=== PATIENT | male | born 1960 | race Caucasian/White ===

== ENCOUNTER 2022-10-06 11:46 | Outpatient (RCR) | payer MEDICAID, SELFPAY ==
[2022-09-15 11:34] LABS: Absolute Lymphocyte Count 2.93 X10^3/uL (0.83-4.51); Absolute Neutrophil Count 4.7 X10^3/uL (2.0-7.7); Basophil# 0.13 X10^3/uL; Basophil% 1.4 % (0-1); Eosinophil# 0.69 X10^3/uL; Eosinophils% 7.5 % (0-5); Hematocrit 42.4 % (40-54); Hemoglobin 14.2 g/dL (13.0-16.5); Lymphocyte # 2.93 X10^3/ul (0.83-4.51); Lymphocyte % 31.9 % (19-41); Mean Corp Hgb Conc 33.5 g/dL (32-36); Mean Corpuscular Hgb 30.1 pg (27.0-32.0); Mean Platelet Vol. 10.3 fl (6.2-12.0); Monocyte# 0.72 X10^3/uL; Monocyte% 7.8 % (0-10); NRBC Flagged by Analyzer 0 % (0-5); Neutrophil # 4.65 X10^3/uL (2.7-7.7); Neutrophil % 50.6 % (47-70); Platelet Count 279 K/mm3 (150-450); RBC Distribution Width CV 12.5 % (11.6-14.6); RBC Distribution Width SD 41.1 fl (35.1-43.9); Red Blood Count 4.71 M/mm3 (4.6-6.2); White Blood Count 9.2 K/mm3 (4.4-11.0)
[2022-09-15 11:45] LABS: International Normalized Ratio 2.9
[2022-09-15 12:07] LABS: ALB/GLOB Ratio 0.9 RATIO (0.9-2.4); AST(SGOT) 19 U/L (15-37); Alanine Aminotransfer ALT/SGPT 30 U/L (16-61); Albumin, Serum 3.7 g/dL (3.2-5.0); Alkaline Phosphatase 56 U/L (45-117); Anion Gap 7 (5-15); BUN 8 mg/dL (7-18); Chloride 108 mmol/L (98-107); Creatinine, Serum 1.15 mg/dL (0.70-1.30); EST Glomerular Filtration Rate 69 mL/min (>60); Est Glom Filt Rate - Afr Amer 83 mL/min (>60); Glucose 152 mg/dL (74-106); Potassium 4.2 mmol/L (3.5-5.1); Protein, Total 7.7 g/dL (6.4-8.2); Sodium Level 143 mmol/L (136-145)
[2022-09-15 12:09] LABS: Hemoglobin A1c 6.7 % (3.8-5.6)
[2022-10-06 13:02] LABS: International Normalized Ratio 2.7; Prothrombin Time (Protime)PT. 28.5 SECONDS (11.7-14.9)
== END 2022-10-06 18:00 | disposition home or self-care (01) ==
LOC: LAB 11:46
PROVIDERS: PCP Family Medicine; Visit Provider Family Medicine
DX: Z79.01 Long term (current) use of anticoagulants (principal); Z86.718 Personal history of other venous thrombosis and embolism; E11.9 Type 2 diabetes mellitus without complications
CPT/HCPCS: 36415; 80053; 83036; 85025; 85610

== ENCOUNTER 2022-11-24 09:47 | Outpatient (RCR) | payer MEDICAID, SELFPAY ==
[2022-11-17 10:36] LABS: International Normalized Ratio 1.9; Prothrombin Time (Protime)PT. 21.3 SECONDS (11.7-14.9)
[2022-11-24 10:46] LABS: Absolute Lymphocyte Count 2.57 X10^3/uL (0.83-4.51); Basophil# 0.09 X10^3/uL; Basophil% 1.1 % (0-1); Eosinophil# 0.76 X10^3/uL; Eosinophils% 9.2 % (0-5); Hemoglobin 13.1 g/dL (13.0-16.5); Lymphocyte # 2.57 X10^3/ul (0.83-4.51); Lymphocyte % 31.1 % (19-41); Mean Corpuscular Hgb 29.6 pg (27.0-32.0); Mean Corpuscular Volume 92.6 fL (80-94); Mean Platelet Vol. 11.2 fl (6.2-12.0); Monocyte# 0.74 X10^3/uL; NRBC Flagged by Analyzer 0 % (0-5); Neutrophil # 4.04 X10^3/uL (2.7-7.7); Neutrophil % 48.9 % (47-70); Platelet Count 275 K/mm3 (150-450); RBC Distribution Width CV 13.4 % (11.6-14.6); RBC Distribution Width SD 45.5 fl (35.1-43.9); Red Blood Count 4.43 M/mm3 (4.6-6.2); White Blood Count 8.3 K/mm3 (4.4-11.0)
[2022-11-24 11:09] LABS: Hemoglobin A1c 7.9 % (3.8-5.6)
[2022-11-24 11:16] LABS: AST(SGOT) 23 U/L (15-37); Alanine Aminotransfer ALT/SGPT 36 U/L (16-61); Albumin, Serum 3.5 g/dL (3.2-5.0); Alkaline Phosphatase 52 U/L (45-117); Anion Gap 2 (5-15); BUN 19 mg/dL (7-18); Calcium,Total 8.9 mg/dL (8.5-10.1); Chloride 110 mmol/L (98-107); Cholesterol 135 mg/dL (200); Creatinine, Serum 1.19 mg/dL (0.70-1.30); EST Glomerular Filtration Rate 66 mL/min (>60); Est Glom Filt Rate - Afr Amer 80 mL/min (>60); Globulin 3.6 g/dL (2.2-4.2); Glucose 170 mg/dL (74-106); High Density Lipoprotein 50 mg/dL; Potassium 4.2 mmol/L (3.5-5.1); Protein, Total 7.1 g/dL (6.4-8.2); Sodium Level 139 mmol/L (136-145); Triglycerides 89 mg/dL; Very Low Density Lipoprotein 18 mg/dL (5-40)
== END 2022-12-12 01:18 | disposition home or self-care (01) ==
LOC: LAB 09:47
PROVIDERS: PCP Family Medicine; Referring Provider Family Medicine; Visit Provider Family Medicine
DX: Z79.01 Long term (current) use of anticoagulants; Z86.718 Personal history of other venous thrombosis and embolism
CPT/HCPCS: 36415; 80053; 80061; 83036; 85025; 85610

== ENCOUNTER 2023-01-14 09:24 | Outpatient (RCR) | payer MEDICAID, SELFPAY ==
[2023-01-14 10:26] LABS: International Normalized Ratio 2.4; Prothrombin Time (Protime)PT. 26.6 SECONDS (11.7-14.9)
== END 2023-01-14 18:00 | disposition home or self-care (01) ==
LOC: LAB 09:24
PROVIDERS: PCP Family Medicine; Referring Provider Family Medicine; Visit Provider Family Medicine
DX: Z79.01 Long term (current) use of anticoagulants (principal); Z86.718 Personal history of other venous thrombosis and embolism
CPT/HCPCS: 36415; 85610

== ENCOUNTER 2023-02-24 14:46 | Outpatient (RCR) | payer MEDICAID, SELFPAY ==
[2023-02-24 14:57] LABS: INR Fingerstick 1.8; Prothrombin Time Fingerstick 19.9 SEC (11.7-14.9)
== END 2023-03-14 18:00 | disposition home or self-care (01) ==
LOC: LAB 14:46
PROVIDERS: PCP Family Medicine; Referring Provider Family Medicine; Visit Provider Family Medicine
DX: Z79.01 Long term (current) use of anticoagulants (principal); Z86.718 Personal history of other venous thrombosis and embolism
CPT/HCPCS: 36416; 85610

== ENCOUNTER → 2023-03-31 | Outpatient (CLI) | payer MEDICAID, SELFPAY ==
[2023-03-31 11:17] LABS: Absolute Lymphocyte Count 2.66 X10^3/uL (0.83-4.51); Absolute Neutrophil Count 4.6 X10^3/uL (2.0-7.7); Basophil% 1.1 % (0-1); Eosinophils% 7.8 % (0-5); Hematocrit 46.1 % (40-54); Hemoglobin 14.7 g/dL (13.0-16.5); Lymphocyte # 2.66 X10^3/ul (0.83-4.51); Lymphocyte % 29.8 % (19-41); Mean Corp Hgb Conc 31.9 g/dL (32-36); Mean Corpuscular Hgb 29.6 pg (27.0-32.0); Mean Corpuscular Volume 92.9 fL (80-94); Mean Platelet Vol. 10.9 fl (6.2-12.0); Monocyte# 0.81 X10^3/uL; Monocyte% 9.1 % (0-10); NRBC Flagged by Analyzer 0 % (0-5); Neutrophil # 4.61 X10^3/uL (2.7-7.7); Neutrophil % 51.5 % (47-70); Platelet Count 287 K/mm3 (150-450); RBC Distribution Width CV 13.4 % (11.6-14.6); RBC Distribution Width SD 45.5 fl (35.1-43.9); Red Blood Count 4.96 M/mm3 (4.6-6.2); White Blood Count 8.9 K/mm3 (4.4-11.0)
[2023-03-31 11:42] LABS: Hemoglobin A1c 6.4 % (3.8-5.6)
[2023-03-31 12:06] LABS: ALB/GLOB Ratio 0.9 RATIO (0.9-2.4); AST(SGOT) 22 U/L (15-37); Alanine Aminotransfer ALT/SGPT 33 U/L (16-61); Albumin, Serum 3.7 g/dL (3.2-5.0); Alkaline Phosphatase 63 U/L (45-117); Anion Gap 5 (5-15); BUN 15 mg/dL (7-18); BUN/Creat Ratio 11.3 RATIO (10-20); Calcium,Total 9.3 mg/dL (8.5-10.1); Chloride 109 mmol/L (98-107); Cholesterol 125 mg/dL (200); Creatinine, Serum 1.33 mg/dL (0.70-1.30); EST Glomerular Filtration Rate 58 mL/min (>60); Est Glom Filt Rate - Afr Amer 70 mL/min (>60); Globulin 4.1 g/dL (2.2-4.2); Glucose 95 mg/dL (74-106); High Density Lipoprotein 42 mg/dL; Potassium 4.2 mmol/L (3.5-5.1); Protein, Total 7.8 g/dL (6.4-8.2); Sodium Level 141 mmol/L (136-145); Thyroid Stim Hormone (TSH) 1.86 uIU/mL (0.358-3.74); Triglycerides 102 mg/dL; Very Low Density Lipoprotein 20 mg/dL (5-40)
== END | disposition home or self-care (01) ==
LOC: LAB 10:53
PROVIDERS: PCP Family Medicine; Referring Provider Family Medicine; Visit Provider Family Medicine
DX: E11.9 Type 2 diabetes mellitus without complications (principal); I10 Essential (primary) hypertension; E78.2 Mixed hyperlipidemia
CPT/HCPCS: 36415; 80053; 80061; 83036; 84443; 85025

== ENCOUNTER 2023-05-25 12:56 | Outpatient (RCR) | payer MEDICAID, SELFPAY ==
[2023-05-25 13:39] LABS: Prothrombin Time (Protime)PT. 31.5 SECONDS (11.7-14.9)
== END 2023-05-25 18:00 | disposition home or self-care (01) ==
LOC: LAB 12:56
PROVIDERS: PCP Family Medicine; Referring Provider Family Medicine; Visit Provider Family Medicine
DX: Z79.01 Long term (current) use of anticoagulants (principal); Z86.718 Personal history of other venous thrombosis and embolism
CPT/HCPCS: 36415; 85610

== ENCOUNTER → 2023-08-04 | Outpatient (CLI) | payer MEDICAID, SELFPAY ==
[2023-08-04 11:28] LABS: Absolute Neutrophil Count 5.3 X10^3/uL (2.0-7.7); Basophil# 0.11 X10^3/uL; Basophil% 1.2 % (0-1); Eosinophil# 0.57 X10^3/uL; Eosinophils% 6.3 % (0-5); Hematocrit 43.9 % (40-54); Hemoglobin 14.2 g/dL (13.0-16.5); Lymphocyte % 25.4 % (19-41); Mean Corp Hgb Conc 32.3 g/dL (32-36); Mean Corpuscular Hgb 29.4 pg (27.0-32.0); Mean Corpuscular Volume 90.9 fL (80-94); Mean Platelet Vol. 11.1 fl (6.2-12.0); Monocyte# 0.77 X10^3/uL; Monocyte% 8.5 % (0-10); NRBC Flagged by Analyzer 0 % (0-5); Neutrophil # 5.25 X10^3/uL (2.7-7.7); Neutrophil % 57.8 % (47-70); Platelet Count 286 K/mm3 (150-450); RBC Distribution Width CV 13.1 % (11.6-14.6); RBC Distribution Width SD 43.4 fl (35.1-43.9); Red Blood Count 4.83 M/mm3 (4.6-6.2); White Blood Count 9.1 K/mm3 (4.4-11.0)
[2023-08-04 11:52] LABS: Hemoglobin A1c 9.2 % (3.8-5.6)
[2023-08-04 11:55] LABS: International Normalized Ratio 1.7; Prothrombin Time (Protime)PT. 20.4 SECONDS (11.7-14.9)
[2023-08-04 12:10] LABS: ALB/GLOB Ratio 0.9 RATIO (0.9-2.4); AST(SGOT) 32 U/L (15-37); Alanine Aminotransfer ALT/SGPT 50 U/L (16-61); Albumin, Serum 3.7 g/dL (3.2-5.0); Alkaline Phosphatase 63 U/L (45-117); Anion Gap 6 (5-15); BUN 11 mg/dL (7-18); BUN/Creat Ratio 8.5 RATIO (10-20); Calcium,Total 9.6 mg/dL (8.5-10.1); Chloride 106 mmol/L (98-107); Cholesterol 138 mg/dL (200); Creatinine, Serum 1.29 mg/dL (0.70-1.30); EST Glomerular Filtration Rate 60 mL/min (>60); Est Glom Filt Rate - Afr Amer 72 mL/min (>60); Glucose 252 mg/dL (74-106); High Density Lipoprotein 46 mg/dL; PSA,Total - Annual Screen 0.88 ng/mL (0.00-4.00); Potassium 4.7 mmol/L (3.5-5.1); Protein, Total 7.7 g/dL (6.4-8.2); Sodium Level 139 mmol/L (136-145); Triglycerides 98 mg/dL; Very Low Density Lipoprotein 20 mg/dL (5-40)
== END | disposition home or self-care (01) ==
LOC: LAB 10:21
PROVIDERS: PCP Family Medicine; Referring Provider Family Medicine; Visit Provider Family Medicine
DX: E11.42 Type 2 diabetes mellitus with diabetic polyneuropathy (principal); I10 Essential (primary) hypertension; Z12.5 Encounter for screening for malignant neoplasm of prostate; Z79.01 Long term (current) use of anticoagulants
CPT/HCPCS: 84153; 36415; 80053; 80061; 83036; 85025; 85610; G0103

== ENCOUNTER 2023-10-12 11:02 | Outpatient (RCR) | payer MEDICAID, SELFPAY ==
[2023-09-20 07:31] LABS: INR Fingerstick 3.2; Prothrombin Time Fingerstick 31.7 SEC (11.7-14.9)
[2023-10-12 11:40] LABS: International Normalized Ratio 2.7; Prothrombin Time (Protime)PT. 28.6 SECONDS (11.7-14.9)
== END 2023-10-13 18:00 | disposition home or self-care (01) ==
LOC: LAB 11:02
PROVIDERS: PCP Family Medicine; Referring Provider Family Medicine; Visit Provider Family Medicine
DX: Z86.718 Personal history of other venous thrombosis and embolism
CPT/HCPCS: 36415; 36416; 85610

== ENCOUNTER → 2023-11-25 | Outpatient (CLI) | payer MEDICAID, SELFPAY ==
[2023-11-25 11:55] LABS: Absolute Lymphocyte Count 2.74 X10^3/uL (0.83-4.51); Absolute Neutrophil Count 4.2 X10^3/uL (2.0-7.7); Basophil# 0.11 X10^3/uL; Basophil% 1.3 % (0-1); Eosinophils% 4.8 % (0-5); Hematocrit 44.5 % (40-54); Hemoglobin 14.3 g/dL (13.0-16.5); Lymphocyte # 2.74 X10^3/ul (0.83-4.51); Lymphocyte % 32.7 % (19-41); Mean Corp Hgb Conc 32.1 g/dL (32-36); Mean Corpuscular Hgb 29.1 pg (27.0-32.0); Mean Corpuscular Volume 90.6 fL (80-94); Mean Platelet Vol. 11.3 fl (6.2-12.0); Monocyte# 0.87 X10^3/uL; Monocyte% 10.4 % (0-10); NRBC Flagged by Analyzer 0 % (0-5); Neutrophil # 4.19 X10^3/uL (2.7-7.7); Neutrophil % 50.1 % (47-70); Platelet Count 269 K/mm3 (150-450); RBC Distribution Width CV 13.7 % (11.6-14.6); RBC Distribution Width SD 45.3 fl (35.1-43.9); Red Blood Count 4.91 M/mm3 (4.6-6.2); White Blood Count 8.4 K/mm3 (4.4-11.0)
[2023-11-25 12:13] LABS: International Normalized Ratio 2.4; Prothrombin Time (Protime)PT. 25.7 SECONDS (11.7-14.9)
[2023-11-25 12:15] LABS: Hemoglobin A1c 9.4 % (3.8-5.6)
[2023-11-25 12:25] LABS: ALB/GLOB Ratio 0.9 RATIO (0.9-2.4); AST(SGOT) 15 U/L (15-37); Alanine Aminotransfer ALT/SGPT 26 U/L (16-61); Albumin, Serum 3.6 g/dL (3.2-5.0); Alkaline Phosphatase 52 U/L (45-117); Anion Gap 4 (5-15); BUN 18 mg/dL (7-18); BUN/Creat Ratio 14.8 RATIO (10-20); Calcium,Total 9.3 mg/dL (8.5-10.1); Chloride 109 mmol/L (98-107); Cholesterol 111 mg/dL (200); Creatinine, Serum 1.22 mg/dL (0.70-1.30); EST Glomerular Filtration Rate 64 mL/min (>60); Est Glom Filt Rate - Afr Amer 77 mL/min (>60); Globulin 3.8 g/dL (2.2-4.2); Glucose 183 mg/dL (74-106); High Density Lipoprotein 51 mg/dL; Potassium 4.3 mmol/L (3.5-5.1); Protein, Total 7.4 g/dL (6.4-8.2); Sodium Level 139 mmol/L (136-145); Triglycerides 106 mg/dL; Very Low Density Lipoprotein 21 mg/dL (5-40)
== END | disposition home or self-care (01) ==
LOC: LAB 11:11
PROVIDERS: PCP Family Medicine; Referring Provider Family Medicine; Visit Provider Family Medicine
DX: E11.9 Type 2 diabetes mellitus without complications (principal); E78.2 Mixed hyperlipidemia; Z79.01 Long term (current) use of anticoagulants
CPT/HCPCS: 36415; 80053; 80061; 83036; 85025; 85610

== ENCOUNTER 2024-02-14 16:10 | Outpatient (RCR) | payer MEDICAID, SELFPAY ==
[2024-02-14 16:42] LABS: International Normalized Ratio 1.9; Prothrombin Time (Protime)PT. 21.5 SECONDS (11.7-14.9)
== END 2024-03-14 18:00 | disposition home or self-care (01) ==
LOC: LAB 16:10
PROVIDERS: PCP Family Medicine; Referring Provider Family Medicine; Visit Provider Family Medicine
DX: Z86.718 Personal history of other venous thrombosis and embolism (principal)
CPT/HCPCS: 36415; 85610

== ENCOUNTER → 2024-03-02 | Outpatient (CLI) | payer MEDICAID, SELFPAY ==
[2024-03-02 15:07] LABS: International Normalized Ratio 1.6; Prothrombin Time (Protime)PT. 18.6 SECONDS (11.7-14.9)
[2024-03-02 15:50] LABS: ALB/GLOB Ratio 0.9 RATIO (0.9-2.4); AST(SGOT) 22 U/L (15-37); Alanine Aminotransfer ALT/SGPT 28 U/L (16-61); Albumin, Serum 3.6 g/dL (3.2-5.0); Alkaline Phosphatase 56 U/L (45-117); Anion Gap 7 (5-15); BUN 13 mg/dL (7-18); BUN/Creat Ratio 10.4 RATIO (10-20); Calcium,Total 9.1 mg/dL (8.5-10.1); Chloride 107 mmol/L (98-107); Creatinine, Serum 1.25 mg/dL (0.70-1.30); EST Glomerular Filtration Rate 62 mL/min (>60); Est Glom Filt Rate - Afr Amer 75 mL/min (>60); Glucose 196 mg/dL (74-106); Potassium 4.4 mmol/L (3.5-5.1); Protein, Total 7.6 g/dL (6.4-8.2); Sodium Level 141 mmol/L (136-145)
[2024-03-02 15:51] LABS: Hemoglobin A1c 7.6 % (3.8-5.6)
== END | disposition home or self-care (01) ==
LOC: LAB 13:54
PROVIDERS: PCP Family Medicine; Referring Provider Family Medicine; Visit Provider Family Medicine
DX: E11.42 Type 2 diabetes mellitus with diabetic polyneuropathy (principal); D68.51 Activated protein C resistance
CPT/HCPCS: 36415; 80053; 83036; 85610

== ENCOUNTER 2024-05-14 12:33 | Outpatient (RCR) | payer MEDICAID, SELFPAY ==
[2024-05-14 13:34] LABS: International Normalized Ratio 1.7; Prothrombin Time (Protime)PT. 20.1 SECONDS (11.7-14.9)
== END 2024-05-14 18:00 | disposition home or self-care (01) ==
LOC: LAB 12:33
PROVIDERS: PCP Family Medicine; Referring Provider Family Medicine; Visit Provider Family Medicine
DX: Z86.718 Personal history of other venous thrombosis and embolism (principal)
CPT/HCPCS: 36415; 85610

== ENCOUNTER → 2024-07-05 | Outpatient (CLI) | payer MEDICAID, SELFPAY ==
[2024-07-05 12:49] LABS: Absolute Neutrophil Count 4.7 X10^3/uL (2.0-7.7); Basophil# 0.09 X10^3/uL; Basophil% 1.1 % (0-1); Eosinophil# 0.26 X10^3/uL; Eosinophils% 3.1 % (0-5); Hematocrit 43.5 % (40-54); Hemoglobin 14.2 g/dL (13.0-16.5); Lymphocyte % 29.6 % (19-41); Mean Corp Hgb Conc 32.6 g/dL (32-36); Mean Platelet Vol. 11.2 fl (6.2-12.0); Monocyte# 0.79 X10^3/uL; Monocyte% 9.3 % (0-10); NRBC Flagged by Analyzer 0 % (0-5); Neutrophil # 4.72 X10^3/uL (2.7-7.7); Neutrophil % 55.8 % (47-70); Platelet Count 278 K/mm3 (150-450); RBC Distribution Width CV 13.8 % (11.6-14.6); RBC Distribution Width SD 46.9 fl (35.1-43.9); Red Blood Count 4.73 M/mm3 (4.6-6.2); White Blood Count 8.5 K/mm3 (4.4-11.0)
[2024-07-05 13:00] LABS: International Normalized Ratio 2.3; Prothrombin Time (Protime)PT. 25.2 SECONDS (11.7-14.9)
[2024-07-05 13:21] LABS: ALB/GLOB Ratio 0.9 RATIO (0.9-2.4); AST(SGOT) 16 U/L (15-37); Alanine Aminotransfer ALT/SGPT 29 U/L (16-61); Albumin, Serum 3.5 g/dL (3.2-5.0); Alkaline Phosphatase 61 U/L (45-117); Anion Gap 5 (5-15); BUN 11 mg/dL (7-18); BUN/Creat Ratio 10.5 RATIO (10-20); Chloride 108 mmol/L (98-107); Cholesterol 220 mg/dL (200); Creatinine, Serum 1.05 mg/dL (0.70-1.30); EST Glomerular Filtration Rate 76 mL/min (>60); Est Glom Filt Rate - Afr Amer 92 mL/min (>60); Globulin 3.9 g/dL (2.2-4.2); Glucose 119 mg/dL (74-106); High Density Lipoprotein 54 mg/dL; Potassium 4.1 mmol/L (3.5-5.1); Protein, Total 7.4 g/dL (6.4-8.2); Sodium Level 140 mmol/L (136-145); Triglycerides 112 mg/dL; Very Low Density Lipoprotein 22 mg/dL (5-40)
[2024-07-05 14:53] LABS: Hemoglobin A1c 8.2 % (3.8-5.6)
== END | disposition home or self-care (01) ==
LOC: LAB 11:25
PROVIDERS: PCP Family Medicine; Referring Provider Family Medicine; Visit Provider Family Medicine
DX: E11.42 Type 2 diabetes mellitus with diabetic polyneuropathy (principal); I10 Essential (primary) hypertension; E78.2 Mixed hyperlipidemia; Z79.01 Long term (current) use of anticoagulants; Z12.5 Encounter for screening for malignant neoplasm of prostate
CPT/HCPCS: 36415; 80053; 80061; 83036; 85025; 85610

== ENCOUNTER 2024-08-16 11:36 | Outpatient (RCR) | payer MEDICAID, SELFPAY ==
[2024-08-16 12:23] LABS: International Normalized Ratio 1.5
== END 2024-08-16 18:00 | disposition home or self-care (01) ==
LOC: LAB 11:36
PROVIDERS: PCP Family Medicine; Referring Provider Family Medicine; Visit Provider Family Medicine
DX: Z86.718 Personal history of other venous thrombosis and embolism (principal)

== ENCOUNTER 2024-10-01 13:37 | Outpatient (RCR) | payer MEDICAID, SELFPAY ==
[2024-09-24 12:31] LABS: International Normalized Ratio 1.9; Prothrombin Time (Protime)PT. 21.8 SECONDS (11.7-14.9)
[2024-09-24 12:52] LABS: Cholesterol 113 mg/dL (200); High Density Lipoprotein 54 mg/dL; T4 Free Direct 0.93 ng/dL (0.76-1.46); Triglycerides 66 mg/dL; Very Low Density Lipoprotein 13 mg/dL (5-40)
[2024-09-24 13:17] LABS: Microalbumin,Random Urine 10.3 mg/L (NO RANGE EST.); Microalbumin:Creatinine Ratio 8.8 mg/g CRE (<30 mg/g CRE)
[2024-10-01 14:32] LABS: International Normalized Ratio 1.5
== END 2024-10-12 18:00 | disposition home or self-care (01) ==
LOC: LAB 13:37
PROVIDERS: PCP Family Medicine; Referring Provider Family Medicine; Visit Provider Family Medicine
DX: Z86.718 Personal history of other venous thrombosis and embolism (principal)
CPT/HCPCS: 36415; 80061; 82043; 82570; 84439; 84443; 85610

== ENCOUNTER 2024-11-05 11:37 | Outpatient (RCR) | payer MEDICAID, SELFPAY ==
[2024-11-05 12:45] LABS: International Normalized Ratio 1.9; Prothrombin Time (Protime)PT. 22.3 SECONDS (11.7-14.9)
== END 2024-11-05 18:00 | disposition home or self-care (01) ==
LOC: LAB 11:37
PROVIDERS: PCP Family Medicine; Referring Provider Family Medicine; Visit Provider Family Medicine
DX: Z86.718 Personal history of other venous thrombosis and embolism (principal); Z79.01 Long term (current) use of anticoagulants
CPT/HCPCS: 36415; 85610

== ENCOUNTER 2024-12-06 10:49 | Outpatient (RCR) | payer MEDICAID, SELFPAY ==
[2024-11-27 14:12] LABS: International Normalized Ratio 2.7; Prothrombin Time (Protime)PT. 29.3 SECONDS (11.7-14.9)
[2024-12-06 12:23] LABS: International Normalized Ratio 2.2; Prothrombin Time (Protime)PT. 24.6 SECONDS (11.7-14.9)
== END 2024-12-12 18:00 | disposition home or self-care (01) ==
LOC: LAB 10:49
PROVIDERS: PCP Family Medicine; Referring Provider Family Medicine; Visit Provider Family Medicine
DX: Z86.718 Personal history of other venous thrombosis and embolism (principal); Z79.01 Long term (current) use of anticoagulants
CPT/HCPCS: 36415; 85610

== ENCOUNTER 2025-01-10 12:09 | Outpatient (RCR) | payer MEDICAID, SELFPAY ==
[2025-01-03 11:07] LABS: Microalbumin,Random Urine < 12.0 mg/L (NO RANGE EST.); Microalbumin:Creatinine Ratio UNABLE TO CALCULATE mg/g CRE
[2025-01-03 12:42] LABS: Cholesterol 141 mg/dL (<=200); High Density Lipoprotein 58 mg/dL; Low Density Lipoprotein Calc. 69 mg/dL; Triglycerides 68 mg/dL; Very Low Density Lipoprotein 14 mg/dL (5-40); cholesterol:hdl ratio screen 2.42
[2025-01-10 13:53] LABS: International Normalized Ratio 2.3; Prothrombin Time (Protime)PT. 26.1 SECONDS (11.7-14.9)
== END 2025-01-10 18:00 | disposition home or self-care (01) ==
LOC: LAB 12:09
PROVIDERS: PCP Family Medicine; Referring Provider Family Medicine; Visit Provider Family Medicine
DX: Z86.718 Personal history of other venous thrombosis and embolism (principal); Z79.01 Long term (current) use of anticoagulants; E11.65 Type 2 diabetes mellitus with hyperglycemia
CPT/HCPCS: 36415; 80061; 82043; 82570; 84439; 84443; 85610

== ENCOUNTER 2025-01-29 15:30 | Outpatient (RCR) | payer MEDICAID, SELFPAY ==
[2025-01-29 16:35] LABS: International Normalized Ratio 1.4; Prothrombin Time (Protime)PT. 17.8 SECONDS (11.7-14.9)
== END 2025-01-29 18:00 | disposition home or self-care (01) ==
LOC: LAB 15:30
PROVIDERS: PCP Family Medicine; Referring Provider Family Medicine; Visit Provider Family Medicine
DX: Z86.718 Personal history of other venous thrombosis and embolism (principal); Z79.01 Long term (current) use of anticoagulants
CPT/HCPCS: 36415; 85610

== ENCOUNTER 2025-03-02 15:02 | Emergency (ER) | payer MEDICAID, SELFPAY ==
[2025-03-02 15:03] VITALS: BP 143/70; PULSE 64; RESP 18; TEMP 37; O2SAT 97; BMI 33.9
--- NOTE | 2025-03-02 15:20 | CT_ITS ---
PROCEDURE: CT CHEST, ABD, PEL W/CONTRAST 03/02/2025 REASON FOR EXAM: FELL DOWN STAIRS BACK PAIN TECHNIQUE: CT CHEST, ABD, PEL W/CONTRAST coronal and Sagittal reconstruction series were provided. One or more dose reduction techniques were used (e.g., Automated exposure control, adjustment of the mA and/or kV according to patient size, use of iterative reconstruction technique. CONTRAST: Isovue 370 VOLUME: 97 mL RADIATION DOSE SUMMARY: CTDlvol: 27.1 mGy DLP: 2360 mGycm COMPARISON: None FINDINGS: CHEST: Lines and tubes: None Mediastinum: No significant thoracic lymphadenopathy. There are few calcified right hilar nodes suggestive of prior granulomatous disease. Heart: Borderline cardiomegaly with mild coronary calcifications. Thoracic Aorta: Evaluation of the ascending thoracic aorta and aortic root is limited due to motion. Otherwise no evidence of thoracic aortic aneurysm or dissection. Mild calcified atherosclerosis. Lungs and Airways: Nodular opacity in the right aspect of the trachea measuring 9 mm (series 12 image 30). No focal consolidation. Pleura: No effusion or pneumothorax. Bones: Minimally displaced fracture of the left posterior 11th rib near the costovertebral joint ABDOMEN AND PELVIS: Liver: Unremarkable Gallbladder: Calcified stones without wall thickening or pericholecystic fluid. Spleen: Scattered calcifications suggestive of prior granulomatous disease. Pancreas: Normal size without evidence of mass surrounding inflammation or ductal dilation. Adrenals: Unremarkable Kidneys: Nonobstructing stone in the interpolar region of the left kidney measuring 1.0 cm. No hydronephrosis. There are subcentimeter lesions in the right kidney, some of which appear to contain fat density, which are too small to definitely characterize. Bladder: Unremarkable Reproductive Organs: Coarse prostatic calcifications Bowel: No obstruction or inflammation. Normal appendix. Vasculature: Possible splenic artery aneurysm measuring 1.4 cm (series 604, image 85). Mild aortic atherosclerosis. Bones: Minimally displaced fracture of the eft left L1 transverse process. Transitional lumbosacral anatomy. Degenerative changes of the spine. Soft tissues: Fat containing left inguinal hernia. CT/CT Chest, Abd, Pel w/Contrast IMPRESSION: 1. Minimally displaced fractures of the left posterior 11th rib and left L1 tr ansverse process. 2. No evidence of an acute traumatic abnormality within the chest, abdomen, or pelvis. 3. Nodular opacity in the trachea measuring 9 mm, possibly nonobstructing debr is, though neoplasm could appear similar. Consider Pulmonology consultation/referral. 4. Additional findings to include possible splenic artery aneurysm measuring 1 .4 cm, nonobstructing stone in the left kidney measuring 1.0 cm, and cholelithiasis. Reading Location: [id number]
--- NOTE | 2025-03-02 15:21 | CT_ITS ---
PROCEDURE: SPINE CERVICAL WITHOUT CONTRAS 03/02/2025 REASON FOR EXAM: TRAUMA TECHNIQUE: SPINE CERVICAL WITHOUT CONTRAS Coronal and Sagittal reconstruction series were provided. One or more dose reduction techniques were used (e.g., Automated exposure control, adjustment of the mA and/or kV according to patient size, use of iterative reconstruction technique. RADIATION DOSE SUMMARY: CTDlvol: 26 mGy DLP: 546 mGycm COMPARISON: None FINDINGS: Cervical vertebral body heights and alignment are maintained. There is straightening of the normal cervical lordosis which may be related to pain, positioning, or spasm. No displaced fracture. Mild multilevel disc height loss and endplate osteophyte formation which is worst at C6-7. No severe osseous neural foraminal or spinal canal narrowing at any level. Carotid atherosclerosis. Soft tissues of the neck are otherwise unremarkable. Lung apices better evaluated on same-day CT chest. CT/Spine Cervical without Contras IMPRESSION: No displaced cervical spine fracture. Mild degenerative changes. Reading Location: [facility]
--- NOTE | 2025-03-02 15:21 | CT_ITS ---
PROCEDURE: BRAIN/HEAD WITHOUT CONTRAST 03/02/2025 REASON FOR EXAM: TRAUMA TECHNIQUE: BRAIN/HEAD WITHOUT CONTRAST Coronal and Sagittal reconstruction series were provided. One or more dose reduction techniques were used (e.g., Automated exposure control, adjustment of the mA and/or kV according to patient size, use of iterative reconstruction technique. RADIATION DOSE SUMMARY: CTDlvol: 45 mGy DLP: 830 mGycm COMPARISON: None FINDINGS: Brain: No acute intracranial hemorrhage, mass effect, or midline shift. Low density in the periventricular white matter suggests mild chronic small vessel ischemic changes. CSF Spaces: Moderate generalized cerebral atrophy Sinuses/Mastoids: Predominantly clear Bones: No displaced fracture. No significant scalp hematoma. Status post bilateral cataract extraction. Atherosclerotic calcification of the intracranial arteries. CT/Brain/Head without Contrast IMPRESSION: No acute intracranial abnormality. Reading Location: [id number]
--- NOTE | 2025-03-02 15:21 | EX.ED.GENINJ ---
HPI History of Present Illness Chief Complaint: Fall Narrative Narrative: Patient is a 64-year-old male with past medical history of factor V Leiden on warfarin, hypercholesteremia, hypertension, diabetes who presents to the emergency department with a chief complaint of fall downstairs. He states that he was helping his son and the air conditioning upstairs leaking his feet were wet their wood steps he states that he hit the first step and fell down. He states that he not hit his head to his knowledge he states that he is having mid back pain mainly. He states that he does have some left leg pain where he hit his leg on the stair as well. Patient states did not pass out did not lose consciousness remembers entire event. [facility] Medical History (Updated 03/02/25 @ 19:[address] Nacho Mayberry, ) High cholesterol Hypertension Diabetes Factor 5 Leiden mutation, heterozygous Home Medications ?Medication ?Instructions ?Recorded ?Last Taken ?Type Lisinopril 40 mg PO DAILY 11/11/16 Unknown History amlodipine 10 mg tablet (Norvasc) 10 mg PO DAILY 11/11/16 Unknown History aspirin 81 mg chewable tablet 81 mg PO DAILY@0800 11/11/16 Unknown History metoprolol tartrate 25 mg tablet 12.5 mg PO BID 11/11/16 Unknown History simvastatin 20 mg tablet 20 mg PO QHS 11/11/16 Unknown History spironolactone 50 mg tablet 50 mg PO DAILY 11/11/16 Unknown History Allergy/AdvReac Type Severity Reaction Status Date / Time amoxicillin Allergy Unknown Verified 03/02/25 15:04 ezetimibe (From Zetia) Allergy Unknown Verified 03/02/25 15:04 prednisone Allergy Unknown Verified 03/02/25 15:04 Sulfa (Sulfonamide Allergy Unknown Verified 03/02/25 15:04 Antibiotics) Social History Smoking Status: Never smoker ROS ROS ED ROS Narrative Constitutional: Denies any fevers, chills, headaches Eyes: Denies change in vision double vision blurry vision Cardiovascular: Denies chest pain Respiratory: Denies coughing wheezing shortness of breath Abdomen: Denies abdominal pain nausea vomit diarrhea : Denies any urinary symptoms Neurological: Denies numbness, wheeze, tingling Musculoskeletal: Complains of back pain as noted above Skin: Denies any rashes or lesions EXAM Physical Exam Narrative Exam Narrative: General: Patient is lying in bed rest comfortably did not appear to be in acute distress Head: Atraumatic, normocephalic Eyes: PERRL bilaterally, EOMI bilateral, no conjunctival injection noted Neck: Soft, supple, trachea midline Cardiovascular: Regular rate and rhythm no murmurs gallops rubs noted Respiratory: Clear to auscultation bilaterally Abdomen: Soft, nondistended, nontender to palpation Musculoskeletal: Patient does have some tenderness palpation midline of the thoracic low upper lumbar spine no step-offs or deformities noted. Patient has mild tenderness to palpation of the left tib/fib region. All other bony prominences palpated joints taken through full range of motion no pain elicited Extremities: +5/5 strength noted in the bilateral upper and lower extremities, radial pulses +2/4 in the bladder extremities Neurological: Patient following commands knew that he was at [facility] year is 2024 Skin: Warm, dry, intact patient does have ecchymosis developing on the left posterior calf region Const Vital Signs: 03/02/25 15:03 03/02/25 16:20 03/02/25 17:02 Temperature 98.6 F Temperature Source Oral Pulse Rate 64 81 Respiratory Rate 18 21 H Respiratory Effort Normal Non-Labored Respiratory Depth Normal Respiratory Pattern Normal Blood Pressure 143/70 H 143/83 H Blood Pressure Mean 94 103 Pulse Ox 97 97 Oxygen Delivery Method Room Air Room Air Room Air 03/02/25 18:46 Temperature Temperature Source Pulse Rate 93 Respiratory Rate 23 H Respiratory Effort Respiratory Depth Respiratory Pattern Blood Pressure 133/85 H Blood Pressure Mean 101 Pulse Ox 96 Oxygen Delivery Method Room Air MDM MDM MDM Narrative Medical decision making narrative: Patient is a 64-year-old male who presents to the emergency department after falling down a few stairs after slipping on the top step with his feet being wet once again the stairs were wood causing him to slip. On the differential diagnose includes but not limited to intracranial hemorrhage, cervical spine fracture, thoracic spine fracture, lumbar spine fracture, rib fractures, pneumothorax. Once workup is obtained and reviewed he will be reevaluated. Patient be given IV fluids and Norflex. Patient's INR was 1.9, PT of 22.5. Patient sodium normal 130, potassium was 4.7, creatinine was normal at 1.16. Patient's AST and ALT are 20 and 16 respectively with a normal total bilirubin 0.24. Patient's tibia/fibula x-ray reviewed by myself by radiology showed no acute fracture or dislocation. Radiology states that if the patient is having knee pain that the knee was suboptimally evaluated she does not have any pain with attempted range of motion as noted above. Patient CT head and brain without contrast showed no acute intracranial normality. Patient CT cervical spine reviewed showed no displaced cervical spine fracture. Patient's CT chest abdomen pelvis with IV contrast reviewed showed minimally displaced fracture of the left posterior 11th rib in the left L1 transverse process. No evidence of acute traumatic abnormality within the chest abdomen or pelvis. Nodular opacity in the trachea measuring 9 mm possibly nonobstructing debris, though neoplasm could appear similar consider pulmonary consultation/referral. Additional findings to include possible splenic artery aneurysm measuring 1.4 cm nonobstructing stone in the left kidney measuring 1 cm and cholelithiasis. Patient's EKG reviewed showed sinus rhythm with a rate of 67 bpm PA interval 156 QTc of 416. I discussed the incidental findings of the CT with the patient gave him a hard copy of these results and advised him to follow-up with his doctor on these results. I did offer him transfer for observation for pain control of his 11th rib fracture and L1 transverse process fracture he states that he would like to go home at this point in time. Patient was advised to use Tylenol for mild to moderate pain he is advised to use Lidoderm patch and muscle relaxers as prescribed. He is encouraged to use the Percocet and Zofran for severe pain. He was advised to use incentive spirometry to likely hopefully prevent him from developing pneumonia from his rib fracture. He will be given referral to Dr. Willis spine surgery. He is encouraged return with worsening symptoms or concerns. He is agreeable this plan all question concerns answered he is discharged home in stable condition. Lab Data Labs: Laboratory Results - last 24 hr 03/02/25 03/02/25 16:11 17:19 PT 22.5 H INR 1.9 APTT 24.4 Sodium Cancelled 138 Potassium Cancelled 4.7 Chloride Cancelled 108 Carbon Dioxide Cancelled 22.3 Anion Gap Cancelled 8 BUN Cancelled 20 H Creatinine Cancelled 1.16 Estim Creat Clear Calc Cancelled 69.50 Est GFR (MDRD) Non-Af Cancelled 70 BUN/Creatinine Ratio Cancelled 17.1 Glucose Cancelled 149 H Calcium Cancelled 9.1 Total Bilirubin Cancelled 0.24 Direct Bilirubin Cancelled 0.10 AST Cancelled 20 ALT Cancelled 16 Alkaline Phosphatase Cancelled 58 Total Protein Cancelled 6.6 Albumin Cancelled 3.9 Globulin Cancelled 2.7 Radiography Diagnostic Testing: Clinical Impression(s) from Imaging Studies Chest/Abdomen/Pelvis CT 03/02/25 15:20 IMPRESSION: 1. Minimally displaced fractures of the left posterior 11th rib and left L1 transverse process. 2. No evidence of an acute traumatic abnormality within the chest, abdomen, or pelvis. 3. Nodular opacity in the trachea measuring 9 mm, possibly nonobstructing debris, though neoplasm could appear similar. Consider Pulmonology consultation/referral. 4. Additional findings to include possible splenic artery aneurysm measuring 1.4 cm, nonobstructing stone in the left kidney measuring 1.0 cm, and cholelithiasis. Reading Location: [id number] Brain CT 03/02/25 15:21 IMPRESSION: No acute intracranial abnormality. Reading Location: [id number] Cervical Spine CT 03/02/25 15:21 IMPRESSION: No displaced cervical spine fracture. Mild degenerative changes. Reading Location: [id number] Tibia/Fibula X-Ray 03/02/25 15:22 IMPRESSION: No displaced fracture of the left tibia or fibula. Of note, the knee is suboptimally evaluated on this exam, consider dedicated knee radiographs if clinically appropriate. Reading Location: [id number] Discharge Plan Triage Chief Complaint: Fall ED Provider: Nacho Mayberry Dx/Rx/DC Orders Clinical Impression: Closed rib fracture, Fracture of transverse process of lumbar vertebra, Fall, Hx of factor V Leiden mutation Prescriptions: No Action amlodipine [Norvasc] 10 MG tablet 10 mg PO DAILY simvastatin 20 MG tablet 20 mg PO QHS aspirin 81 MG tablet,chewable 81 mg PO DAILY@0800 spironolactone 50 MG tablet 50 mg PO DAILY metoprolol tartrate 25 MG tablet 12.5 mg PO BID Lisinopril 40 mg PO DAILY Primary Care Provider: Sunny Zavala Referrals: Sunny Zavala DO [Primary Care Provider] - James Domingo MD [Med Staff - Active Staff] - Activity Restrictions/Additional Instructions: Your INR was noted be 1.9. Use Tylenol for mild to moderate pain and use the Lidoderm patch and the muscle relaxer as prescribed do not operate anything under the influence of the muscle relaxer or the narcotic that will be sent to the pharmacy. Use the narcotic as prescribed for severe pain. Use incentive spirometry as we discussed as well. Return with worsening symptoms or concerns otherwise follow-up with your primary care physician on the incidental findings that were noted on the CT scan that we discussed here in the emergency department. Print Language: Welsh Disposition Disposition: Home, Self Care
--- NOTE | 2025-03-02 15:22 | RAD_ITS ---
EXAM: TIBIA FIBULA 2 VIEWS CLINICAL HISTORY: FALL PAIN COMPARISON: None. TECHNIQUE: 4 views of the left tibia and fibula FINDINGS: No displaced fracture or traumatic malalignment. Bone mineral density is subjectively normal. The soft tissues are unremarkable. RAD/Tibia & Fibula 2 Views IMPRESSION: No displaced fracture of the left tibia or fibula. Of note, the knee is suboptimally evaluated on this exam, consider dedicated kn ee radiographs if clinically appropriate. Reading Location: [facility]
--- OUTSIDE RECORDS SUMMARY | 2025-03-02 15:47 | XMS RPT_ITS | CCD ---
Author Organization [facility] Providers Care Psychological Assistant Name Role Phone BOLIVAR SOMMER Unavailable Unavailable Bolivar Sommer Unavailable Unavailable Mohit, Lluvia Unavailable Unavailable Mohit, Brianna N Unavailable Unavailable Rickie, Og Bin Unavailable Unavailable Rickie, Og Bin Unavailable Unavailable Rickie, Og Bin Unavailable Unavailable Rickie, Og Bin Unavailable Unavailable Rickie, Og Bin Unavailable Unavailable Mohit, Brianna N Unavailable Unavailable Mohit, Brianna N Unavailable Unavailable Mohit, Brianna N Unavailable Unavailable Mohit, Brianna N Unavailable Unavailable Helen, Juan K Unavailable Unavailable Helen, Juan K Unavailable Unavailable Mohit, Brianna N Unavailable Unavailable Mohit, Brianna N Unavailable Unavailable Rings, Donovan Unavailable Unavailable Rings, Donovan Unavailable Unavailable Mohit, Lluvia N Primary Care Provider Damien Miller Primary Care Provider Damien Miller MD Primary Care Provider Sunny Zavala DO Primary Care Provider Sunny Zavala DO Primary Care Provider Sunny Zavala DO Primary Care Provider Damien Miller MD Primary Care Provider Dr. Sunny Zavala DO Primary Care Provider Dr. Sunny Zavala DO Attending Provider Dr. Sunny Zavala DO Referring Provider ANNE HAINES Other Provider Dr. Sunny Zavala DO Primary Care Provider [phone] Linda ALLEN, Dr. Correa Attending Provider [phone] Linda ALLEN, Dr. Correa Referring Provider Linda ALLEN, Dr. Correa Primary Care Provider Linda ALLEN, Dr. Correa Attending Provider Linda ALLEN, Dr. Correa Referring [facility] Other Provider Rafaa, Sunny Primary Care Unavailable Petrilla, Sunny Referring Unavailable Petrilla, Sunny Attending Unavailable Petrilla, Sunny Attending Unavailable Petrilla, Sunny Primary Care Unavailable Petrilla, Sunny Referring Unavailable GATHERWRIGHT, LINNETTE Consulting Unavailable Petrilla, Sunny Attending Unavailable Petrilla, Sunny Primary Care Unavailable Petrilla, Sunny Referring Unavailable GATHERWRIGHT, LINNETTE Consulting Unavailable Petrilla, Sunny Attending Unavailable Petrilla, Sunny Primary Care Unavailable Petrilla, Sunny Referring Unavailable GATHERWRIGHT, LINNETTE Consulting Unavailable Petrilla, Sunny Attending Unavailable GATHERWRIGHT, LINNETTE Consulting Unavailable Petrilla, Sunny Primary Care Unavailable Petrilla, Sunny Referring Unavailable Petrilla, Sunny Attending Unavailable Petrilla, Sunny Primary Care Unavailable Petrilla, Sunny Primary Care Unavailable Petrilla, Sunny Referring Unavailable Petrilla, Sunny Attending Unavailable Petrilla, Sunny Primary Care Unavailable Petrilla, Sunny Referring Unavailable Petrilla, Sunny Attending Unavailable Petrilla, Sunny Referring Unavailable Petrilla, Sunny Primary Care Unavailable Petrilla, Sunny Attending Unavailable Petrilla, Sunny Attending Unavailable Petrilla, Sunny Referring Unavailable Petrilla, Sunny Primary Care Unavailable Petrilla, Sunny Attending Unavailable Petrilla, Sunny Referring Unavailable Petrilla, Sunny Primary Care Unavailable GATHERWRIGHT, LINNETTE Consulting Unavailable Petrilla, Sunny Attending Unavailable Petrilla, Sunny Referring Unavailable Petrilla, Sunny Primary Care Unavailable GATHERWRIGHT, LINNETTE Consulting Unavailable PETRILLA, SUNNY Attending Unavailable PETRILLA, SUNNY Primary Care Unavailable PETRILLA, SUNNY Attending Unavailable PETRILLA, SUNNY Primary Care Unavailable PETRILLA, SUNNY Attending Unavailable PETRILLA, SUNNY Primary Care Unavailable [facility] Attending Unavailable PETRILLA, SUNNY Referring Unavailable PETRILLA, SUNNY Primary Care Unavailable ZEINAB VENTURA Attending Unavailable PETRILLA, SUNNY Primary Care Unavailable ZEINAB VENTURA Attending Unavailable SUNNY ZAVALA Primary Care Unavailable YANCY ANNE Attending Unavailable SUNNY ZAVALA Primary Care Unavailable SUNNY ZAVALA Attending Unavailable SUNNY ZAVALA Primary Care Unavailable Allergies Allergy Classification Reported Allergen(s) Allergy Type Date of Onset Reaction(s) Facility (2 sources) exenatide Drug Allergy 7 Other (See Comments) [facility] Work Phone: (20 sources) Amoxicillin Drug Allergy 7 Unknown [facility] (12 sources) ezetimibe Drug Allergy 7 Unknown [facility] (12 sources) predniSONE Drug Allergy 7 Unknown [facility] (12 sources) Sulfonamides (Antibiotic) Allergy to substance 7 Unknown [facility] (20 sources) atorvastatin Drug Allergy 3 Other [facility] Work Phone: (20 sources) exenatide Drug Allergy 7 Other [facility] (20 sources) ezetimibe Drug Allergy 7 Unknown [facility] (20 sources) Prednisone Allergy to substance 7 Unknown [facility] (20 sources) Sulfonamides (Antibiotic) Drug Allergy 7 [facility] (19 sources) POISON DEVI EXTRACT Drug Allergy 5 Itching [facility] (1 source) Amoxicillin Drug Allergy 7 [facility] (1 source) ezetimibe Drug Allergy 7 [facility] (1 source) predniSONE Drug Allergy 7 [facility] (1 source) Sulfonamides (Antibiotic) Drug allergy (disorder) 7 [facility] Medications Current Medications Medication Drug Class(es) Dates Sig (Normalized) Sig (Original) amLODIPine 10 mg oral tablet (20 sources) Dihydropyridine Calcium Channel Chau Start: 11-11-2016 End: 06-21-2024 take 1 tablet by mouth once daily Amlodipine (Norvasc) 10 MG tablet Active 10 mg PO DAILY November 11, 2016 12:00am apixaban 2.5 mg oral tablet (1 source) Factor Xa Inhibitor Start: 02-20-2025 apixaban (Eliquis) 2.5 MG tablet Begin 1 tablet twice daily after stopping Coumadin for 1 week. 60 tablet 11 02/20/2025 Active aspirin 81 mg chewable tablet (12 sources) Platelet Aggregation Inhibitor, Nonsteroidal Anti-inflammatory Drug Start: 11-11-2016 take 1 tablet by mouth once daily Aspirin 81 MG tablet,chewable Active 81 mg PO DAILY@0800 November 11, 2016 12:00am cyclobenzaprine hydrochloride 5 mg oral tablet (1 source) Muscle Relaxant Start: 06-09-2020 End: 06-19-2020 take 1 tablet by mouth twice daily as needed for muscle spasms cyclobenzaprine (FLEXERIL) 5 MG tablet Indications: Acute low back pain with bilateral sciatica, unspecified back pain laterality Take 1 tablet by mouth 2 times daily as needed for Muscle spasms 10 tablet 0 06/09/2020 06/19/2020 Active dapagliflozin 10 mg oral tablet (20 sources) Sodium-Glucose Cotransporter 2 Inhibitor Start: 11-29-2023 End: 12-31-2025 take 1 tablet by mouth once daily in the evening dapagliflozin (Farxiga) 10 MG tablet Indications: Type 2 diabetes mellitus with hyperglycemia, without long-term current use of insulin ([facility]) Take 1 tablet (10 mg) by mouth daily. 90 tablet 3 01/04/2025 3:54 PM EDT 12/31/2024 12/31/2025 Active Start: 08-25-2023 End: 11-03-2024 take 1 tablet by mouth once daily dapagliflozin (Farxiga) 5 MG tablet Take 1 tablet (5 mg) by mouth daily. 90 tablet 1 11/04/2023 11/29/2023 Discontinued 0.5 ml dulaglutide 3 mg/ml auto-injector (20 sources) GLP-1 Receptor Agonist Start: 12-31-2024 End: 12-31-2025 inject 1.5 mg by subcutaneous injection every week in the evening dulaglutide (Trulicity) 1.5 MG/0.5ML Indications: Type 2 diabetes mellitus with hyperglycemia, without long-term current use of insulin ([facility]) Inject 1.5 mg under the skin 1 (one) time per week. 12 Pen 3 01/28/2025 3:44 PM EDT 12/31/2024 12/31/2025 Active Start: 03-18-2024 End: 09-04-2025 inject 0.75 mg by subcutaneous injection every week in the morning dulaglutide (Trulicity) 0.75 MG/0.5ML Indications: Type 2 diabetes mellitus with hyperglycemia, without long-term current use of insulin (HCC) Inject 0.75 mg under the skin 1 (one) time per week. 12 each 3 12/04/2024 8:21 AM EDT 09/04/2024 12/31/2024 Discontinued Start: 01-17-2023 End: 08-25-2023 inject 1.5 mg by subcutaneous injection every week dulaglutide (Trulicity) 1.5 MG/0.5ML solution pen-injector Inject 1.5 mg under the skin 1 (one) time per week. 4 Pen 1 07/12/2023 08/25/2023 Discontinued (Availability) Start: 01-17-2023 End: 04-11-2023 inject 0.75 mg by subcutaneous injection every week dulaglutide (Trulicity) 0.75 MG/0.5ML solution pen-injector Inject 0.75 mg under the skin 1 (one) time per week. 4 each 11 01/17/2023 04/11/2023 Discontinued (Dose adjustment) Start: 05-22-2020 Dulaglutide (T RULICITY) 1.5 MG/0.5ML SOPN Indications: Type 2 diabetes mellitus with diabetic polyneuropathy, without long-term current use of insulin (HCC) Inject 1.5 mg into the skin once a week 13 pen 4 05/22/2020 Active isopropyl alcohol 0.7 ml/ml medicated pad (19 sources) Start: 09-04-2024 End: 09-04-2025 Alcohol Swabs 70 % pads Indications: Type 2 diabetes mellitus with hyperglycemia, without long-term current use of insulin (HCC) 1 each 2 times daily. 200 each 3 09/04/2024 09/04/2025 Active lisinopril 40 mg oral tablet (12 sources) Angiotensin Converting Enzyme Inhibitor Start: 11-11-2016 take 40 mg by mouth once daily Lisinopril Active 40 mg PO DAILY November 11, 2016 12:00am metFORMIN hydrochloride 1000 mg oral tablet (20 sources) Biguanide Start: 08-23-2012 End: 06-09-2029 take 1 tablet by mouth twice daily at mealtime metFORMIN (Glucophage) 1000 MG tablet Indications: Type 2 diabetes mellitus with hyperglycemia, without long-term current use of insulin (HCC) Take 1 tablet (1,000 mg) by mouth 2 times daily (with meals) for 360 doses. 180 tablet 1 12/31/2024 06/29/2025 Active metoprolol tartrate 37.5 mg oral tablet (20 sources) beta-Adrenergic Chau Start: 10-23-2024 End: 04-21-2025 take 1 tablet by mouth twice daily metoprolol tartrate (Lopressor) 37.5 MG tablet Take 1 tablet (37.5 mg) by mouth 2 times daily for 360 doses. 180 tablet 1 10/23/2024 04/21/2025 Active Start: 03-02-2024 End: 03-17-2025 take 1 tablet by mouth twice daily metoprolol tartrate (Lopressor) 25 MG tablet Take 1 tablet (25 mg) by mouth 2 times daily for 360 doses. 180 tablet 1 09/18/2024 10/23/2024 Discontinued Start: 05-26-2022 End: 03-02-2024 take 2 tablets by mouth in the morning metoprolol tartrate (Lopressor) 25 MG tablet Take 2 tablets (50 mg) by mouth in the morning and 2 tablets (50 mg) in the evening. Take with meals. 120 tablet 5 08/24/2023 03/02/2024 Discontinued Start: 02-21-2020 metoprolol tar trate (LOPRESSOR) 25 MG tablet 50 mg in am and 25 mg in evening 270 tablet 4 02/21/2020 Active Start: 05-25-2019 take 1 tablet by arabella th twice daily metoprolol tartrate (LOPRESSOR) 25 MG tablet Take 1 tablet by mouth 2 times daily 180 tablet 4 05/25/2019 Active Start: 11-11-2016 Metoprolol Tar trate 25 MG tablet Active 12.5 mg PO TWICE A DAY November 11, 2016 12:00am Start: 11-11-2016 take 12.5 mg by mout h twice daily Metoprolol Tartrate Active 12.5 MG PO TWICE A DAY November 11, 2016 12:00am Multiple Vitamins-Minerals (MULTIVITAMIN PO) (2 sources) Multiple Vitamins-Minerals (MULTIVITAMIN PO) Take 1 tablet by mouth 0 Active NONFORMULARY (1 source) NONFORMULARY Jui ce plus capsule/bid 0 Active pantoprazole 40 mg delayed release oral tablet (2 sources) Proton Pump Inhibitor Start: 2018 take 1 tablet by mouth once daily before breakfast pantoprazole (PROTONIX) 40 MG tablet Indications: Epigastric pain Take 1 tablet by mouth every morning (before breakfast) 90 tablet 4 05/25/2019 Active ramipril 10 mg oral capsule (20 sources) Angiotensin Converting Enzyme Inhibitor Start: 2023 End: 2024 take 1 capsule by mouth in the morning ramipril (Altace) 10 MG capsule TAKE ONE CAPSULE BY MOUTH IN THE MORNING AND ONE CAPSULE IN THE EVENING 180 capsule 1 09/21/2024 Active Start: 05-26-2022 End: 11-04-2023 take 2 capsules by mouth in the morning, then take 2 capsules by mouth in the evening, then take 1 capsule by mouth in the morning, then take 1 capsule by mouth in the evening ramipril (Altace) 10 MG capsule Take 2 capsules by mouth in the morning and 2 capsules in the evening. One capsule in the am and one capsule in the pm. 0 05/26/2022 11/04/2023 Discontinued (Reorder) Start: 10-25-2019 End: 07-17-2020 take 1 capsule by mouth once daily ramipril (ALTACE) 10 MG capsule Take 1 capsule by mouth daily 30 capsule 5 10/25/2019 07/17/2020 Active Start: 05-25-2019 End: 02-15-2020 take 1 capsule by mouth twice daily ramipril (ALTACE) 10 MG capsule Take 1 capsule by mouth 2 times daily 180 capsule 4 05/25/2019 02/15/2020 Active rosuvastatin calcium 10 mg oral tablet (20 sources) HMG-CoA Reductase Inhibitor Start: 07-17-2024 End: 03-18-2025 take 1 tablet by mouth once daily rosuvastatin (Crestor) 10 MG tablet TAKE 1 TABLET (10 MG) BY MOUTH DAILY. 90 tablet 1 09/19/2024 03/18/2025 Active Start: 09-08-2022 End: 06-21-2024 take 1 tablet by mouth once daily rosuvastatin (Crestor) 10 MG tablet Take 1 tablet (10 mg) by mouth daily. 30 tablet 5 01/17/2023 06/21/2024 Discontinued (Side effects) simvastatin 20 mg oral tablet (12 sources) HMG-CoA Reductase Inhibitor Start: 11-11-2016 take 1 tablet by mouth at bedtime Simvastatin 20 MG tablet Active 20 mg PO AT BEDTIME November 11, 2016 12:00am spironolactone 50 mg oral tablet (12 sources) Aldosterone Antagonist Start: 11-11-2016 take 1 tablet by mouth once daily Spironolactone 50 MG tablet Active 50 mg PO DAILY November 11, 2016 12:00am tamsulosin hydrochloride 0.4 mg oral capsule (1 source) alpha-Adrenergic Chau Start: 06-09-2020 End: 06-23-2020 take 1 capsule by mouth once daily tamsulosin (FLOMAX) 0.4 MG capsule Indications: Flank pain Take 1 capsule by mouth daily for 14 days 14 capsule 0 06/09/2020 06/23/2020 Active Completed/Discontinued Medications Medication Drug Class(es) Dates Sig (Normalized) Sig (Original) atorvastatin 40 mg oral tablet (2 sources) HMG-CoA Reductase Inhibitor Start: 05-26-2022 End: 09-08-2022 atorvastatin (Lipitor) 40 MG tablet Start: 05-22-2020 take 1 tablet by arabella once daily atorvastatin (LIPITOR) 40 MG tablet Indications: Type 2 diabetes mellitus with diabetic polyneuropathy, without long-term current use of insulin (HCC) , Mixed hyperlipidemia Take 1 tablet by mouth daily 90 tablet 1 05/22/2020 Active bisacodyl 5 mg delayed release oral tablet (20 sources) Stimulant Laxative Start: 07-26-2022 End: 11-04-2023 bisacodyl (Dulcolax) 5 MG EC tablet Take 3 tablets at 8:00pm two days before your colonoscopy. Take 3 tablets at 4:00pm the day before your procedure. 6 tablet 0 07/26/2022 11/04/2023 Discontinued (Therapy completed) calcium chloride 0.0014 meq/ml / potassium chloride 0.004 meq/ml / sodium chloride 0.103 meq/ml / sodium lactate 0.028 meq/ml injectable solution (2 sources) Start: 09-23-2022 End: 09-24-2022 lactated Ringer's (LR) infusion cholecalciferol 0.125 mg oral capsule (20 sources) Vitamin D End: 09-04-2024 take 1 capsule by mouth once daily cholecalciferol (Vitamin D-3) 125 MCG (5000 UT) capsule Take 5,000 Units by mouth daily. 09/04/2024 Discontinued (Med list cleanup) dulaglutide (Trulicity) 3 MG/0.5ML solution pen-injector (20 sources) Start: 01-17-2023 End: 08-25-2023 inject 3 mg by subcutaneous injection every week dulaglutide (Trulicity) 3 MG/0.5ML solution pen-injector Inject 3 mg under the skin 1 (one) time per week. 4 each 01/17/2023 08/25/2023 Discontinued (Availability) Start: 01-17-2023 inject 3 mg by subcu taneous injection every week dulaglutide (Trulicity) 3 MG/0.5ML solution pen-injector Inject 3 mg under the skin 1 (one) time per week. 4 each 01/17/2023 Active dulaglutide (Trulicity) 4.5 MG/0.5ML solution pen-injector (20 sources) Start: 01-17-2023 End: 08-25-2023 inject 4.5 mg by subcutaneous injection every week dulaglutide (Trulicity) 4.5 MG/0.5ML solution pen-injector Inject 4.5 mg under the skin 1 (one) time per week. 4 each 01/17/2023 08/25/2023 Discontinued (Availability) Start: 01-17-2023 inject 4.5 mg by sub cutaneous injection every week dulaglutide (Trulicity) 4.5 MG/0.5ML solution pen-injector Inject 4.5 mg under the skin 1 (one) time per week. 4 each 01/17/2023 Active 0.85 ml exenatide 2.35 mg/ml auto-injector (2 sources) GLP-1 Receptor Agonist Start: 10-07-2022 End: 10-08-2022 exenatide ER (Bydureon BCise) 2 MG/0.85ML pen Inject 1 pen (2 mg) under the skin Once for 1 dose. 4 pen 5 10/07/2022 10/08/2022 Discontinued (Availability) glipiZIDE 5 mg oral tablet (20 sources) Sulfonylurea Start: 12-20-2016 End: 06-09-2029 take 2 tablets by mouth twice daily glipiZIDE (Glucotrol) 5 MG tablet Take 2 tablets by mouth 2 times daily. 0 12/20/2016 04/11/2023 Discontinued (Alternate therapy) hydroCHLOROthiazide 12.5 mg oral tablet (20 sources) Thiazide Diuretic Start: 06-21-2024 End: 12-18-2024 take 1 tablet by mouth once daily hydroCHLOROthiazide 12.5 MG tablet Take 1 tablet (12.5 mg) by mouth daily. 30 tablet 5 06/21/2024 09/04/2024 Discontinued (Med list cleanup) Start: 02-06-2023 End: 11-04-2023 take 1 tablet by mouth once daily in the morning hydroCHLOROthiazide (HYDRODiuril) 25 MG tablet Take 25 mg by mouth every morning. 0 02/06/2023 11/04/2023 Discontinued (Patient refused) pioglitazone 30 mg oral tablet (20 sources) Peroxisome Proliferator Receptor alpha Agonist, Peroxisome Proliferator Receptor gamma Agonist, Thiazolidinedione Start: 07-15-2024 End: 03-03-2025 take 1 tablet by mouth once daily pioglitazone (Actos) 30 MG tablet Indications: Type 2 diabetes mellitus with hyperglycemia, without long-term current use of insulin (HCC) Take 1 tablet (30 mg) by mouth daily. 90 tablet 1 09/04/2024 12/31/2024 Discontinued (Med list cleanup) Start: 10-08-2022 End: 08-29-2024 take 1 tablet by mouth once daily pioglitazone (Actos) 15 MG tablet Take 1 tablet (15 mg) by mouth daily. 90 tablet 1 03/02/2024 07/15/2024 Discontinued Polyethylene Glycols (20 sources) Start: 07-26-2022 End: 01-17-2023 polyethylene glycol, PEG, 33 50 (Glycolax, Miralax) powder Mix 1/2 of bottle with 32 oz of clear liquid. Drink between 9am & 1pm the day before your colonoscopy. Repeat with the remaining 1/2 of bottle and drink between 6pm & 10pm the night before your colonoscopy. 238 g 0 07/26/2022 01/17/2023 Discontinued (Therapy completed) Start: 07-26-2022 polyethylene g lycol, PEG, 3350 (Glycolax, Miralax) powder Mix 1/2 of bottle with 32 oz of clear liquid. Drink between 9am & 1pm the day before your colonoscopy. Repeat with the remaining 1/2 of bottle and drink between 6pm & 10pm the night before your colonoscopy. 238 g 0 07/26/2022 Active 0.25 mg, 0.5 mg dose 1.5 ml semaglutide 1.34 mg/ml pen injector (8 sources) Start: 06-23-2022 End: 09-08-2022 inject 0.5 mg by subcutaneous injection every week semaglutide (Ozempic, 0.25 or 0.5 MG/DOSE,) 2 MG/1.5ML solution pen-injector Indications: Type 2 diabetes mellitus without complication, without long-term current use of insulin (CMS/HCC) ([facility]) Inject 0.5 mg under the skin 1 (one) time per week. 1.5 mL 0 06/23/2022 09/08/2022 Discontinued (Therapy completed) Start: 05-25-2019 Semaglutide, 1 MG/DOSE, (OZEMPIC, 1 MG/DOSE,) 2 MG/1.5ML SOPN 1 mg sc qwk 3 pen 4 05/25/2019 Active semaglutide (Ozempic, 1 MG/DOSE,) 4 MG/3ML solution pen-injector (7 sources) Start: 07-21-2022 End: 09-08-2022 semaglutide (Ozempic, 1 MG/DOSE,) 4 MG/3ML solution pen-injector Indications: Type 2 diabetes mellitus without complication, without long-term current use of insulin (CMS/HCC) ([facility]) Inject 1 mg under the skin 1 (one) time per week. Do not start before July 21, 2022. 1 each 07/21/2022 09/08/2022 Discontinued (Therapy completed) Start: 07-21-2022 End: 07-21-2023 semaglutide (Ozempic, 1 MG/D OSE,) 4 MG/3ML solution pen- injector Indications: Type 2 diabetes mellitus without complication, without long-term current use of insulin (CMS/HCC) (HCC) Inject 1 mg under the skin 1 (one) time per week. Do not start before July 21, 2022. 1 each 07/21/2022 07/21/2023 Active Trulicity 4.5 MG/0.5ML solut ion pen-injector (13 sources) Start: 06-23-2022 End: 10-07-2022 Trulicity 4.5 MG/0.5ML solut ion pen-injector INJECT 4.5 mg's SUBCUTANEOUSLY EVERY WEEK 0 06/23/2022 10/07/2022 Discontinued (Availability) Start: 06-23-2022 Trulicity 4.5 MG/0.5ML solution pen-injector INJECT 4.5 mg's SUBCUTANEOUSLY EVERY WEEK 0 06/23/2022 Active warfarin sodium 5 mg oral tablet (20 sources) Vitamin K Antagonist Start: 02-07-2025 End: 02-07-2026 warfarin (Coumadin) 1 MG tablet Take 2 one mg tablets with 5 mg tablet to equal 7 mg/day 60 tablet 11 02/07/2025 02/20/2025 Discontinued (Alternate therapy) Start: 02-07-2025 End: 02-20-2025 warfarin (Coumadin) 5 MG tab let Take with 2 one mg coumadin tabs to equal 7 mg each day 90 tablet 3 02/07/2025 02/20/2025 Discontinued (Alternate therapy) Start: 10-07-2024 End: 11-07-2025 warfarin (Coumadin) 1 MG tab let Take 1 mg tablet with 5 mg tablet to equal 6 mg/day 30 tablet 1 11/07/2024 02/07/2025 Discontinued (Dose adjustment) Start: 10-14-2023 End: 02-07-2025 warfarin (Coumadin) 5 MG tab let Increase to 5 mg daily 90 tablet 3 05/31/2024 02/07/2025 Discontinued (Dose adjustment) Start: 08-24-2023 End: 10-14-2023 warfarin (Coumadin) 6 MG tab let Increase to 6 mg daily 30 tablet 5 08/24/2023 10/14/2023 Discontinued (Dose adjustment) Start: 06-07-2022 End: 08-24-2023 warfarin (Coumadin) 5 MG tab let Increase to 5 mg daily 90 tablet 1 08/02/2023 08/24/2023 Discontinued Start: 05-25-2019 warfarin (COUM YANETH) 5 MG tablet Indications: Personal history of DVT (deep vein thrombosis) , Anticoagulant long-term use 1 1/2 tabs mon and fri and 1 tab the rest of the days 120 tablet 4 05/25/2019 Active Problems Active Problems Problem Classification Problem Date Documented Date Episodic/Chronic Coagulation and hemorrhagic disorders (20 sources) Hypercoagulability state; Translations: [Factor V Leiden mutation] Onset: 6 Resolved: 3 07-22-2016 Chronic Diabetes mellitus with complications (20 sources) Polyneuropathy due to type 2 diabetes mellitus; Translations: [Type 2 diabetes mellitus with diabetic polyneuropathy] Onset: 6 11-04-2023 Chronic Diabetes mellitus without complication (20 sources) Type 2 diabetes mellitus; Translations: [Type 2 diabetes mellitus without complications] Onset: 6 05-27-2016 Chronic Disorders of lipid metabolism (20 sources) Mixed hyperlipidemia; Translations: [Mixed hyperlipidemia] Onset: 5 08-11-2015 Chronic Essential hypertension (20 sources) Hypertensive disorder; Translations: [Essential hypertension] Onset: 0 05-27-2015 Chronic Hypertension with complications and secondary hypertension (2 sources) Hypertension secondary to endocrine disorders; Translations: [Hypertension secondary to endocrine disorders] Onset: 5 Chronic Other aftercare (5 sources) Long-term current use of anticoagulant; 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] Episodic Other aftercare (20 sources) Drug therapy finding; Translations: [assisted (current) use of anticoagulants] Onset: 0 04-01-2023 Episodic Other and unspecified benign neoplasm (3 sources) Lipoma of shoulder; Translations: [Benign lipomatous neoplasm of skin and subcutaneous tissue of left arm] Episodic Other liver diseases (1 source) Elevated liver enzymes level Episodic Other nutritional; endocrine; and metabolic disorders (20 sources) Obesity; Translations: [Obesity, unspecified] Onset: 3 05-27-2016 Chronic Other nutritional; endocrine; and metabolic disorders (3 sources) Severe obesity; Translations: [Class 2 severe obesity with serious comorbidity and body mass index (BMI) of 36.0 to 36.9 in adult, unspecified obesity type (HCC)] 09-04-2024 Chronic Other nutritional; endocrine; and metabolic disorders (2 sources) Body mass index (BMI) 35.0-35.9, adult; Translations: [Body mass index (BMI) 35.0-35.9, adult] Onset: 2 Chronic Other nutritional; endocrine; and metabolic disorders (2 sources) Body mass index (BMI) 36.0-36.9, adult; Translations: [Body mass index (BMI) 36.0-36.9, adult] Onset: 2 Chronic Other nutritional; endocrine; and metabolic disorders (2 sources) Morbid (severe) obesity due to excess calories; Translations: [Morbid (severe) obesity due to excess calories (HCC)] Onset: 2 Chronic Pulmonary heart disease (20 sources) H/O: pulmonary embolus; Translations: [Personal history of pulmonary embolism] Onset: 0 05-27-2015 Episodic Residual codes; unclassified (7 sources) Sleep apnea; Translations: [Sleep apnea, unspecified] Onset: 3 05-27-2016 Chronic Residual codes; unclassified (20 sources) Obstructive sleep apnea syndrome; Translations: [Obstructive sleep apnea (adult) (pediatric)] Onset: 6 09-08-2022 Chronic Residual codes; unclassified (2 sources) Obstructive sleep apnea (adult) (pediatric); Translations: [Obstructive sleep apnea (adult) (pediatric)] Onset: 3 Chronic Residual codes; unclassified (20 sources) Other specified health status; Translations: [Other drug allergy] 07-15-2024 Episodic Spondylosis; intervertebral disc disorders; other back problems (1 source) Acute back pain with sciatica; Translations: [Acute low back pain with bilateral sciatica, unspecified back pain laterality] Episodic Unclassified (1 source) Obesity, class 2; Translations: [Obesity, class 2] Onset: 2 Past or Other Problems Problem Classification Problem Date Documented Da te Episodic/Chronic Biliary tract disease (20 sources) Biliary calculus; Translations: [Calculus of gallbladder without cholecystitis without obstruction] Onset: 0 01-17-2023 Episodic Calculus of urinary tract (20 sources) Kidney stone; Translations: [History of calculus of kidney] Onset: 3 05-27-2016 Episodic Nonspecific chest pain (20 sources) Precordial pain; Translations: [Precordial pain] Onset: 8 Resolved: 3 09-16-2017 Episodic Other aftercare (2 sources) assisted (current) use of anticoagulants; 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] Onset: 3 Episodic Other and unspecified benign neoplasm (2 sources) Benign lipomatous neoplasm of skin and subcutaneous tissue of left arm; Translations: [Benign lipomatous neoplasm of skin and subcutaneous tissue of left arm] Onset: 4 Episodic Other gastrointestinal disorders (20 sources) Upper gastrointestinal bleeding; Translations: [Gastrointestinal hemorrhage, unspecified] Onset: 6 Resolved: 3 05-27-2016 Episodic Other screening for suspected conditions (not mental disorders or infectious disease) (20 sources) Patient encounter status; Translations: [Encounter for screening for malignant neoplasm of colon] Onset: 3 09-23-2022 Episodic Other skin disorders (1 source) Skin lesion; Translations: [Disorder of the skin and subcutaneous tissue, unspecified] Episodic Phlebitis; thrombophlebitis and thromboembolism (20 sources) H/O: Deep vein thrombosis; Translations: [Personal history of other venous thrombosis and embolism] Onset: 5 05-27-2015 Episodic Residual codes; unclassified (20 sources) Family history of prostate cancer; Translations: [Family history of malignant neoplasm of prostate] Onset: 3 09-08-2022 Episodic Unclassified (1 source) Obesity, class 2; Translations: [Obesity, class 2] Onset: 5 Results Test Name Value Interpretation Reference Range Facility 02-22-2025 36 Placed call to patient. Two patient identifers confirmed. Was able to speak to patient. All concerns in message have been addressed. No questions at this time. Call ended [facility] 3602-21-2025 36 Name of caller: Han Contact phone number: [phone] Relationship to Patient: patient Provider: Linda Practice: [facility] Chief Complaint/Reason for Call: Patient called and requested his INR from yesterday. I read it to him from his labs - 2.6. Please advise Best time of day caller can be reached: any Patient advised that office/PCP has 24-48 business hours to return their call: No Normal [facility] 36 Discontinued Normal [facility] 37on 02-20-2025 37 If you go on Eliquis you may stop monthly protimes Normal [facility] Office Visiton 02-20-2025 Follow-up visit [id number] Han Corbin 1960 M Date Provider Department Center 02/20/2025 [id number] ZAVALA [facility] Family History Problem Relation Age of Onset Dementia Mother Comments: age 87 Breast cancer Mother 82 High Blood Pressure Mother Heart disease Father 70 Comments: stents Diabetes Father Comments: insulin High Blood Pressure Father Cirrhosis Father Comments: PHAN, age 78 Clotting disorder Father Prostate cancer Father 65 Uterine cancer Sister Diabetes Sister Comments: diet cont Cancer Son 3 Comments: leukemia No Known Problems Maternal Grandmother Comments: late in life Diabetes Maternal Grandfather No Known Problems Paternal Grandmother Comments: late in life Coronary artery disease Paternal Grandfather Comments: early 80s Prostate cancer Paternal Cousin Substance Abuse Neg Hx Stroke Neg Hx Heart attack Neg Hx Depression Neg Hx Learning disabilities Neg Hx Family Status - Relation Status Age at Mother Father 78 Sister Alive Sister Alive Sister Alive Daughter Alive Son Alive Son Alive Maternal Grandmother Maternal Grandfather Paternal Grandmother Paternal Grandfather Paternal Cousin Alive Notes: father's brother's son Neg Hx Level of Service:80382 AR OFFICE/OUTPATIENT ESTABLISHED MOD MDM 30 MIN Reason for Visit and Comments: Follow-up [533681] - Med check Immunizations [58] - Pt declined Pneumococcal Vaccine: Normal [facility] Progress Noteon 02-20-2025 Progress Note [facility] - [address] [facility] [address] Visit type: Established Patient Reason for Visit: Follow-up (Med check) and Immunizations (Pt declined Pneumococcal Vaccine: //) Assessment / Plan: Han was seen today for follow-up and immunizations. Diagnoses and all orders for this visit: Essential hypertension (Primary) Comments: Stable, continue metoprolol and Altace Type 2 diabetes mellitus with diabetic polyneuropathy, without long-term current use of insulin (HCC) Comments: Improved, follow-up with endocrine for metformin, Trulicity and Farxiga Mixed hyperlipidemia Comments: Stable, continue Crestor On continuous oral anticoagulation Comments: Stable, but at patient's request Coumadin was stopped and OAC changed to Eliquis. Orders: - Protime-INR; Future - Protime-INR History of pulmonary embolism Other orders - apixaban (Eliquis) 2.5 MG tablet; Begin 1 tablet twice daily after stopping Coumadin for 1 week. Subjective: Patient ID: Han Corbin is a 64 y.o. male. HPI better controlled type II diabetic on Trulicity with history of hypertension hyperlipidemia presents for checkup. A1c and a weight have been responded well to his meds. No hypoglycemic episodes. Blood pressure well-controlled at home. Has been on Coumadin for a while and would like to know options for oral anticoagulation therapy. Trulicity has been covered by his insurance and he is hoping Eliquis would also be Review of Systems no recent earache sore throat or cough. No chest pain palpitations or purulent phlegm. No heartburn or abdominal pain. Bowels are regular. No melena or blood colonoscopy up-to-date. Prostate exam done and PSA is pending from previous lab encounter. INR slightly low. He admits to missing some Coumadin. Denies unhealing skin lesions or claudication. No change in arthralgias. Compliant with CPAP. Allergies[1] Current Medications[2] Problem List[3] Social History Tobacco Use Smoking status: Never Smokeless tobacco: Never Substance Use Topics Alcohol use: No Alcohol/week: 0.0 standard drinks of alcohol Surgical History[4] Family History[5] Objective: BP 135/83 Pulse 68 Temp 36.6 ?C (97.9 ?F) (Temporal) Ht 5' 6 (1.676 m) Wt 212 lb (96.2 kg) SpO2 98% BMI 34.22 kg/m? Physical Exam pleasant alert cooperative. Blood pressure recheck stable. Normal oropharynx and eardrums. No neck masses JVD adenopathy or thyroid lesions. No carotid bruits. Heart rate is regular without ectopy. Lungs are diminished but clear of rales wheezes or egophony. Abdomen obese nontender without pain hepatosplenomegaly or masses. No bruits. No ascites and femoral pulses are fair. Feet are slightly colder but there is no motor or sensory loss of the feet or toes. Some relatively poor hygiene but no skin breakdowns of the soles of his feet. [1] Allergies Allergen Reactions Lipitor [Atorvastatin] Other Body aches Amoxicillin Unknown Ezetimibe Unknown Poison Deiv Extract Itching Prednisone Unknown Sulfa Antibiotics Other reaction(s): Unknown Exenatide Other Lumps under skin [2] Current Outpatient Medications: dapagliflozin (Farxiga) 10 MG tablet, Take 1 tablet (10 mg) by mouth daily., Disp: 90 tablet, Rfl: 3 dulaglutide (Trulicity) 1.5 MG/0.5ML, Inject 1.5 mg under the skin 1 (one) time per week., Disp: 12 Pen, Rfl: 3 metFORMIN (Glucophage) 1000 MG tablet, Take 1 tablet (1,000 mg) by mouth 2 times daily (with meals) for 360 doses., Disp: 180 tablet, Rfl: 1 metoprolol tartrate (Lopressor) 37.5 MG tablet, Take 1 tablet (37.5 mg) by mouth 2 times daily for 360 doses., Disp: 180 tablet, Rfl: 1 ramipril (Altace) 10 MG capsule, TAKE ONE CAPSULE BY MOUTH IN THE MORNING AND ONE CAPSULE IN THE EVENING, Disp: 180 capsule, Rfl: 1 rosuvastatin (Crestor) 10 MG tablet, TAKE 1 TABLET (10 MG) BY MOUTH DAILY., Disp: 90 tablet, Rfl: 1 Alcohol Swabs 70 % pads, 1 each 2 times daily., Disp: 200 each, Rfl: 3 apixaban (Eliquis) 2.5 MG tablet, Begin 1 tablet twice daily after stopping Coumadin for 1 week., Disp: 60 tablet, Rfl: 11 glucose blood (OneTouch Verio) test strip, Use as instructed. 2 times per day, Disp: 200 each, Rfl: 11 Lancets, 1 each by Other route 2 times daily., Disp: 200 each, Rfl: 3 [3] Patient Active Problem List Diagnosis History of pulmonary embolism Type 2 diabetes mellitus with diabetic polyneuropathy, without long-term current use of insulin (HCC) Personal history of DVT (deep vein thrombosis) Essential hypertension Mixed hyperlipidemia Obesity BECK on CPAP History of renal stone Factor V Leiden (HCC) Family history of prostate cancer in father Encounter for colorectal cancer screening Cholelithiases On continuous oral anticoagulation Statin intolerance [4] Past Surgical History: Procedure Laterality Date CATARACT EXTRACTION Bilateral 11/2024 COLONOSC (more content not included)... [facility] 02-11-2025 36 Placed call to patient. Two patient identifers confirmed. Was able to speak to patient. All concerns in message have been addressed. No questions at this time. Call ended [facility] 02-08-2025 36 S: Patient spoke mar MARIEE nurse regarding INR B: recently had INR done A: Patient states he was taking 5mg daily but missed 1 or 2 every week since his last check. He believes this is why it is going down. R: He is concerned about going up to 7mg and is wanting to stick with 6mg. Asking if he can just go up to 6mg daily. He is also asking if he can come into the office to have his INR done so it is not done at [facility]. Please advise thanks. [facility] 36 Duplicate Reason for Disposition ? Caller has already spoken with another triager or PCP (or office), and has further questions and triager able to answer questions. Protocols used: No Contact or Duplicate Contact [id number] [facility] 36 Spoke with patients sister Nohemy and advised her or provider message, voiced understanding. [facility] 02-07-2025 36 Tried to call pt and no v/m set up [place] [address] Voicemail full Sunny Zavala, DO 02/07/25 11:38 AM INR is too low, I recommend increasing to 7 mg total a day. Extra 1 mg tablets were prescribed today. Recheck INR in [address] [facility] 02-06-2025 36 Name of caller: Han Contact phone number: [phone] Relationship to Patient: patient Provider: Dr. Zavala Practice: [facility] Chief Complaint/Reason for Call: Pt stated [facility] sent over his INR results, wanted to know if Dr. Zavala wants him to have it rechecked? Please advise. Best time of day caller can be reached: Any Patient advised that office/PCP has 24-48 business hours to return their call: [address] 01-29-[address] [facility] International normalized rat io (INR) calculationOrdered By: Sunny Zavala on 01-29-2025 INR Coag (Bld) [Relative time] 1.4 {INR} [facility] Prothrombin Time w/INRon INR Coag (PPP) [Relative time] 1.4 {INR} Normal [facility] Comment on above: Performed By: #### L 506.0400, L500.4100, L501.9520, L300.3900, L502.0250 #### [facility] [address] [place], [address] PT Coag (PPP) [Time] 17.8 s High 11.7-14.9 [facility] Comment on above: Performed By: #### L 506.0400, L500.4100, L501.9520, L300.3900, L502.0250 #### [facility] [address] [place], [place], [id number] [phone] Prothrombin timeOrdered By: Sunny Zavala on 01-29-2025 PT Coag (PPP) [Time] 17.8 s High 11.7-14.9 [facility] International normalized rat io (INR) calculationOrdered By: Sunny Zavala on 01-10-2025 INR Coag (Bld) [Relative time] 2.3 {INR} [facility] Prothrombin Time w/INRon INR Coag (PPP) [Relative time] 2.3 {INR} Normal [facility] Comment on above: Performed By: #### L 506.0400, L500.4100, L501.9520, L300.3900, L502.0250 #### [facility] [address] [place], [address] PT Coag (PPP) [Time] 26.1 s High 11.7-14.9 [facility] Comment on above: Performed By: #### L 506.0400, L500.4100, L501.9520, L300.3900, L502.0250 #### [facility] [address] [place], [place], [id number] Prothrombin timeOrdered By: Sunny Zavala on 01-10-2025 PT Coag (PPP) [Time] 26.1 s High 11.7-14.9 [facility] Calculated very low density lipoprotein (VLDL) cholesterol measurementOrdered By: Sunny Zavala on 01-03-2025 Calculated very low density lipoprotein (VLDL) cholesterol measurement 14 mg/dL 5-40 [facility] LDL calc ser/plasOrdered By: Sunny Zavala on 01-03-2025 Cholesterol in LDL [Mass/Vol] 69 mg/dL [facility] Comment on above: Ryyixvbkpc=989-596 m g/dL & Higher Oyny=702 mg/dL or greater Lipid Profileon 01-03-2025 CHOL:HDL 2.42 Normal [facility] Comment on above: Performed By: #### L 506.0400, L500.4100, L501.9520, L300.3900, L502.0250 #### [facility] [address] [place], [place], [id number] Cholesterol [Mass/Vol] 141 mg/dL Normal <=200 [facility] Comment on above: Result Comment: Chol esterol level, Desirable <200 mg/dL Borderline high cholesterol 200-239 mg/dL High cholesterol >=240 mg/dL Recommendations of the NCEP Adult Treatment Panel for the following risk-cutoff thresholds for the [place] population. Performed By: #### L 506.0400, L500.4100, L501.9520, L300.3900, L502.0250 #### [facility] [address] [place], [place], [id number] Cholesterol in HDL [Mass/Vol] 58 mg/dL Normal [facility] Comment on above: Result Comment: Mckayla onal Cholesterol Education Program (NCEP) guidelines: <40 mg/dL: Low HDL-cholesterol (major risk factor for CHD) >= 60 mg/dL: High HDL-cholesterol (negative risk factor for CHD) HDL-cholesterol is affected by a number of factors, e.g. smoking, exercise, hormones, sex and age. Performed By: #### L 506.0400, L500.4100, L501.9520, L300.3900, L502.0250 #### [facility] [address] [place], [address] Cholesterol in LDL [Mass/Vol] 69 mg/dL Normal [facility] Comment on above: Result Comment: Bord idvctw=132-336 mg/dL Higher Hzie=631 mg/dL or greater Performed By: #### L 506.0400, L500.4100, L501.9520, L300.3900, L502.0250 #### [facility] [address] [place], [address] Cholesterol in VLDL [Mass/Vol] 14 mg/dL Normal 5-40 [facility] Comment on above: Performed By: #### L 506.0400, L500.4100, L501.9520, L300.3900, L502.0250 #### [facility] [address] [place], [address] Triglyceride [Mass/Vol] 68 mg/dL Normal [facility] Comment on above: Result Comment: The drugs N-Acetylcysteine and Metamizole may falsely depress this assay. Normal range: <150 mg/dL Borderline High: 150-199 mg/dL High: 200-499 mg/dL Very High: >500 mg/dL Performed By: #### L 506.0400, L500.4100, L501.9520, L300.3900, L502.0250 #### [facility] [address] [place], [address] Microalb:Creat Ratio,Random URon 01-03-2025 Creatinine [Mass/Vol] 114.00 mg/dL Normal 39.00- 259.0 0 [facility] Comment on above: Performed By: #### L 502.0250, L501.9520, L506.0400, L500.4100 #### [facility] [address] [place], [address] MALB:CREAT UNABLE TO CALCULATE Normal [facility] Comment on above: Performed By: #### L 502.0250, L501.9520, L506.0400, L500.4100 #### [facility] [address] [place], [address] MICROALBUMIN,UR < 12.0 Normal NO RANGE EST. [facility] Comment on above: Performed By: #### L 502.0250, L501.9520, L506.0400, L500.4100 #### [facility] [address] [place], [address] Microalbumin/creat ratio urO rdered By: Sunny Zavala on 01-03-2025 Urine microalbumin/creatinine ratio measurement UNABLE TO CALCULATE mg/g CRE [facility] Random urine creatinine annette urement (mass/volume)Ordered By: Sunny Zavala on 01-03-2025 Creatinine Unsp time (U) [Mass/Vol] 114.00 mg/dL 39.00-259.0 0 [facility] Screening total cholesterol/ high density lipoprotein (HDL) cholesterol ratioOrdered By: Sunny Zavala on 01-03-2025 Cholesterol.total/Choleste rol in HDL [Mass ratio] 2.42 {ratio} [facility] Serum or plasma cholesterol in HDL measurement (mass/volume)Ordered By: Sunny Zavala on 01-03-2025 Cholesterol in HDL [Mass/Vol] 58 mg/dL >40 [facility] Comment on above: National Cholesterol Education Program (NCEP) guidelines:<40 mg/dL: Low HDL-cholesterol (major risk factor for CHD)>= 60 mg/dL: High HDL-cholesterol (negative risk factor for CHD)HDL-cholesterol is affected by a number of factors, e.g. smoking, exercise, hormones, sex and age. Serum or plasma cholesterol measurement (mass/volume)Ordered By: Sunny Zavala on 01-03-2025 Cholesterol [Mass/Vol] 141 mg/dL <201 [facility] Comment on above: Cholesterol level, D esirable <200 mg/dLBorderline high cholesterol 200-239 mg/dLHigh cholesterol >=240 mg/dLRecommendations of the NCEP Adult Treatment Panel for the following risk-cutoff thresholds for the [place] population. T4 Free Directon 01-03-2025 T4 FREE DIRECT 1.00 ng/dL Normal 0.76-1.46 [facility] Comment on above: Performed By: #### L 506.0400, L500.4100, L501.9520, L300.3900, L502.0250 #### [facility] [address] [place], [place], [id number] T4 freeOrdered By: Sunny sharma on 01-03-2025 Free T4 [Mass/Vol] 1.00 ng/dL 0.76-1.46 [facility] TSH DL <= 0.005 mIU/L QnOrde red By: Sunny Zavala on 01-03-2025 TSH Qn 1.680 uIU/mL 0.300-4.200 [facility] Thyroid Stim Hormone (TSH)on 01-03-2025 TSH 1.680 uIU/mL Normal 0.300-4.200 [facility] Comment on above: Performed By: #### L 506.0400, L500.4100, L501.9520, L300.3900, L502.0250 #### [facility] [address] [place], [place], [id number] Triglycerides measurementOrd ered By: Sunny Zavala on 01-03-2025 Triglyceride [Mass/Vol] 68 mg/dL <199 [facility] Comment on above: The drugs N-Acetylcy steine and Metamizole may falsely depress this assay. Normal range: <150 mg/dLBorderline High: 150-199 mg/dLHigh: 200-499 mg/dLVery High: >500 mg/dL Urine albumin measurement wi th detection limit of 20 mg/L or less (mass/volume)Ordered By: Sunny Zavala on 01-03-2025 Albumin DL <= 20 mg/L (U) [Mass/Vol] < 12.0 mg/L NO RANGE EST. [facility] AMB POC HEMOGLOBIN [id number] d By: Jacques Perea on 12-31-2024 HbA1c (Bld) [Mass fraction] 6 % Abnormal - 5.7 % [facility] HbA1c (Bld) [Mass fraction]O rdered By: Jacquesfide Perea on 12-31-2024 Interpretation and review of laboratory results Abnormal [facility] Office Visiton 12-31-2024 Follow-up visit [id number] NavarroHan Kemp 1960 M Date Provider Department Center 12/31/2024 [id number] None Family History Problem Relation Age of Onset Dementia Mother Comments: age 87 Breast cancer Mother 82 High Blood Pressure Mother Heart disease Father 70 Comments: stents Diabetes Father Comments: insulin High Blood Pressure Father Cirrhosis Father Comments: PHAN, age 78 Clotting disorder Father Prostate cancer Father 65 Uterine cancer Sister Diabetes Sister Comments: diet cont Cancer Son 3 Comments: leukemia No Known Problems Maternal Grandmother Comments: late in life Diabetes Maternal Grandfather No Known Problems Paternal Grandmother Comments: late in life Coronary artery disease Paternal Grandfather Comments: early 80s Prostate cancer Paternal Cousin Substance Abuse Neg Hx Stroke Neg Hx Heart attack Neg Hx Depression Neg Hx Learning disabilities Neg Hx Family Status - Relation Status Age at Mother Father 78 Sister Alive Sister Alive Sister Alive Daughter Alive Son Alive Son Alive Maternal Grandmother Maternal Grandfather Paternal Grandmother Paternal Grandfather Paternal Cousin Alive Notes: father's brother's son Neg Hx Level of Service:78283 AR OFFICE/OUTPATIENT ESTABLISHED MOD MDM 30 MIN Reason for Visit and Comments: Follow-up [446490] Diabetes Mellitus [183] Normal [facility] Progress Noteon 12-31-2024 Progress Note [facility] [address] [place] [address] Dept: [phone] Dept Loc: [phone] Visit type: established Reason for Visit: Follow-up and Diabetes Mellitus Assessment and Plan 1. Type 2 diabetes mellitus with hyperglycemia, without long-term current use of insulin (HCC) - AMB POC HEMOGLOBIN A1C - dapagliflozin (Farxiga) 10 MG tablet; Take 1 tablet (10 mg) by mouth daily., Starting 12/31/2024, Until Tue12/31/2025, Normal - metFORMIN (Glucophage) 1000 MG tablet; Take 1 tablet (1,000 mg) by mouth 2 times daily (with meals) for 360 doses., Starting Tue12/31/2024, Until Tue06/29/2025, Normal - dulaglutide (Trulicity) 1.5 MG/0.5ML; Inject 1.5 mg under the skin 1 (one) time per week., Starting Tue12/31/2024, Until Tue12/31/2025, Normal - Hm Diabetes Foot Exam 2. Type 2 diabetes mellitus with diabetic polyneuropathy, without long-term current use of insulin ([facility]) 3. 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 Class 2 severe obesity with serious comorbidity and body mass index (BMI) of 35.0 to 35.9 in adult, unspecified obesity type ([facility]) 5. Hypertension associated with type 2 diabetes mellitus ([facility]) 6. Type 2 diabetes mellitus with hyperlipidemia ([facility]) ([facility]) Lab Results Component Value Date EGFR 64.0 11/25/2023 CHOL 111 11/25/2023 HDL 51 11/25/2023 LDLCALC 39 11/25/2023 MICROALBCREA < 30 mg 05/26/2022 Lab Results Component Value Date HGBA1C 6.0 (A) 12/31/2024 HGBA1C 6.4 (A) 09/04/2024 Diabetes is at goal: yes Goal A1C is under 7.0 Logs show: Time In Range 87% no lows Patient is counseled about importance of DM control. Patient is counseled about risk of complications associated with uncontrolled diabetes. Patient is counseled about BG targets and A1C target. Counseled patient on lifestyle modification through dietary changes and increased physical activity as tolerated. Medication Changes: - STOP Actos 30 mg every day - Continue Metformin (ACH) 1000 mg twice daily with food - INCREASE Trulicity (ACH) to 1.5 mg Weekly - Continue Farxiga (ACH) 10 mg every day Counseled pt on possible a/e of medications. Reviewed appropriate timing and dosing of medications. Advised rotation of sites for injectable meds. --> Labs to be done fasting prior to next visit; discussed holding supplements 5 days prior. ORDERED ELY and not completed. He will get done soon over at [facility] per patient. --> Continue BG monitoring: via FSBS 1-2 times per day and send in BGL in PRN for review. Counseled patient regarding management of hypoglycemia. Advised to call if blood sugars < 70 or > 250 three consistently. Send/download glucose data as recommended. Advised FU with Ophthalmology. Patient has retinopathy. Advised regular foot care and FU with Podiatry as recommended. Patient has neuropathy. Obesity BMI Readings from Last 1 Encounters: 12/31/24 35.35 kg/m? - Continue to work on lifestyle changes: dietary habits; increasing activity as able, weight reduction - Optimize DM agents to aid w/ the same. Hypertension - Patient is taking DAMI. Continue as prescribed - Primary Care Provider manages - BP today: BP Readings from Last 1 Encounters: 12/31/24 138/81 Hyperlipidemia - Patient is taking Statin, continue as prescribed - Primary Care Provider manages - Patient counseled about these recommendations. Patient voiced understanding. Follow up in 18 weeks (on 05/06/2025) for Next scheduled follow-up. Subjective HPI PCP: Sunny Zavala DO Referring Provider: Primary Care Provider [facility]: 08/2024 History of Type 2 Diabetes Time of Onset: around late 40s per patient Circumstances surrounding dx: Screening. Pre-Diabetes became Diabetes and had fatigue, polyuria, and polydipsia Previous hospitalizations for DM: Denies Family hx DM: Endorses- Father, Aunts/Uncles Current Medication Regimen: - Actos 30 mg every day - Metformin 1000 mg twice daily with food - Trulicity (ACH) 0.75 mg Weekly on Fridays - Farxiga (ACH) 10 mg every day Previously Used DM Agents: - Ozempic (insurance) Injection Sites/Rotation: Yes Missed Medication Doses: Denies Glucose Monitoring CGM use: No - OT Verio - 1 times per day BGL present: Yes Recent Hyperglycemia - Endorses Recent Hypoglycemia: Denies BG Trends: Dietary Patterns: - 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 Normal [facility] 12-17-[address] [facility] 12-16-2024 36 INR from 12/06/2024 w as 2.2 and acceptable. No Coumadin dose change [facility] 12-12-2024 36 We do have a protime result dated 11/27/24 and Linda has reviewed it. Normal [facility] 12-10-2024 36 Name of caller: Han Contact phone number: [phone] Relationship to Patient: patient Provider: Dr Zavala Practice: [facility] Chief Complaint/Reason for Call: Patient stated he received his INR results and sates he is good to have his eye surgery tomorrow. Patient also wanted to make sure that Dr Zavala received those results from [facility]. Best time of day caller can be reached: any Patient advised that office/PCP has 24-48 business hours to return their call: No [facility] 12-06-2024 36 Name of caller: han Contact phone number: [phone] Relationship to Patient: patient Provider: linda Practice: [facility] Chief Complaint/Reason for Call: Pt states is having an INR done at [facility] and will have the results sent to pcp's office. Pt is requesting office send the results to [facility] in [place] who has a phone number of [phone]. Please advise. Best time of day caller can be reached: AM Patient advised that office/PCP has 24-48 business hours to return their call: N/A Normal [facility] normalized rat io (INR) calculationOrdered By: Sunny Zavala on 12-06-2024 INR Coag (Bld) [Relative time] 2.2 {INR} [facility] Prothrombin Time w/INRon INR Coag (PPP) [Relative time] 2.2 {INR} [facility] Comment on above: Performed By: #### L 506.0400, L500.4100, L501.9520, L300.3900, L502.0250 #### [facility] [address] [place], [address] PT Coag (PPP) [Time] 24.6 s High 11.7-14.9 [facility] Comment on above: Performed By: #### L 506.0400, L500.4100, L501.9520, L300.3900, L502.0250 #### [facility] [address] [place], [address] Prothrombin timeOrdered By: Sunny Zavala on 12-06-2024 PT Coag (PPP) [Time] 24.6 s High 11.7-14.9 [facility] Prothrombin Time w/INRon INR Coag (PPP) [Relative time] 2.7 {INR} Normal [facility] Comment on above: Performed By: #### L 506.0400, L500.4100, L501.9520, L300.3900, L502.0250 #### [facility] [address] [place], [address] PT Coag (PPP) [Time] 29.3 s High 11.7-14.9 [facility] Comment on above: Performed By: #### L 506.0400, L500.4100, L501.9520, L300.3900, L502.0250 #### [facility] [address] [place], [address] 36on 11-07-2024 36 Talked to patient an d relayed message and he verbalized understanding. Normal [facility] 36 Recent INR too low s o I recommend adding a 1 mg tablet to the 5 mg tablet to equal 6 mg/day. The 1 mg tablet prescription was completed. Recheck INR in 3 weeks. If things are stable I anticipate calling in the 6 mg tablets at that time. Normal [facility] normalized rat io (INR) calculationOrdered By: Sunny Zavala on 11-05-2024 INR Coag (Bld) [Relative time] 1.9 {INR} [facility] Prothrombin Time w/INRon INR Coag (PPP) [Relative time] 1.9 {INR} Normal [facility] Comment on above: Performed By: #### L 506.0400, L500.4100, L501.9520, L300.3900, L502.0250 #### [facility] [address] [place], [address] PT Coag (PPP) [Time] 22.3 s High 11.7-14.9 [facility] Comment on above: Performed By: #### L 506.0400, L500.4100, L501.9520, L300.3900, L502.0250 #### [facility] [address] [place], [address] Prothrombin timeOrdered By: Sunny Zavala on 11-05-2024 PT Coag (PPP) [Time] 22.3 s High 11.7-14.9 [facility] 37on 10-23-2024 37 BP ch in 4-[address] [facility] Office Visiton 10-23-2024 Follow-up visit [id number] Han Corbin 1960 M [facility] Provider Department Center 10/23/2024 SUNNY FULTON [facility] Family History Problem Relation Age of Onset Dementia Mother Comments: age 87 Breast cancer Mother 82 High Blood Pressure Mother Heart disease Father 70 Comments: stents Diabetes Father Comments: insulin High Blood Pressure Father Cirrhosis Father Comments: PHAN, age 78 Clotting disorder Father Prostate cancer Father 65 Uterine cancer Sister Diabetes Sister Comments: diet cont Cancer Son 3 Comments: leukemia No Known Problems Maternal Grandmother Comments: late in life Diabetes Maternal Grandfather No Known Problems Paternal Grandmother Comments: late in life Coronary artery disease Paternal Grandfather Comments: early 80s Prostate cancer Paternal Cousin Substance Abuse Neg Hx Stroke Neg Hx Heart attack Neg Hx Depression Neg Hx Learning disabilities Neg Hx Family Status - Relation Status Age at Mother Father 78 Sister Alive Sister Alive Sister Alive Daughter Alive Son Alive Son Alive Maternal Grandmother Maternal Grandfather Paternal Grandmother Paternal Grandfather Paternal Cousin Alive Notes: father's brother's son Neg Hx Level of Service:15670 [place] PERIODIC PREVENTIVE MED EST PATIENT 40-64YRS Reason for Visit and Comments: Follow-up [828695] - Med check Immunizations [58] - Pt declined Pneumococcal Vaccine: Normal [facility] Progress Noteon 10-23-2024 Progress Note [facility] [address] [facility] [address] [facility] [address] Visit type: Established Patient Reason for Visit: Follow-up (Med check ) and Immunizations (Pt declined Pneumococcal Vaccine:) Assessment / Plan: Han was seen today for follow-up and immunizations. Diagnoses and all orders for this visit: Annual physical exam (Primary) Comments: Continue better diet and exercise and weight loss. Type 2 diabetes mellitus with diabetic polyneuropathy, without long-term current use of insulin (HCC) Comments: Improving, continue Actos, Farxiga, metformin and Trulicity Essential hypertension Comments: Uncontrolled, increase metoprolol 37.5 mg twice daily and continue Altace twice daily. BP check 4 weeks Mixed hyperlipidemia Comments: Stable on Crestor Factor V Leiden (HCC) Comments: Uncontrolled, increase Coumadin 5 mg daily. Lab 1 month BECK on CPAP Prostate cancer screening - PSA Total (Screening); Future - PSA Total (Screening) On continuous oral anticoagulation Comments: Stable on Coumadin Other orders - metoprolol tartrate (Lopressor) 37.5 MG tablet; Take 1 tablet (37.5 mg) by mouth 2 times daily for 360 doses. Subjective: Patient ID: Han Corbin is a 64 y.o. male. HPI better controlled type II diabetic male presents for overall physical. 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 He does states he has had better concerted effort with eating proper meals and trying to exercise more. Overall feeling well. Recent INR is only 1.8 but not on current Coumadin dosage. No change in family history. Continues not to smoke or drink alcohol. Trying to stay active but having some stress being of the former. Less diaphoresis dry mouth and polyuria. No change in vision or skin. 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 Review of Systems denies recent earache sore throat or cough. No chest pain or palpitations. Denies PND orthopnea claudication or edema. No unhealing skin lesions. No bowel changes. No melena or blood. No constipation diarrhea. Needs prostate exam and ИВАН. No change in urine flow. Rare nocturia and postvoid dribbling. No dysuria or hematuria. Colonoscopy up-to-date. Allergies Allergen Reactions Lipitor [Atorvastatin] Other Body aches Amoxicillin Unknown Ezetimibe Unknown Poison Devi Extract Itching Prednisone Unknown Sulfa Antibiotics Other reaction(s): Unknown Exenatide Other Lumps under skin Current Outpatient Medications on File Prior to Visit Medication Sig Dispense Refill dapagliflozin (Farxiga) 10 MG tablet Take 1 tablet (10 mg) by mouth daily. 90 tablet 3 dulaglutide (Trulicity) 0.75 MG/0.5ML Inject 0.75 mg under the skin 1 (one) time per week. 12 each 3 metFORMIN (Glucophage) 1000 MG tablet Take 1 tablet (1,000 mg) by mouth 2 times daily (with meals) for 360 doses. 180 tablet 1 pioglitazone (Actos) 30 MG tablet Take 1 tablet (30 mg) by mouth daily. 90 tablet 1 ramipril (Altace) 10 MG capsule TAKE ONE CAPSULE BY MOUTH IN THE MORNING AND ONE CAPSULE IN THE EVENING 180 capsule 1 rosuvastatin (Crestor) 10 MG tablet TAKE 1 TABLET (10 MG) BY MOUTH DAILY. 90 tablet 1 warfarin (Coumadin) 5 MG tablet Increase to 5 mg daily 90 tablet 3 [DISCONTINUED] metoprolol tartrate (Lopressor) 25 MG tablet Take 1 tablet (25 mg) by mouth 2 times daily for 360 doses. 180 tablet 1 Alcohol Swabs 70 % pads 1 each 2 times daily. 200 each 3 glucose blood (OneTouch Verio) test strip Use as instructed. 2 times per day 200 each 11 Lancets 1 each by Other route 2 times daily. 200 each 3 [DISCONTINUED] warfarin (Coumadin) 1 MG tablet Take one mg qday with 5 mg tab to equal 6 mg q day (Patient not taking: Reported on 10/23/2024) 30 tablet 11 No current facility-administered medications on file prior to visit. Patient Active Problem List Diagnosis History of pulmonary embolism Type 2 diabetes mellitus with diabetic polyneuropathy, without long-term current use of insulin (HCC) Personal history of DVT (deep vein thrombosis) Essential hypertension Mixed hyperlipidemia Obesity BECK on CPAP History of renal stone Factor V Leiden (HCC) Family history of prostate cancer in father Encounter for colorectal cancer screening Cholelithiases On continuous oral anticoagulation Statin intolerance Social History Tobacco Use Smoking status: Never Smokeless tobacco: Never Substance Use Topics Alcohol use: No Alcohol/week: 0.0 standard drinks of alcohol Past Surgical History: Procedure Laterality Date COLONOSCOPY 2016 COLONOSCOPY W/ BIOPSIES N/A 09/23/2022 Dr. Turner; repeat in 7-10 yrs HAND SURGERY Left 1989 due to fracture IVC FILTER RETRIEVAL 2017 Removed October 2016; s/p PE resolution UMBILICAL HERNIA REPAIR 2004 UPP (more content not included)... [facility] 36on 10-08-2024 36 Message released to patient as written. Patient labs including lipids, thyroid, and chemistries are satisfactory. His INR is slightly below goal of 2 at 1.9. However I would continue all meds as is and recheck an INR in 1 month. No med changes for now. Received more recent INR dated October 01 from [facility]. His INR is too low at 1.5 and I recommend increasing Coumadin to 6 mg/day. 1 mg tablets were prescribed today and he should take with the 5 mg daily to equal 6 mg/day. INR recheck in 3 weeks Patient's further questions if applicable: n/a Were all questions from office addressed or relayed to the patient from encounter: Yes [place] [id number] See other encounters [place] [id number] Left message to retu rn call. Please release both messages from Dr. Linda Zavala, 15 hours ago (6:00 PM) Received more recent INR dated October 01 from [facility]. His INR is too low at 1.5 and I recommend increasing Coumadin to 6 mg/day. 1 mg tablets were prescribed today and he should take with the 5 mg daily to equal 6 mg/day. INR recheck in 3 weeks Sunny Zavala DO15 hours ago (5:51 PM) Patient labs including lipids, thyroid, and chemistries are satisfactory. His INR is slightly below goal of 2 at 1.9. However I would continue all meds as is and recheck an INR in 1 month. No med changes for now. [facility] 36 Tried to call patien t for two message from doctor and no answer and voicemail is full. [facility] 36 Tried to call patien t for two message from doctor and no answer and voicemail is full. [facility] 36on 10-07-2024 36 Received more recent INR dated October 01 from [facility]. His INR is too low at 1.5 and I recommend increasing Coumadin to 6 mg/day. 1 mg tablets were prescribed today and he should take with the 5 mg daily to equal 6 mg/day. INR recheck in [address] [facility] 36 Patient labs includi ng lipids, thyroid, and chemistries are satisfactory. His INR is slightly below goal of 2 at 1.9. However I would continue all meds as is and recheck an INR in 1 month. No med changes for now. [facility] normalized rat io (INR) calculationOrdered By: Sunny Zavala on 10-01-2024 INR Coag (Bld) [Relative time] 1.5 {INR} [facility] Prothrombin Time w/INRon INR Coag (PPP) [Relative time] 1.5 {INR} [facility] Comment on above: Performed By: #### L [id number] #### [facility] [address] [place], [place], [id number] PT Coag (PPP) [Time] 18.0 s High 11.7-14.9 [facility] Comment on above: Performed By: #### L [id number] #### [facility] [address] [facility] [place], [place], [id number] Prothrombin timeOrdered By: Sunny Zavala on 10-01-2024 PT Coag (PPP) [Time] 18.0 s High 11.7-14.9 [facility] 36on 09-25-2024 36 Faxed lab order to requested number. [facility] 36 Name of caller: Kyle lopes Contact phone number: [phone] Relationship to Patient: [facility] Provider: Dr. Zavala Practice: [facility] Chief Complaint/Reason for Call: Caller stated that she needs a New INR standing order as the other one 09/19. Please fax to [phone] Best time of day caller can be reached: Any Patient advised that office/PCP has 24-48 business hours to return their call: Yes Normal [facility] Direct serum free thyroxine (FT4) measurementOrdered By: Sunny Zavala on 09-24-2024 Free T4 [Mass/Vol] 0.93 ng/dL 0.76-1.46 [facility] High density lipoprotein (HD L) measurementOrdered By: Sunny Zavala on 09-24-2024 Cholesterol in HDL [Mass/Vol] 54 mg/dL >40 [facility] Comment on above: The drugs N-Acetylcy steine and Metamizole may falsely depress this assay. Reference Range HDL <40 mg/dL Low HDL Cholesterol HDL >or= 60 mg/dL High HDL Cholesterol Lipid Profileon 09-24-2024 Cholesterol [Mass/Vol] 113 mg/dL Normal 200 [facility] Comment on above: Result Comment: <200 mg/dL Desirable 200-240 mg/dL Borderline >240 mg/dL High Risk Performed By: #### L 506.0400, L500.4100, L501.9520, L300.3900, L502.0250 #### [facility] [address] [place], [address] Cholesterol in HDL [Mass/Vol] 54 mg/dL Normal [facility] Comment on above: Result Comment: The drugs N-Acetylcysteine and Metamizole may falsely depress this assay. Reference Range HDL <40 mg/dL Low HDL Cholesterol HDL >or= 60 mg/dL High HDL Cholesterol Performed By: #### L 506.0400, L500.4100, L501.9520, L300.3900, L502.0250 #### [facility] [address] [place], [address] Cholesterol in LDL [Mass/Vol] 46 mg/dL Normal 0-130 [facility] Comment on above: Performed By: #### L 506.0400, L500.4100, L501.9520, L300.3900, L502.0250 #### [facility] [address] [place], [address] Cholesterol in VLDL [Mass/Vol] 13 mg/dL Normal 5-40 [facility] Comment on above: Performed By: #### L 506.0400, L500.4100, L501.9520, L300.3900, L502.0250 #### [facility] [address] [place], [address] Triglyceride [Mass/Vol] 66 mg/dL Normal [facility] Comment on above: Result Comment: The drugs N-Acetylcysteine and Metamizole may falsely depress this assay. Serum Triglycerides Reference Interval Normal <150 mg/dL Borderline high 150 - 199 mg/dL High 200 - 499 mg/dL Very High > or = 500 mg/dL Performed By: #### L 506.0400, L500.4100, L501.9520, L300.3900, L502.0250 #### [facility] [address] [place], [place], [id number] Low density lipoprotein (LDL ) cholesterol measurementOrdered By: Sunny Zavala on 09-24-2024 Cholesterol in LDL [Mass/Vol] 46 mg/dL 0-130 [facility] Microalb:Creat Ratio,Random URon 09-24-2024 Creatinine [Mass/Vol] 117.00 mg/dL Normal NO RAN GE EST. [facility] Comment on above: Performed By: #### L 506.0400, L500.4100, L501.9520, L300.3900, L502.0250 #### [facility] [address] [place], [address] MALB:CRE 8.8 mg/g CRE Normal <30 mg/g CRE [facility] Comment on above: Performed By: #### L 506.0400, L500.4100, L501.9520, L300.3900, L502.0250 #### [facility] [address] [place], [address] MICROALBUMIN,UR 10.3 mg/L Normal NO RANGE EST. [facility] Comment on above: Performed By: #### L 506.0400, L500.4100, L501.9520, L300.3900, L502.0250 #### [facility] [address] [place], [address] Prothrombin Time w/INRon INR Coag (PPP) [Relative time] 1.9 {INR} Normal [facility] Comment on above: Performed By: #### L 506.0400, L500.4100, L501.9520, L300.3900, L502.0250 #### [facility] [address] [place], [address] PT Coag (PPP) [Time] 21.8 s High 11.7-14.9 [facility] Comment on above: Performed By: #### L 506.0400, L500.4100, L501.9520, L300.3900, L502.0250 #### [facility] [address] [place], [address] Random urine microalbumin me asurementOrdered By: Sunny Zavala on 09-24-2024 Urine Random Microalbumin 10.3 mg/L NO RANGE EST. [facility] Serum or plasma cholesterol measurement (mass/volume)Ordered By: Sunny Zavala on 09-24-2024 Cholesterol [Mass/Vol] 113 mg/dL <200 [facility] Comment on above: <200 mg/dL Desirable 200-240 mg/dL Borderline >240 mg/dL High Risk Serum or plasma thyroid stim ulating hormone (TSH) measurement (units/volume)Ordered By: Sunny Zavala on 09-24-2024 TSH Qn 1.740 uIU/mL 0.358-3.740 [facility] T4 Free Directon 09-24-2024 T4 FREE DIRECT 0.93 ng/dL Normal 0.76-1.46 [facility] Comment on above: Performed By: #### L 506.0400, L500.4100, L501.9520, L300.3900, L502.0250 #### [facility] [address] [place], [address] TSH QnOrdered By: Sunny pantoja on 09-24-2024 Thyroid Stimulating Hormone (TSH) 1.740 uIU/mL 0.358-3.740 [facility] Thyroid Stim Hormone (TSH)on 09-24-2024 TSH 1.740 uIU/mL Normal 0.358-3.740 [facility] Comment on above: Performed By: #### L 506.0400, L500.4100, L501.9520, L300.3900, L502.0250 #### [facility] [address] [place], [place], [id number] Triglycerides measurementOrd ered By: Sunny Zavala on 09-24-2024 Triglyceride [Mass/Vol] 66 mg/dL <199 [facility] Comment on above: The drugs N-Acetylcy steine and Metamizole may falsely depress this assay.Serum Triglycerides Reference Interval Normal <150 mg/dL Borderline high 150 - 199 mg/dL High 200 - 499 mg/dL Very High > or = 500 mg/dL Urine albumin/creatinine rat io for detection of microalbuminuriaOrdered By: Sunny Zavala on 09-24-2024 Urine Microalbumin/Creatinine Ratio 8.8 mg/g CRE <30 [facility] Urine creatinine measurement (mass/volume)Ordered By: Sunny Zavala on 09-24-2024 Creatinine (U) [Mass/Vol] 117.00 mg/dL NO RANGE EST. [facility] Very low density lipoprotein (VLDL) cholesterol measurementOrdered By: Sunny Zavala on 09-24-2024 Very low density lipoprotein (VLDL) cholesterol measurement 13 mg/dL -40 [facility] VLDL Cholesterol 13 mg/dL 5-40 [facility] 09-21-2024 36 Rx loaded Normal [facility] 09-19-2024 36 Rx loaded Normal [facility] 09-18-[address] [facility] 36 Medication name: metoprolol tartrate (Lopressor) 25 MG tablet -- Take 1 tablet (25 mg) by mouth 2 times daily for 180 doses. -- 90 days Medication dosage: 25 mg (Miligrams Monthly quantity needed: 60 How many day supply requestin days Medication route: oral (PO) Medication administration time(s): 2 times a day (BID) If taking medication PRN, reason for taking medication: N/A If this is a controlled substance do you receive this or any other controlled medication from any other doctor or facility: N/A Ordering provider: Dr. Zavala Date of last office visit: 06-21-2024 Date of next office visit: 10-23-2024 Date of last refill: (see medication tab): 03-02-2024 Updated/Validated preferred pharmacy: Yes Patient instructed to contact the pharmacy prior to picking up the medication: Yes [facility] 36on 09-04-2024 36 Obdulia, I saw this patient today and wanted to let you know that I sent Zara and Carolyn through [facility] to help with cost/coverage. Please let me know if there is anything you can do to help or if there is anything else you need from me. Thank you so much and have a good day! Anne Haines PA-C [facility] AMB POC GLUCOSE TESTon 09-04 Glucose [Mass/Vol] 88 mg/dL 70 - 100 mg/dL [facility] AMB POC HEMOGLOBIN A1Con HbA1c (Bld) [Mass fraction] 6.4 % Abnormal - 5.7 % [facility] HbA1c (Bld) [Mass fraction]o n 09-04-2024 Interpretation and review of laboratory results Abnormal [facility] Office Visiton 09-04-2024 Follow-up visit [id number] Han Corbin 1960 M Date Provider Department Center 09/04/2024 [id number]-MOIGYPQLANNE HAINES [facility] None Family History Problem Relation Age of Onset Dementia Mother Comments: age 87 Breast cancer Mother 82 High Blood Pressure Mother Heart disease Father 70 Comments: stents Diabetes Father Comments: insulin High Blood Pressure Father Cirrhosis Father Comments: PHAN, age 78 Clotting disorder Father Prostate cancer Father 65 Uterine cancer Sister Diabetes Sister Comments: diet cont Cancer Son 3 Comments: leukemia No Known Problems Maternal Grandmother Comments: late in life Diabetes Maternal Grandfather No Known Problems Paternal Grandmother Comments: late in life Coronary artery disease Paternal Grandfather Comments: early 80s Prostate cancer Paternal Cousin Substance Abuse Neg Hx Stroke Neg Hx Heart attack Neg Hx Depression Neg Hx Learning disabilities Neg Hx Family Status - Relation Status Age at Mother Father 78 Sister Alive Sister Alive Sister Alive Daughter Alive Son Alive Son Alive Maternal Grandmother Maternal Grandfather Paternal Grandmother Paternal Grandfather Paternal Cousin Alive Notes: father's brother's son Neg Hx Level of Service:73258 AR OFFICE/OUTPATIENT NEW MODERATE MDM 45 MINUTES Reason for Visit and Comments: Diabetes [34] Follow-up [409019] [facility] Progress Noteon 09-04-2024 Progress Note [address] [facility] [place] [address] [facility] [address] Dept: [phone] Dept Visit type: New Patient Reason for Visit: Diabetes and Follow-up Assessment and Plan 1. Type 2 diabetes mellitus with hyperglycemia, without long-term current use of insulin (HCC) - AMB POC HEMOGLOBIN A1C - AMB POC GLUCOSE TEST - dulaglutide (Trulicity) 0.75 MG/0.5ML; Inject 0.75 mg under the skin 1 (one) time per week., Starting Tue09/04/2024, Until Tue09/04/2025, Normal - pioglitazone (Actos) 30 MG tablet; Take 1 tablet (30 mg) by mouth daily., Starting Tue09/04/2024, Until Tue03/03/2025, Normal - metFORMIN (Glucophage) 1000 MG tablet; Take 1 tablet (1,000 mg) by mouth 2 times daily (with meals) for 360 doses., Starting Tue09/04/2024, Until Tue03/03/2025, Normal - dapagliflozin (Farxiga) 10 MG tablet; Take 1 tablet (10 mg) by mouth daily., Starting Tue09/04/2024, Until Tue09/04/2025, Normal - TSH - T4, free - Microalbumin / creatinine urine ratio - Lipid panel - Lancets; 1 each by Other route 2 times daily., Starting Tue09/04/2024, Until Tue09/04/2025, Normal - glucose blood (OneTouch Verio) test strip; Use as instructed. 2 times per day, Normal - Alcohol Swabs 70 % pads; 1 each 2 times daily., Starting Tue09/04/2024, Until Tue09/04/2025, Normal 2. Class 2 severe obesity with serious comorbidity and body mass index (BMI) of 36.0 to 36.9 in adult, unspecified obesity type ([facility]) 3. Type 2 diabetes mellitus with hyperlipidemia ([facility]) ([facility]) 4. Hypertension associated with type 2 diabetes mellitus ([facility]) ([facility]) 5. Type 2 diabetes mellitus with diabetic polyneuropathy, without long-term current use of insulin ([facility]) - [facility] 6. Both eyes affected by mild nonproliferative diabetic retinopathy with macular edema, associated with type 2 diabetes mellitus ([facility]) Lab Results Component Value Date EGFR 64.0 11/25/2023 CHOL 111 11/25/2023 HDL 51 11/25/2023 LDLCALC 39 11/25/2023 MICROALBCREA < 30 mg 05/26/2022 DM2 Diabetes is: poorly controlled/improving A1C Target: under 7% Insulin is not necessary for ongoing management Lab Results Component Value Date HGBA1C 6.4 (A) 09/04/2024 HGBA1C 9.4 (A) 11/25/2023 No Blood Glucose Logs to review today. Patient will send his Blood Glucose Logs in about 2 weeks. He stated his Blood Glucose ranges between 100-140 typically. No changes to regimen today. Will monitor Recommendations: Patient will make the following changes to regimen: - Continue Trulicity (ACH) 0.75 mg Weekly - Continue Actos 30 mg every day - Continue Metformin 1000 mg twice daily with food - Continue Farxiga (ACH) 10 mg every day --> Recommended getting labs fasting JULIANNE, while holding all B-vitamins and Biotin for 5-7 days prior - MicroAlb:Cr, TFTs, FLP, rest via media --> Continue BG monitoring: via FSBS 2-3 times per day and send in BGL in 2 weeks for review. --> DSME: for diabetes and nutrition and exercise --> DMFE: 3/24 Education: Discussed with Patient: - Notification Parameters - Discussed holding farxiga for about 2-3 days before surgery for cataracts and about 2-3 days following. - Discussed healthy balanced diet and exercise - Discussed potential medication side effects - Discussed blood glucose goals and A1C targets - Discussed uncontrolled diabetes potential effects on organ systems - Discussed importance of taking meds as prescribed - Discussed importance of Follow up for Diabetes - Patient instructed to call office if BG over 250 or under 70 consistently Obesity BMI Readings from Last 1 Encounters: 09/04/24 36.96 kg/m? - Continue to work on lifestyle changes: dietary habits; increasing activity as able, weight reduction - Optimize DM agents to aid w/ the same. Hypertension - Patient is taking DAMI. Continue as prescribed - Primary Care Provider manages - Recheck was 130/78 - BP today: BP Readings from Last 1 Encounters: 09/04/24 (!) 150/85 Hyperlipidemia - Patient is taking Statin, continue as prescribed - Discussed healthy diet, exercise, and A1C control - Primary Care Provider manages - Last Trig was 106 and last LDL was 39 12/06, will follow FLP Neuropathy - Discussed blood glucose control to prevent worsening of neuropathy - Discussed daily foot checks to watch for wounds/ulcers - Recommended following with Podiatry if needed - Diabetes Foot Exam 12/06 Retinopathy - Discussed importance of ROXANNA at least annually for people with Diabetes - Discussed BG control - Discussed elevated A1C effect on the micro and macrovascular systems over time - Dilated Diabetes Eye Exam 08/07 - Patient counseled about these recommendations. Patient voiced understanding. Follow up in about 4 months (around 01/02/2025) for Next scheduled follow-up. Subjective HPI PCP: Sunny Zavala DO Referring Provider: Primary Care Provider Init (more content not included)... [facility] 36on 08-20-2024 36 Noted [facility] 36 Message released to patient as written. INR from August 16 is too low at 1.5. Confirm for me he is on 5 mg a day prior to me recommending what dosage he should go up to. Patient's further questions if applicable: None. Pt stated Yes he is on the 5 MG, he has forgotten to take his medication a couple of times. Were all questions from office addressed or relayed to the patient from encounter: Yes [facility] 36 Tried to call gustavo t and no answer and voice mail is full. [facility] 36on 08-17-2024 36 Name of caller: Han Contact phone number: [phone] Relationship to Patient: patient Provider: Dr. Zavala Practice: [facility] Chief Complaint/Reason for Call: Patient asking if results for his INR from [facility] has come back yet. Please advise. Best time of day caller can be reached: any Patient advised that office/PCP has 24-48 business hours to return their call: Yes [facility] 36 Spoke with patient a nd advised, patient voiced understanding no further questions at this time. [facility] 36on 08-16-2024 36 Name of caller: Han Contact phone number: [phone] Relationship to Patient: patient Provider: Linda Practice: [facility] Chief Complaint/Reason for Call: Patient had INR test done today at [facility] patient lab. Patient is requesting orders for A1C. The [place] lab stated they can hold the sample for 7 days. Fax orders to [phone]. Please advise. Best time of day caller can be reached: any Patient advised that office/PCP has 24-48 business hours to return their call: Yes [facility] normalized rat io (INR) calculationOrdered By: Sunny Zavala on 08-16-2024 INR Coag (Bld) [Relative time] 1.5 {INR} [facility] Prothrombin Time w/INRon INR Coag (PPP) [Relative time] 1.5 {INR} [facility] Comment on above: Performed By: #### L 506.0400, L500.4100, L501.9520, L300.3900, L502.0250 #### [facility] [address] [place], [place], [id number] PT Coag (PPP) [Time] 18.0 s High 11.7-14.9 [facility] Comment on above: Performed By: #### L 506.0400, L500.4100, L501.9520, L300.3900, L502.0250 #### [facility] [address], [address] Prothrombin timeOrdered By: Sunny Zavala on 08-16-2024 PT Coag (PPP) [Time] 18.0 s High 11.7-14.9 [facility] 36on 07-26-2024 36 Placed call to patient. Two patient identifers confirmed. Was able to speak to patient. All concerns in message have been addressed. No questions at this time. Call ended [facility] 36 Name of caller: Han Contact phone number: [phone] Relationship to Patient: patient Provider: Linda Practice: [facility] Chief Complaint/Reason for Call: Patient went to the [facility] to discuss cataract treatment, & the clinic has him scheduled as follows: 08/03/24- eye injections 08/23/23- cataract surgery first eye 09/19/23- cataract surgery second eye However, the eye clinic is worried about patient's glucose levels and how this will affect healing. Patient states his levels currently are ranging from 110-150 on average. Eye clinic advised that patient contact PCP to see if he feels comfortable moving forward with the procedures, or if they should be pushed back until better glucose control is achieved. Please advise. Best time of day caller can be reached: any Patient advised that office/PCP has 24-48 business hours to return their call: Yes [facility] 36 FYI: Name of caller: Han Contact phone number: [phone] Relationship to Patient: patient Provider: OBEY Haines Practice: [facility] Chief Complaint/Reason for Call: Patient states that he would like to have a appointment reminder with d/t/l sent to the address on file. Please advise. [facility] 36on 07-24-2024 36 Name of caller: Han Contact phone number: [phone] Relationship to Patient: patient Provider: linda Practice: [facility] Chief Complaint/Reason for Call: Han called asking for the doctor to place a referral to endocrinology. He states his high sugar is affecting his eye sight. Please advise He is asking for the referral to [facility]. Best time of day caller can be reached: any Patient advised that office/PCP has 24-48 business hours to return their call: no [facility] 36on 07-19-2024 36 Recent Visits Date Type Provider Dept 06/21/24 Office Visit Sunny Zavala, DO [facility] 03/02/24 Office Visit Sunny Zavala DO [facility] 11/04/23 Office Visit Sunny ZavalaDO [facility] Showing recent visits within past 365 days and meeting all other requirements Future Appointments No visits were found meeting these conditions. Showing future appointments within next 90 days and meeting all other requirements Requested Prescriptions Pending Prescriptions Disp Refills Trulicity 0.75 MG/0.5ML [Pharmacy Med Name: TRULICITY 0.75 MG/0.5 ML PEN] Sig: INJECT 0.75 MG UNDER THE SKIN 1 (ONE) TIME PER WEEK FOR 28 DAYS. Provider: Sunny Zavala DO Verified pharmacy: yes Verified day(s) supplied: yes Verified refill(s) needed (previous prescription showing no refills in chart): Yes Have you received any controlled medications from any other provider? N/A Overdue for visit: No If yes - patient scheduled? Yes Most recent labs completed in chart? Yes Diabetes: Lab Results Component Value Date HGBA1C 9.4 (A) 11/25/2023 MICROALBCREA < 30 mg 05/26/2022 K 4.3 11/25/2023 NA 139 11/25/2023 LDL 151 (A) 05/26/2022 HDL 51 11/25/2023 TRIG 106 11/25/2023 [facility] 36on 07-16-2024 36 Recent Visits Date Type Provider Dept 06/21/24 Office Visit Sunny Zavala DO [facility] 03/02/24 Office Visit Sunny ZavalaDO [facility] 11/04/23 Office Visit Sunny Damian KodaysiDO [facility] Showing recent visits within past 365 days and meeting all other requirements Future Appointments No visits were found meeting these conditions. Showing future appointments within next 90 days and meeting all other requirements Requested Prescriptions Pending Prescriptions Disp Refills metFORMIN (Glucophage) 1000 MG tablet [Pharmacy Med Name: METFORMIN HCL 1,000 MG TABLET] 180 tablet 1 Sig: TAKE 1 TABLET (1,000 MG) BY MOUTH IN THE MORNING AND 1 TABLET (1,000 MG) IN THE EVENING. TAKE WITH MEALS. DO ALL THIS FOR 180 DOSES. Provider: Sunny Zavala DO Verified pharmacy: yes Verified day(s) supplied: yes Verified refill(s) needed (previous prescription showing no refills in chart): Yes Have you received any controlled medications from any other provider? N/A Overdue for visit: No If yes - patient scheduled? N/A Most recent labs completed in chart? No None [facility] 36on 07-06-2024 36 Patient had PSA done on 07/06/2024 [place] [address]on 07-05-2024 36 Placed call to patient. Two patient identifers confirmed. Was able to speak to patient. All concerns in message have been addressed. No questions at this time. Call ended [facility] 36 RX loaded Next ov 10/23/24 [place] [address] Medication name: dapagliflozin (Farxiga) 10 MG tablet Medication dosage: 10 mg (Miligrams Monthly quantity needed: 90 How many day supply requestin Medication route: oral (PO) Medication administration time(s): daily If taking medication PRN, reason for taking medication: N/A If this is a controlled substance do you receive this or any other controlled medication from any other doctor or facility: N/A Ordering provider: Sunny Zavala DO Date of last office visit: 06/21/24 Date of next office visit: 10/23/24 Date of last refill: (see medication tab): 11/29/23 Updated/Validated preferred pharmacy: Yes [id number] [place] [address] Patient instructed to contact the pharmacy prior to picking up the medication: Yes [place] [address] Message released to patient as written. Sunny Zavala DO 07/02/24 5:04 PM He does need to be on Farxiga at this time. Patient's further questions if applicable: Patient voiced understanding, and states that he has not taken medication in 1 week. Refill request will be sent to Dr Zavala for Farxiga. Were all questions from office addressed or relayed to the patient from encounter: Yes Normal [facility] 36 Tried to call patien t again and v/m is full. Pt also sent a letter to return call to the office. Normal [facility] CBC W/Diff, Automatedon 11-2 Absolute Lymph 2.50 X10 3/uL Normal 0.83-4.51 [facility] Comment on above: Order Comment: PT CO RAE BACK FOR PSA IT WAS FLAGGED TOO EARLY Performed By: #### L 506.0400, L500.4100, L501.9520, L300.3900, L502.0250 #### [facility] [address] [place], [address] Absolute Neut 4.7 X10 3/uL Normal 2.0-7.7 [facility] Comment on above: Order Comment: PT CO RAE BACK FOR PSA IT WAS FLAGGED TOO EARLY Performed By: #### L 506.0400, L500.4100, L501.9520, L300.3900, L502.0250 #### [facility] [address] [place], [address] Basophils/100 WBC (Bld) 1.1 % High 0-1 [facility] Comment on above: Order Comment: PT CO RAE BACK FOR PSA IT WAS FLAGGED TOO EARLY Performed By: #### L 506.0400, L500.4100, L501.9520, L300.3900, L502.0250 #### [facility] [address] [place], [address] Eosinophils/100 WBC (Bld) 3.1 % Normal 0-5 [facility] Comment on above: Order Comment: PT CO RAE BACK FOR PSA IT WAS FLAGGED TOO EARLY Performed By: #### L 506.0400, L500.4100, L501.9520, L300.3900, L502.0250 #### [facility] [address] [place], [address] Erythrocyte distribution width (RBC) [Ratio] 13.8 % Normal 11.6-14.6 [facility] Comment on above: Order Comment: PT CO RAE BACK FOR PSA IT WAS FLAGGED TOO EARLY Performed By: #### L 506.0400, L500.4100, L501.9520, L300.3900, L502.0250 #### [facility] [address] [place], [address] Hematocrit (Bld) [Volume fraction] 43.5 % Normal 40-54 [facility] Comment on above: Order Comment: PT CO RAE BACK FOR PSA IT WAS FLAGGED TOO EARLY Performed By: #### L 506.0400, L500.4100, L501.9520, L300.3900, L502.0250 #### [facility] [address] [place], [address] Hemoglobin (Bld) [Mass/Vol] 14.2 g/dL Normal 13.0-16.5 [facility] Comment on above: Order Comment: PT CO RAE BACK FOR PSA IT WAS FLAGGED TOO EARLY Performed By: #### L 506.0400, L500.4100, L501.9520, L300.3900, L502.0250 #### [facility] [address] [place], [address] IG% 1.100 High 0.0-0.9 [facility] Comment on above: Order Comment: PT CO RAE BACK FOR PSA IT WAS FLAGGED TOO EARLY Result Comment: IG% - Immature Granulocytes (promyelocytes, myelocytes and metamyelocytes) > 1% indicates that a LEFT SHIFT is Present. Performed By: #### L 506.0400, L500.4100, L501.9520, L300.3900, L502.0250 #### [facility] [address] [place], [address] Lymphocytes/100 WBC (Bld) 29.6 % Normal 19-41 [facility] Comment on above: Order Comment: PT CO RAE BACK FOR PSA IT WAS FLAGGED TOO EARLY Performed By: #### L 506.0400, L500.4100, L501.9520, L300.3900, L502.0250 #### [facility] [address] [place], [address] MCH (RBC) [Entitic mass] 30.0 pg Normal 27.0-32.0 [facility] Comment on above: Order Comment: PT CO RAE BACK FOR PSA IT WAS FLAGGED TOO EARLY Performed By: #### L 506.0400, L500.4100, L501.9520, L300.3900, L502.0250 #### [facility] [address] [place], [address] MCHC (RBC) [Mass/Vol] 32.6 g/dL Normal 32-36 [facility] Comment on above: Order Comment: PT CO RAE BACK FOR PSA IT WAS FLAGGED TOO EARLY Performed By: #### L 506.0400, L500.4100, L501.9520, L300.3900, L502.0250 #### [facility] [address] [place], [address] MCV (RBC) [Entitic vol] 92.0 fL Normal 80-94 [facility] Comment on above: Order Comment: PT CO RAE BACK FOR PSA IT WAS FLAGGED TOO EARLY Performed By: #### L 506.0400, L500.4100, L501.9520, L300.3900, L502.0250 #### [facility] [address] [place], [address] Monocytes/100 WBC (Bld) 9.3 % Normal 0-10 [facility] Comment on above: Order Comment: PT CO RAE BACK FOR PSA IT WAS FLAGGED TOO EARLY Performed By: #### L 506.0400, L500.4100, L501.9520, L300.3900, L502.0250 #### [facility] [address] [place], [address] Neutrophils/100 WBC (Bld) 55.8 % Normal 47-70 [facility] Comment on above: Order Comment: PT CO RAE BACK FOR PSA IT WAS FLAGGED TOO EARLY Performed By: #### L 506.0400, L500.4100, L501.9520, L300.3900, L502.0250 #### [facility] [address] [place], [address] Nucleated RBC (Bld) [#/Vol] 0 10*3/uL Normal 0-5 [facility] Comment on above: Order Comment: PT CO RAE BACK FOR PSA IT WAS FLAGGED TOO EARLY Performed By: #### L 506.0400, L500.4100, L501.9520, L300.3900, L502.0250 #### [facility] [address] [place], [address] Platelet mean volume (Bld) [Entitic vol] 11.2 fL Normal 6.2-12.0 [facility] Comment on above: Order Comment: PT CO RAE BACK FOR PSA IT WAS FLAGGED TOO EARLY Performed By: #### L 506.0400, L500.4100, L501.9520, L300.3900, L502.0250 #### [facility] [address] [place], [address] Platelets (Bld) [#/Vol] 278 10*3/uL Normal 150-450 [facility] Comment on above: Order Comment: PT CO RAE BACK FOR PSA IT WAS FLAGGED TOO EARLY Performed By: #### L 506.0400, L500.4100, L501.9520, L300.3900, L502.0250 #### [facility] [address] [place], [address] RBC (Bld) [#/Vol] 4.73 10*6/uL Normal 4.6-6.2 [facility] Comment on above: Order Comment: PT CO RAE BACK FOR PSA IT WAS FLAGGED TOO EARLY Performed By: #### L 506.0400, L500.4100, L501.9520, L300.3900, L502.0250 #### [facility] [address] [place], [address] RDW SD 46.9 fl High 35.1-43.9 [facility] Comment on above: Order Comment: PT CO RAE BACK FOR PSA IT WAS FLAGGED TOO EARLY Performed By: #### L 506.0400, L500.4100, L501.9520, L300.3900, L502.0250 #### [facility] [address] [place], [address] WBC (Bld) [#/Vol] 8.5 10*3/uL Normal 4.4-11.0 [facility] Comment on above: Order Comment: PT CO RAE BACK FOR PSA IT WAS FLAGGED TOO EARLY Performed By: #### L 506.0400, L500.4100, L501.9520, L300.3900, L502.0250 #### [facility] [address] [place], [address] Comprehensive Metabolic Prof [facility] 07-05-2024 Albumin [Mass/Vol] 3.5 g/dL Normal 3.2-5.0 [facility] Comment on above: Order Comment: PT CO RAE BACK FOR PSA IT WAS FLAGGED TOO EARLY Performed By: #### L 506.0400, L500.4100, L501.9520, L300.3900, L502.0250 #### [facility] [address] [place], [address] Albumin/Globulin [Mass ratio] 0.9 {ratio} Normal 0.9-2.4 [facility] Comment on above: Order Comment: PT CO RAE BACK FOR PSA IT WAS FLAGGED TOO EARLY Performed By: #### L 506.0400, L500.4100, L501.9520, L300.3900, L502.0250 #### [facility] [address] [place], [address] ALK P 61 U/L Normal 45-117 [facility] Comment on above: Order Comment: PT CO RAE BACK FOR PSA IT WAS FLAGGED TOO EARLY Performed By: #### L 506.0400, L500.4100, L501.9520, L300.3900, L502.0250 #### [facility] [address] [place], [address] ALT [Catalytic activity/Vol] 29 U/L Normal 16-61 [facility] Comment on above: Order Comment: PT CO RAE BACK FOR PSA IT WAS FLAGGED TOO EARLY Performed By: #### L 506.0400, L500.4100, L501.9520, L300.3900, L502.0250 #### [facility] [address] [place], [address] AST [Catalytic activity/Vol] 16 U/L Normal 15-37 [facility] Comment on above: Order Comment: PT CO RAE BACK FOR PSA IT WAS FLAGGED TOO EARLY Performed By: #### L 506.0400, L500.4100, L501.9520, L300.3900, L502.0250 #### [facility] [address] [place], [address] Bilirubin [Mass/Vol] 0.50 mg/dL Normal 0.20-1.00 [facility] Comment on above: Order Comment: PT CO RAE BACK FOR PSA IT WAS FLAGGED TOO EARLY Result Comment: For patients on eltrombopag therapy, use of Dimension [place] TBIL is not recommended. Performed By: #### L 506.0400, L500.4100, L501.9520, L300.3900, L502.0250 #### [facility] [address] [place], [address] BUN/CRE 10.5 RATIO Normal 10-20 [facility] Comment on above: Order Comment: PT CO RAE BACK FOR PSA IT WAS FLAGGED TOO EARLY Performed By: #### L 506.0400, L500.4100, L501.9520, L300.3900, L502.0250 #### [facility] [address] [place], [address] CA,Total 9.0 mg/dL Normal 8.5-10.1 [facility] Comment on above: Order Comment: PT CO RAE BACK FOR PSA IT WAS FLAGGED TOO EARLY Performed By: #### L 506.0400, L500.4100, L501.9520, L300.3900, L502.0250 #### [facility] [address] [place], [address] Chloride [Moles/Vol] 108 mmol/L High 98-107 [facility] Comment on above: Order Comment: PT CO RAE BACK FOR PSA IT WAS FLAGGED TOO EARLY Performed By: #### L 506.0400, L500.4100, L501.9520, L300.3900, L502.0250 #### [facility] [address] [place], [address] CO2 [Moles/Vol] 27.0 mmol/L Normal 21.0-32.0 [facility] Comment on above: Order Comment: PT CO RAE BACK FOR PSA IT WAS FLAGGED TOO EARLY Performed By: #### L 506.0400, L500.4100, L501.9520, L300.3900, L502.0250 #### [facility] [address] [place], [address] Creatinine [Mass/Vol] 1.05 mg/dL Normal 0.70-1.30 [facility] Comment on above: Order Comment: PT CO RAE BACK FOR PSA IT WAS FLAGGED TOO EARLY Result Comment: The validity of the calculated GFR GFRAA in patients over 70 years has not been determined. Clinical correlation is essential. Performed By: #### L 506.0400, L500.4100, L501.9520, L300.3900, L502.0250 #### [facility] [address] [place], [address] EST GFR - AA 92 mL/min Normal >60 [facility] Comment on above: Order Comment: PT CO RAE BACK FOR PSA IT WAS FLAGGED TOO EARLY Result Comment: Afri can Albanian GFR Calc Performed By: #### L 506.0400, L500.4100, L501.9520, L300.3900, L502.0250 #### [facility] [address] [place], [address] GAP 5 Normal 5-15 [facility] Comment on above: Order Comment: PT CO RAE BACK FOR PSA IT WAS FLAGGED TOO EARLY Performed By: #### L 506.0400, L500.4100, L501.9520, L300.3900, L502.0250 #### [facility] [address] [place], [address] GFR/1.73 sq M.predicted among non-blacks MDRD (S/P/Bld) [Vol rate/Area] 76 mL/min/{1.73_m2} Normal >60 [facility] Comment on above: Order Comment: PT CO RAE BACK FOR PSA IT WAS FLAGGED TOO EARLY Result Comment: Non- GFR Calc Performed By: #### L 506.0400, L500.4100, L501.9520, L300.3900, L502.0250 #### [facility] [address] [place], [address] Globulin (S) [Mass/Vol] 3.9 g/dL Normal 2.2-4.2 [facility] Comment on above: Order Comment: PT CO RAE BACK FOR PSA IT WAS FLAGGED TOO EARLY Performed By: #### L 506.0400, L500.4100, L501.9520, L300.3900, L502.0250 #### [facility] [address] [place], [address] Glucose [Mass/Vol] 119 mg/dL High 74-106 [facility] Comment on above: Order Comment: PT CO RAE BACK FOR PSA IT WAS FLAGGED TOO EARLY Result Comment: Fast ing Glucose result from 100 to 125 mg/dL suggests IMPAIRED HOMEOSTASIS per A.D.A. criteria. Performed By: #### L 506.0400, L500.4100, L501.9520, L300.3900, L502.0250 #### [facility] [address] [place], [address] Potassium [Moles/Vol] 4.1 mmol/L Normal 3.5-5.1 [facility] Comment on above: Order Comment: PT CO RAE BACK FOR PSA IT WAS FLAGGED TOO EARLY Performed By: #### L 506.0400, L500.4100, L501.9520, L300.3900, L502.0250 #### [facility] [address] [place], [address] Sodium [Moles/Vol] 140 mmol/L Normal 136-145 [facility] Comment on above: Order Comment: PT CO RAE BACK FOR PSA IT WAS FLAGGED TOO EARLY Performed By: #### L 506.0400, L500.4100, L501.9520, L300.3900, L502.0250 #### [facility] [address] [place], [address] T PROT 7.4 g/dL Normal 6.4-8.2 [facility] Comment on above: Order Comment: PT CO RAE BACK FOR PSA IT WAS FLAGGED TOO EARLY Performed By: #### L 506.0400, L500.4100, L501.9520, L300.3900, L502.0250 #### [facility] [address] [place], [address] Urea nitrogen [Mass/Vol] 11 mg/dL Normal 7-18 [facility] Comment on above: Order Comment: PT CO RAE BACK FOR PSA IT WAS FLAGGED TOO EARLY Performed By: #### L 506.0400, L500.4100, L501.9520, L300.3900, L502.0250 #### [facility] [address] [place], [address] Hemoglobin A1con 07-05-2024 HbA1c (Bld) [Mass fraction] 8.2 % High 3.8-5.6 [facility] Comment on above: Order Comment: PT CO RAE BACK FOR PSA IT WAS FLAGGED TOO EARLY Result Comment: Norm al < 5.7 % Prediabetic 5.7 - 6.4 % Diabetic >or= 6.5 % Please note range changes. Performed By: #### L 506.0400, L500.4100, L501.9520, L300.3900, L502.0250 #### [facility] [address] [place], [address] Lipid Profileon 07-05-2024 Cholesterol [Mass/Vol] 220 mg/dL High 200 [facility] Comment on above: Order Comment: PT CO RAE BACK FOR PSA IT WAS FLAGGED TOO EARLY Result Comment: <200 mg/dL Desirable 200-240 mg/dL Borderline >240 mg/dL High Risk Performed By: #### L 506.0400, L500.4100, L501.9520, L300.3900, L502.0250 #### [facility] [address] [place], [address] Cholesterol in HDL [Mass/Vol] 54 mg/dL Normal [facility] Comment on above: Order Comment: PT CO RAE BACK FOR PSA IT WAS FLAGGED TOO EARLY Result Comment: The drugs N-Acetylcysteine and Metamizole may falsely depress this assay. Reference Range HDL <40 mg/dL Low HDL Cholesterol HDL >or= 60 mg/dL High HDL Cholesterol Performed By: #### L 506.0400, L500.4100, L501.9520, L300.3900, L502.0250 #### [facility] [address] [place], [address] Cholesterol in LDL [Mass/Vol] 144 mg/dL High 0-130 [facility] Comment on above: Order Comment: PT CO RAE BACK FOR PSA IT WAS FLAGGED TOO EARLY Performed By: #### L 506.0400, L500.4100, L501.9520, L300.3900, L502.0250 #### [facility] [address] [place], [address] Cholesterol in VLDL [Mass/Vol] 22 mg/dL Normal 5-40 [facility] Comment on above: Order Comment: PT CO RAE BACK FOR PSA IT WAS FLAGGED TOO EARLY Performed By: #### L 506.0400, L500.4100, L501.9520, L300.3900, L502.0250 #### [facility] [address] [place], [address] Triglyceride [Mass/Vol] 112 mg/dL Normal [facility] Comment on above: Order Comment: PT CO RAE BACK FOR PSA IT WAS FLAGGED TOO EARLY Result Comment: The drugs N-Acetylcysteine and Metamizole may falsely depress this assay. Serum Triglycerides Reference Interval Normal <150 mg/dL Borderline high 150 - 199 mg/dL High 200 - 499 mg/dL Very High > or = 500 mg/dL Performed By: #### L 506.0400, L500.4100, L501.9520, L300.3900, L502.0250 #### [facility] [address] [place], [address] Prothrombin Time w/INRon INR Coag (PPP) [Relative time] 2.3 {INR} Normal [facility] Comment on above: Order Comment: PT CO RAE BACK FOR PSA IT WAS FLAGGED TOO EARLY Performed By: #### L 506.0400, L500.4100, L501.9520, L300.3900, L502.0250 #### [facility] [address] [place], [place], [id number] PT Coag (PPP) [Time] 25.2 s High 11.7-14.9 [facility] Comment on above: Order Comment: PT CO RAE BACK FOR PSA IT WAS FLAGGED TOO EARLY Performed By: #### L 506.0400, L500.4100, L501.9520, L300.3900, L502.0250 #### [facility] [address] [place], [place], [id number] 36on 07-02-2024 36 Tried to call gustavo sharif and mailbox was full [place] [address] Name of caller: han Contact phone number: [phone] Relationship to Patient: patient Provider: Dr. Zavala Practice: buddy[facility] Chief Complaint/Reason for Call: pt called in, unclear whether he suppose to be taking faxiga still, please call and advise Best time of day caller can be reached: AM Patient advised that office/PCP has 24-48 business hours to return their call: Yes [place] [address] Again unable to leav e a message because his voicemail is full [place] [address]on 06-26-2024 36 Was unable to leave a message as pt voicemail is full. I have faxed lab orders over to [facility]. [facility] 36 ----- Message from Sunny Zavala DO sent at 06/21/2024 6:24 PM EST ----- Call patient to tell him he is due for a PSA which is a prostate cancer screening lab work. Please send a copy of that order to [place] where he gets his lab work. [facility] 36on 06-25-2024 36 Tried to call gustavo sharif again and mail box was full. Pt also sent a letter to return call to the office. [facility] 36 ----- Message from Sunny Zavala DO sent at 06/21/2024 6:24 PM EST ----- Call patient to tell him he is due for a PSA which is a prostate cancer screening lab work. Please send a copy of that order to [place] where he gets his lab work. Normal [facility] 36on 06-22-2024 36 Tried to call gustavo sharif and mail box was full [facility] 36 ----- Message from Sunny Zavala DO sent at 06/21/2024 6:24 PM EST ----- Call patient to tell him he is due for a PSA which is a prostate cancer screening lab work. Please send a copy of that order to [place] where he gets his lab work. [facility] 37on 06-21-2024 37 Call with glucose lo g of FBS in one month. Goal BP , <130 and <80 Normal [facility] Office Visiton 06-21-2024 Follow-up visit [id number] Han Corbin 1960 M Date Provider Department Center 06/21/2024 [id number] CARR [facility] Family History Problem Relation Age of Onset Dementia Mother Comments: age 87 Breast cancer Mother 82 High Blood Pressure Mother Heart disease Father 70 Comments: stents Diabetes Father Comments: insulin High Blood Pressure Father Cirrhosis Father Comments: PHAN, age 78 Clotting disorder Father Prostate cancer Father 65 Uterine cancer Sister Diabetes Sister Comments: diet cont Cancer Son 3 Comments: leukemia No Known Problems Maternal Grandmother Comments: late in life Diabetes Maternal Grandfather No Known Problems Paternal Grandmother Comments: late in life Coronary artery disease Paternal Grandfather Comments: early 80s Prostate cancer Paternal Cousin Substance Abuse Neg Hx Stroke Neg Hx Heart attack Neg Hx Depression Neg Hx Learning disabilities Neg Hx Family Status - Relation Status Age at Mother Father 78 Sister Alive Sister Alive Sister Alive Daughter Alive Son Alive Son Alive Maternal Grandmother Maternal Grandfather Paternal Grandmother Paternal Grandfather Paternal Cousin Alive Notes: father's brother's son Neg Hx Level of Service:03263 [place] OFFICE/OUTPATIENT ESTABLISHED MOD MDM 30 MIN Reason for Visit and Comments: Follow-up [659659] - Med check Flu Vaccine [189] - Patient has declined the flu vaccine Immunizations [58] - Pt declined Pneumococcal Vaccine: Normal [facility] Progress Noteon 06-21-2024 Progress Note [facility] [address] [facility] [id number] Visit type: Established Patient Reason for Visit: Follow-up (Med check), Flu Vaccine (Patient has declined the flu vaccine ), and Immunizations (Pt declined Pneumococcal Vaccine:) Assessment / Plan: Han was seen today for follow-up, flu vaccine and immunizations. Diagnoses and all orders for this visit: Type 2 diabetes mellitus with diabetic polyneuropathy, without long-term current use of insulin (HCC) (Primary) Comments: Uncontrolled, restart Trulicity continue Farxiga and metformin and Actos Orders: - Hemoglobin A1c; Future - Hemoglobin A1c Essential hypertension Comments: Uncontrolled, add HCTZ to Altace and Lopressor. BP check 4 weeks Orders: - CBC auto differential; Future - Comprehensive metabolic panel; Future - CBC auto differential - Comprehensive metabolic panel Mixed hyperlipidemia Comments: Stable, continue low-fat meals Orders: - Lipid panel; Future - Lipid panel Anticoagulant long-term use - Protime-INR; Future - Protime-INR Personal history of DVT (deep vein thrombosis) Comments: Stable, continue Coumadin indefinitely Lipoma of left shoulder Prostate cancer screening - PSA Screening; Future - PSA Screening Other orders - hydroCHLOROthiazide 12.5 MG tablet; Take 1 tablet (12.5 mg) by mouth daily. - dulaglutide (Trulicity) 0.75 MG/0.5ML; Inject 0.75 mg under the skin 1 (one) time per week for 28 days. Subjective: Patient ID: Han Corbin is a 63 y.o. male. HPI obese non-smoker with history of diabetes, essential hypertension, hyperlipidemia and chronic anticoagulation for history of leg DVT presents for checkup. Apparently stopped the Trulicity due to inability to acquire that. His glucose levels are too high. His A1c is elevated. Weight is up also No change in vision or unhealing skin lesions. Overall he is felt pretty well. Review of Systems denies recent earache sore throat or cough. No chest pain or palpitations or dyspnea. No orthopnea or claudication or unhealing skin lesions. No change in chronic pedal edema. Denies heartburn or dysphagia. No melena or blood. No constipation or diarrhea. Colonoscopy up-to-date. No change in urine flow denies dysuria hematuria or excessive nocturia. Prostate cancer screening in a few weeks No change in arthralgias. 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 Overall had a good summer and fall Allergies Allergen Reactions Lipitor [Atorvastatin] Other Body aches Amoxicillin Unknown Ezetimibe Unknown Prednisone Unknown Sulfa Antibiotics Other reaction(s): Unknown Exenatide Other Lumps under skin Current Outpatient Medications on File Prior to Visit Medication Sig Dispense Refill dapagliflozin (Farxiga) 10 MG tablet Take 1 tablet (10 mg) by mouth daily. 90 tablet 1 metFORMIN (Glucophage) 1000 MG tablet Take 1 tablet (1,000 mg) by mouth in the morning and 1 tablet (1,000 mg) in the evening. Take with meals. Do all this for 180 doses. 180 tablet 1 metoprolol tartrate (Lopressor) 25 MG tablet Take 1 tablet (25 mg) by mouth 2 times daily for 180 doses. 180 tablet 1 pioglitazone (Actos) 15 MG tablet Take 1 tablet (15 mg) by mouth daily. 90 tablet 1 ramipril (Altace) 10 MG capsule One capsule in the am and one capsule in the pm 180 capsule 1 warfarin (Coumadin) 5 MG tablet Increase to 5 mg daily 90 tablet 3 cholecalciferol (Vitamin D-3) 125 MCG (5000 UT) capsule Take 5,000 Units by mouth daily. (Patient not taking: Reported on 06/21/2024) [DISCONTINUED] amLODIPine (Norvasc) 10 MG tablet Take 1 tablet (10 mg) by mouth daily. (Patient not taking: Reported on 06/21/2024) 30 tablet 5 [DISCONTINUED] dulaglutide (Trulicity) 0.75 MG/0.5ML solution pen-injector Inject 0.75 mg under the skin 1 (one) time per week. Call in 1 month on glucose log, your weight, and any side effects on this medicine, and to discuss increasing to next dosage of Trulicity (Patient not taking: Reported on 06/21/2024) 4 each 0 [DISCONTINUED] rosuvastatin (Crestor) 10 MG tablet Take 1 tablet (10 mg) by mouth daily. (Patient not taking: Reported on 06/21/2024) 30 tablet 5 No current facility-administered medications on file prior to visit. Patient Active Problem List Diagnosis History of pulmonary embolism Type 2 diabetes mellitus with diabetic polyneuropathy, without long-term current use of insulin (HCC) Personal history of DVT (deep vein thrombosis) Essential hypertension Mixed hyperlipidemia Obesity BECK on CPAP History of renal stone Factor V Leiden (HCC) Family history of prostate cancer in father Encounter for colorectal cancer screening Cholelithiases On continuous oral anticoagulation Social History Tobacco Use Smoking status: Never Smokeless tobacco: Never Substance Use Topics Alcohol use: No Alcohol/week: 0.0 standard drinks of alcohol Past Surgical Histor (more content not included)... [facility] 36on 05-31-2024 36 Placed call to patient. Two patient identifers confirmed. Was able to speak to patient. All concerns in message have been addressed. No questions at this time. Call ended [facility] 36 Spoke with patient looks like you didn't send the warfarin you sent it as sample, can you please resend the script to [facility] thanks. [facility] 36 ----- Message from Sunny Zavala DO sent at 05/30/2024 10:31 AM EDT ----- Patient's recent INR slightly low, increase Coumadin to 5 mg daily, recheck INR in [address] [facility] 36on 05-30-2024 36 Message released to patient as written. Patient's further questions if applicable: Pt understands message Were all questions from office addressed or relayed to the patient from encounter: Yes [facility] 36 Tried to call gustavo sharif and mail box is full. [facility] 36 ----- Message from Sunny Zavala DO sent at 05/30/2024 10:31 AM EDT ----- Patient's recent INR slightly low, increase Coumadin to 5 mg daily, recheck INR in [address] [facility] Prothrombin Time w/INRon INR Coag (PPP) [Relative time] 1.7 {INR} [facility] Comment on above: Performed By: #### L 506.0400, L500.4100, L501.9520, L300.3900, L502.0250 #### [facility] [address] [place], [address] PT Coag (PPP) [Time] 20.1 s High 11.7-14.9 [facility] Comment on above: Performed By: #### L 506.0400, L500.4100, L501.9520, L300.3900, L502.0250 #### [facility] [address] [place], [address] 36on 03-26-2024 36 This was a colonosco py prep. No need for refills. Normal [facility] 36on 03-19-2024 36 ----- Message from Sunny Zavala DO sent at 03/18/2024 10:29 PM EDT ----- Also notify the patient his INR is slightly low, and I have recommended increasing Coumadin to 5 mg daily except on Tuesday, take only 2.5 mg. Recheck INR in 3 to 4 weeks Normal [facility] 36 Tried to call gustavo sharif and mail box was full Normal [facility] 36 ----- Message from Sunny Zavala DO sent at 03/18/2024 10:26 PM EDT ----- Patient's recent lab is acceptable except for elevated A1c of 7.6. I have restarted Trulicity and hopefully it is available. He is to call with his glucose log, his weight and any side effects of that med in 1 month. If he is tolerating it well we will increase the dose monthly. Normal [facility] Comprehensive Metabolic Prof ilon 03-02-2024 Albumin [Mass/Vol] 3.6 g/dL Normal 3.2-5.0 [facility] Comment on above: Performed By: #### L 501.9985, L300.3900, L500.4050 #### [facility] [address] [place], [address] Albumin/Globulin [Mass ratio] 0.9 {ratio} Normal 0.9-2.4 [facility] Comment on above: Performed By: #### L 501.9985, L300.3900, L500.4050 #### [facility] [address] [place], [address] ALK P 56 U/L Normal 45-117 [facility] Comment on above: Performed By: #### L 501.9985, L300.3900, L500.4050 #### [facility] [address] [place], [address] ALT [Catalytic activity/Vol] 28 U/L Normal 16-61 [facility] Comment on above: Performed By: #### L 501.9985, L300.3900, L500.4050 #### [facility] [address] [place], [address] AST [Catalytic activity/Vol] 22 U/L Normal 15-37 [facility] Comment on above: Performed By: #### L 501.9985, L300.3900, L500.4050 #### [facility] [address] [place], [address] Bilirubin [Mass/Vol] 0.30 mg/dL Normal 0.20-1.00 [facility] Comment on above: Result Comment: For patients on eltrombopag therapy, use of Dimension [place] TBIL is not recommended. Performed By: #### L 501.9985, L300.3900, L500.4050 #### [facility] [address] [place], [address] BUN/CRE 10.4 RATIO Normal 10-20 [facility] Comment on above: Performed By: #### L 501.9985, L300.3900, L500.4050 #### [facility] [address] [place], [address] CA,Total 9.1 mg/dL Normal 8.5-10.1 [facility] Comment on above: Performed By: #### L 501.9985, L300.3900, L500.4050 #### [facility] [address] [place], [address] Chloride [Moles/Vol] 107 mmol/L Normal 98-107 [facility] Comment on above: Performed By: #### L 501.9985, L300.3900, L500.4050 #### [facility] [address] [place], [address] CO2 [Moles/Vol] 27.0 mmol/L Normal 21.0-32.0 [facility] Comment on above: Performed By: #### L 501.9985, L300.3900, L500.4050 #### [facility] [address] [place], [address] Creatinine [Mass/Vol] 1.25 mg/dL Normal 0.70-1.30 [facility] Comment on above: Result Comment: The validity of the calculated GFR GFRAA in patients over 70 years has not been determined. Clinical correlation is essential. Performed By: #### L 501.9985, L300.3900, L500.4050 #### [facility] [address] [place], [address] EST GFR - AA 75 mL/min Normal >60 [facility] Comment on above: Result Comment: Afri can Albanian GFR Calc Performed By: #### L 501.9985, L300.3900, L500.4050 #### [facility] [address] [place], [address] GAP 7 Normal 5-15 [facility] Comment on above: Performed By: #### L 501.9985, L300.3900, L500.4050 #### [facility] [address] [place], [address] GFR/1.73 sq M.predicted among non-blacks MDRD (S/P/Bld) [Vol rate/Area] 62 mL/min/{1.73_m2} Normal >60 [facility] Comment on above: Result Comment: Non- GFR Calc Performed By: #### L 501.9985, L300.3900, L500.4050 #### [facility] [address] [place], [address] Globulin (S) [Mass/Vol] 4.0 g/dL Normal 2.2-4.2 [facility] Comment on above: Performed By: #### L 501.9985, L300.3900, L500.4050 #### [facility] [address] [place], [address] Glucose [Mass/Vol] 196 mg/dL High 74-106 [facility] Comment on above: Result Comment: Fast ing Glucose result greater than or equal to 126 mg/dL suggests DIABETES MELLITUS per A.D.A. criteria. Performed By: #### L 501.9985, L300.3900, L500.4050 #### [facility] [address] [place], [address] Potassium [Moles/Vol] 4.4 mmol/L Normal 3.5-5.1 [facility] Comment on above: Performed By: #### L 501.9985, L300.3900, L500.4050 #### [facility] [address] [place], [address] Sodium [Moles/Vol] 141 mmol/L Normal 136-145 [facility] Comment on above: Performed By: #### L 501.9985, L300.3900, L500.4050 #### [facility] [address] [place], [address] T PROT 7.6 g/dL Normal 6.4-8.2 [facility] Comment on above: Performed By: #### L 501.9985, L300.3900, L500.4050 #### [facility] [address] [place], [address] Urea nitrogen [Mass/Vol] 13 mg/dL Normal -18 [facility] Comment on above: Performed By: #### L 501.9985, L300.3900, L500.4050 #### [facility] [address] [place], [address] Hemoglobin A1con 03-02-2024 HbA1c (Bld) [Mass fraction] 7.6 % High 3.8-5.6 [facility] Comment on above: Result Comment: Norm al < 5.7 % Prediabetic 5.7 - 6.4 % Diabetic >or= 6.5 % Please note range changes. Performed By: #### L 501.9985, L300.3900, L500.4050 #### [facility] [address] [place], [address] Office Visiton 03-02-2024 Follow-up visit [id number] Han Corbin 1960 M Date Provider Department Center 03/02/2024 SUNNY FULTON [facility] Family History Problem Relation Age of Onset Dementia Mother Comments: age 87 Breast cancer Mother 82 High Blood Pressure Mother Heart disease Father 70 Comments: stents Diabetes Father Comments: insulin High Blood Pressure Father Cirrhosis Father Comments: PHAN, age 78 Clotting disorder Father Prostate cancer Father 65 Uterine cancer Sister Diabetes Sister Comments: diet cont Cancer Son 3 Comments: leukemia No Known Problems Maternal Grandmother Comments: late in life Diabetes Maternal Grandfather No Known Problems Paternal Grandmother Comments: late in life Coronary artery disease Paternal Grandfather Comments: early 80s Prostate cancer Paternal Cousin Substance Abuse Neg Hx Stroke Neg Hx Heart attack Neg Hx Depression Neg Hx Learning disabilities Neg Hx Family Status - Relation Status Age at Mother Father 78 Sister Alive Sister Alive Sister Alive Daughter Alive Son Alive Son Alive Maternal Grandmother Maternal Grandfather Paternal Grandmother Paternal Grandfather Paternal Cousin Alive Notes: father's brother's son Neg Hx Level of Service:81643 [place] OFFICE/OUTPATIENT ESTABLISHED MOD MDM 30 MIN Reason for Visit and Comments: Follow-up [[id number]] - 4 month med check Normal [facility] Progress Noteon 03-02-2024 Progress Note [facility] [address] [facility] [id number] Visit type: Established Patient Reason for Visit: Follow-up (4 month med check) Assessment / Plan: Han was seen today for follow-up. Diagnoses and all orders for this visit: Type 2 diabetes mellitus with diabetic polyneuropathy, without long-term current use of insulin ([facility]) ([facility]) (Primary) Comments: uncont, ch lab, cont farxiga, actos and met, ? restart Trulicity Orders: - Comprehensive metabolic panel; Future - Hemoglobin A1c; Future - Comprehensive metabolic panel - Hemoglobin A1c Mixed hyperlipidemia Comments: stable, cont Crestor On continuous oral anticoagulation Comments: stable, cont Coumadin, ch lab Essential hypertension Comments: stable, cont altace, lopr and norvasc Factor V Leiden ([facility]) - Protime-INR; Future - Protime-INR Anticoagulant long-term use Other orders - metFORMIN (Glucophage) 1000 MG tablet; Take 1 tablet (1,000 mg) by mouth in the morning and 1 tablet (1,000 mg) in the evening. Take with meals. Do all this for 180 doses. - pioglitazone (Actos) 15 MG tablet; Take 1 tablet (15 mg) by mouth daily. - ramipril (Altace) 10 MG capsule; One capsule in the am and one capsule in the pm - Glucose Blood (Blood Glucose Test) strip; 1 strip by In Vitro route in the morning. - metoprolol tartrate (Lopressor) 25 MG tablet; Take 1 tablet (25 mg) by mouth 2 times daily for 180 doses. Subjective: Patient ID: Han Corbin is a 63 y.o. male. HPI obese NS w/ DM , HTN, HLD, ch warfarin rx due to PE and DVT. On actos now rather than Trulicity due to avail, not ch FBS , no strips. No change in wt, eyes or feet. He dec metoprol due to low BP readings. Review of Systems Constitutional: Negative for activity change, appetite change, diaphoresis, fatigue and unexpected weight change. HENT: Negative for congestion. Eyes: Negative for visual disturbance. Respiratory: Negative for cough, choking and shortness of breath. Cardiovascular: Negative for chest pain, palpitations and leg swelling. Gastrointestinal: Negative for abdominal pain, blood in stool, constipation, diarrhea and vomiting. Endocrine: Positive for polydipsia. Genitourinary: Negative for difficulty urinating, enuresis, frequency and hematuria. Musculoskeletal: Negative for arthralgias, back pain and gait problem. Skin: Negative for rash and wound. Neurological: Negative for weakness. Hematological: Negative for adenopathy. Does not bruise/bleed easily. Allergies Allergen Reactions Lipitor [Atorvastatin] Other Body aches Amoxicillin Unknown Ezetimibe Unknown Prednisone Unknown Sulfa Antibiotics Other reaction(s): Unknown Exenatide Other Lumps under skin Current Outpatient Medications on File Prior to Visit Medication Sig Dispense Refill amLODIPine (Norvasc) 10 MG tablet Take 1 tablet (10 mg) by mouth daily. 30 tablet 5 cholecalciferol (Vitamin D-3) 125 MCG (5000 UT) capsule Take 5,000 Units by mouth daily. dapagliflozin (Farxiga) 10 MG tablet Take 1 tablet (10 mg) by mouth daily. 90 tablet 1 rosuvastatin (Crestor) 10 MG tablet Take 1 tablet (10 mg) by mouth daily. 30 tablet 5 warfarin (Coumadin) 5 MG tablet Change to 5 mg daily except on and Tuesday take one half or 2.5 mg on those days 90 tablet 3 [DISCONTINUED] metFORMIN (Glucophage) 1000 MG tablet Take 1 tablet (1,000 mg) by mouth in the morning and 1 tablet (1,000 mg) in the evening. Take with meals. 60 tablet 3 [DISCONTINUED] metoprolol tartrate (Lopressor) 25 MG tablet Take 2 tablets (50 mg) by mouth in the morning and 2 tablets (50 mg) in the evening. Take with meals. (Patient taking differently: Take 50 mg by mouth in the morning and 50 mg in the evening. Take with meals. Takes one tablet twice a day.) 120 tablet 5 [DISCONTINUED] pioglitazone (Actos) 15 MG tablet Take 1 tablet (15 mg) by mouth daily. 30 tablet 1 [DISCONTINUED] ramipril (Altace) 10 MG capsule One capsule in the am and one capsule in the pm 180 capsule 1 No current facility-administered medications on file prior to visit. Patient Active Problem List Diagnosis History of pulmonary embolism Type 2 diabetes mellitus with diabetic polyneuropathy, without long-term current use of insulin (CMS/HCC) (HCC) Personal history of DVT (deep vein thrombosis) Essential hypertension Mixed hyperlipidemia Obesity BECK on CPAP History of renal stone Factor V Leiden (HCC) Family history of prostate cancer in father Encounter for colorectal cancer screening Cholelithiases On continuous oral anticoagulation Social History Tobacco Use Smoking status: Never Smokeless tobacco: Never Substance Use Topics Alcohol use: No Alcohol/week: 0.0 standard drinks of alcohol Past Surgical History: Procedure Laterality Date COLONOSCOPY 2016 COLONOSCOPY W/ BIOPSIES N/A 09/23/2022 Dr. Turner; repeat in 7 (more content not included)... Normal [facility] Prothrombin Time w/INRon INR Coag (PPP) [Relative time] 1.6 {INR} Normal [facility] Comment on above: Performed By: #### L [id number], L300.3900, L500.4050 #### [facility] [address] [place], [address] PT Coag (PPP) [Time] 18.6 s High 11.7-14.9 [facility] Comment on above: Performed By: #### L [id number], L300.3900, L500.4050 #### [facility] [address] [place], [address] Prothrombin Time w/INRon INR Coag (PPP) [Relative time] 1.9 {INR} Normal [facility] Comment on above: Performed By: #### L 506.0400, L500.4100, L501.9520, L300.3900, L502.0250 #### [facility] [address] [place], [address] PT Coag (PPP) [Time] 21.5 s High 11.7-14.9 [facility] Comment on above: Performed By: #### L 506.0400, L500.4100, L501.9520, L300.3900, L502.0250 #### [facility] [place] [address], [address] Absolute lymphocyte countOrd ered By: Sunny Zavala on 11-25-2023 Lymphocytes Auto (Unsp spec) [#/Vol] 2.74 10*3/uL 0.83-4.51 [facility] Automated lymphocyte count a s percentage of total leukocytesOrdered By: Sunny Jaureguidaysi on 11-25-2023 Lymphocytes/100 WBC Auto (Unsp spec) 32.7 % 19-41 [facility] Basophil percentageOrdered B y: Sunny Zavala on 11-25-2023 Basophils/100 WBC (Bld) 1.3 % 0-1 [facility] Bilirubin [Mass/Vol] 0.40 mg/dL 0.20-1.00 [facility] Comment on above: For patients on eltr ombopag therapy, use of Dimension [place] TBIL is not recommended. Chloride [Moles/Vol] 109 mmol/L 98-107 [facility] Cholesterol [Mass/Vol] 111 mg/dL <200 [facility] Comment on above: <200 mg/dL Desirable 200-240 mg/dL Borderline >240 mg/dL High Risk Eosinophils/100 WBC (Bld) 4.8 % 0-5 [facility] Glucose [Mass/Vol] 183 mg/dL 74-106 [facility] Comment on above: Fasting Glucose resu lt greater than or equal to 126 mg/dL suggests DIABETES MELLITUS per A.D.A. criteria. Hemoglobin (Bld) [Mass/Vol] 14.3 g/dL 13.0-16.5 [facility] Monocytes/100 WBC (Bld) 10.4 % 0-10 [facility] Neutrophils (Bld) [#/Vol] 4.2 10*3/uL 2.0-7.7 [facility] Neutrophils/100 WBC (Bld) 50.1 % 47-70 [facility] Potassium [Moles/Vol] 4.3 mmol/L 3.5-5.1 [facility] Protein [Mass/Vol] 7.4 g/dL 6.4-8.2 [facility] Sodium [Moles/Vol] 139 mmol/L 136-145 [facility] Triglyceride [Mass/Vol] 106 mg/dL <199 [facility] Comment on above: The drugs N-Acetylcy steine and Metamizole may falsely depress this assay.Serum Triglycerides Reference Interval Normal <150 mg/dL Borderline high 150 - 199 mg/dL High 200 - 499 mg/dL Very High > or = 500 mg/dL WBC (Bld) [#/Vol] 8.4 10*3/uL 4.4-11.0 [facility] Determination of erythrocyte mean corpuscular volume (MCV)Ordered By: Sunny Zavala on 11-25-2023 MCV (RBC) [Entitic vol] 90.6 fL 80-94 [facility] Erythrocyte distribution wid th ratioOrdered By: Sunny Zavala on 11-25-2023 Erythrocyte distribution width (RBC) [Ratio] 13.7 % 11.6-14.6 [facility] Erythrocyte distribution wid th standard deviationOrdered By: Sunny Zavala on 11-25-2023 Erythrocyte distribution width (RBC) [Entitic vol] 45.3 fL 35.1-43.9 [facility] Hematocrit Auto (Bld) [Volum e fraction]Ordered By: Sunny Zavala on 11-25-2023 Hematocrit (Bld) [Volume fraction] 44.5 % 40-54 [facility] Immature granulocytes/100 WB C Auto (Bld)Ordered By: Sunny Zavala on 11-25-2023 Immature granulocytes/100 WBC (Bld) 0.700 % 0.0-0.9 [facility] Comment on above: IG% - Immature Granu locytes (promyelocytes, myelocytes and metamyelocytes) > 1% indicates that a LEFT SHIFT is Present. Laboratory - Chemistry and C hemistry - challengeOrdered By: Sunny Zavala on 11-25-2023 Albumin/Globulin [Mass ratio] 0.9 {ratio} 0.9-2.4 [facility] ALP [Catalytic activity/Vol] 52 U/L 45-117 [facility] ALT [Catalytic activity/Vol] 26 U/L 16-61 [facility] Cholesterol in HDL [Mass/Vol] 51 mg/dL >40 [facility] Comment on above: The drugs N-Acetylcy steine and Metamizole may falsely depress this assay. Reference Range HDL <40 mg/dL Low HDL Cholesterol HDL >or= 60 mg/dL High HDL Cholesterol Cholesterol in LDL [Mass/Vol] 39 mg/dL 0-130 [facility] CO2 [Moles/Vol] 26.0 mmol/L 21.0-32.0 [facility] Globulin (S) [Mass/Vol] 3.8 g/dL 2.2-4.2 [facility] Urea nitrogen/Creatinine [Mass ratio] 14.8 mg/mg 10-20 [facility] - CoagulationOrde red By: Sunny Zavala on 11-25-2023 INR Coag (Bld) [Relative time] 2.4 {INR} [facility] PT Coag (PPP) [Time] 25.7 s 11.7-14.9 [facility] Laboratory - Hematology and Cell countsOrdered By: Sunny Zavala on 11-25-2023 MCH (RBC) [Entitic mass] 29.1 pg 27.0-32.0 [facility] MCHC (RBC) [Mass/Vol] 32.1 g/dL 32-36 [facility] Nucleated RBC/100 WBC (Bld) [Ratio] 0 % 0-5 [facility] Platelet mean volume (Bld) [Entitic vol] 11.3 fL 6.2-12.0 [facility] Platelets (Bld) [#/Vol] 269 10*3/uL 150-450 [facility] No Panel InformationOrdered By: Sunny Zavala on 11-25-2023 Estimated GFR (MDRD) Amer 77 mL/min >60 [facility] Comment on above: GFR Calc Estimated GFR (MDRD) Non-Af Amer 64 mL/min >60 [facility] Comment on above: Non- GFR Calc VLDL Cholesterol 21 mg/dL 5-40 [facility] RBC Auto (Bld) [#/Vol]Ordere d By: Sunny Zavala on 11-25-2023 RBC (Bld) [#/Vol] 4.91 10*6/uL 4.6-6.2 [facility] Serum or plasma calcium annette urement (mass/volume)Ordered By: Sunny Zavala on 11-25-2023 Calcium [Mass/Vol] 9.3 mg/dL 8.5-10.1 [facility] Serum or plasma creatinine m easurement (mass/volume)Ordered By: Sunny Zavala on 11-25-2023 Creatinine [Mass/Vol] 1.22 mg/dL 0.70-1.30 [facility] Comment on above: The validity of the calculated GFR & GFRAA in patients over 70 years has not been determined. Clinical correlation is essential. Serum or plasma urea nitroge n measurement (mass/volume)Ordered By: Sunny Zavala on 11-25-2023 Urea nitrogen [Mass/Vol] 18 mg/dL 7-18 [facility] Thin prep Papanicolaou smear with manual screeningOrdered By: Sunny Zavala on 11-25-2023 Thin prep Papanicolaou smear with manual screening 3.6 g/dL 3.2-5.0 [facility] Thin prep Papanicolaou smear with manual screening 15 U/L 15-37 [facility] Thin prep Papanicolaou smear with manual screening 4 5-15 [facility] Whole blood hemoglobin A1c/t otal hemoglobin ratio (mass fraction)Ordered By: Sunny Zavala on 11-25-2023 HbA1c (Bld) [Mass fraction] 9.4 % 3.8-5.6 [facility] Comment on above: Normal < 5.7 % Predi abetic 5.7 - 6.4 % Diabetic >or= 6.5 % Please note range changes. Laboratory - CoagulationOrde red By: Sunny Zavala on 10-12-2023 INR Coag (Bld) [Relative time] 2.7 {INR} [facility] PT Coag (PPP) [Time] 28.6 s 11.7-14.9 [facility] Whole blood prothrombin time Ordered By: Sunny Zavala on 09-19-2023 PT Coag (Bld) [Time] 31.7 s 11.7-14.9 [facility] Absolute lymphocyte countOrd ered By: Sunny Zavala on 08-04-2023 Lymphocytes Auto (Unsp spec) [#/Vol] 2.30 10*3/uL 0.83-4.51 [facility] Basophil percentageOrdered B y: Sunny Zavala on 08-04-2023 Basophils/100 WBC (Bld) 1.2 % 0-1 [facility] Bilirubin [Mass/Vol] 0.30 mg/dL 0.20-1.00 [facility] Comment on above: For patients on eltr ombopag therapy, use of Dimension [place] TBIL is not recommended. Chloride [Moles/Vol] 106 mmol/L 98-107 [facility] Cholesterol [Mass/Vol] 138 mg/dL <200 [facility] Comment on above: <200 mg/dL Desirable 200-240 mg/dL Borderline >240 mg/dL High Risk Eosinophils/100 WBC (Bld) 6.3 % 0-5 [facility] Glucose [Mass/Vol] 252 mg/dL 74-106 [facility] Comment on above: Glucose result great er than or equal to 200 mg/dLsuggests DIABETES MELLITUS per A.D.A. criteria. Neutrophils (Bld) [#/Vol] 5.3 10*3/uL 2.0-7.7 [facility] Neutrophils/100 WBC (Bld) 57.8 % 47-70 [facility] Potassium [Moles/Vol] 4.7 mmol/L 3.5-5.1 [facility] Protein [Mass/Vol] 7.7 g/dL 6.4-8.2 [facility] Sodium [Moles/Vol] 139 mmol/L 136-145 [facility] Triglyceride [Mass/Vol] 98 mg/dL <199 [facility] Comment on above: The drugs N-Acetylcy steine and Metamizole may falsely depress this assay.Serum Triglycerides Reference Interval Normal <150 mg/dL Borderline high 150 - 199 mg/dL High 200 - 499 mg/dL Very High > or = 500 mg/dL WBC (Bld) [#/Vol] 9.1 10*3/uL 4.4-11.0 [facility] Blood erythrocytes count (nu mber/volume)Ordered By: Sunny Zavala on 08-04-2023 RBC (Bld) [#/Vol] 4.83 10*6/uL 4.6-6.2 [facility] Blood hemoglobin measurement (mass/volume)Ordered By: Sunny Zavala on 08-04-2023 Hemoglobin (Bld) [Mass/Vol] 14.2 g/dL 13.0-16.5 [facility] Blood lymphocytes/100 leukoc ytesOrdered By: Sunny Zavala on 08-04-2023 Lymphocytes/100 WBC (Bld) 25.4 % 19-41 [facility] Blood monocytes/100 leukocyt esOrdered By: Sunny Zavala on 08-04-2023 Monocytes/100 WBC (Bld) 8.5 % 0-10 [facility] Blood platelet mean volumeOr dered By: Sunny Zavala on 08-04-2023 Platelet mean volume (Bld) [Entitic vol] 11.1 fL 6.2-12.0 [facility] Determination of erythrocyte mean corpuscular volume (MCV)Ordered By: Sunny Zavala on 08-04-2023 MCV (RBC) [Entitic vol] 90.9 fL 80-94 [facility] Hematocrit Auto (Bld) [Volum e fraction]Ordered By: Sunny Zavala on 08-04-2023 Hematocrit (Bld) [Volume fraction] 43.9 % 40-54 [facility] INR in Blood by Coagulation assayOrdered By: Sunny Zavala on 08-04-2023 INR Coag (Bld) [Relative time] 1.7 {INR} [facility] Laboratory - Chemistry and C hemistry - challengeOrdered By: Sunny Zavala on 08-04-2023 ALP [Catalytic activity/Vol] 63 U/L 45-117 [facility] ALT [Catalytic activity/Vol] 50 U/L 16-61 [facility] CO2 [Moles/Vol] 27.0 mmol/L 21.0-32.0 [facility] Globulin (S) [Mass/Vol] 4.0 g/dL 2.2-4.2 [facility] Urea nitrogen/Creatinine [Mass ratio] 8.5 mg/mg 10-20 [facility] Laboratory - CoagulationOrde red By: Sunny Zavala on 08-04-2023 PT Coag (PPP) [Time] 20.4 s 11.7-14.9 [facility] Laboratory - Hematology and Cell countsOrdered By: Sunny Zavala on 08-04-2023 Erythrocyte distribution width (RBC) [Entitic vol] 43.4 fL 35.1-43.9 [facility] Erythrocyte distribution width (RBC) [Ratio] 13.1 % 11.6-14.6 [facility] Immature granulocytes/100 WBC (Bld) 0.800 % 0.0-0.9 [facility] Comment on above: IG% - Immature Granu locytes (promyelocytes, myelocytes and metamyelocytes) > 1% indicates that a LEFT SHIFT is Present. MCH (RBC) [Entitic mass] 29.4 pg 27.0-32.0 [facility] Nucleated RBC/100 WBC (Bld) [Ratio] 0 % 0-5 [facility] MCHC Auto (RBC) [Mass/Vol]Or dered By: Sunny Zavala on 08-04-2023 MCHC (RBC) [Mass/Vol] 32.3 g/dL 32-36 [facility] No Panel InformationOrdered By: Sunny Zavala on 08-04-2023 Estimated GFR (MDRD) Amer 72 mL/min >60 [facility] Comment on above: GFR Calc Estimated GFR (MDRD) Non-Af Amer 60 mL/min >60 [facility] Comment on above: Non- GFR Calc Prostate Specific Antigen Screen 0.88 ng/mL 0.00-4.00 [facility] Comment on above: This test was perfor med using the TPSA assay method [facility] the[facility]. Values obtained with differentassay methods cannot be used interchangably.When changing PSA assays in the course of monitoring apatient, additional sequential testing should be carriedout to confirm baseline values. Platelets bldOrdered By: Thong Zavala on 08-04-2023 Platelets (Bld) [#/Vol] 286 10*3/uL 150-450 [facility] Serum or plasma albumin annette urement (mass/volume)Ordered By: Sunny Zavala on 08-04-2023 Albumin [Mass/Vol] 3.7 g/dL 3.2-5.0 [facility] Serum or plasma albumin/glob ulin mass ratioOrdered By: Sunny Zavala on 08-04-2023 Albumin/Globulin [Mass ratio] 0.9 {ratio} 0.9-2.4 [facility] Serum or plasma calcium annette urement (mass/volume)Ordered By: Sunny Zavala on 08-04-2023 Calcium [Mass/Vol] 9.6 mg/dL 8.5-10.1 [facility] Serum or plasma cholesterol in HDL measurement (mass/volume)Ordered By: Sunny Zavala on 08-04-2023 Cholesterol in HDL [Mass/Vol] 46 mg/dL >40 [facility] Comment on above: The drugs N-Acetylcy steine and Metamizole may falsely depress this assay. Reference Range HDL <40 mg/dL Low HDL Cholesterol HDL >or= 60 mg/dL High HDL Cholesterol Serum or plasma cholesterol in VLDL measurement (mass/volume)Ordered By: Sunny Zavala on 08-04-2023 Cholesterol in VLDL [Mass/Vol] 20 mg/dL 5-40 [facility] Serum or plasma creatinine m easurement (mass/volume)Ordered By: Sunny Zavala on 08-04-2023 Creatinine [Mass/Vol] 1.29 mg/dL 0.70-1.30 [facility] Comment on above: The validity of the calculated GFR & GFRAA in patients over 70 years has not been determined. Clinical correlation is essential. Serum or plasma low density lipoprotein (LDL) cholesterol measurement (mass/volume)Ordered By: Sunny Zavala on 08-04-2023 Cholesterol in LDL [Mass/Vol] 72 mg/dL 0-130 [facility] Serum or plasma urea nitroge n measurement (mass/volume)Ordered By: Sunny Zavala on 08-04-2023 Urea nitrogen [Mass/Vol] 11 mg/dL 7-18 [facility] Thin prep Papanicolaou smear with manual screeningOrdered By: Sunny Zavala on 08-04-2023 Thin prep Papanicolaou smear with manual screening 32 U/L 15-37 [facility] Thin prep Papanicolaou smear with manual screening 6 5-15 [facility] Whole blood hemoglobin A1c/t otal hemoglobin ratio (mass fraction)Ordered By: Sunny Zavala on 08-04-2023 HbA1c (Bld) [Mass fraction] 9.2 % 3.8-5.6 [facility] Comment on above: Normal < 5.7 % Predi abetic 5.7 - 6.4 % Diabetic >or= 6.5 % Please note range changes. INR in Blood by Coagulation assayOrdered By: Sunny Zavala on 05-25-2023 INR Coag (Bld) [Relative time] 3.0 {INR} [facility] - CoagulationOrde red By: Sunny Zavala on 05-25-2023 PT Coag (PPP) [Time] 31.5 s 11.7-14.9 [facility] ECG 12 leadon 04-11-2023 [facility] Mor.sl Absolute lymphocyte countOrd ered By: Sunny Zavala on 03-31-2023 Lymphocytes Auto (Unsp spec) [#/Vol] 2.66 10*3/uL 0.83-4.51 [facility] Basophil percentageOrdered B y: Sunny Zavala on 03-31-2023 Basophils/100 WBC (Bld) 1.1 % 0-1 [facility] Bilirubin [Mass/Vol] 0.40 mg/dL 0.20-1.00 [facility] Comment on above: For patients on eltr ombopag therapy, use of Dimension [place] TBIL is not recommended. Chloride [Moles/Vol] 109 mmol/L 98-107 [facility] Cholesterol [Mass/Vol] 125 mg/dL <200 [facility] Comment on above: <200 mg/dL Desirable 200-240 mg/dL Borderline >240 mg/dL High Risk Eosinophils/100 WBC (Bld) 7.8 % 0-5 [facility] Glucose [Mass/Vol] 95 mg/dL 74-106 [facility] Neutrophils (Bld) [#/Vol] 4.6 10*3/uL 2.0-7.7 [facility] Neutrophils/100 WBC (Bld) 51.5 % 47-70 [facility] Potassium [Moles/Vol] 4.2 mmol/L 3.5-5.1 [facility] Protein [Mass/Vol] 7.8 g/dL 6.4-8.2 [facility] Sodium [Moles/Vol] 141 mmol/L 136-145 [facility] Triglyceride [Mass/Vol] 102 mg/dL <199 [facility] Comment on above: The drugs N-Acetylcy steine and Metamizole may falsely depress this assay.Serum Triglycerides Reference Interval Normal <150 mg/dL Borderline high 150 - 199 mg/dL High 200 - 499 mg/dL Very High > or = 500 mg/dL WBC (Bld) [#/Vol] 8.9 10*3/uL 4.4-11.0 [facility] Blood erythrocytes count (nu mber/volume)Ordered By: Sunny Zavala on 03-31-2023 RBC (Bld) [#/Vol] 4.96 10*6/uL 4.6-6.2 [facility] Blood hemoglobin measurement (mass/volume)Ordered By: Sunny Zavala on 03-31-2023 Hemoglobin (Bld) [Mass/Vol] 14.7 g/dL 13.0-16.5 [facility] Blood lymphocytes/100 leukoc ytesOrdered By: Sunny Zavala on 03-31-2023 Lymphocytes/100 WBC (Bld) 29.8 % 19-41 [facility] Blood monocytes/100 leukocyt esOrdered By: Sunny Zavala on 03-31-2023 Monocytes/100 WBC (Bld) 9.1 % 0-10 [facility] Blood platelet mean volumeOr dered By: Sunny Zavala on 03-31-2023 Platelet mean volume (Bld) [Entitic vol] 10.9 fL 6.2-12.0 [facility] Determination of erythrocyte mean corpuscular volume (MCV)Ordered By: Sunny Zavala on 03-31-2023 MCV (RBC) [Entitic vol] 92.9 fL 80-94 [facility] Hematocrit Auto (Bld) [Volum e fraction]Ordered By: Sunny Zavala on 03-31-2023 Hematocrit (Bld) [Volume fraction] 46.1 % 40-54 [facility] Laboratory - Chemistry and C hemistry - challengeOrdered By: Sunny Zavala on 03-31-2023 ALP [Catalytic activity/Vol] 63 U/L 45-117 [facility] ALT [Catalytic activity/Vol] 33 U/L 16-61 [facility] CO2 [Moles/Vol] 27.0 mmol/L 21.0-32.0 [facility] Globulin (S) [Mass/Vol] 4.1 g/dL 2.2-4.2 [facility] Urea nitrogen/Creatinine [Mass ratio] 11.3 mg/mg 10-20 [facility] - Hematology and Cell countsOrdered By: Sunny Zavala on 03-31-2023 Erythrocyte distribution width (RBC) [Entitic vol] 45.5 fL 35.1-43.9 [facility] Erythrocyte distribution width (RBC) [Ratio] 13.4 % 11.6-14.6 [facility] Immature granulocytes/100 WBC (Bld) 0.700 % 0.0-0.9 [facility] Comment on above: IG% - Immature Granu locytes (promyelocytes, myelocytes and metamyelocytes) > 1% indicates that a LEFT SHIFT is Present. MCH (RBC) [Entitic mass] 29.6 pg 27.0-32.0 [facility] Nucleated RBC/100 WBC (Bld) [Ratio] 0 % 0-5 [facility] MCHC Auto (RBC) [Mass/Vol]Or dered By: Sunny Zavala on 03-31-2023 MCHC (RBC) [Mass/Vol] 31.9 g/dL 32-36 [facility] No Panel InformationOrdered By: Sunny Zavala on 03-31-2023 Estimated GFR (MDRD) Amer 70 mL/min >60 [facility] Comment on above: GFR Calc Estimated GFR (MDRD) Non-Af Amer 58 mL/min >60 [facility] Comment on above: Non- GFR Calc Thyroid Stimulating Hormone (TSH) 1.86 uIU/mL 0.358-3.74 [facility] Platelets bldOrdered By: Thong Zavala on 03-31-2023 Platelets (Bld) [#/Vol] 287 10*3/uL 150-450 [facility] [facility] Serum or plasma albumin annette urement (mass/volume)Ordered By: Sunny Zavala on 03-31-2023 Albumin [Mass/Vol] 3.7 g/dL 3.2-5.0 [facility] Serum or plasma albumin/glob ulin mass ratioOrdered By: Sunny Zavala on 03-31-2023 Albumin/Globulin [Mass ratio] 0.9 {ratio} 0.9-2.4 [facility] Serum or plasma calcium annette urement (mass/volume)Ordered By: Sunny Zavala on 03-31-2023 Calcium [Mass/Vol] 9.3 mg/dL 8.5-10.1 [facility] Serum or plasma cholesterol in HDL measurement (mass/volume)Ordered By: Sunny Zavala on 03-31-2023 Cholesterol in HDL [Mass/Vol] 42 mg/dL >40 [facility] Comment on above: The drugs N-Acetylcy steine and Metamizole may falsely depress this assay. Reference Range HDL <40 mg/dL Low HDL Cholesterol HDL >or= 60 mg/dL High HDL Cholesterol Serum or plasma cholesterol in VLDL measurement (mass/volume)Ordered By: Sunny Zavala on 03-31-2023 Cholesterol in VLDL [Mass/Vol] 20 mg/dL 5-40 [facility] Serum or plasma creatinine m easurement (mass/volume)Ordered By: Sunny Zavala on 03-31-2023 Creatinine [Mass/Vol] 1.33 mg/dL 0.70-1.30 [facility] Comment on above: The validity of the calculated GFR & GFRAA in patients over 70 years has not been determined. Clinical correlation is essential. Serum or plasma low density lipoprotein (LDL) cholesterol measurement (mass/volume)Ordered By: Sunny Zavala on 03-31-2023 Cholesterol in LDL [Mass/Vol] 63 mg/dL 0-130 [facility] Serum or plasma urea nitroge n measurement (mass/volume)Ordered By: Sunny Zavala on 03-31-2023 Urea nitrogen [Mass/Vol] 15 mg/dL 7-18 [facility] Thin prep Papanicolaou smear with manual screeningOrdered By: Sunny Zavala on 03-31-2023 Thin prep Papanicolaou smear with manual screening 22 U/L 15-37 [facility] Thin prep Papanicolaou smear with manual screening 5 5-15 [facility] Whole blood hemoglobin A1c/t otal hemoglobin ratio (mass fraction)Ordered By: Sunny Zavala on 03-31-2023 HbA1c (Bld) [Mass fraction] 6.4 % 3.8-5.6 [facility] Comment on above: Normal < 5.7 % Predi abetic 5.7 - 6.4 % Diabetic >or= 6.5 % Please note range changes. Laboratory - CoagulationOrde red By: Sunny Zavala on 02-24-2023 INR Coag (Bld) [Relative time] 1.8 {INR} [facility] Comment on above: Critical Value > 4.0 Whole blood prothrombin time Ordered By: Sunny Zavala on 02-24-2023 PT Coag (Bld) [Time] 19.9 s 11.7-14.9 [facility] INR in Blood by Coagulation assayOrdered By: Sunny Zavala on 01-14-2023 INR Coag (Bld) [Relative time] 2.4 {INR} [facility] Laboratory - CoagulationOrde red By: Sunny Zavala on 01-14-2023 PT Coag (PPP) [Time] 26.6 s 11.7-14.9 [facility] Absolute lymphocyte countOrd ered By: Dr. Zavala on 11-24-2022 Lymphocytes Auto (Unsp spec) [#/Vol] 2.57 10*3/uL 0.83-4.51 [facility] Basophil percentageOrdered B y: Dr. Zavala on 11-24-2022 Basophils/100 WBC (Bld) 1.1 % 0-1 [facility] Bilirubin [Mass/Vol] 0.40 mg/dL 0.20-1.00 [facility] Comment on above: For patients on eltr ombopag therapy, use of Dimension [place] TBIL is not recommended. Chloride [Moles/Vol] 110 mmol/L 98-107 [facility] Cholesterol [Mass/Vol] 135 mg/dL <200 [facility] Comment on above: <200 mg/dL Desirable 200-240 mg/dL Borderline >240 mg/dL High Risk Eosinophils/100 WBC (Bld) 9.2 % 0-5 [facility] Glucose [Mass/Vol] 170 mg/dL 74-106 [facility] Comment on above: Fasting Glucose resu lt greater than or equal to 126 mg/dL suggests DIABETES MELLITUS per A.D.A. criteria. Neutrophils (Bld) [#/Vol] 4.0 10*3/uL 2.0-7.7 [facility] Neutrophils/100 WBC (Bld) 48.9 % 47-70 [facility] Potassium [Moles/Vol] 4.2 mmol/L 3.5-5.1 [facility] Protein [Mass/Vol] 7.1 g/dL 6.4-8.2 [facility] Sodium [Moles/Vol] 139 mmol/L 136-145 [facility] Triglyceride [Mass/Vol] 89 mg/dL <199 [facility] Comment on above: The drugs N-Acetylcy steine and Metamizole may falsely depress this assay.Serum Triglycerides Reference Interval Normal <150 mg/dL Borderline high 150 - 199 mg/dL High 200 - 499 mg/dL Very High > or = 500 mg/dL WBC (Bld) [#/Vol] 8.3 10*3/uL 4.4-11.0 [facility] Blood erythrocytes count (nu mber/volume)Ordered By: Dr. Zavala on 11-24-2022 RBC (Bld) [#/Vol] 4.43 10*6/uL 4.6-6.2 [facility] Blood hemoglobin measurement (mass/volume)Ordered By: Dr. Zavala on 11-24-2022 Hemoglobin (Bld) [Mass/Vol] 13.1 g/dL 13.0-16.5 [facility] Blood lymphocytes/100 leukoc ytesOrdered By: Dr. Zavala on 11-24-2022 Lymphocytes/100 WBC (Bld) 31.1 % 19-41 [facility] Blood monocytes/100 leukocyt esOrdered By: Dr. Zavala on 11-24-2022 Monocytes/100 WBC (Bld) 9.0 % 0-10 [facility] Blood platelet mean volumeOr dered By: Dr. Zavala on 11-24-2022 Platelet mean volume (Bld) [Entitic vol] 11.2 fL 6.2-12.0 [facility] Determination of erythrocyte mean corpuscular volume (MCV)Ordered By: Dr. Zavala on 11-24-2022 MCV (RBC) [Entitic vol] 92.6 fL 80-94 [facility] Hematocrit Auto (Bld) [Volum e fraction]Ordered By: Dr. Zavala on 11-24-2022 Hematocrit (Bld) [Volume fraction] 41.0 % 40-54 [facility] Laboratory - Chemistry and C hemistry - challengeOrdered By: Dr. Zavala on 11-24-2022 ALP [Catalytic activity/Vol] 52 U/L 45-117 [facility] ALT [Catalytic activity/Vol] 36 U/L 16-61 [facility] CO2 [Moles/Vol] 27.0 mmol/L 21.0-32.0 [facility] Globulin (S) [Mass/Vol] 3.6 g/dL 2.2-4.2 [facility] Urea nitrogen/Creatinine [Mass ratio] 16.0 mg/mg 10-20 [facility] Laboratory - Hematology and Cell countsOrdered By: Dr. Zavala on 11-24-2022 Erythrocyte distribution width (RBC) [Entitic vol] 45.5 fL 35.1-43.9 [facility] Erythrocyte distribution width (RBC) [Ratio] 13.4 % 11.6-14.6 [facility] Immature granulocytes/100 WBC (Bld) 0.700 % 0.0-0.9 [facility] Comment on above: IG% - Immature Granu locytes (promyelocytes, myelocytes and metamyelocytes) > 1% indicates that a LEFT SHIFT is Present. MCH (RBC) [Entitic mass] 29.6 pg 27.0-32.0 [facility] Nucleated RBC/100 WBC (Bld) [Ratio] 0 % 0-5 [facility] MCHC Auto (RBC) [Mass/Vol]Or dered By: Dr. Zavala on 11-24-2022 MCHC (RBC) [Mass/Vol] 32.0 g/dL 32-36 [facility] No Panel InformationOrdered By: Dr. Zavala on 11-24-2022 Estimated GFR (MDRD) Amer 80 mL/min >60 [facility] Comment on above: GFR Calc Estimated GFR (MDRD) Non-Af Amer 66 mL/min >60 [facility] Comment on above: Non- GFR Calc Platelets bldOrdered By: Dr. Zavala on 11-24-2022 Platelets (Bld) [#/Vol] 275 10*3/uL 150-450 [facility] Serum or plasma albumin annette urement (mass/volume)Ordered By: Dr. Zavala on 11-24-2022 Albumin [Mass/Vol] 3.5 g/dL 3.2-5.0 [facility] Serum or plasma albumin/glob ulin mass ratioOrdered By: Dr. Zavala on 11-24-2022 Albumin/Globulin [Mass ratio] 1.0 {ratio} 0.9-2.4 [facility] Serum or plasma calcium annette urement (mass/volume)Ordered By: Dr. Zavala on 11-24-2022 Calcium [Mass/Vol] 8.9 mg/dL 8.5-10.1 [facility] Serum or plasma cholesterol in HDL measurement (mass/volume)Ordered By: Dr. Zavala on 11-24-2022 Cholesterol in HDL [Mass/Vol] 50 mg/dL >40 [facility] Comment on above: The drugs N-Acetylcy steine and Metamizole may falsely depress this assay. Reference Range HDL <40 mg/dL Low HDL Cholesterol HDL >or= 60 mg/dL High HDL Cholesterol Serum or plasma cholesterol in VLDL measurement (mass/volume)Ordered By: Dr. Zavala on 11-24-2022 Cholesterol in VLDL [Mass/Vol] 18 mg/dL 5-40 [facility] Serum or plasma creatinine m easurement (mass/volume)Ordered By: Dr. Zavala on 11-24-2022 Creatinine [Mass/Vol] 1.19 mg/dL 0.70-1.30 [facility] Comment on above: The validity of the calculated GFR & GFRAA in patients over 70 years has not been determined. Clinical correlation is essential. Serum or plasma low density lipoprotein (LDL) cholesterol measurement (mass/volume)Ordered By: Dr. Zavala on 11-24-2022 Cholesterol in LDL [Mass/Vol] 67 mg/dL 0-130 [facility] Serum or plasma urea nitroge n measurement (mass/volume)Ordered By: Dr. Zavala on 11-24-2022 Urea nitrogen [Mass/Vol] 19 mg/dL 7-18 [facility] Thin prep Papanicolaou smear with manual screeningOrdered By: Dr. Zavala on 11-24-2022 Thin prep Papanicolaou smear with manual screening 23 U/L 15-37 [facility] Thin prep Papanicolaou smear with manual screening 2 5-15 [facility] Whole blood hemoglobin A1c/t otal hemoglobin ratio (mass fraction)Ordered By: Dr. Zavala on 11-24-2022 HbA1c (Bld) [Mass fraction] 7.9 % 3.8-5.6 [facility] Comment on above: Normal < 5.7 % Predi abetic 5.7 - 6.4 % Diabetic >or= 6.5 % Please note range changes. INR in Blood by Coagulation assayOrdered By: Dr. Zavala on 11-17-2022 INR Coag (Bld) [Relative time] 1.9 {INR} [facility] Laboratory - CoagulationOrde red By: Dr. Zavala on 11-17-2022 PT Coag (PPP) [Time] 21.3 s 11.7-14.9 [facility] INR in Blood by Coagulation assayOrdered By: Dr. Zavala on 10-06-2022 INR Coag (Bld) [Relative time] 2.7 {INR} [facility] Laboratory - CoagulationOrde red By: Dr. Zavala on 10-06-2022 PT Coag (PPP) [Time] 28.5 s 11.7-14.9 [facility] Absolute lymphocyte countOrd ered By: Dr. Zavala on 09-15-2022 Lymphocytes Auto (Unsp spec) [#/Vol] 2.93 10*3/uL 0.83-4.51 [facility] Basophil percentageOrdered B y: Dr. Zavala on 09-15-2022 Basophils/100 WBC (Bld) 1.4 % 0-1 [facility] Bilirubin [Mass/Vol] 0.50 mg/dL 0.20-1.00 [facility] Comment on above: For patients on eltr ombopag therapy, use of Dimension [place] TBIL is not recommended. Chloride [Moles/Vol] 108 mmol/L 98-107 [facility] Eosinophils/100 WBC (Bld) 7.5 % 0-5 [facility] Glucose [Mass/Vol] 152 mg/dL 74-106 [facility] Comment on above: Fasting Glucose resu lt greater than or equal to 126 mg/dL suggests DIABETES MELLITUS per A.D.A. criteria. Neutrophils (Bld) [#/Vol] 4.7 10*3/uL 2.0-7.7 [facility] Neutrophils/100 WBC (Bld) 50.6 % 47-70 [facility] Potassium [Moles/Vol] 4.2 mmol/L 3.5-5.1 [facility] Protein [Mass/Vol] 7.7 g/dL 6.4-8.2 [facility] Sodium [Moles/Vol] 143 mmol/L 136-145 [facility] WBC (Bld) [#/Vol] 9.2 10*3/uL 4.4-11.0 [facility] Blood erythrocytes count (nu mber/volume)Ordered By: Dr. Zavala on 09-15-2022 RBC (Bld) [#/Vol] 4.71 10*6/uL 4.6-6.2 [facility] Blood hemoglobin measurement (mass/volume)Ordered By: Dr. Zavala on 09-15-2022 Hemoglobin (Bld) [Mass/Vol] 14.2 g/dL 13.0-16.5 [facility] Blood lymphocytes/100 leukoc ytesOrdered By: Dr. Zavala on 09-15-2022 Lymphocytes/100 WBC (Bld) 31.9 % 19-41 [facility] Blood monocytes/100 leukocyt esOrdered By: Dr. Zavala on 09-15-2022 Monocytes/100 WBC (Bld) 7.8 % 0-10 [facility] Blood platelet mean volumeOr dered By: Dr. Zavala on 09-15-2022 Platelet mean volume (Bld) [Entitic vol] 10.3 fL 6.2-12.0 [facility] Determination of erythrocyte mean corpuscular volume (MCV)Ordered By: Dr. Zavala on 09-15-2022 MCV (RBC) [Entitic vol] 90.0 fL 80-94 [facility] Hematocrit Auto (Bld) [Volum e fraction]Ordered By: Dr. Zavala on 09-15-2022 Hematocrit (Bld) [Volume fraction] 42.4 % 40-54 [facility] Laboratory - Chemistry and C hemistry - challengeOrdered By: Dr. Zavala on 09-15-2022 ALP [Catalytic activity/Vol] 56 U/L 45-117 [facility] ALT [Catalytic activity/Vol] 30 U/L 16-61 [facility] CO2 [Moles/Vol] 28.0 mmol/L 21.0-32.0 [facility] Globulin (S) [Mass/Vol] 4.0 g/dL 2.2-4.2 [facility] Urea nitrogen/Creatinine [Mass ratio] 7.0 mg/mg 10-20 [facility] Laboratory - Hematology and Cell countsOrdered By: Dr. Zavala on 09-15-2022 Erythrocyte distribution width (RBC) [Entitic vol] 41.1 fL 35.1-43.9 [facility] Erythrocyte distribution width (RBC) [Ratio] 12.5 % 11.6-14.6 [facility] Immature granulocytes/100 WBC (Bld) 0.800 % 0.0-0.9 [facility] Comment on above: IG% - Immature Granu locytes (promyelocytes, myelocytes and metamyelocytes) > 1% indicates that a LEFT SHIFT is Present. MCH (RBC) [Entitic mass] 30.1 pg 27.0-32.0 [facility] Nucleated RBC/100 WBC (Bld) [Ratio] 0 % 0-5 [facility] MCHC Auto (RBC) [Mass/Vol]Or dered By: Dr. Zavala on 09-15-2022 MCHC (RBC) [Mass/Vol] 33.5 g/dL 32-36 [facility] No Panel InformationOrdered By: Dr. Zavala on 09-15-2022 Estimated GFR (MDRD) Amer 83 mL/min >60 [facility] Comment on above: GFR Calc Estimated GFR (MDRD) Non-Af Amer 69 mL/min >60 [facility] Comment on above: Non- GFR Calc Platelets bldOrdered By: Dr. Zavala on 09-15-2022 Platelets (Bld) [#/Vol] 279 10*3/uL 150-450 [facility] Serum or plasma albumin annette urement (mass/volume)Ordered By: Dr. Zavala on 09-15-2022 Albumin [Mass/Vol] 3.7 g/dL 3.2-5.0 [facility] Serum or plasma albumin/glob ulin mass ratioOrdered By: Dr. Zavala on 09-15-2022 Albumin/Globulin [Mass ratio] 0.9 {ratio} 0.9-2.4 [facility] Serum or plasma calcium annette urement (mass/volume)Ordered By: Dr. Zavala on 09-15-2022 Calcium [Mass/Vol] 9.0 mg/dL 8.5-10.1 [facility] Serum or plasma creatinine m easurement (mass/volume)Ordered By: Dr. Zavala on 09-15-2022 Creatinine [Mass/Vol] 1.15 mg/dL 0.70-1.30 [facility] Comment on above: The validity of the calculated GFR & GFRAA in patients over 70 years has not been determined. Clinical correlation is essential. Serum or plasma urea nitroge n measurement (mass/volume)Ordered By: Dr. Zavala on 09-15-2022 Urea nitrogen [Mass/Vol] 8 mg/dL 7-18 [facility] Thin prep Papanicolaou smear with manual screeningOrdered By: Dr. Zavala on 09-15-2022 Thin prep Papanicolaou smear with manual screening 19 U/L 15-37 [facility] Thin prep Papanicolaou smear with manual screening 7 5-15 [facility] Whole blood hemoglobin A1c/t otal hemoglobin ratio (mass fraction)Ordered By: Dr. Zavala on 09-15-2022 HbA1c (Bld) [Mass fraction] 6.7 % 3.8-5.6 [facility] Comment on above: Normal < 5.7 % Predi abetic 5.7 - 6.4 % Diabetic >or= 6.5 % Please note range changes. PT Coag (Bld) [Time]on 09-09 INR Coag (PPP) [Relative time] 2.7 {INR} [facility] Comment on above: Reference Range 0.9- 1.1 Moderate-intensity Warfarin Therapy 2.0-3.0 Higher-intensity Warfarin Therapy 3.0-4.0 Interpretation and review of laboratory results Abnormal [facility] PT Coag (PPP) [Time] 26.2 s [facility] Comment on above: For additional infor percy, please refer to http://education.Memoir/faq/YZI919 (This link is being provided for informational/ educational purposes only.) [facility] INR Coag (Bld) [Relative roula driscoll]on 08-02-2022 INR 3.4 [facility] Protime [facility] CR Spine Lumbosacral 2 or 3 Viewson 06-09-2020 CR Spine Lumbosacral 2 or 3 Views Patient Name: HAN CORBIN Diagnostic Radiology Exam Date/Time 06/09/2020 14:40:27 EDT Exam CR Spine Lumbosacral 2 or 3 Views Ordering Physician KARI TORRES Accession Number [id number] CPT4 Codes 38925 () Reason For Exam complaints of low back pain that radiates down the back of both legs. Report Indication: Low back pain. AP, lateral and L5-S1 views of the lumbar spine. There are four lumbar type vertebral bodies. L5 is partially sacralized with large transverse processes. These transverse processes articulate with the sacrum. Mild disc space narrowing at the L4-L5 level. Small Rudimentary disc at L5-S1. Hypoplastic ribs at T12. Mild degenerative endplate changes throughout the lumbar spine. 1.3 cm left renal stone noted. IMPRESSION: Four lumbar type vertebral bodies. L5 is partially sacralized with large transverse processes. Mild disc space narrowing at L4-L5. Small rudimentary disc space at L5-S1. Mild degenerative endplate changes. Left renal stone. Report Dictated on Final Dictated: 06/09/2020 5:22 pm Dictating Physician: MD FITZPATRICK LAURA Signed Date and Time: 06/09/2020 5:24 pm Signed by: MD FITZPATRICK LAURA Transcribed Date and Time: 06/09/2020 5:22 Normal [facility] System XR LUMBAR SPINE (2-3 VIEWS)o n 06-09-2020 Patient Name: HAN CORBIN ---Diagnostic Radiology--- Exam Date/Time 06/09/2020 14:40:27 EDT Exam CR Spine Lumbosacral 2 or 3 Views Ordering Physician KARI TORRES Accession Number [id number] CPT4 Codes 52995 () Reason For Exam complaints of low back pain that radiates down the back of both legs. Report Indication: Low back pain. AP, lateral and L5-S1 views of the lumbar spine. There are four lumbar type vertebral bodies. L5 is partially sacralized with large transverse processes. These transverse processes articulate with the sacrum. Mild disc space narrowing at the L4-L5 level. Small Rudimentary disc at L5-S1. Hypoplastic ribs at T12. Mild degenerative endplate changes throughout the lumbar spine. 1.3 cm left renal stone noted. IMPRESSION: Four lumbar type vertebral bodies. L5 is partially sacralized with large transverse processes. Mild disc space narrowing at L4-L5. Small rudimentary disc space at L5-S1. Mild degenerative endplate changes. Left renal stone. Report Dictated on --- Final --- Dictated: 06/09/2020 5:22 pm Dictating Physician: MD FITZPATRICK LAURA Signed Date and Time: 06/09/2020 5:24 pm Signed by: MD FITZPATRICK LAURA Transcribed Date and Time: 06/09/2020 5:22 [place], [place], [facility] Incoming Radiology Results From [facility] - 06/09/2020 5:26 PM EDT Patient Name: HAN CORBIN ---Diagnostic Radiology--- Exam Date/Time 06/09/2020 14:40:27 EDT Exam CR Spine Lumbosacral 2 or 3 Views Ordering Physician KARI TORRES Accession Number [id number] CPT4 Codes 59511 () Reason For Exam complaints of low back pain that radiates down the back of both legs. Report Indication: Low back pain. AP, lateral and L5-S1 views of the lumbar spine. There are four lumbar type vertebral bodies. L5 is partially sacralized with large transverse processes. These transverse processes articulate with the sacrum. Mild disc space narrowing at the L4-L5 level. Small Rudimentary disc at L5-S1. Hypoplastic ribs at T12. Mild degenerative endplate changes throughout the lumbar spine. 1.3 cm left renal stone noted. IMPRESSION: Four lumbar type vertebral bodies. L5 is partially sacralized with large transverse processes. Mild disc space narrowing at L4-L5. Small rudimentary disc space at L5-S1. Mild degenerative endplate changes. Left renal stone. Report Dictated on --- Final --- Dictated: 06/09/2020 5:22 pm Dictating Physician: MD FITZPATRICK LAURA Signed Date and Time: 06/09/2020 5:24 pm Signed by: MD FITZPATRICK LAURA Transcribed Date and Time: 06/09/2020 5:22 [place] BETA-HYDROXYBUTYRATEon 04-08 BETA-HYDROXYBUTYRATE 1.20 mmol/L High 0.02 - 0.27 [facility] Comment on above: Result Comment: The beta-hydroxybutyrate test performance characteristics have been validated by [facility]. This test has not been approved by the FDA; however, such approval is not necessary. Performed By: #### B HB2 #### [address] [address] CBC AND DIFFERENTIALon 04-08 Basophils (Bld) [#/Vol] 0.10 10*3/uL Normal 0.00 - 0.1 0 [facility] Comment on above: Performed By: #### C BCDF #### [address] [address] Basophils/100 WBC (Bld) 1.1 % Normal 0.0 - 2.0 [facility] Comment on above: Performed By: #### C BCDF #### [address] [address] Eosinophils (Bld) [#/Vol] 0.30 10*3/uL Normal 0.00 - 0 .70 [facility] Comment on above: Performed By: #### C BCDF #### [address] [address] Eosinophils/100 WBC (Bld) 4.6 % Normal 0.0 - 6.0 [facility] Comment on above: Performed By: #### C BCDF #### [address] [address] Erythrocyte distribution width (RBC) [Ratio] 14.4 % Normal 11.5 - 14.5 [facility] Comment on above: Performed By: #### C BCDF #### [address] [address] Hematocrit (Bld) [Volume fraction] 44.0 % Normal 41.0 - 52.0 [facility] Comment on above: Performed By: #### C BCDF #### [address] [address] Hemoglobin (Bld) [Mass/Vol] 14.7 g/dL Normal 13.5 - 17.5 [facility] Comment on above: Performed By: #### C BCDF #### [address] [address] Lymphocytes (Bld) [#/Vol] 2.10 10*3/uL Normal 1.20 - 4 .80 [facility] Comment on above: Performed By: #### C BCDF #### [address] [address] Lymphocytes/100 WBC (Bld) 30.5 % Normal 13.0 - 44. 0 [facility] Comment on above: Performed By: #### C BCDF #### [address] [address] MCHC (RBC) [Mass/Vol] 33.3 g/dL Normal 32.0 - 36.0 [facility] Comment on above: Performed By: #### C BCDF #### [address] [address] MCV (RBC) [Entitic vol] 91 fL Normal 80 - 100 [facility] Comment on above: Performed By: #### C BCDF #### [address] [address] Monocytes (Bld) [#/Vol] 0.60 10*3/uL Normal 0.10 - 1.0 0 [facility] Comment on above: Performed By: #### C BCDF #### [address] [address] Monocytes/100 WBC (Bld) 9.2 % Normal 2.0 - 10.0 [facility] Comment on above: Performed By: #### C BCDF #### [address] [address] Neutrophils (Bld) [#/Vol] 3.80 10*3/uL Normal 1.20 - 7 .70 [facility] Comment on above: Result Comment: Perc ent differential counts (%) should be interpreted in the context of the absolute cell counts (cells/L). Performed By: #### C BCDF #### [address] [address] Neutrophils/100 WBC (Bld) 54.6 % Normal 40.0 - 80. 0 [facility] Comment on above: Performed By: #### C BCDF #### [address] [address] Platelets (Bld) [#/Vol] 258 10*3/uL Normal 150 - 450 [facility] Comment on above: Performed By: #### C BCDF #### [address] [address] RBC (Bld) [#/Vol] 4.84 x10E12/L Normal 4.50 - 5.90 [facility] Comment on above: Performed By: #### C BCDF #### [address] [address] WBC (Bld) [#/Vol] 6.9 10*3/uL Normal 4.4 - 11.[address] [facility] Comment on above: Performed By: #### C BCDF #### [address] [address] CHEST 1 VIEWon 04-08-2020 CHEST 1 VIEW Patient Name: HAN CORBIN STUDY: CHEST 1 VIEW; 04/08/2020 8:20 am INDICATION: dizzy. COMPARISON: 05/31/2017 ACCESSION NUMBER(S): [id number] ORDERING CLINICIAN: MAX TORRES FINDINGS: CARDIOMEDIASTINAL SILHOUETTE: Cardiomediastinal silhouette is normal in size and configuration. LUNGS: Lungs are clear. ABDOMEN: No remarkable upper abdominal findings. BONES: No acute osseous changes. IMPRESSION: No acute cardiopulmonary process. Electronically signed by: ADRIAN HERNANDEZ MD Normal [facility] COMPREHENSIVE PANELon 2019 Albumin [Mass/Vol] 4.1 g/dL Normal 3.4 - 5.[address] [facility] Comment on above: Performed By: #### C MP #### [address] [address] ALP [Catalytic activity/Vol] 47 U/L Normal 33 - 120 [facility] Comment on above: Performed By: #### C MP #### [address] [address] ALT [Catalytic activity/Vol] 32 U/L Normal 10 - 52 [facility] Comment on above: Result Comment: Lyudmila ents treated with Sulfasalazine may generate falsely decreased results for ALT. Performed By: #### C MP #### [address] [address] Anion gap [Moles/Vol] 12 mmol/L Normal 10 - 20 [facility] Comment on above: Performed By: #### C MP #### [address] [address] AST [Catalytic activity/Vol] 24 U/L Normal 9 - 39 [facility] Comment on above: Performed By: #### C MP #### [address] [address] Bilirubin [Mass/Vol] 0.7 mg/dL Normal 0.0 - 1.2 [facility] Comment on above: Performed By: #### C MP #### [address] [address] Calcium [Mass/Vol] 9.6 mg/dL Normal 8.6 - 10.[address] [facility] Comment on above: Performed By: #### C MP #### [address] [address] Chloride [Moles/Vol] 105 mmol/L Normal 98 - 107 [facility] Comment on above: Performed By: #### C MP #### [address] [address] Creatinine [Mass/Vol] 1.08 mg/dL Normal 0.50 - 1.30 [facility] Comment on above: Performed By: #### C MP #### [address] [address] GFR- AM. >60 Normal >60 [facility] Comment on above: Result Comment: CALC ULATIONS OF ESTIMATED GFR ARE PERFORMED USING THE MDRD STUDY EQUATION FOR THE IDMS-TRACEABLE CREATININE METHODS. CLIN CHEM 2007;53:766-72 Performed By: #### C MP #### [address] [address] GFR-NON AM. >60 Normal >60 [facility] Comment on above: Performed By: #### C MP #### [address] [address] Glucose [Mass/Vol] 81 mg/dL Normal 74 - [address] [facility] Comment on above: Performed By: #### C MP #### [address] [address] HCO3 (Bld) [Moles/Vol] 26 mmol/L Normal 21 - 32 [facility] Comment on above: Performed By: #### C MP #### [address] [address] Potassium [Moles/Vol] 4.3 mmol/L Normal 3.5 - 5.3 [facility] Comment on above: Performed By: #### C MP #### [address] [address] Protein [Mass/Vol] 7.5 g/dL Normal 6.4 - 8.[address] [facility] Comment on above: Performed By: #### C MP #### [address] [address] Sodium [Moles/Vol] 139 mmol/L Normal 136 - [address] [facility] Comment on above: Performed By: #### C MP #### [address] [address] Urea nitrogen [Mass/Vol] 12 mg/dL Normal 6 - 23 [facility] Comment on above: Performed By: #### C MP #### [address] [address] [address] HEAD WO CONTRASTon 2019 CT HEAD WO CONTRAST Patient Name: HAN CORBIN STUDY: CT HEAD WO CONTRAST; 04/08/2020 9:11 am INDICATION: dizy. COMPARISON: 09/17/2017 ACCESSION NUMBER(S): [id number] ORDERING CLINICIAN: MAX TORRES TECHNIQUE: Examination was performed in the axial plane with sagittal and coronal reconstructions. Bone and soft tissue algorithms were performed. FINDINGS: INTRACRANIAL: The ventricular system is symmetrical and nondilated. No mass or mass effect is identified. There is no hemorrhage or subdural fluid collection. There is no acute infarct. EXTRACRANIAL: Visualized paranasal sinuses and mastoids are clear. IMPRESSION: No acute intracranial pathology. Electronically signed by: ADRIAN HERNANDEZ MD [facility] GLUCOSE-POCTon 04-08-2020 Glucose [Mass/Vol] 80 mg/dL Normal 74 - [address] [facility] Comment on above: Performed By: #### G ZAKI #### [address] [address] HEMOGLOBIN A1Con 04-08-2020 HbA1c (Bld) [Mass fraction] 160 MG/DL Normal [facility] Comment on above: Performed By: #### H BA1E ####[address] [address] HbA1c (Bld) [Mass fraction] 7.2 % Normal [facility] Comment on above: Result Comment: Diag nosis of Diabetes-Adults Non-Diabetic: < or = 5.6% Increased risk for developing diabetes: 5.7-6.4% Diagnostic of diabetes: > or = 6.5% . Monitoring of Diabetes Age (y) Therapeutic Goal (%) Adults: >18 <7.0 Pediatrics: 13-18 <7.5 7-12 <8.0 0- 6 7.5-8.5 [employer]. Diabetes Care 33(S1), Aug 2009. Performed By: #### H BA1E ####[address] [address] LACTATEon 04-08-2020 Lactate [Moles/Vol] 0.7 mmol/L Normal 0.4 - 2.0 [facility] Comment on above: Result Comment: Maliha puncture immediately after or during the administration of Metamizole may lead to falsely low results. Testing should be performed immediately prior to Metamizole dosing. Performed By: #### L ACT #### [facility] [address] [place] [address] Provider Note - ED v2on 03-16 Provider Note - ED v2 This report has be en cancelled. Normal [facility] Provider Note - ED v2 Provider Note - ED v2: Chart Review: HISTORY OF PRESENTING ILLNESS HAN is a 59 year old Male and was seen by me at 08-Apr-2020 07:52 for a chief complaint of hyperglycemia (out of medication (Ozempic) for 2 wks and blood sugar has been elevated today. reports increased thirst, blurred vision, and feeling tired)(1). Other complaints include: Dizziness with blurry vision patient complains that he has high blood sugars greater than 360s at home I have been out of my Ozempic for 2 weeks I have not have an appointment with a primary care provider to restart my diabetic medications. The historian is the patientspouse. Triage Information: Most recent Vital Sign Value Date Temp (F): 98.6 04-08-2020 07:54 Temp (C): 37 04-08-2020 07:54 Heart Rate (beats/min): 61 04-08-2020 07:54 Respirations (breaths/min): 18 04-08-2020 07:54 SpO2 (%): 99 04-08-2020 07:54 BP Systolic (mm Hg): 178 04-08-2020 07:54 BP Diastolic (mm Hg): 113 04-08-2020 07:54 PAST MEDICAL HISTORY ATTESTATION: I have reviewed and confirmed nurse's/medic's notes for patient's medications, allergies, medical history, and surgical history PSYCHOSOCIAL SCREENING: NO: concerns for safety at home, feelings of depression, feels like hurting others and feels like hurting self CURRENT OR FORMER SUBSTANCE USE: NO: Cigarette/Tobacco, e-Cigarette/Vaping, Alcohol and Street Drugs ALLERGIES/INTOLERANCES : No Known Allergies HEALTH HISTORY: No documented data. OUTPATIENT MEDICATIONS: Home Medications Review Status for Reconciliation: N/A Med Status: N/A No documented data. SIGNIFICANT EVENTS: Past Medical History Description:HTN Description:Diabetes REVIEW OF SYSTEMS EYES: (Blurry vision) NEUROLOGICAL: POSITIVE for: dizziness; ENDOCRINE: (High blood sugars) All other systems reviewed and are negative RESULTS/VITAL SIGNS EKG INTERPRETATION: Impression: Normal sinus rhythm LVH criteria is met nonspecific ST segment changes no P wave or QRS axis abnormalities QT prolongation not present PHYSICAL EXAM CONSTITUTIONAL: Well appearing, well nourished, awake, alert, oriented to person, place, time/situation and in no apparent distress. HENMT: Airway patent, Face with no lymph node enlargement. EYES: Clear bilaterally, pupils equal, round and reactive to light. CARDIOVASCULAR: regular rate, regular rhythm. Heart sounds S1, S2. No clicks rubs or bruits RESPIRATORY: Breath sounds clear and equal bilaterally. GASTROINTESTINAL: Abdomen soft, non-distended, no rebound, no abdominal pain complaint GENITOURINARY: No cva tenderness complaint MUSCULOSKELETAL: Spine appears normal, range of motion is not limited, no muscle or joint tenderness. NEUROLOGICAL: NIHSS is 0 SKIN: Skin normal color for race, warm, dry and intact. No evidence of trauma. PSYCHIATRIC: Alert and oriented to person, place, time/situation. normal mood and affect. No apparent risk to self or others. HEME/LYMPH: No cervical adenopathy CLINICAL IMPRESSION Diagnosis/Annotation: ED Dx Name:Diabetes mellitus Code:E11.9 Name:Tiredness Code:R53.83 Name:Blurry vision Code:H53.8 Dispostion: discharged Type: home ATTESTATION CRITICAL CARE TIME Is this a critically ill patient: no Electronic Signatures: Max Torres) (Signed 07-May-2020 23:30) Authored: Provider Note - ED v2 Last Updated: 07-May-2020 23:30 by Max Torres () References: 1. Data Referenced From Triage - ED 08-Apr-2020 07:54 Normal [facility] Risk Screen - Adult Emergenc yon 04-08-2020 Risk Screen - Adult Emergency Preferred Language: Preferred Language: Preferred Language for Discussing Health Care (patient/designee)Engl dima Advanced Directives: Advance Directive/DNRno Family Violence Adult: Abuse Screen: Are you or have you been threatened or abused physically, emotionally, or sexually by anyoneno Learning Assessment (Patient): Learning Assessment (Patient): Patient is Able to be Assessed for Learningyes Factors Influencing Readiness to Learnacuteness of illness Factors that Impact Ability to Learnnone Devices/Methods Used to Communicatenone Learning Preferencesaudio Cultural Considerationsnone Developmental Considerationsnone Episcopal Considerationsnone Learning Assessment (Other Learner): Learning Assessment (Other Learner): Other learner availableno Pressure Injury/TB/Substance: Pressure Injury: Pressure Injury Present on Admissionno Do you have a coughno Admission Risk Screen: Significant IndicatorsComplete CAGE: CAGE: Is this an injured patient at a Trauma Center ([facility]/[place]): no Electronic Signatures: Sonia Cano (VERA) (Signed 08-Apr-2020 08:01) Authored: Preferred Language, Advanced Directives, Family Violence Adult, Learning Assessment (Patient), Learning Assessment (Other Learner), Pressure Injury/TB/Substance, CAGE Last Updated: 08-Apr-2020 08:01 by Sonia Cano (VERA) Normal [facility] TROPONIN Ion 04-08-2020 Troponin I.cardiac [Mass/Vol] ng/mL Normal 0.00 - 0.03 [facility] Comment on above: Result Comment: LESS THAN 0.04 NG/ML: NEGATIVE REPEAT TESTING IN THREE TO SIX HOURS IF CLINICALLY INDICATED. 0.04 - 0.5 NG/ML: CONSISTENT WITH POSSIBLE CARDIAC DAMAGE AND POSSIBLE INCREASED CLINICAL RISK. SERIAL MEASUREMENTS MAY HELP ASSESS EXTENT OF MYOCARDIAL DAMAGE. >0.5 NG/ML: CONSISTENT WITH CARDIAC DAMAGE, INCREASED CLINICAL RISK AND MYOCARDIAL INFARCTION. SERIAL MEASUREMENTS MAY HELP ASSESS EXTENT OF MYOCARDIAL DAMAGE. . Note: Troponin I testing is performed using different testing methodology at [facility] than at other [facility]. Direct result comparisons should only be made within the same method. Performed By: #### T ROP2 #### [place] [address] Triage - EDon 04-08-2020 Triage - ED Chart Review: CHIEF COMPLAINT HAN CORBIN is a Male patient with a chief complaint of hyperglycemia (out of medication (Ozempic) for 2 wks and blood sugar has been elevated today. reports increased thirst, blurred vision, and feeling tired). Triage Date/Time: 08-Apr-2020 07:54 Pain Rating (0-10): 0 = None Vital Signs: Temperature: 98.6F ( 37.0C) taken oral Blood Pressure: 178/113 Mean: Heart Rate: 61 Respiratory Rate: 18 Pulse Oximetry: 99% Height: 5 feet 8.00 inches. 172.7 CM Weight: 220.4 pounds. Calculated 100.0 kg. (stated) Calculated BMI (kg/m2): 33.528 Calculated BSA (m2) 2.19 [place] Coma Scale: Best Eye Response: (E4) spontaneous Best Motor Response: (M6) obeys commands Best Verbal Response: (V5) oriented Abdoul Score: 15 Patient has homicidal thoughts: no NAWAF: 3V Symptom Notes: . Symptoms Are POSITIVE For: blurred vision. Symptoms Are Negative For: chills, confusion, dehydration, diaphoresis, headache, loss of consciousness, nausea and weakness. Risk Screens Suicide Risk Screen In the Past Month: Have you wished you were or wished you could go to sleep and not wake up no In the Past Month: Have you had any actual thoughts of killing yourself no In Your Lifetime: Have you ever done anything, started to do anything, or prepared to do anything to end your life no Allen Fall Scale Screening Has the patient fallen before (or is the patient in the ED as a result of a fall) has not had a fall Does the patient have an impaired gait does not have impaired gait Is the patient cognitively impaired not cognitively impaired Interventions: Tiffany Fall Interventions: LOW INTERVENTIONS: *patient oriented to surroundings and call system, * patient/family falls education completed and documented, *patients fall status communicated during bedside handoff, *whiteboard updated, *mode of toileting discussed with patient, *bed in low position with brakes locked, *call light in reach, * non-skid footwear PAIN Pain Scale Used: SHAKILA Pain Rating (0-10): 0 = None ARRIVAL INFORMATION Mode of Arrival: private vehicle TRAVEL HISTORY Travel History Coronavirus Screening: no exposure or symptoms Past Medical History: Past Medical History Reviewedyes Diabetes: Past Medical History, Active HTN: Past Medical History, Active Electronic Signatures: Sonia Cano) (Signed 08-Apr-2020 08:00) Authored: Triage, Past Medical History Last Updated: 08-Apr-2020 08:00 by Sonia Cano) [facility] URINALYSISon 04-08-2020 Appearance (U) CLEAR Normal CLEAR [facility] Comment on above: Performed By: #### U A #### [address] [address] Bilirubin (U) [Mass/Vol] Negative Normal NEGATIVE [facility] Comment on above: Performed By: #### U A #### [address] [address] BLOOD Negative Normal NEGATIVE [facility] Comment on above: Performed By: #### U A #### [address] [address] Color (U) Straw Normal STRAW,YELLO W [facility] Comment on above: Performed By: #### U A #### [address] [address] Glucose [Mass/Vol] Negative Normal NEGATIVE [facility] Comment on above: Performed By: #### U A #### [place] [id number] Ketones Ql (U) 20(1+) Abnormal NEGATIVE [facility] Comment on above: Performed By: #### U A #### [address] [address] Leukocyte esterase Test strip Ql (U) Negative Normal NEGATIVE [facility] Comment on above: Performed By: #### U A #### [address] [address] Nitrite Ql (U) Negative Normal NEGATIVE [facility] Comment on above: Performed By: #### U A #### [address] [address] pH (Bld) 5.0 Normal 5.0 - 8.0 [facility] Comment on above: Performed By: #### U A #### [address] [address] Protein (U) [Mass/Vol] Negative Normal NEGATIVE [facility] Comment on above: Performed By: #### U A #### [place] [id number] Specific gravity (U) [Rel density] 1.009 Normal 1.005 - 1.035 [facility] Comment on above: Performed By: #### U A #### [address] [address] Urobilinogen Qn (U) <2.0 Normal 0.0 - 1.9 [facility] Comment on above: Performed By: #### U A #### [address] [address] US ABDOMEN COMPLETEon 2019 Patient Name: HAN CORBIN ---Ultrasound--- Exam Date/Time 10/02/2019 13:35:00 EST Exam US Abdomen Complete Ordering Physician MD MOHIT, LLUVIA Lin Accession Number [id number] CPT4 Codes 92990 () Reason For Exam Abnormal levels of other serum enzymes Report Clinical indications: Elevated LFTs. FINDINGS: There are no prior studies for comparison. The liver demonstrates coarsened and overall increased echogenicity, with poor penetration of the sound beam. There is obscuration of the portal triads. Taken together, these findings are highly suggestive of diffuse fatty infiltration. There is no evidence of focal parenchymal abnormality. There is no intrahepatic biliary duct dilation. There is no ascites. The gallbladder is remarkable for multiple intraluminal echogenic mobile foci consistent with stones. There is no associated wall thickening or pericholecystic fluid. The common bile duct is normal at 5 mm diameter. To the extent visualized, the pancreas is unremarkable. The tail was obscured by bowel gas. The spleen demonstrates normal size, contour and echotexture. The right kidney measures 12.7 x 5.4 x 5.8 cm, while the left measures 12.9 x 6.5 x 6.7 cm. No evidence of mass or hydronephrosis is observed. There is an echogenic shadowing focus in the left kidney measuring approximately 1 cm, consistent with nonobstructing calculus. To the limited extent seen, aorta and IVC are unremarkable. IMPRESSION: Probable fatty infiltration of the liver. Cholelithiasis. Nonobstructing left renal calculus. Report Dictated on Workstation: [id number] --- Final --- Dictated: 10/02/2019 5:16 pm Dictating Physician: MIKKIMD BRAUN RUSSELL Signed Date and Time: 10/02/2019 5:24 pm Signed by: MD KAYE RUSSELL Transcribed Date and Time: 10/02/2019 5:16 [facility] Work Phone: [facility], [facility] Incoming Radiology Results From [facility] - 10/02/2019 5:26 PM EST Patient Name: HAN CORBIN ---Ultrasound--- Exam Date/Time 10/02/2019 13:35:00 EST Exam US Abdomen Complete Ordering Physician MD RUEDA KRISTIN N. Accession Number [id number] CPT4 Codes 96247 () Reason For Exam Abnormal levels of other serum enzymes Report Clinical indications: Elevated LFTs. FINDINGS: There are no prior studies for comparison. The liver demonstrates coarsened and overall increased echogenicity, with poor penetration of the sound beam. There is obscuration of the portal triads. Taken together, these findings are highly suggestive of diffuse fatty infiltration. There is no evidence of focal parenchymal abnormality. There is no intrahepatic biliary duct dilation. There is no ascites. The gallbladder is remarkable for multiple intraluminal echogenic mobile foci consistent with stones. There is no associated wall thickening or pericholecystic fluid. The common bile duct is normal at 5 mm diameter. To the extent visualized, the pancreas is unremarkable. The tail was obscured by bowel gas. The spleen demonstrates normal size, contour and echotexture. The right kidney measures 12.7 x 5.4 x 5.8 cm, while the left measures 12.9 x 6.5 x 6.7 cm. No evidence of mass or hydronephrosis is observed. There is an echogenic shadowing focus in the left kidney measuring approximately 1 cm, consistent with nonobstructing calculus. To the limited extent seen, aorta and IVC are unremarkable. IMPRESSION: Probable fatty infiltration of the liver. Cholelithiasis. Nonobstructing left renal calculus. Report Dictated on Workstation: [employer] --- Final --- Dictated: 10/02/2019 5:16 pm Dictating Physician: MD KAYE RUSSELL Signed Date and Time: 10/02/2019 5:24 pm Signed by: MD KAYE RUSSELL Transcribed Date and Time: 10/02/2019 5:16 [facility] Work Phone: US Abdomen Completeon 2019 US Abdomen Complete Patient Name: HAN CORBIN Ultrasound Exam Date/Time 10/02/2019 13:35:00 EST Exam US Abdomen Complete Ordering Physician MD RUEDA KRISTIN N. Accession Number [id number] CPT4 Codes 87052 () Reason For Exam Abnormal levels of other serum enzymes Report Clinical indications: Elevated LFTs. FINDINGS: There are no prior studies for comparison. The liver demonstrates coarsened and overall increased echogenicity, with poor penetration of the sound beam. There is obscuration of the portal triads. Taken together, these findings are highly suggestive of diffuse fatty infiltration. There is no evidence of focal parenchymal abnormality. There is no intrahepatic biliary duct dilation. There is no ascites. The gallbladder is remarkable for multiple intraluminal echogenic mobile foci consistent with stones. There is no associated wall thickening or pericholecystic fluid. The common bile duct is normal at 5 mm diameter. To the extent visualized, the pancreas is unremarkable. The tail was obscured by bowel gas. The spleen demonstrates normal size, contour and echotexture. The right kidney measures 12.7 x 5.4 x 5.8 cm, while the left measures 12.9 x 6.5 x 6.7 cm. No evidence of mass or hydronephrosis is observed. There is an echogenic shadowing focus in the left kidney measuring approximately 1 cm, consistent with nonobstructing calculus. To the limited extent seen, aorta and IVC are unremarkable. IMPRESSION: Probable fatty infiltration of the liver. Cholelithiasis. Nonobstructing left renal calculus. Report Dictated on Workstation: [employer] Final Dictated: 10/02/2019 5:16 pm Dictating Physician: MD KAYE RUSSELL Signed Date and Time: 10/02/2019 5:24 pm Signed by: MD KAYE RUSSELL Transcribed Date and Time: 10/02/2019 5:16 Normal [facility] PT/INR Capillaryon 8 INR Coag RelTime (Bld) 2.0 {INR} High 1.0-1.2 [facility] Comment on above: Result Comment: Sour ce Capillary Performed By: #### 8 [id number] ####SUNNI POC [id number] [place] [address] PT POC 24.0 second(s) High 8.0-11.0 [facility] Comment on above: Performed By: #### 8 [id number] ####SUNNI POC [id number] [place] [address] PT/INR POC Orderon 8 INR Coag RelTime (Bld) Collected Normal [facility] Comment on above: Performed By: #### 8 [id number] ####SUNNI POC [id number] [place] [address] CT Head or Brain w/o Contras ton 09-17-2017 CT Head or Brain w/o Contrast Exam Date/Time:09/17/2017 13:00 ESTReason for Exam:InjuryReportEXAM: CT Head or Brain w/o ContrastCLINICAL STATEMENT: Head injury/patient fell off a tractor striking head. Onblood thinners.COMPARISON: None.TECHNIQUE: CT examination of the head without IV contrast.Dose reduction techniques were achieved by using automated exposure controland/or adjustment of mA and/or kV according to patient size and/or use ofiterative reconstruction technique.FINDINGS: The intracranial appearance is normal. There is no evidence of anyhemorrhage, mass, mass effect, or midline shift. There is no subdural blood orfluid. Small symmetric ventricles are seen. There is minor generalized atrophy.Bone windows are satisfactory.IMPRESSIO N:Normal unenhanced CT of the brain. There is a minor symmetrical atrophy butotherwise the intracranial appearance shows no acute or posttraumatic change. FINAL REPORT Dictated: 09/17/2017 1:12 pm Imani Guzman DO RSigned (Electronic Signature): 09/17/2017 1:12 pmSigned by: Imani Guzman DO Technologist: Francisco ANAYA [facility] CT Spine Cervical w/o Contra ston 09-17-2017 CT Spine Cervical w/o Contrast Exam Date/Time:09/17/2017 13:00 ESTReason for Exam:TraumaReportEXAM: CT Spine Cervical w/o ContrastCLINICAL STATEMENT: Patient fell off tractor and has head and neck trauma andpain.COMPARISON: None.TECHNIQUE: CT Cervical spine without IV contrast. Coronal and sagittalreformations were performed.Dose reduction techniques were achieved by using automated exposure controland/or adjustment of mA and/or kV according to patient size and/or use ofiterative reconstruction technique.FINDINGS: There is some minor artifact through the lower cervical levels fromthe patient's shoulders.Vertebral alignment is normal. I do not see in composite of the images adefinite fracture, subluxation, significant disc space narrowing, orsignificant degenerative change. No definite central canal stenosis or neuralforaminal encroachment is seen.IMPRESSION:Negati ve appearing CT of the cervical spine. No fracture or traumatic findingis identified. FINAL REPORT Dictated: 09/17/2017 1:14 pm Imani Guzman DO RSigned (Electronic Signature): 09/17/2017 1:14 pmSigned by: Imani Guzman DO Technologist: , Normal [facility] PT/INR POCon 09-06-2017 INR Coag RelTime (Bld) 2.1 {INR} High 1.0-1.2 [facility] Comment on above: Performed By: #### 8 [id number] ####SUNNI POC [id number] [place] [address] PT POC 24.0 second(s) High 8.0-11.0 [facility] Comment on above: Performed By: #### 8 [id number] ####SUNNI POC [id number] [place] [address] PT/INR POC Orderon 8 INR Coag RelTime (Bld) Collected Normal [facility] Comment on above: Performed By: #### 8 [id number] ####SUNNI POC [id number] [place] [address] PT/INR POCon 08-04-2017 INR Coag RelTime (Bld) 2.6 {INR} High 1.0-1.2 [facility] Comment on above: Performed By: #### 8 [id number] ####SUNNI POC [address]nyysnujhx6850 [place] [address] PT POC 30.0 second(s) High 8.0-11.0 [facility] Comment on above: Performed By: #### 8 [id number] ####SUNNI POC [address]ckzmichcu4706 [place] [address] PT/INR POC Orderon 7 INR Coag RelTime (Bld) Collected Normal [facility] Comment on above: Performed By: #### 8 [id number] ####SUNNI POC Mttlwwnkbm6070 [place] [address] PT/INR POCon 07-13-2017 INR Coag RelTime (Bld) 1.9 {INR} High 1.0-1.2 [facility] Comment on above: Performed By: #### 8 [id number] ####SUNNI POC [address] [place] [address] PT POC 22.0 second(s) High 8.0-11.0 [facility] Comment on above: Performed By: #### 8 [id number] ####SUNNI POC [address] [place] [address] PT/INR POC Orderon 7 INR Coag RelTime (Bld) Collected Normal [facility] Comment on above: Performed By: #### 8 [id number] ####SUNNI POC [address] [place] [address] PT/INR POCon 06-15-2017 INR Coag RelTime (Bld) 2.4 {INR} High 1.0-1.2 [facility] Comment on above: Performed By: #### 8 [id number] ####SUNNI POC [address] [place] [address] PT POC 28.0 second(s) High 8.0-11.0 [facility] Comment on above: Performed By: #### 8 [id number] ####SUNNI POC Cvtimniowj5540 [place] [address] PT/INR POC Orderon 7 INR Coag RelTime (Bld) Collected Normal [facility] Comment on above: Performed By: #### 8 [id number] ####SUNNI POC [address] [place] [address] Auto Diffon 05-31-2017 Basophils Auto #/vol (Bld) 0.1 E3/mcL Normal 0.0-0.2 [facility] Comment on above: Order Comment: Order Added by Discern Expert. Performed By: #### 2 [id number] ####SUNNI MaddoxKneOfeq7991 [place] [address] Basophils/100 WBC Auto (Bld) 1.0 % Normal 0.0-2.0 [facility] Comment on above: Order Comment: Order Added by Discern Expert. Performed By: #### 2 [id number] ####SUNNI MaddoxYzsFqgg0870 [place] [address] Eos Absolute 0.3 E3/mcL Normal 0.0-0.7 [facility] Comment on above: Order Comment: Order Added by Discern Expert. Performed By: #### 2 [id number] ####SUNNI WwbMief9834 [place] [address] Eosinophils/100 leukocytes 3.2 % Normal 0.0-11.0 [facility] Comment on above: Order Comment: Order Added by Discern Expert. Performed By: #### 2 [id number] ####SUNNI UllQzec0834 [place] [address] Lymphocytes 2.8 E3/mcL Normal 1.2-3.4 [facility] Comment on above: Order Comment: Order Added by Discern Expert. Performed By: #### 2 [id number] ####SUNNI QulKkes1707 [place] [address] Lymphocytes/100 leukocytes 26.7 % Normal 20.0-55.0 [facility] Comment on above: Order Comment: Order Added by Discern Expert. Performed By: #### 2 [id number] ####SUNNI HiiVisj8839 [place] [address] Spink Absolute 1.0 E3/mcL High 0.0-0.7 [facility] Comment on above: Order Comment: Order Added by Discern Expert. Performed By: #### 2 [id number] ####SUNNI IyeSrbd6229 [place] [address] Monocytes/100 leukocytes 9.9 % Normal 0.0-10.0 [facility] Comment on above: Order Comment: Order Added by Discern Expert. Performed By: #### 2 [id number] ####SUNNI TlhGnjh3952 [place] [address] Neutro Absolute 6.1 E3/mcL Normal 1.4-6.5 [facility] Comment on above: Order Comment: Order Added by Discern Expert. Performed By: #### 2 [id number] ####SUNNI XwnWcyx6738 [place] [address] Neutro Auto 59.2 % Normal 37.0-75.0 [facility] Comment on above: Order Comment: Order Added by Discern Expert. Performed By: #### 2 [id number] ####SUNNI MaddoxZpyYkae2262 [place] [address] BMPon 05-31-2017 BUN/Creatinine Ratio 10.0 ratio Normal 5.4-30.0 [facility] Comment on above: Performed By: #### 8 [id number] ####SUNNI POC [address] [place] [address] Calcium 9.3 mg/dL Normal 8.4-10.2 [facility] Comment on above: Performed By: #### 8 [id number] ####SUNNI POC [address] [place] [address] Chloride 102 mmol/L Normal 98-107 [facility] Comment on above: Performed By: #### 8 [id number] ####SUNNI POC [address] [place] [address] CO2 25.0 mmol/L Normal 24.0-30.0 [facility] Comment on above: Performed By: #### 8 [id number] ####SUNNI POC [address] [place] [address] Creatinine 1.1 mg/dL Normal 0.6-1.3 [facility] Comment on above: Performed By: #### 8 [id number] ####SUNNI POC [address] [place] [id number] Glucose mass conc 251 mg/dL High 70-99 [facility] Comment on above: Performed By: #### 8 [id number] ####SUNNI POC [address] [place] [address] Potassium molar conc 4.1 mmol/L Normal 3.5-5.1 [facility] Comment on above: Performed By: #### 8 [id number] ####SUNNI POC Ncwysndnjh7788 [place] [address] Sodium 138 mmol/L Normal 136-145 [facility] Comment on above: Performed By: #### 8 [id number] ####[place] [address] Urea nitrogen 11 mg/dL Normal 7-18 [facility] Comment on above: Performed By: #### 8 [id number] ####[place] [address] CBC w/ Auto Diffon 7 Erythrocyte distribution width Auto Ratio (RBC) 18.5 % High 11.5-14.5 [facility] Comment on above: Performed By: #### 2 [id number] ####SUNNI MaddoxBnxYhoo8965 [place] [address] Erythrocytes (RBC) 5.02 E6/mcL Normal 3.90-6.10 [facility] Comment on above: Performed By: #### 2 755054 ####SUNNI JssRsvt2758 [place] 1738305 Hematocrit (HCT) 38.6 % Low 42.0-52.0 [facility] Comment on above: Performed By: #### 2 [id number] ####SUNNI ZrmKbak4672 [place] 1738305 Hemoglobin mass conc (Bld) 12.5 g/dL Low 13.5-18.0 [facility] Comment on above: Performed By: #### 2 540323 ####SNUNI MrkHjkm5257 [place] [address] MCH 24.8 pg Low 27.0-31.0 [facility] Comment on above: Performed By: #### 2 507384 ####SUNNI PqvPhup7308 [place] [id number] MCHC mass conc (RBC) 32.2 g/dL Low 33.0-37.0 [facility] Comment on above: Performed By: #### 2 [id number] ####SUNNI BzgOojt6724 [place] [address] MCV 76.9 fL Low 78.0-100.0 [facility] Comment on above: Performed By: #### 2 060586 ####SUNNI MaddoxJtkWylt9492 [place] [id number] Platelet mean volume (PMV) 9.7 fL Normal 7.4-11.0 [facility] Comment on above: Performed By: #### 2 193656 ####SUNNI MaddoxCsrVban0481 [place] [address] Platelets 268 E3/mcL Normal 130-400 [facility] Comment on above: Performed By: #### 2 650776 ####SUNNI Bedoyao1025 [place] [address] WBC (Leukocytes) 10.3 E3/mcL Normal 3.6-11.0 [facility] Comment on above: Performed By: #### 2 [id number] ####SUNNI Bedoyao1025 [place] [address] CKon 05-31-2017 Total CK 135 Int._Unit/L Normal 26-140 [facility] Comment on above: Performed By: #### 8 [id number] ####SUNNI POC [address]ayja7150 [place] [address] CKMBon 05-31-2017 CKMB 2.1 ng/mL Normal 0.0-5.0 [facility] Comment on above: Performed By: #### 8 [id number] ####SUNNI POC Vxdlxmdbez0073 [place] [address] D-Dimeron 05-31-2017 D-Dimer <0.22 Normal <=0.50 [facility] Comment on above: Result Comment: Norm al D Dimer level indicates no Deep Vein Thrombosis (DVT) or Pulmonary Embolism (PE).Elevated D Dimer level indicates additional studies and clinical assessments are indicated to conclude diagnosis of Deep Vein Thromobsis (DVT) or Pulmonary Embolism (PE). Performed By: #### 8 [id number] ####SUNNI POC Hsnbjyjufp7408 [place] [address] Glucose POCon 05-31-2017 Glucose mass conc 167 mg/dL High 70-99 [facility] Comment on above: Performed By: #### 8 [id number] ####SUNNI POC [address] [place] [address] MacQ0nrs 05-31-2017 Hemoglobin A1c/Hemoglobin.total mass fraction (Bld) 9.1 % High 4.0-6.3 [facility] Comment on above: Performed By: #### 8 [id number] ####SUNNI POC Fnwlciorgi6569 [place] [address] Magnesiumon 05-31-2017 Magnesium 1.8 mg/dL Normal 1.7-2.8 [facility] Comment on above: Performed By: #### 8 [id number] ####SUNNI POC Opmzgyoglf3438 [place] [address] Morphon 05-31-2017 Anisocytosis presence 1+ Normal [facility] Comment on above: Order Comment: Order Added by Discern Expert. Performed By: #### 8 [id number] ####SUNNI POC [address] [place] [address] Erythrocyte morphology SEE MORPHOLOGY Normal [facility] Comment on above: Order Comment: Order Added by Discern Expert. Performed By: #### 8 [id number] ####SUNNI POC [address] [place] [address] PTon 05-31-2017 INR Coag RelTime (PPP) 3.0 {INR} High 1.0-1.2 [facility] Comment on above: Result Comment: INR Recommended Therapeuptic Ranges: Prophylaxis/treatment of DVT and PE?2.0-3.0 Prevention of systemic embolism?.2.0-3.0 Mechanical prosthetic values?2.5-3.5 CRITICAL VALUES?.>4.0 Performed By: #### 2 [id number] ####SUNNI Hematology Automated [address] [place] [address] Prothrombin time (PT) Coag time (PPP) 30.2 second(s) High 11.6-14.6 [facility] Comment on above: Performed By: #### 2 [id number] ####SUNNI Hematology Automated [address] [place] [address] PTTon 05-31-2017 aPTT 33.3 second(s) Normal 23.2-36.4 [facility] Comment on above: Performed By: #### 2 [id number] ####SUNNI Hematology Automated Jtdhtrdbsx8832 [place] [address] PTT Control Ratioon 05-31-20 PTT Ratio 1.1 ratio Normal 0.8-1.2 [facility] Comment on above: Order Comment: Order added by Discern Expert. Performed By: #### 8 [id number] ####SUNNI Hematology Automated Llpwigqytv5907 [place] [address] Troponin-Ion 05-31-2017 Troponin I.cardiac mass conc ng/mL Normal .00-.03 [facility] Comment on above: Performed By: #### 8 [id number] ####SUNNI POC Vkwxjoazqm0235 [place] [address] Troponin I.cardiac mass conc ng/mL Normal .00-.03 [facility] Comment on above: Performed By: #### 8 [id number] ####SUNNI POC Qpvsilzbnw0000 [place] [address] XR Chest 1 View Frontalon INR Coag RelTime (Bld) Exam Date/Time:05/31/2017 02:12 EDTReason for Exam:Chest painReportCHEST RADIOGRAPHCLINICAL HISTORY: Chest pain.COMPARISON: No relevant prior study available at time of interpretation.TECHNIQ UE: XR Chest 1 View FrontalFINDINGS: Lungs are hypoinflated. Right infrahilar vascular crowding noted. Nopneumothorax given lordotic view, large pleural effusion, or focalconsolidation is visualized. Prominent cardiac silhouette may be due tohypoinflated lungs. No acute osseous abnormality.IMPRESSION :Hypoventilatory changes without acute pulmonary abnormality. Consider lateralview for better evaluation of lung bases as clinically indicated. FINAL REPORT Dictated: 05/31/2017 2:30 am Chase Domínguez MD HSigned (Electronic Signature): 05/31/2017 2:30 amSigned by: Chase Domínguez MD Technologist: MEM Normal [facility] eGFRon 05-31-2017 eGFR (non-black) mL/min/{1.73_m2} Normal [facility] Comment on above: Order Comment: Order added by Discern Expert. Performed By: #### 8 [id number] ####SUNNI POC Djgsognwri6425 [place] [address] eGFR AA >60 Normal [facility] Comment on above: Order Comment: Order added by Discern Expert. Performed By: #### 8 [id number] ####SUNNI POC Ckqrshavto9323 [place] [address] zzplt morphon 05-31-2017 Platelet morphology ENLARGED Normal [facility] Comment on above: Performed By: #### 8 [id number] ####SUNNI POC [address] [place] [address] Platelets NORMAL [facility] Comment on above: Performed By: #### 8 [id number] ####SUNNI POC [address] [place] [address] PT/INR POCon 04-20-2017 INR Coag RelTime (Bld) 2.9 {INR} High 1.0-1.2 [facility] Comment on above: Performed By: #### 8 [id number] ####SUNNI POC Mjtgfwhubj1925 [place] [address] PT POC 33.0 second(s) High 8.0-11.0 [facility] Comment on above: Performed By: #### 8 [id number] ####SUNNI POC Hobhrkzhux8551 [place] [address] PT/INR POC Orderon 7 INR Coag RelTime (Bld) Collected Normal [facility] Comment on above: Performed By: #### 8 [id number] ####SUNNI POC [address]ptsyzpf2188 [place] [address] PT/INR POCon 03-31-2017 INR Coag RelTime (Bld) 1.8 {INR} High 1.0-1.2 [facility] Comment on above: Performed By: #### 8 [id number] ####SUNNI POC Szf[address]zfwy5054 [place] [address] PT POC 21.0 second(s) High 8.0-11.0 [facility] Comment on above: Performed By: #### 8 [id number] ####SUNNI POC Fbljsicniz2477 [place] [address] PT/INR POC Orderon 7 INR Coag RelTime (Bld) Collected Normal [facility] Comment on above: Performed By: #### 8 [id number] ####SUNNI POC [address]ow[address]wotef9682 [place] [address] Vital Signs Date Time Vital Sign Value Performing Clinician Marilou bruce 02-20-2025 13:05-0400 Body height 167.6 cm Sunny Zavala DO Work Phone: [employer] 02-20-2025 13:05-0400 Body mass index (BMI) [Ratio] 34.22 kg/m2 Sunny Zavala DO Work Phone: [facility] 02-20-2025 13:05-0400 Body temperature 97.9 [degF] Sunny Zavala DO Work Phone: [facility] 02-20-2025 13:05-0400 Body weight 96.16 kg Sunny Zavala DO Work Phone: [facility] 02-20-2025 13:05-0400 Diastolic blood pressure 83 mm[Hg] Sunny Zavala DO Work Phone: [facility] 02-20-2025 13:05-0400 Heart rate 68 /min Sunny Zavala DO Work Phone: [facility] 02-20-2025 13:05-0400 SaO2% (BldA) [Mass fraction] 98 % Sunny Zavala DO Work Phone: [facility] 02-20-2025 13:05-0400 Systolic blood pressure 135 mm[Hg] Sunny Craiga DO Work Phone: [facility] 12-31-2024 12:58-0400 Body height 167.6 cm [employer] PA-C Work Phone: [facility] 12-31-2024 12:58-0400 Body mass index (BMI) [Ratio] 35.35 kg/m2 [employer] PA-C Work Phone: [facility] 12-31-2024 12:58-0400 Body weight 99.34 kg Anne Coldsnow PA-C Work Phone: [facility] 12-31-2024 12:58-0400 Diastolic blood pressure 81 mm[Hg] Anne Coldsnow PA-C Work Phone: [facility] 12-31-2024 12:58-0400 Heart rate 67 /min Anne Coldsnow PA-C Work Phone: [facility] 12-31-2024 12:58-0400 Systolic blood pressure 138 mm[Hg] Anne Coldsnow PA-C Work Phone: [facility] 12-27-2024 14:07-0400 Body height 167.6 cm Zeinab Vilchistaina UGARTE Work Phone: [facility] 12-27-2024 14:07-0400 Body mass index (BMI) [Ratio] 35.28 kg/m2 Zeinabangie Ventura RD Work Phone: [facility] 12-27-2024 14:07-0400 Body weight 99.16 kg Zeinab Vilchistaina UGARTE Work Phone: [facility] 10-23-2024 12:06-0400 Diastolic blood pressure 78 mm[Hg] Sunny Jaureguilla DO Work Phone: [facility] 10-23-2024 12:06-0400 Heart rate 72 /min Sunny Jaureguilla DO Work Phone: [facility] 10-23-2024 12:06-0400 Systolic blood pressure 144 mm[Hg] Sunny Jaureguilla DO Work Phone: [facility] 10-23-2024 11:15-0400 Body height 167.6 cm Sunny Jaureguilla DO Work Phone: [facility] 10-23-2024 11:15-0400 Body mass index (BMI) [Ratio] 35.99 kg/m2 Sunny Jaureguilla DO Work Phone: [facility] 10-23-2024 11:15-0400 Body temperature 97.9 [degF] Sunny Zavala DO Work Phone: [facility] 10-23-2024 11:15-0400 Body weight 101.15 kg Sunny Zavala DO Work Phone: [facility] 10-23-2024 11:15-0400 SaO2% (BldA) [Mass fraction] 97 % Sunny Zavala DO Work Phone: [facility] 10-04-2024 14:07-0500 Body height 167.[address] Work Phone: [facility] 10-04-2024 14:07-0500 Body mass index (BMI) [Ratio] 36.67 kg/m2 Zeinab Ventura RD Work Phone: [facility] 10-04-2024 14:07-0500 Body weight 103.[address] Work Phone: [facility] 09-04-2024 14:00-0500 Diastolic blood pressure 78 mm[Hg] Anne Coldsnow PA-C Work Phone: [facility] 09-04-2024 14:00-0500 Systolic blood pressure 130 mm[Hg] Anne Coldsnow PA-C Work Phone: [facility] 09-04-2024 13:11-0500 Body height 167.6 cm Anne Coldsnow PA-C Work Phone: [facility] 09-04-2024 13:11-0500 Body mass index (BMI) [Ratio] 36.96 kg/m2 Anne Coldsnow PA-C Work Phone: [facility] 09-04-2024 13:11-0500 Body weight 103.87 kg Anne Coldsnow PA-C Work Phone: [facility] 09-04-2024 13:11-0500 Heart rate 77 /min Anne Coldsnow PA-C Work Phone: [facility] 06-21-2024 11:18-0500 Body height 167.6 cm Sunny Zavala DO Work Phone: [facility] 06-21-2024 11:18-0500 Body mass index (BMI) [Ratio] 37.28 kg/m2 Sunny Zavala DO Work Phone: [facility] 06-21-2024 11:18-0500 Body temperature 97.11 [degF] Sunny Zavala DO Work Phone: [facility] 06-21-2024 11:18-0500 Body weight 104.78 kg Sunny Zavala DO Work Phone: [facility] 06-21-2024 11:18-0500 Diastolic blood pressure 90 mm[Hg] Sunny Zavala DO Work Phone: [facility] 06-21-2024 11:18-0500 Heart rate 62 /min Sunny Zavala DO Work Phone: [facility] 06-21-2024 11:18-0500 SaO2% (BldA) [Mass fraction] 97 % Sunny Zavala DO Work Phone: [facility] 06-21-2024 11:18-0500 Systolic blood pressure 144 mm[Hg] Sunny Zavala DO Work Phone: [facility] 03-02-2024 11:10-0400 Body height 167.6 cm Sunny Zavala DO Work Phone: [facility] 03-02-2024 11:10-0400 Body mass index (BMI) [Ratio] 36.74 kg/m2 Sunny Zavala DO Work Phone: [facility] 03-02-2024 11:10-0400 Body temperature 97.9 [degF] Sunny Zavala DO Work Phone: [facility] 03-02-2024 11:10-0400 Body weight 103.24 kg Sunny Zavala DO Work Phone: [facility] 03-02-2024 11:10-0400 Diastolic blood pressure 68 mm[Hg] Sunny Zavala DO Work Phone: [facility] 03-02-2024 11:10-0400 Heart rate 62 /min Sunny Zavala DO Work Phone: [facility] 03-02-2024 11:10-0400 SaO2% (BldA) [Mass fraction] 97 % Sunny Zavala DO Work Phone: [facility] 03-02-2024 11:10-0400 Systolic blood pressure 118 mm[Hg] Sunny Zavala DO Work Phone: [facility] 11-04-2023 10:20-0400 Body height 167.6 cm Sunny Zavala DO Work Phone: [facility] 11-04-2023 10:20-0400 Body mass index (BMI) [Ratio] 37.61 kg/m2 Sunny Zavala DO Work Phone: [facility] 11-04-2023 10:20-0400 Body temperature 97.3 [degF] Sunny Zavala DO Work Phone: [facility] 11-04-2023 10:20-0400 Body weight 105.69 kg Sunny Zavala DO Work Phone: [facility] 11-04-2023 10:20-0400 Diastolic blood pressure 60 mm[Hg] Sunny Zavala DO Work Phone: [facility] 11-04-2023 10:20-0400 Heart rate 66 /min Sunny Zavala DO Work Phone: [facility] 11-04-2023 10:20-0400 SaO2% (BldA) [Mass fraction] 99 % Sunny Zavala DO Work Phone: [facility] 11-04-2023 10:20-0400 Systolic blood pressure 130 mm[Hg] Sunny Zavala DO Work Phone: [facility] 07-12-2023 10:06-0500 Body height 167.6 cm Sunny Zavala DO Work Phone: [facility] 07-12-2023 10:06-0500 Body mass index (BMI) [Ratio] 37.61 kg/m2 Sunny Zavala DO Work Phone: [facility] 07-12-2023 10:06-0500 Body temperature 97.5 [degF] Sunny Zavala DO Work Phone: [facility] 07-12-2023 10:06-0500 Body weight 105.69 kg Sunny Zavala DO Work Phone: [facility] 07-12-2023 10:06-0500 Diastolic blood pressure 82 mm[Hg] Sunny Zavala DO Work Phone: [facility] 07-12-2023 10:06-0500 Heart rate 70 /min Sunny Zavala DO Work Phone: [facility] 07-12-2023 10:06-0500 SaO2% (BldA) [Mass fraction] 97 % Sunny Zavala DO Work Phone: [facility] 07-12-2023 10:06-0500 Systolic blood pressure 138 mm[Hg] Sunny Zavala DO Work Phone: [facility] 04-11-2023 17:56-0400 Diastolic blood pressure 78 mm[Hg] Sunny Zavala DO Work Phone: [facility] 04-11-2023 17:56-0400 Heart rate 72 /min Sunny Zavala DO Work Phone: [facility] 04-11-2023 17:56-0400 Systolic blood pressure 128 mm[Hg] Sunny Zavala DO Work Phone: [facility] 04-11-2023 09:50-0400 Body height 167.6 cm Sunny Zavala DO Work Phone: [facility] 04-11-2023 09:50-0400 Body mass index (BMI) [Ratio] 38.58 kg/m2 Sunny Zavala DO Work Phone: [facility] 04-11-2023 09:50-0400 Body temperature 97.7 [degF] Sunny Zavala DO Work Phone: [facility] 04-11-2023 09:50-0400 Body weight 108.41 kg Sunny Zavala DO Work Phone: [facility] 04-11-2023 09:50-0400 SaO2% (BldA) [Mass fraction] 98 % Sunny Craiga DO Work Phone: [facility] 01-17-2023 08:50-0400 Body height 167.6 cm Sunny Craiga DO Work Phone: [facility] 01-17-2023 08:50-0400 Body mass index (BMI) [Ratio] 38.74 kg/m2 Sunny Craiga DO Work Phone: [facility] 01-17-2023 08:50-0400 Body temperature 97.3 [degF] Sunny Craiga DO Work Phone: [facility] 01-17-2023 08:50-0400 Body weight 108.86 kg Sunny Craiga DO Work Phone: [facility] 01-17-2023 08:50-0400 Diastolic blood pressure 75 mm[Hg] Sunny Craiga DO Work Phone: [facility] 01-17-2023 08:50-0400 Heart rate 58 /min Sunny Craiga DO Work Phone: [facility] 01-17-2023 08:50-0400 SaO2% (BldA) [Mass fraction] 96 % Sunny Craiga DO Work Phone: [facility] 01-17-2023 08:50-0400 Systolic blood pressure 131 mm[Hg] Sunny Craiga DO Work Phone: [facility] 09-23-2022 11:30-0500 Diastolic blood pressure 99 mm[Hg] Sunny Craiga DO Work Phone: [facility] 09-23-2022 11:30-0500 Heart rate 96 /min Sunny Craiga DO Work Phone: [facility] 09-23-2022 11:30-0500 Respiratory rate 23 /min Sunny Zavala DO Work Phone: [facility] 09-23-2022 11:30-0500 SaO2% (BldA) [Mass fraction] 95 % Sunny Zavala DO Work Phone: [facility] 09-23-2022 11:30-0500 Systolic blood pressure 153 mm[Hg] Sunny Zavala DO Work Phone: [facility] 09-23-2022 11:06-0500 Body temperature 98.71 [degF] Sunny Zavala DO Work Phone: [facility] 09-23-2022 09:40-0500 Body height 167.6 cm Sunny Zavala DO Work Phone: [facility] 09-23-2022 09:40-0500 Body mass index (BMI) [Ratio] 36.32 kg/m2 Sunny Zavala DO Work Phone: [facility] 09-23-2022 09:40-0500 Body weight 102.06 kg Sunny Zavala DO Work Phone: [facility] 09-08-2022 12:17-0500 Body height 167.6 cm Sunny Zavala DO Work Phone: [facility] 09-08-2022 12:17-0500 Body mass index (BMI) [Ratio] 37.93 kg/m2 Sunny Zavala DO Work Phone: [facility] 09-08-2022 12:17-0500 Body temperature 97.7 [degF] Sunny Zavala DO Work Phone: [facility] 09-08-2022 12:17-0500 Body weight 106.59 kg Sunny Zavala DO Work Phone: [facility] 09-08-2022 12:17-0500 Diastolic blood pressure 78 mm[Hg] Sunny Zavala DO Work Phone: [facility] 09-08-2022 12:17-0500 Heart rate 83 /min Sunny Zavala DO Work Phone: [facility] 09-08-2022 12:17-0500 SaO2% (BldA) [Mass fraction] 96 % Sunny Zavala DO Work Phone: [facility] 09-08-2022 12:17-0500 Systolic blood pressure 128 mm[Hg] Sunny Zavala DO Work Phone: [facility] Encounters Encounter Date Encounter Type Care Provider Facility Start: 02-20-2025 End: 02-20-2025 Office outpatient visit 25 minutes Sunny Rickie Linda ALLEN [facility] Comment on above: Essential hypertensi on (Primary Dx); Type 2 diabetes mellitus with diabetic polyneuropathy, without long-term current use of insulin (HCC); Mixed hyperlipidemia; On continuous oral anticoagulation; History of pulmonary embolism Start: 02-20-2025 End: 02-20-2025 ambulatory SUNNY ZAVALA [facility] Start: 02-12-2025 ambulatory Sunny Zavala Facilit y:[facility] Start: 02-08-2025 End: 02-08-2025 Telephone encounter Candice Ryder RN [facility] Clinical Communication Start: 02-07-2025 End: 02-07-2025 Orders Only Sunny Zavala DO Work Phone: [facility] Start: 02-06-2025 End: 02-07-2025 Telephone encounter Sunny Zavala DO Work Phone: [facility] Comment on above: Results (INR) Start: 01-29-2025 End: 01-29-[address] Sunny Zavala DO -Laboratory Work Phone: Start: 01-29-2025 End: 01-29-[address] Sunny Zavala DO Work Phone: -Laboratory Start: 01-29-2025 End: 01-31-2025 Telephone encounter Sunny Zavala DO Work Phone: [facility] Start: 01-10-2025 End: 01-10-[address] Sunny Zavala DO Work Phone: [facility] Work Phone: Start: 01-10-2025 End: 01-10-[address] 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 (HCC); Class 2 severe obesity with serious comorbidity and body mass index (BMI) of 35.0 to 35.9 in adult, unspecified obesity type (HCC); Hypertension associated with type 2 diabetes mellitus (HCC); Type 2 diabetes mellitus with hyperlipidemia (HCC) (HCC) Start: 12-31-2024 End: 12-31-2024 ambulatory [facility] Start: 12-27-2024 End: 12-27-2024 Clinical Support Zeinab Ventura RD Work Phone: [facility] Comment on above: Hypertension associa jim with type 2 diabetes mellitus (HCC) (Primary Dx); Type 2 diabetes mellitus with hyperlipidemia (HCC) (HCC); Type 2 diabetes mellitus with hyperglycemia, without long-term current use of insulin (HCC) Start: 12-06-2024 End: 12-12-2024 ambulatory Sunny Zavala Facility:[facility] Start: 12-06-2024 End: 12-12-[address] uSnny Zavala DO -Laboratory Work Phone: Start: 11-07-2024 End: 11-07-2024 Orders Only Sunny Zavala DO Work Phone: [facility] Start: 11-05-2024 End: 11-05-[address] Sunny Zavala DO -Laboratory Work Phone: Start: 11-05-2024 End: 11-05-[address] Sunny Zavala DO Work Phone: [facility] Work Phone: Start: 10-23-2024 End: 10-23-2024 Patient encounter procedure Sunny Zavala DO Work Phone: [facility] Start: 10-23-2024 End: 10-23-2024 Periodic preventive med est patient 40-64yrs Sunny Zavala DO Work Phone: [facility] Comment on above: Annual physical exam (Primary Dx); Type 2 diabetes mellitus with diabetic polyneuropathy, without long-term current use of insulin (HCC); Essential hypertension; Mixed hyperlipidemia; Factor V Leiden (HCC); BECK on CPAP; Prostate cancer screening; On continuous oral anticoagulation Start: 10-23-2024 End: 10-23-2024 ambulatory [facility] Start: 10-04-2024 End: 10-04-2024 Clinical Support Zeinab Ventura RD Work Phone: [facility] Comment on above: Class 2 severe obesi ty with serious comorbidity and body mass index (BMI) of 36.0 to 36.9 in adult, unspecified obesity type (HCC) (Primary Dx); Hypertension associated with type 2 diabetes mellitus (HCC) (HCC); Type 2 diabetes mellitus with hyperlipidemia (HCC) (HCC) Start: 10-01-2024 End: 10-12-[address] Sunny PEREALaboratory Work Phone: Start: 10-01-2024 End: 10-12-2024 Orders Only Sunny Zavala DO Work Phone: [facility] Start: 09-21-2024 End: 09-21-2024 Refill Sunny Zavala DO Work Phone: [facility] Start: 09-19-2024 End: 09-25-2024 Orders Only Sunny Zavala DO Work Phone: [facility] Comment on above: Personal history of DVT (deep vein thrombosis) (Primary Dx); On continuous oral anticoagulation Start: 09-19-2024 End: 09-19-2024 Refill Sunny Zavala DO Work Phone: [facility] Start: 09-18-2024 End: 09-18-2024 Refill Sunny Zavala DO Work Phone: [facility] Clinical Communication Start: 09-04-2024 End: 09-04-2024 Telephone encounter Anne BARNHART-Viridiana Work Phone: [facility] Start: 09-04-2024 End: 09-04-2024 [facility] Start: 09-04-2024 End: 09-04-2024 Office outpatient new 45 minutes Anne Haines PA-C Work Phone: [facility] Comment on above: Type 2 diabetes katheryn itus with hyperglycemia, without long-term current use of insulin ([facility]) (Primary Dx); Class 2 severe obesity with serious comorbidity and body mass index (BMI) of 36.0 to 36.9 in adult, unspecified obesity type ([facility]); Type 2 diabetes mellitus with hyperlipidemia (HCC) ([facility]); Hypertension associated with type 2 diabetes mellitus (HCC) ([facility]); Type 2 diabetes mellitus with diabetic polyneuropathy, without long-term current use of insulin ([facility]); Both eyes affected by mild nonproliferative diabetic retinopathy with macular edema, associated with type 2 diabetes mellitus (HCC) Start: 08-16-2024 End: 08-16-[address] Sunny Zavala DO -Laboratory Work Phone: Start: 08-16-2024 End: 08-16-2024 ambulatory Sunny Zavala Facility:[facility] Start: 08-06-2024 ambulatory Sunny Zavala Facilit y:[facility] Start: 07-26-2024 End: 08-07-2024 Telephone encounter Anne BARNHART-C Work Phone: [facility] Comment on above: Appointment Start: 07-24-2024 End: 07-26-2024 Telephone encounter Sunny Zavala DO Work Phone: [facility] Comment on above: Referral Start: 07-19-2024 End: 07-19-2024 Refill Sunny Zavala DO Work Phone: [facility] Start: 07-17-2024 End: 07-17-2024 Orders Only Sunny Zavala DO Work Phone: [facility] Start: 07-16-2024 End: 07-16-2024 Refill Sunny Zavala DO Work Phone: [facility] Start: 07-15-2024 End: 07-15-2024 Orders Only Sunny Zavala DO Work Phone: [facility] Start: 07-05-2024 End: 07-20-2024 Orders Only Sunny Zavala DO Work Phone: [facility] Start: 07-05-2024 End: 07-05-2024 ambulatory Sunny Zavala Facility:[facility] Start: 06-21-2024 End: 06-21-2024 Office outpatient visit 25 minutes Sunny Zavala DO Work Phone: [facility] Comment on above: Type 2 diabetes katheryn itus with diabetic polyneuropathy, without long-term current use of insulin (HCC) (Primary Dx); Essential hypertension; Mixed hyperlipidemia; Anticoagulant long-term use; Personal history of DVT (deep vein thrombosis); Lipoma of left shoulder; Prostate cancer screening Start: 06-21-2024 End: 06-21-2024 [facility] Start: 05-31-2024 End: 05-31-2024 Orders Only Sunny Zavala DO Work Phone: [facility] Start: 05-30-2024 End: 05-30-2024 Orders Only Sunny Zavala DO Work Phone: [facility] Start: 05-14-2024 End: 05-14-2024 ambulatory Sunny Zavala Facility:[facility] Start: 03-18-2024 End: 03-18-2024 Orders Only Sunny Zavala DO Work Phone: [facility] Start: 03-02-2024 End: 03-02-2024 ambulatory [facility] Start: 03-02-2024 End: 03-02-2024 Office outpatient visit 25 minutes Sunny Zavala DO Work Phone: [facility] Comment on above: Type 2 diabetes katheryn itus with diabetic polyneuropathy, without long-term current use of insulin ([facility]) (HCC) (Primary Dx); Mixed hyperlipidemia; On continuous oral anticoagulation; Essential hypertension; Factor V Leiden ([facility]); Anticoagulant long-term use Start: 03-02-2024 End: 03-02-2024 [facility] Start: 02-15-2024 End: 02-17-2024 ambulatory Candice Garcia Clinical Communication Start: 02-15-2024 End: 02-17-2024 Patient encounter procedure Candice Garcia Clinical Communication Start: 02-14-2024 End: 03-14-2024 ambulatory Sunny Zavala Facility:[facility] Start: 11-29-2023 Orders Only Sunny tavarez DO Work Phone: [facility] Start: 11-25-2023 End: 11-25-2023 ambulatory [facility] Work Phone: Start: 11-25-2023 End: 11-25-2023 Patient encounter procedure [facility] Work Phone: Start: 11-04-2023 End: 11-04-2023 Office outpatient visit 25 minutes Sunny Zavala DO Work Phone: [facility] Comment on above: Type 2 diabetes katheryn itus without complication, without long- term current use of insulin ([facility]) ([facility]) (Primary Dx); Essential hypertension; On continuous oral anticoagulation; Mixed hyperlipidemia; Factor V Leiden ([facility]); Type 2 diabetes mellitus with diabetic polyneuropathy, without long-term current use of insulin ([facility]) ([facility]) Start: 10-27-2023 Refill Sunny Jauregui lla DO Work Phone: [facility] Start: 10-14-2023 Orders Only Sunny Jauregui lla DO Work Phone: [facility] Start: 10-12-2023 End: 10-13-2023 ambulatory [facility] Work Phone: Start: 10-12-2023 End: 10-13-2023 Discharged Recurring [facility] Work Phone: Start: 09-19-2023 Orders Only Sunny Jauregui lla DO Work Phone: [facility] Comment on above: Personal history of DVT (deep vein thrombosis) (Primary Dx) Start: 08-25-2023 Orders Only Sunny aguiara DO Work Phone: [facility] Start: 08-24-2023 Refill Sunny Jauregui lla DO Work Phone: [facility] Start: 08-08-2023 Refill Damien Miller MD Work Phone: [facility] Start: 08-04-2023 End: 08-04-2023 ambulatory [facility] Work Phone: Start: 08-04-2023 End: 08-04-2023 Patient encounter procedure [facility] Work Phone: Start: 08-02-2023 Refill Sunny Jauregui lla DO Work Phone: [facility] Start: 08-01-2023 Refill Damien Miller MD Work Phone: [facility] Start: 07-12-2023 End: 07-12-2023 Patient encounter procedure Sunny Damian Rafafide DO Work Phone: [facility] Start: 07-12-2023 End: 07-12-2023 Periodic preventive med est patient 40-64yrs Sunny Damian Linda DO Work Phone: [facility] Comment on above: Annual physical exam (Primary Dx); Type 2 diabetes mellitus with diabetic polyneuropathy, without long-term current use of insulin ([facility]) ([facility]); Essential hypertension; On continuous oral anticoagulation; Personal history of DVT (deep vein thrombosis); Mixed hyperlipidemia; Prostate cancer screening Start: 07-10-2023 Orders Only Sunny Damian Ko tavarez DO Work Phone: [facility] Comment on above: Type 2 diabetes katheryn itus without complication, without long- term current use of insulin ([facility]) ([facility]) (Primary Dx); Essential hypertension; Mixed hyperlipidemia; On continuous oral anticoagulation Start: 07-08-2023 Refill Damien Miller MD Work Phone: [facility] Start: 07-08-2023 Refill Sunny Damian Ko tavarez DO Work Phone: [facility] Start: 06-25-2023 Refill Damien Miller MD Work Phone: [facility] Start: 06-07-2023 Refill Damien Miller MD Work Phone: [facility] Start: 06-03-2023 Refill Damien Miller MD Work Phone: [facility] Start: 05-27-2023 Telephone encounter Sunny Damian Miguelangel zabala DO Work Phone: [facility] Comment on above: INR Results Start: 05-25-2023 End: 05-25-2023 ambulatory [facility] Work Phone: Start: 05-25-2023 End: 05-25-2023 Discharged Recurring [facility] Work Phone: Start: 05-08-2023 Arun Miller MD Work Phone: [facility] Start: 04-11-2023 Telephone encounter Sunny Damian Miguelangel zabala DO Work Phone: [facility] Comment on above: Referral ([employer]/ Nutrition / Diabetic counseling) Start: 04-11-2023 End: 04-11-2023 Office outpatient visit 25 minutes Sunny Zavala DO Work Phone: [facility] Comment on above: Type 2 diabetes katheryn itus without complication, without long- term current use of insulin (CMS/HCC) (HCC) (Primary Dx); Essential hypertension; Mixed hyperlipidemia Start: 03-31-2023 End: 03-31-2023 ambulatory [facility] Work Phone: Start: 03-31-2023 End: 03-31-2023 Patient encounter procedure [facility] Work Phone: Start: 02-25-2023 ambulatory [facility] Start: 02-25-2023 Patient encounter procedure [facility] Start: 02-24-2023 End: 03-14-2023 ambulatory [facility] Work Phone: Start: 02-24-2023 End: 03-14-2023 [facility] Start: 02-23-2023 Orders Only Sunny tavarez DO Work Phone: [facility] Start: 01-17-2023 End: 01-17-2023 Office outpatient visit 25 minutes Sunny Zavala DO Work Phone: [facility] Comment on above: Type 2 diabetes katheryn itus without complication, without long- term current use of insulin (CMS/HCC) (HCC) (Primary Dx); Mixed hyperlipidemia; Essential hypertension; Anticoagulant long-term use; Lipoma of left shoulder Start: 01-14-2023 End: 01-14-2023 ambulatory [facility] Work Phone: Start: 01-14-2023 End: 01-14-2023 Discharged Recurring [facility] Work Phone: Start: 11-25-2022 Telephone encounter Sunny zabala DO Work Phone: [facility] Comment on above: Results Start: 11-24-2022 End: 12-12-2022 ambulatory [facility] Work Phone: Start: 11-24-2022 End: 12-12-2022 Discharged Recurring [facility] Start: 11-19-2022 Refill Damien Miller MD Work Phone: [facility] Start: 11-19-2022 Refill Sunny tavarez DO Work Phone: [facility] Comment on above: needs A1C and INR wa s done 11/17/22 at [facility] (Needs INR results 11/17/22 at [facility] and would like A1C checked due to new medicine) Start: 10-08-2022 Orders Only Sunny tavarez DO Work Phone: [facility] Start: 10-07-2022 Orders Only Sunny tavarez DO Work Phone: [facility] Start: 10-06-2022 End: 10-06-2022 ambulatory [facility] Work Phone: Start: 10-06-2022 End: 10-06-2022 Discharged Recurring [facility] Start: 09-23-2022 End: 09-23-2022 Subsequent hospital visit by physician Sunny Zavala DO Work Phone: [facility] Comment on above: Encounter for colore ctal cancer screening (Primary Dx) Start: 09-17-2022 Telephone encounter Sunny zabala DO Work Phone: [facility] Comment on above: Medication Question Start: 09-14-2022 Telephone encounter Sunny zabala DO Work Phone: [facility] Comment on above: Message Start: 09-08-2022 Orders Only Sunny tavarez DO Work Phone: [facility] Start: 09-08-2022 End: 09-08-2022 Office outpatient visit 40 minutes Sunny Zavala DO Work Phone: [facility] Comment on above: Type 2 diabetes katheryn itus without complication, without long- term current use of insulin ([facility]) ([facility]) (Primary Dx); History of pulmonary embolism; Mixed hyperlipidemia; Personal history of DVT (deep vein thrombosis); Factor V Leiden ([facility]) ([facility]); Essential hypertension; Anticoagulant long-term use; Lipoma of left shoulder; Skin lesion of back Start: 09-02-2022 Anticoagulant drug monitoring Damien Miller MD Work Phone: [facility] Start: 08-30-2022 Telephone encounter Sunny zabala DO Work Phone: [facility] Clinical Communication Comment on above: Establish Care Start: 08-23-2022 Telephone encounter Nacho cantrell MD Work Phone: [facility] [place] [facility] Start: 08-13-2022 Telephone encounter Damien magdaleno MD Work Phone: [facility] Comment on above: Returning Call Start: 08-02-2022 Telephone encounter Damien magdaleno MD Work Phone: [facility] Comment on above: Release of Informati on Start: 08-02-2022 End: 08-02-2022 Anticoagulant drug monitoring [facility] Comment on above: assisted (current) use of anticoagulants; Personal history of DVT (deep vein thrombosis); History of pulmonary embolism; Hypercoagulable state ([facility]) ([facility]) Start: 07-29-2022 Telephone encounter Damien magdaleno MD Work Phone: [facility] Start: 06-09-2020 End: 06-09-2020 Subsequent hospital visit by physician Kari Torres Work Phone: [facility] Comment on above: Acute low back pain with bilateral sciatica, unspecified back pain laterality Start: 10-02-2019 End: 10-02-2019 Subsequent hospital visit by physician Lluvia Rueda Work Phone: [facility] Comment on above: Elevated liver enzym es Start: 10-04-2017 End: 11-19-2017 Patient encounter Brianna Rueda Facility:[facility] Start: 09-17-2017 End: 09-17-2017 Emergency department patient visit Brianna Rueda Facility:[facility] Start: 09-17-2017 End: 09-18-2017 Patient encounter Juan Felicia Cervantes Facility:[facility] Start: 06-03-2017 End: 06-03-2017 Patient encounter Og Bundy Facility:[facility] Start: 05-31-2017 End: 05-31-2017 Patient encounter Brianna Rueda Facility:[facility] Start: 02-14-2017 Ambulatory BOLIVAR SOMMER [facility] Procedures Date Procedure Procedure Detail Performing Clinician Start: 12-31-2024 Hemoglobin glycosylated a1c Anne Natarajan Yancy KNIGHT Work Phone: Start: 12-27-2024 Follow-up visit Follow-up ZEINAB VENTURA Start: 10-23-2024 Adult depression scr eening assessment Sunny Zavala DO Work Phone: Start: 09-24-[address] Sunny Zavala DO Work Phone: Start: 09-24-2024 Urine microalbumin/c reatinine ratio measurement Dr. Sunny Zavala DO Work Phone: Start: 09-20-2024 HM DIABETES EYE EXAM Eu jonathan Zavala DO Work Phone: Start: 09-06-2024 DIABETES EYE EXAM Eu gene F Linda DO Work Phone: Start: 09-04-2024 End: 09-04-2024 Glucose post glucose dose Anne Mckeon lisandro PA-Viridiana Work Phone: Start: 06-21-2024 Adult depression scr eening assessment Sunny Zavala DO Work Phone: Start: 11-25-2023 Lipid 1995 panel - S rylee or Plasma Sunny Zavala DO Work Phone: Start: 04-11-2023 Ecg routine ecg w/le ast 12 lds w/i&r Sunny Zavala DO Work Phone: Start: 02-22-2023 HM DIABETES EYE EXAM Dean Zavala DO Work Phone: Start: 09-23-2022 Colonoscopy Damien magdaleno MD Work Phone: Start: 09-08-2022 Prothrombin time Sunny Zavala DO Work Phone: Start: 08-02-2022 Prothrombin time Histor ical Alireza [facility] Work Phone: Start: 05-26-2022 Lipid 1995 panel - S rylee or Plasma Damien Miller MD Work Phone: Start: 07-27-2021 Lipid 1996 panel - S rylee or Plasma Nacho Turner MD Work Phone: Start: 06-09-2020 Radex spine lumbosac ral 2/3 views Kari Torres Work Phone: Start: 10-02-2019 Us abdominal real ti me w/image documentation Lluvia Rueda Work Phone: Start: 06-17-2016 Colonoscopy Sunny pantoja DO Work Phone: Plan of Treatment Date Care Activity Detail Author Start: 09-23-2032 Screening for malignant neoplasm of colon [employer] [facility] Start: 08-26-2026 DTaP/Tdap/Td vaccine (2 - Td) DTaP/Tdap/Td vaccine (2 - Td) [employer] Work Phone: Start: 08-26-2026 DTaP/Tdap/Td Vaccines (2 - Td or Tdap) DTaP/Tdap/Td Vaccines (2 - Td or Tdap) [facility] Start: 06-17-2026 Screening for malignant neoplasm of colon [facility] Start: 02-03-2026 End: 02-03-2026 Patient encounter procedure 02/03/2026 1:20 PM EDT Office Visit [facility] [address] [place] [id number] Blanco Chu MD [address] [place], [place] [id number] [facility] Start: 12-31-2025 Diabetic foot examination Diabetes: Foot Exam [facility] Start: 12-31-2025 Hemoglobin A1c measurement Diabetes: Hemoglobin A1C [facility] Start: 12-20-2025 Glaucoma screening Diabetes: Retinopathy Screening [facility] Start: 10-23-2025 Depression Screening Depression Screening [facility] Start: 09-24-2025 Diabetes: Urine Albumin-Creatinine Ratio for [facility]ney Health Diabetes: Urine Albumin-Creatinine Ratio for Kid[facility] Health [facility] Start: 09-20-2025 Glaucoma screening Diabetes: Retinopathy Screening [facility] Start: 09-06-2025 Glaucoma screening Diabetes: Retinopathy Screening [facility] Start: 09-04-2025 Hemoglobin A1c measurement Diabetes: Hemoglobin A1C [facility] Start: 08-21-2025 End: 08-21-2025 Patient encounter procedure 08/21/2025 1:20 PM EST Office Visit [facility] [address] [place] [address] Sunny Zavala DO [address] [place] [address] [facility] Start: 07-17-2025 Glaucoma screening Diabetes: Retinopathy Screening [facility] Start: 06-21-2025 Depression Screening Depression Screening [facility] Start: 06-13-2025 Glaucoma screening Diabetes: Retinopathy Screening [facility] Start: 05-06-2025 End: 05-06-2025 Patient encounter procedure [facility] Start: 04-15-2025 Influenza vaccination [facility] Start: 04-04-2025 End: 04-04-2025 Clinical Support 04/04/2025 2:00 PM EDT Clinical Support [facility] [address] [place] [phone] Zeinab Ventura, RD [address] [place] [address] [facility] Start: 02-22-2025 Glaucoma screening Diabetes: Retinopathy Screening [facility] Start: 02-21-2025 End: 02-21-2025 Patient encounter procedure 02/21/2025 11:30 AM EDT [facility] [address] [place] [address] Sunny Zavala DO [address] [place] [address] [facility] Start: 02-20-2025 End: 02-20-2026 Prothrombin time (PT) in Blood by Coagulation assay Protime-INR Lab Routine On continuous oral anticoagulation Expected: 02/20/2025 (Approximate), Expires: 02/20/2026 [facility] Work Phone: Comment on above: Expected: 02/20/2025 (Approximate), Expi res: 02/20/2026 Start: 02-20-2025 End: 02-20-2025 Patient encounter procedure 02/20/2025 1:20 PM EDT Office Visit [facility] [place] [address] [place] [address] Sunny Zavala DO [address] [place] [address] [facility] Start: 12-31-2024 End: 12-31-2024 Patient encounter procedure [facility] Start: 12-27-2024 End: 12-27-2024 Clinical Support 12/27/2024 2:00 PM EDT Clinical Support [facility] [address] [place] [phone] [place] [address] [facility] Start: 11-24-2024 Diabetes: Estimated Glomerular Filtration Rate for Kidney Health Diabetes: Estimated Glomerular Filtration Rate for Kidney Health [facility] Start: 11-24-2024 Hemoglobin A1c measurement Diabetes: Hemoglobin A1C [facility] Start: 11-24-2024 Lipid panel Lipid Panel [facility] Start: 11-03-2024 Diabetic foot examination Diabetes: Foot Exam [facility] Start: 10-23-2024 End: 10-23-2025 PSA Total (Screening) PSA Total (Screening) Lab Routine Prostate cancer screening Expected: 10/23/2024 (Approximate), Expires: 10/23/2025 [facility] Work Phone: Comment on above: Expected: 10/23/2024 (Approximate), Expi res: 10/23/2025 Start: 10-23-2024 End: 10-23-2024 Patient encounter procedure 10/23/2024 11:30 AM EDT Office Visit [facility] [place] [address] [place] [address] Sunny Zavala DO [address] [place] [address] [facility] [place] Start: 10-04-2024 End: 10-04-2024 Clinical Support 10/04/2024 2:00 PM EST Clinical Support [facility] [address] [place] [address] Zeinab Ventura, RD [address] [place] [address] [facility] Start: 09-04-2024 End: 09-04-2025 Lipid 1996 panel - Serum or Plasma Lipid panel Lab Routine Type 2 diabetes mellitus with hyperglycemia, without long-term current use of insulin (HCC) Expected: 09/04/2024 (Approximate), Expires: 09/04/2025 [facility] Comment on above: Expected: 09/04/2024 (Approximate), Expi res: 09/04/2025 Start: 09-04-2024 End: 09-04-2025 Microalbumin/Creatinine panel in random Urine Microalbumin / creatinine urine ratio Lab Routine Type 2 diabetes mellitus with hyperglycemia, without long-term current use of insulin (HCC) Expected: 09/04/2024 (Approximate), Expires: 09/04/2025 [facility] Comment on above: Expected: 09/04/2024 (Approximate), Expi res: 09/04/2025 Start: 09-04-2024 End: 09-04-2025 Thyrotropin [Units/volume] in Serum or Plasma TSH Lab Routine Type 2 diabetes mellitus with hyperglycemia, without long-term current use of insulin (HCC) Expected: 09/04/2024 (Approximate), Expires: 09/04/2025 [facility] Work Phone: Comment on above: Expected: 09/04/2024 (Approximate), Expi res: 09/04/2025 Start: 09-04-2024 End: 09-04-2025 Thyroxine (T4) free [Mass/volume] in Serum or Plasma T4, free Lab Routine Type 2 diabetes mellitus with hyperglycemia, without long-term current use of insulin (HCC) Expected: 09/04/2024 (Approximate), Expires: 09/04/2025 [facility] Comment on above: Expected: 09/04/2024 (Approximate), Expi res: 09/04/2025 Start: 09-04-2024 End: 09-04-2024 Patient encounter procedure 09/04/2024 1:00 PM EST Office Visit [facility] [address] [place] [phone] Anne Haines PA-C [address] [place] [address] [facility] Start: 06-21-2024 End: 06-21-2025 CBC W Auto Differential panel - Blood CBC auto differential Lab Routine Essential hypertension Expected: 06/21/2024 (Approximate), Expires: 06/21/2025 [facility] Work Phone: Comment on above: Expected: 06/21/2024 (Approximate), Expi res: 06/21/2025 Start: 06-21-2024 End: 06-21-2025 Comprehensive metabolic 1998 panel - Serum or Plasma Comprehensive metabolic panel Lab Routine Essential hypertension Expected: 06/21/2024 (Approximate), Expires: 06/21/2025 [facility] Comment on above: Expected: 06/21/2024 (Approximate), Expi res: 06/21/2025 Start: 06-21-2024 End: 06-21-2025 Hemoglobin A1c measurement Hemoglobin A1c Lab Routine Type 2 diabetes mellitus with diabetic polyneuropathy, without long-term current use of insulin ([facility]/HCC) (HCC) Expected: 06/21/2024 (Approximate), Expires: 06/21/2025 [facility] Comment on above: Expected: 06/21/2024 (Approximate), Expi res: 06/21/2025 Start: 06-21-2024 End: 06-21-2025 Lipid 1996 panel - Serum or Plasma Lipid panel Lab Routine Mixed hyperlipidemia Expected: 06/21/2024 (Approximate), Expires: 06/21/2025 [facility] Comment on above: Expected: 06/21/2024 (Approximate), Expi res: 06/21/2025 Start: 06-21-2024 End: 06-21-2025 Prothrombin time (PT) in Blood by Coagulation assay Protime-INR Lab Routine Anticoagulant long-term use Expected: 06/21/2024 (Approximate), Expires: 06/21/2025 [facility] Comment on above: Expected: 06/21/2024 (Approximate), Expi res: 06/21/2025 Start: 06-21-2024 End: 06-21-2025 PSA screening PSA Screening Lab Routine Prostate cancer screening Expected: 06/21/2024 (Approximate), Expires: 06/21/2025 [facility] Comment on above: Expected: 06/21/2024 (Approximate), Expi res: 06/21/2025 Start: 06-21-2024 End: 06-21-2024 Patient encounter procedure [facility] Start: 04-15-2024 COVID-19 Vaccine () COVID-19 Vaccine () [facility] Start: 04-15-2024 COVID-19 Vaccine () COVID-19 Vaccine () [facility] Start: 04-15-2024 Influenza vaccination [facility] Start: 03-02-2024 End: 03-02-2025 Comprehensive metabolic 1998 panel - Serum or Plasma Comprehensive metabolic panel Lab Routine Type 2 diabetes mellitus with diabetic polyneuropathy, without long-term current use of insulin ([facility]) ([facility]) Expected: 03/02/2024 (Approximate), Expires: 03/02/2025 [facility] Work Phone: Comment on above: Expected: 03/02/2024 (Approximate), Expi res: 03/02/2025 Start: 03-02-2024 End: 03-02-2025 Hemoglobin A1c measurement Hemoglobin A1c Lab Routine Type 2 diabetes mellitus with diabetic polyneuropathy, without long-term current use of insulin ([facility]) (HCC) Expected: 03/02/2024 (Approximate), Expires: 03/02/2025 [facility] Comment on above: Expected: 03/02/2024 (Approximate), Expi res: 03/02/2025 Start: 03-02-2024 End: 03-02-2025 Prothrombin time (PT) in Blood by Coagulation assay Protime-INR Lab Routine Factor V Leiden ([facility]) Expected: 03/02/2024 (Approximate), Expires: 03/02/2025 [facility] Comment on above: Expected: 03/02/2024 (Approximate), Expi res: 03/02/2025 Start: 03-02-2024 End: 03-02-2024 Patient encounter procedure 03/02/2024 11:00 AM EDT Office Visit [facility] Family [facility] [address] [place] [address] KoSunny tavarez DO [address] [place] [address] [facility] Start: 02-23-2024 Glaucoma screening Diabetes: Retinopathy Screening [facility] Start: 11-04-2023 End: 11-03-2024 CBC W Auto Differential panel - Blood CBC auto differential Lab Routine Type 2 diabetes mellitus without complication, without long-term current use of insulin (CMS/HCC) (HCC) Expected: 11/04/2023 (Approximate), Expires: 11/03/2024 [facility] Work Phone: Comment on above: Expected: 11/04/2023 (Approximate), Expi res: 11/03/2024 Start: 11-04-2023 End: 11-03-2024 Comprehensive metabolic 1998 panel - Serum or Plasma Comprehensive metabolic panel Lab Routine Type 2 diabetes mellitus without complication, without long-term current use of insulin (CMS/HCC) (HCC) Expected: 11/04/2023 (Approximate), Expires: 11/03/2024 [facility] Comment on above: Expected: 11/04/2023 (Approximate), Expi res: 11/03/2024 Start: 11-04-2023 End: 11-03-2024 Hemoglobin A1c measurement Hemoglobin A1c Lab Routine Type 2 diabetes mellitus without complication, without long-term current use of insulin (CMS/HCC) (HCC) Expected: 11/04/2023 (Approximate), Expires: 11/03/2024 [facility] Comment on above: Expected: 11/04/2023 (Approximate), Expi res: 11/03/2024 Start: 11-04-2023 End: 11-03-2024 Lipid 1996 panel - Serum or Plasma Lipid panel Lab Routine Mixed hyperlipidemia Expected: 11/04/2023 (Approximate), Expires: 11/03/2024 [facility] Comment on above: Expected: 11/04/2023 (Approximate), Expi res: 11/03/2024 Start: 11-04-2023 End: 11-03-2024 Prothrombin time (PT) in Blood by Coagulation assay Protime-INR Lab Routine On continuous oral anticoagulation Expected: 11/04/2023 (Approximate), Expires: 11/03/2024 [facility] Comment on above: Expected: 11/04/2023 (Approximate), Expi res: 11/03/2024 Start: 11-04-2023 End: 11-04-2023 Patient encounter procedure 11/04/2023 10:30 AM EDT Office Visit [facility] [address] [place] [address] Sunny Zavala DO [address] [place] [address] [facility] Start: 09-08-2023 Diabetic foot examination Diabetes: Foot Exam [facility] Start: 08-04-2023 Assay of prostate specific antigen total ASSAY OF PSA TOTAL [facility] Start: 07-12-2023 End: 07-12-2024 CBC W Auto Differential panel - Blood CBC auto differential Lab Routine Essential hypertension Expected: 07/12/2023 (Approximate), Expires: 07/12/2024 [facility] Work Phone: Comment on above: Expected: 07/12/2023 (Approximate), Expi res: 07/12/2024 Start: 07-12-2023 End: 07-12-2024 Comprehensive metabolic 1998 panel - Serum or Plasma Comprehensive metabolic panel Lab Routine Essential hypertension Expected: 07/12/2023 (Approximate), Expires: 07/12/2024 [facility] Comment on above: Expected: 07/12/2023 (Approximate), Expi res: 07/12/2024 Start: 07-12-2023 End: 07-12-2024 Hemoglobin A1c measurement Hemoglobin A1c Lab Routine Type 2 diabetes mellitus with diabetic polyneuropathy, without long-term current use of insulin ([facility]/HCC) (HCC) Expected: 07/12/2023 (Approximate), Expires: 07/12/2024 [facility] Comment on above: Expected: 07/12/2023 (Approximate), Expi res: 07/12/2024 Start: 07-12-2023 End: 07-12-2024 Lipid 1996 panel - Serum or Plasma Lipid panel Lab Routine Type 2 diabetes mellitus with diabetic polyneuropathy, without long-term current use of insulin (CMS/HCC) (HCC) Expected: 07/12/2023 (Approximate), Expires: 07/12/2024 [facility] Comment on above: Expected: 07/12/2023 (Approximate), Expi res: 07/12/2024 Start: 07-12-2023 End: 07-12-2024 Prothrombin time (PT) in Blood by Coagulation assay Protime-INR Lab Routine On continuous oral anticoagulation Expected: 07/12/2023 (Approximate), Expires: 07/12/2024 [facility] Comment on above: Expected: 07/12/2023 (Approximate), Expi res: 07/12/2024 Start: 07-12-2023 End: 07-12-2024 PSA Total (Screening) PSA Total (Screening) Lab Routine Prostate cancer screening Expected: 07/12/2023 (Approximate), Expires: 07/12/2024 [facility] Comment on above: Expected: 07/12/2023 (Approximate), Expi res: 07/12/2024 Start: 07-12-2023 End: 07-12-2023 Patient encounter procedure [facility] Start: 07-10-2023 End: 07-10-2024 CBC W Auto Differential panel - Blood CBC auto differential Lab Routine Type 2 diabetes mellitus without complication, without long-term current use of insulin (CMS/HCC) (HCC) Expected: 07/10/2023 (Approximate), Expires: 07/10/2024 [facility] Comment on above: Expected: 07/10/2023 (Approximate), Expi res: 07/10/2024 Start: 07-10-2023 End: 07-10-2024 Comprehensive metabolic 1998 panel - Serum or Plasma Comprehensive metabolic panel Lab Routine Type 2 diabetes mellitus without complication, without long-term current use of insulin (CMS/HCC) (HCC) Expected: 07/10/2023 (Approximate), Expires: 07/10/2024 [facility] Work Phone: Comment on above: Expected: 07/10/2023 (Approximate), Expi res: 07/10/2024 Start: 07-10-2023 End: 07-10-2024 Hemoglobin A1c measurement Hemoglobin A1c Lab Routine Type 2 diabetes mellitus without complication, without long-term current use of insulin ([facility]/HCC) (HCC) Expected: 07/10/2023 (Approximate), Expires: 07/10/2024 [facility] Comment on above: Expected: 07/10/2023 (Approximate), Expi res: 07/10/2024 Start: 07-10-2023 End: 07-10-2024 Lipid 1996 panel - Serum or Plasma Lipid panel Lab Routine Type 2 diabetes mellitus without complication, without long-term current use of insulin (CMS/HCC) (HCC) Expected: 07/10/2023 (Approximate), Expires: 07/10/2024 [facility] Comment on above: Expected: 07/10/2023 (Approximate), Expi res: 07/10/2024 Start: 07-10-2023 End: 07-10-2024 Prothrombin time (PT) in Blood by Coagulation assay Protime-INR Lab Routine On continuous oral anticoagulation Expected: 07/10/2023 (Approximate), Expires: 07/10/2024 [facility] Comment on above: Expected: 07/10/2023 (Approximate), Expi res: 07/10/2024 Start: 05-26-2023 Diabetes: Urine Albumin-Creatinine Ratio for Kidney Health Diabetes: Urine Albumin-Creatinine Ratio for Kidney Health [facility] Start: 05-26-2023 Hemoglobin A1c measurement Diabetes: Hemoglobin A1C [facility] Start: 05-26-2023 Lipid panel Lipid Panel [facility] Start: 05-26-2023 Urine screening for protein Diabetes: Urine Protein Screening [facility] Start: 04-15-2023 COVID-19 Vaccine ( season) COVID-19 Vaccine () [facility] Start: 04-15-2023 Influenza vaccination [facility] Start: 03-31-2023 End: 03-31-2023 Patient encounter procedure [facility] Start: 01-17-2023 End: 01-18-2024 CBC W Auto Differential panel - Blood CBC auto differential Lab Routine Essential hypertension Expected: 01/17/2023 (Approximate), Expires: 01/18/2024 [facility] Work Phone: Comment on above: Expected: 01/17/2023 (Approximate), Expi res: 01/18/2024 Start: 01-17-2023 End: 01-18-2024 Comprehensive metabolic 1998 panel - Serum or Plasma Comprehensive metabolic panel Lab Routine Essential hypertension Expected: 01/17/2023 (Approximate), Expires: 01/18/2024 [facility] Comment on above: Expected: 01/17/2023 (Approximate), Expi res: 01/18/2024 Start: 01-17-2023 End: 01-18-2024 Hemoglobin A1c/Hemoglobin.total in Blood Hemoglobin A1c Lab Routine Type 2 diabetes mellitus without complication, without long-term current use of insulin ([facility]) (HCC) Expected: 01/17/2023 (Approximate), Expires: 01/18/2024 [facility] Comment on above: Expected: 01/17/2023 (Approximate), Expi res: 01/18/2024 Start: 01-17-2023 End: 01-18-2024 Lipid 1996 panel - Serum or Plasma Lipid panel Lab Routine Mixed hyperlipidemia Expected: 01/17/2023 (Approximate), Expires: 01/18/2024 [facility] Comment on above: Expected: 01/17/2023 (Approximate), Expi res: 01/18/2024 Start: 01-17-2023 End: 01-18-2024 Thyrotropin [Units/volume] in Serum or Plasma TSH Lab Routine Mixed hyperlipidemia Expected: 01/17/2023 (Approximate), Expires: 01/18/2024 [facility] Comment on above: Expected: 01/17/2023 (Approximate), Expi res: 01/18/2024 Start: 01-17-2023 End: 01-17-2023 Patient encounter procedure 01/17/2023 Office Visit Family Medicine Sunny Zavala, DO [address] [place] [address] [facility] Start: 09-23-2022 End: 09-23-2022 Admission to same day surgery center [facility] [place] Comment on above: COLONOSCOPY WITH BIOPSY [41156 (CPT )] Start: 09-23-2022 End: 09-23-2022 Colonoscopy w/biopsy single/multiple [facility] OR Start: 09-23-2022 Subsequent hospital visit by physician 09/23/2022 Hospital Encounter Procedural [facility] [place] Start: 09-23-2022 End: 09-23-2022 Admission to same day surgery center 09/23/2022 Surgery Procedural Nacho Turner MD [address] [place] [address] [address] [place] [address] COLONOSCOPY WITH BIOPSY [35175 (CPT )] [facility] Comment on above: COLONOSCOPY WITH BIOPSY [98599 (CPT )] Start: 09-23-2022 End: 09-23-2022 Colonoscopy w/biopsy single/multiple COLONOSCOPY WITH BIOPSY Encounter for screening for malignant neoplasm of colon 09/23/2022 8:15 AM EST [facility] Start: 09-23-2022 Subsequent hospital visit by physician 09/23/2022 Hospital Encounter Procedural [facility] [place] Start: 09-08-2022 End: 09-08-2023 CBC W Auto Differential panel - Blood CBC auto differential Lab Routine Type 2 diabetes mellitus without complication, without long-term current use of insulin (CMS/HCC) (HCC) Expected: 09/08/2022 (Approximate), Expires: 09/08/2023 [facility] Work Phone: Comment on above: Expected: 09/08/2022 (Approximate), Expi res: 09/08/2023 Start: 09-08-2022 End: 09-08-2023 Comprehensive metabolic 1998 panel - Serum or Plasma Comprehensive metabolic panel Lab Routine Type 2 diabetes mellitus without complication, without long-term current use of insulin (CMS/HCC) (HCC) Expected: 09/08/2022 (Approximate), Expires: 09/08/2023 [facility] Comment on above: Expected: 09/08/2022 (Approximate), Expi res: 09/08/2023 Start: 09-08-2022 End: 09-08-2023 Hemoglobin A1c/Hemoglobin.total in Blood Hemoglobin A1c Lab Routine Type 2 diabetes mellitus without complication, without long-term current use of insulin ([facility]/HCC) (HCC) Expected: 09/08/2022 (Approximate), Expires: 09/08/2023 [facility] Comment on above: Expected: 09/08/2022 (Approximate), Expi res: 09/08/2023 Start: 09-08-2022 End: 09-08-2022 Patient encounter procedure 09/08/2022 Office Visit Family Medicine Sunny Zavala, DO [address] [place] [address] [facility] Start: 09-01-2022 End: 09-01-2022 Patient encounter procedure 09/01/2022 Office Visit Family Medicine Damien Miller MD [address] [facility] [address] [place], [place] [id number] [facility] Start: 08-26-2022 Hemoglobin A1c measurement Diabetes: Hemoglobin A1C [facility] Start: 08-26-2022 End: 08-26-2022 Admission to same day surgery center 08/26/2022 Surgery Procedural Nacho Turner MD [address] [place], [place] [id number] COLONOSCOPY WITH BIOPSY [77516 (CPT )] [facility] Comment on above: COLONOSCOPY WITH BIOPSY [43394 (CPT )] Start: 08-26-2022 End: 08-26-2022 Anesthesia consultation 08/26/2022 Anesthesia Event Procedural Dominic Valdez, [employer] [address] [place] [address] [facility] Start: 08-26-2022 End: 08-26-2022 Colonoscopy w/biopsy single/multiple COLONOSCOPY WITH BIOPSY Encounter for screening for malignant neoplasm of colon 08/26/2022 11:15 AM EST [facility] OR Start: 08-26-2022 Subsequent hospital visit by physician 08/26/2022 Hospital Encounter Procedural [facility] Start: 08-23-2022 End: 08-23-2022 Anesthesia consultation 08/23/2022 Anesthesia Event Procedural ODominic Quesada, [employer] - [employer] [address] [place] [address] [facility] Start: 07-27-2022 Lipid panel Lipid Panel [facility] Start: 04-15-2022 Influenza vaccination Influenza Vaccine (#1) [facility] Start: 06-17-2021 Screening for malignant neoplasm of colon Colon cancer screen colonoscopy [place], [place] Start: 05-27-2021 Lipid panel Lipid screen [place] Start: 05-25-2021 End: 05-25-2021 Office Visit 05/25/2021 Office Visit Family Medicine Damien Miller MD [address] [facility] [address] [place] [address] [facility] Start: 05-22-2021 Influenza vaccination Flu vaccine (#1) [place], [place] Comment on above: Postponed from 04/15/2020 (Patient Refus ed) Start: 05-13-2021 Creatinine measurement Creatinine monitoring [place], [place] Start: 05-13-2021 HbA1c (Bld) [Mass fraction] A1C test (Diabetic or Prediabetic) [place], [place] Start: 05-13-2021 Potassium monitoring Potassium monitoring [place], [place] Start: 04-14-2021 Diabetic foot examination Diabetic foot exam [place], [place] Start: 04-14-2021 Diabetic microalbuminuria test Diabetic microalbuminuria test [place] Start: 04-03-2021 Diabetic retinal exam Diabetic retinal exam [place], [place] Start: 11-20-2020 End: 11-20-2020 Office Visit 11/20/2020 Office Visit Family Medicine Damien Miller MD [facility] [address] [place] [address] [facility] Start: 10-24-2020 Hepatitis B vaccine (1 of 3 - Risk 3-dose series) Hepatitis B vaccine (1 of 3 - Risk 3-dose series) [facility], [place] Comment on above: Postponed from 1979 (Not Indicated ) Start: 2020 Hepatitis B Vaccines (1 of 3 - Risk 3-dose series) Hepatitis B Vaccines (1 of 3 - Risk 3-dose series) [facility] Start: 2020 RSV Immunization aged 60 or older (1 - 1-dose 60+ series) RSV Immunization aged 60 or older (1 - 1-dose 60+ series) [facility] Start: 2020 RSV Immunization for Adults (1 - Risk 60-74 years 1-dose series) RSV Immunization for Adults (1 - Risk 60-74 years 1-dose series) [facility] Start: 06-23-2020 End: 06-23-2020 Office Visit 06/23/2020 Office Visit Family Medicine 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, [place] [employer]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 [address] [id number] [facility] Start: 05-25-2020 [object Object] Diabetic foot exam [facility] Work Phone: Start: 05-25-2020 Diabetic microalbuminuria test Diabetic microalbuminuria test [facility] Work Phone: Start: 05-10-2020 A1C test (Diabetic or Prediabetic) A1C test (Diabetic or Prediabetic) [facility] Work Phone: Start: 05-10-2020 Creatinine monitoring Creatinine monitoring [facility] Work Phone: Start: 05-10-2020 Lipid screen Lipid screen [facility] Work Phone: Start: 05-10-2020 Potassium monitoring Potassium monitoring [facility] Work Phone: Start: 12-03-2019 End: 12-03-2019 Office Visit 12/03/2019 Office Visit Family Medicine Lluvia Rueda MD [facility], [address], [place] [id number] [facility] Start: 08-04-2019 Screening for malignant neoplasm of colon FIT [facility] Start: 06-17-2019 Colon cancer screen colonoscopy Colon cancer screen colonoscopy [facility] Work Phone: Start: 05-22-2019 Diabetic retinal exam Diabetic retinal exam [facility] Work Phone: Start: 04-15-2019 Influenza vaccination Flu vaccine (#1) [facility] Work Phone: Start: 08-26-2017 Pneumococcal Vaccine: 50+ Years (2 of 2 - PCV) Pneumococcal Vaccine: 50+ Years (2 of 2 - PCV) [facility] Start: 08-26-2017 Pneumococcal Vaccine: Pediatrics (0 to 5 Years) and At-Risk Patients (6 to 64 Years) (2 - PCV) Pneumococcal Vaccine: Pediatrics (0 to 5 Years) and At-Risk Patients (6 to 64 Years) (2 - PCV) [facility] Start: 08-26-2017 Pneumococcal Vaccine: Pediatrics (0 to 5 Years) and At-Risk Patients (6 to 64 Years) (2 of 2 - PCV) Pneumococcal Vaccine: Pediatrics (0 to 5 Years) and At-Risk Patients (6 to 64 Years) (2 of 2 - PCV) [facility] Start: 2010 Shingles Vaccine (1 of 2) Shingles Vaccine (1 of 2) [facility] Work Phone: Start: 2010 Zoster Vaccines (1 of 2) Zoster Vaccines (1 of 2) [facility] Start: 1979 Hepatitis B vaccine (1 of 3 - Risk 3-dose series) Hepatitis B vaccine (1 of 3 - Risk 3-dose series) [facility] Work Phone: Start: 1978 Hepatitis C screening Hepatitis C Screening [facility] Start: 1972 Depression Screening Depression Screening [facility] Start: 1970 Diabetic foot examination Diabetes: Foot Exam [facility] Start: 1970 Glaucoma screening Diabetes: Retinopathy Screening [facility] Start: 1970 Preventive dental service Diabetes: Dental Exam [facility] Start: 1961 MMR Vaccines (1 of 1 - Standard series) MMR Vaccines (1 of 1 - Standard series) [facility] Start: 02-24-1961 COVID-19 Vaccine (#1) COVID-19 Vaccine (#1) [facility] Start: 1960 Annual wellness visit Medicare Initial Physical (IPPE) [facility] Start: 1960 Hepatitis B Vaccines (1 of 3 - 3-dose series) Hepatitis B Vaccines (1 of 3 - 3-dose series) [facility] Start: 1960 HIV screening HIV Screening [facility] Start: 1960 Screening for malignant neoplasm of colon [facility] End: 09-19-2024 Prothrombin time (PT) in Blood by Coagulation assay Protime-INR Lab Routine Personal history of DVT (deep vein thrombosis) Every 4 weeks for 24 Occurrences starting 09/19/2023 until 09/19/2024 [facility] [employer] Work Phone: Comment on above: Every 4 weeks for 24 Occurrences startin g 09/19/2023 until 09/19/2024 End: 09-08-2023 Prothrombin time (PT) in Blood by Coagulation assay Protime-INR Lab Routine Personal history of DVT (deep vein thrombosis) Anticoagulant long-term use Every 4 weeks for 36 Occurrences starting 09/08/2022 until 09/08/2023 [facility] [employer] Comment on above: Every 4 weeks for 36 Occurrences startin g 09/08/2022 until 09/08/2023 End: 09-25-2025 Prothrombin time (PT) in Blood by Coagulation assay Protime-INR Lab Routine Personal history of DVT (deep vein thrombosis) On continuous oral anticoagulation Every 4 weeks for 24 Occurrences starting 09/25/2024 until 09/25/2025 [facility] [employer] Work Phone: Comment on above: Every 4 weeks for 24 Occurrences startin g 09/25/2024 until 09/25/2025 Immunizations Immunization Date Immunization Notes Care Provider Davy oliva 08-19-2017 influenza virus vacc ine, unspecified formulation [facility] , [place] 08-19-2017 influenza, injectabl e, quadrivalent, contains preservative Lluvia Rueda [facility] 08-26-2016 pneumococcal polysaccharide vaccine, 23 valent Lluvia Mohit [facility] 08-26-2016 tetanus toxoid, redu dalia diphtheria toxoid, and acellular pertussis vaccine, adsorbed Lluvia Arcenz [facility] Payers Date Payer Category Payer Medicaid HMO [employer] [facility] [id number] 2022 Medicaid [id number] 2021 Medicaid [id number] 2018 Unknown [employer] xxxxxxxxxxx 2018-Present [phone] [address] [place] [address] xxxxxxxxxxx [id number] 2018 Unknown [employer]GE [employer] [id number] 2018-Present [phone] [address] [place] [address] [id number] 2017 Self-pay 2017 Unknown 2013 Unknown [id number] Unknown [id number] Unknown [id number] Unknown [id number] Unknown [id number] Unknown [id number] Unknown [id number] Unknown [id number] Unknown [id number] Unknown [id number] Unknown [id number] Unknown [id number] Unknown [id number] Social History Date Type Detail Facility Start: 05-25-2019 End: 06-09-2020 Tobacco smoking status [facility] Never smoker [facility] Start: 05-25-2019 End: 02-20-2025 Alcohol intake Current non-drinker of alcohol (finding) [facility] Phone: Start: 05-25-2019 End: 01-01-2020 History SDOH Financial 5 [facility] Phone: Start: 05-25-2019 End: 01-01-2020 History SDOH Transport Med 2 [facility] Phone: Start: 1960 Sex Assigned At Not on file S [employer] Work Phone: Start: 06-09-2020 Tobacco use and exposure Never used [place] Start: 01-01-2020 History SDOH Alcohol Frequency 1 [place] Start: 01-01-2020 History SDOH Social Connections Shinto 3 [place] Start: 01-01-2020 History SDOH Physica l Activity DPW 4 [place] Start: 08-10-2022 End: 04-11-2023 Exposure to SARS-CoV-2 (event) Not sure [place] Start: 1960 Sex Assigned At Male [facility] Start: 05-26-2022 End: 10-23-2024 Alcohol intake [facility] Start: 01-17-2023 End: 10-23-2024 Tobacco use panel [facility] Start: 02-28-2024 Gender identity Identifies as male gender (finding) [facility] Start: 03-15-2022 End: 11-12-2024 Sex Male (finding) [facility] Work Phone: Medical Equipment Procedure Code Equipment Code Equipment Origin al Text Equipment Identifier Dates 1 each by In Vit ro route daily [id number] Start: 05-25-2019 1 each by In Vit ro route daily As needed. [id number] Start: 04-14-2020 1 strip by In Vi tro route in the morning. [id number] Start: 03-02-2024 End: 06-10-2024 Use as instructe d. 2 times per day [id number] Start: 09-04-2024 1 each by Other route 2 times daily. [id number] Start: 09-04-2024 End: 09-04-2025 Goals Date Patient Goal Desired Activity /State Comment on above: What are your health goals today? 1 blood pressure 120/80 2 lose weight Ideas on how to achieve that? 1 restart diet given by diabetes group/ go back to group/ consider cooking lessons 2 increase exercise: Walkin minutes per day or bike How can we help? diabetes group What things will prevent your success/what are the barriers to success? low energy/time management/stress How we will overcome that? motivation: Set goals: Consider planning a trip What the likelihood of success: : Fair Comment on above: Pt would like to los e 10 lbs. Eating scheduled meals and not skipping lunch Barriers: pt sts doesn't feel any barriers Plan for overcoming my barriers: eat scheduled meals Confidence: 03/24 Anticipated Goal Completion Date: 01/13/19 Comment on above: What are your health goals today? 1 blood pressure 120/80 2 lose weight Ideas on how to achieve that? 1 restart diet given by diabetes group/ go back to group/ consider cooking lessons 2 increase exercise: Walkin minutes per day or bike How can we help? diabetes group What things will prevent your success/what are the barriers to success? low energy/time management/stress How we will overcome that? motivation: Set goals: Consider planning a trip What the likelihood of success: : Fair Comment on above: Patient stated Goal: I will bring my medication bag with all of my medications in it to my next office visit, to make sure that I am taking the correct medications, at the right time and the correct dose Barrier: Forget Plan for overcoming my barriers: Leave medication bag in sight, put note on calendar, set an alarm on phone with date and why Confidence: Anticipated goal date: Bring medication bag to your office visits Clinical Notes 08-02-2022 to 02-20-2025 Sunny Zavala DO - 02/20/2025 1:20 PM EDTPatient InstructionsTelephone Encounter - Mariah Matthews MA - 02/11/2025 8:03 AM EDTTelephone Encounter - Mariah Matthews MA - 02/11/2025 8:03 AM EDT Note Date & Type Note Facility 02-20-2025 History of Present illness Narrative Images from the original note were not included. [facility] - [address] [facility] [id number] Visit type: Established Patient Reason for Visit: Follow-up (Med check) and Immunizations (Pt declined Pneumococcal Vaccine: //) Assessment / Plan: Han was seen today for follow-up and immunizations. Diagnoses and all orders for this visit: Essential hypertension (Primary) Comments: Stable, continue metoprolol and Altace Type 2 diabetes mellitus with diabetic polyneuropathy, without long-term current use of insulin (HCC) Comments: Improved, follow-up with endocrine for metformin, Trulicity and Farxiga Mixed hyperlipidemia Comments: Stable, continue Crestor On continuous oral anticoagulation Comments: Stable, but at patient's request Coumadin was stopped and OAC changed to Eliquis. Orders: - Protime-INR; Future - Protime-INR History of pulmonary embolism Other orders - apixaban (Eliquis) 2.5 MG tablet; Begin 1 tablet twice daily after stopping Coumadin for 1 week. Subjective: Patient ID: Han Corbin is a 64 y.o. male. HPI better controlled type II diabetic on Trulicity with history of hypertension hyperlipidemia presents for checkup. A1c and a weight have been responded well to his meds. No hypoglycemic episodes. Blood pressure well-controlled at home. Has been on Coumadin for a while and would like to know options for oral anticoagulation therapy. Trulicity has been covered by his insurance and he is hoping Eliquis would also be Review of Systems no recent earache sore throat or cough. No chest pain palpitations or purulent phlegm. No heartburn or abdominal pain. Bowels are regular. No melena or blood colonoscopy up-to-date. Prostate exam done and PSA is pending from previous lab encounter. INR slightly low. He admits to missing some Coumadin. Denies unhealing skin lesions or claudication. No change in arthralgias. Compliant with CPAP. Allergies[1] Current Medications[2] Problem List[3] Social History Tobacco Use Smoking status: Never Smokeless tobacco: Never Substance Use Topics Alcohol use: No Alcohol/week: 0.0 standard drinks of alcohol Surgical History[4] Family History[5] Objective: BP 135/83 Pulse 68 Temp 36.6 C (97.9 F) (Temporal) Ht 5' 6 (1.676 m) Wt 212 lb (96.2 kg) SpO2 98% BMI 34.22 kg/m Physical Exam pleasant alert cooperative. Blood pressure recheck stable. Normal oropharynx and eardrums. No neck masses JVD adenopathy or thyroid lesions. No carotid bruits. Heart rate is regular without ectopy. Lungs are diminished but clear of rales wheezes or egophony. Abdomen obese nontender without pain hepatosplenomegaly or masses. No bruits. No ascites and femoral pulses are fair. Feet are slightly colder but there is no motor or sensory loss of the feet or toes. Some relatively poor hygiene but no skin breakdowns of the soles of his feet. [1] Allergies Allergen Reactions Lipitor [Atorvastatin] Other Body aches Amoxicillin Unknown Ezetimibe Unknown Poison Devi Extract Itching Prednisone Unknown Sulfa Antibiotics Other reaction(s): Unknown Exenatide Other Lumps under skin [2] Current Outpatient Medications: dapagliflozin (Farxiga) 10 MG tablet, Take 1 tablet (10 mg) by mouth daily., Disp: 90 tablet, Rfl: 3 dulaglutide (Trulicity) 1.5 MG/0.5ML, Inject 1.5 mg under the skin 1 (one) time per week., Disp: 12 Pen, Rfl: 3 metFORMIN (Glucophage) 1000 MG tablet, Take 1 tablet (1,000 mg) by mouth 2 times daily (with meals) for 360 doses., Disp: 180 tablet, Rfl: 1 metoprolol tartrate (Lopressor) 37.5 MG tablet, Take 1 tablet (37.5 mg) by mouth 2 times daily for 360 doses., Disp: 180 tablet, Rfl: 1 ramipril (Altace) 10 MG capsule, TAKE ONE CAPSULE BY MOUTH IN THE MORNING AND ONE CAPSULE IN THE EVENING, Disp: 180 capsule, Rfl: 1 rosuvastatin (Crestor) 10 MG tablet, TAKE 1 TABLET (10 MG) BY MOUTH DAILY., Disp: 90 tablet, Rfl: 1 Alcohol Swabs 70 % pads, 1 each 2 times daily., Disp: 200 each, Rfl: 3 apixaban (Eliquis) 2.5 MG tablet, Begin 1 tablet twice daily after stopping Coumadin for 1 week., Disp: 60 tablet, Rfl: 11 glucose blood (OneTouch Verio) test strip, Use as instructed. 2 times per day, Disp: 200 each, Rfl: 11 Lancets, 1 each by Other route 2 times daily., Disp: 200 each, Rfl: 3 [3] Patient Active Problem List Diagnosis History of pulmonary embolism Type 2 diabetes mellitus with diabetic polyneuropathy, without long-term current use of insulin (HCC) Personal history of DVT (deep vein thrombosis) Essential hypertension Mixed hyperlipidemia Obesity BECK on CPAP History of renal stone Factor V Leiden (HCC) Family history of prostate cancer in father Encounter for colorectal cancer screening Cholelithiases On continuous oral anticoagulation Statin intolerance [4] Past Surgical History: Procedure Laterality Date CATARACT EXTRACTION Bilateral 11/2024 COLONOSCOPY 2016 COLONOSCOPY W/ BIOPSIES N/A 09/23/2022 Dr. Turner; repeat in 7-10 yrs HAND SURGERY Left 1989 due to fracture IVC FILTER RETRIEVAL 2016 Removed October 2016; s/p PE resolution UMBILICAL HERNIA REPAIR 2004 UPPER GASTROINTESTINAL ENDOSCOPY 08/2016 UGI bleed, ? etiol --2nd one clear 09/02/16 [5] Family History Problem Relation Name Age of Onset Dementia Mother age 87 Breast cancer Mother 82 High Blood Pressure Mother Heart disease Father 70 stents Diabetes Father insulin High Blood Pressure Father Cirrhosis Father PHAN, age 78 Clotting disorder Father Prostate cancer Father 65 Uterine cancer Sister Nohemy Diabetes Sister Mary diet cont Cancer Son Robe 3 leukemia No Known Problems Maternal Grandmother late in life Diabetes Maternal Grandfather No Known Problems Paternal Grandmother late in life Coronary artery disease Paternal Grandfather early 80s Prostate cancer Paternal Cousin Substance Abuse Neg Hx Stroke Neg Hx Heart attack Neg Hx Depression Neg Hx Learning disabilities Neg Hx documented in this encounter [facility] 02-20-2025 Instructions Sunny Zavala DO - 02/20/2025 1:20 PM EDT If you go on Eliquis you may stop monthly protimes documented in this encounter [facility] 02-11-2025 Telephone encounter Note Placed call to patient. Two patient identifers confirmed. Was able to speak to patient. All concerns in message have been addressed. No questions at this time. Call ended [facility] 02-11-2025 Miscellaneous Notes Placed call to patient. Two patient identifers confirmed. Was able to speak to patient. All concerns in message have been addressed. No questions at this time. Call ended S: Patient spoke with [facility] nurse regarding INR B: recently had INR done A: Patient states he was taking 5mg daily but missed 1 or 2 every week since his last check. He believes this is why it is going down. R: He is concerned about going up to 7mg and is wanting to stick with 6mg. Asking if he can just go up to 6mg daily. He is also asking if he can come into the office to have his INR done so it is not done at [facility]. Please advise thanks. Spoke with patients sister Nohemy and advised her or provider message, voiced understanding. Tried to call pt and no v/m set up Images from the original note were not included. Voicemail full Sunny Zavala, 02/07/25 11:38 AM INR is too low, I recommend increasing to 7 mg total a day. Extra 1 mg tablets were prescribed today. Recheck INR in 3 weeks Name of caller: Han Contact phone number: [phone] Relationship to Patient: patient Provider: Dr. Zavala Practice: [facility] Chief Complaint/Reason for Call: Pt stated [facility] sent over his INR results, wanted to know if Dr. Zavala wants him to have it rechecked? Please advise. Best time of day caller can be reached: Any Patient advised that office/PCP has 24-48 business hours to return their call: No documented in this encounter [facility] 02-08-2025 Telephone encounter Note S: Patient spoke with [facility] nurse regarding INR B: recently had INR done A: Patient states he was taking 5mg daily but missed 1 or 2 every week since his last check. He believes this is why it is going down. R: He is concerned about going up to 7mg and is wanting to stick with 6mg. Asking if he can just go up to 6mg daily. He is also asking if he can come into the office to have his INR done so it is not done at [facility]. Please advise thanks. [facility] 02-08-2025 Miscellaneous Notes S: Patient spoke with [facility] nurse regarding INR B: recently had INR done A: Patient states he was taking 5mg daily but missed 1 or 2 every week since his last check. He believes this is why it is going down. R: He is concerned about going up to 7mg and is wanting to stick with 6mg. Asking if he can just go up to 6mg daily. He is also asking if he can come into the office to have his INR done so it is not done at [facility]. Please advise thanks. Spoke with patients sister Nohemy and advised her or provider message, voiced understanding. Tried to call pt and no v/m set up Images from the original note were not included. Voicemail full Sunny Zavala, 02/07/25 11:38 AM INR is too low, I recommend increasing to 7 mg total a day. Extra 1 mg tablets were prescribed today. Recheck INR in 3 weeks Name of caller: Han Contact phone number: [phone] Relationship to Patient: patient Provider: Dr. Zavala Practice: [facility] Chief Complaint/Reason for Call: Pt stated [facility] sent over his INR results, wanted to know if Dr. Zavala wants him to have it rechecked? Please advise. Best time of day caller can be reached: Any Patient advised that office/PCP has 24-48 business hours to return their call: No documented in this encounter [facility] 02-08-2025 Telephone encounter Note Duplicate Reason for Disposition Caller has already spoken with another triager or PCP (or office), and has further questions and triager able to answer questions. Protocols used: No Contact or Duplicate Contact [id number] [facility] 02-08-2025 Miscellaneous Notes Duplicate Reason for Disposition Caller has already spoken with another triager or PCP (or office), and has further questions and triager able to answer questions. Protocols used: No Contact or Duplicate Contact [id number] documented in this encounter [facility] 02-08-2025 Telephone encounter Note Spoke with patients sister Nohemy and advised her or provider message, voiced understanding. [facility] 02-07-2025 Telephone encounter Note Tried to call pt and no v/m set up [facility] 02-07-2025 Telephone encounter Note Images from the original note were not included. Voicemail full Sunny Zavlaa DO 02/07/25 11:38 AM INR is too low, I recommend increasing to 7 mg total a day. Extra 1 mg tablets were prescribed today. Recheck INR in 3 weeks [facility] 02-06-2025 Telephone encounter Note Name of caller: Han Contact phone number: [phone] Relationship to Patient: patient Provider: Dr. Zavala Practice: [facility] Chief Complaint/Reason for Call: Pt stated [facility] sent over his INR results, wanted to know if Dr. Zavala wants him to have it rechecked? Please advise. Best time of day caller can be reached: Any Patient advised that office/PCP has 24-48 business hours to return their call: No [facility] 01-29-2025 Telephone encounter Note Error [facility] 01-29-2025 Miscellaneous Notes Error documented in this encounter [facility] 12-31-2024 History of Present illness Narrative Images from the original note were not included. [facility] [address] [address] Dept: [phone] Dept Loc: [phone] Visit type: established Reason for Visit: Follow-up and Diabetes Mellitus Assessment and Plan 1. Type 2 diabetes mellitus with hyperglycemia, without long-term current use of insulin (HCC) - AMB POC HEMOGLOBIN A1C - dapagliflozin (Farxiga) 10 MG tablet; Take 1 tablet (10 mg) by mouth daily., Starting Tue12/31/2024, Until Tue12/31/2025, Normal - metFORMIN (Glucophage) 1000 MG tablet; Take 1 tablet (1,000 mg) by mouth 2 times daily (with meals) for 360 doses., Starting Tue12/31/2024, Until Tue06/29/2025, Normal - dulaglutide (Trulicity) 1.5 MG/0.5ML; Inject 1.5 mg under the skin 1 (one) time per week., Starting Tue12/31/2024, Until Tue12/31/2025, Normal - Hm Diabetes Foot Exam 2. Type 2 diabetes mellitus with diabetic polyneuropathy, without long-term current use of insulin (HCC) 3. 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 Class 2 severe obesity with serious comorbidity and body mass index (BMI) of 35.0 to 35.9 in adult, unspecified obesity type (HCC) 5. Hypertension associated with type 2 diabetes mellitus (HCC) 6. Type 2 diabetes mellitus with hyperlipidemia (HCC) (HCC) Lab Results Component Value Date EGFR 64.0 11/25/2023 CHOL 111 11/25/2023 HDL 51 11/25/2023 LDLCALC 39 11/25/2023 MICROALBCREA < 30 mg 05/26/2022 Lab Results Component Value Date HGBA1C 6.0 (A) 12/31/2024 HGBA1C 6.4 (A) 09/04/2024 Diabetes is at goal: yes Goal A1C is under 7.0 Logs show: Time In Range 87% no lows Patient is counseled about importance of DM control. Patient is counseled about risk of complications associated with uncontrolled diabetes. Patient is counseled about BG targets and A1C target. Counseled patient on lifestyle modification through dietary changes and increased physical activity as tolerated. Medication Changes: - STOP Actos 30 mg every day - Continue Metformin (ACH) 1000 mg twice daily with food - INCREASE Trulicity (ACH) to 1.5 mg Weekly - Continue Farxiga (ACH) 10 mg every day Counseled pt on possible a/e of medications. Reviewed appropriate timing and dosing of medications. Advised rotation of sites for injectable meds. --> Labs to be done fasting prior to next visit; discussed holding supplements 5 days prior. ORDERED ELY and not completed. He will get done soon over at [facility] per patient. --> Continue BG monitoring: via FSBS 1-2 times per day and send in BGL in PRN for review. Counseled patient regarding management of hypoglycemia. Advised to call if blood sugars < 70 or > 250 three consistently. Send/download glucose data as recommended. Advised FU with Ophthalmology. Patient has retinopathy. Advised regular foot care and FU with Podiatry as recommended. Patient has neuropathy. Obesity BMI Readings from Last 1 Encounters: 12/31/24 35.35 kg/m - Continue to work on lifestyle changes: dietary habits; increasing activity as able, weight reduction - Optimize DM agents to aid w/ the same. Hypertension - Patient is taking DAMI. Continue as prescribed - Primary Care Provider manages - BP today: BP Readings from Last 1 Encounters: 12/31/24 138/81 Hyperlipidemia - Patient is taking Statin, continue as prescribed - Primary Care Provider manages - Patient counseled about these recommendations. Patient voiced understanding. Follow up in 18 weeks (on 05/06/2025) for Next scheduled follow-up. Subjective HPI PCP: Sunny Zavala DO Referring Provider: Primary Care Provider Initial Jose Giordano Office visit: 08/2024 History of Type 2 Diabetes Time of Onset: around late 40s per patient Circumstances surrounding dx: Screening. Pre-Diabetes became Diabetes and had fatigue, polyuria, and polydipsia Previous hospitalizations for DM: Denies Family hx DM: Endorses- Father, Aunts/Uncles Current Medication Regimen: - Actos 30 mg every day - Metformin 1000 mg twice daily with food - Trulicity (ACH) 0.75 mg Weekly on Fridays - Farxiga (ACH) 10 mg every day Previously Used DM Agents: - Ozempic (insurance) Injection Sites/Rotation: Yes Missed Medication Doses: Denies Glucose Monitoring CGM use: No - OT Verio - 1 times per day BGL present: Yes Recent Hyperglycemia - Endorses Recent Hypoglycemia: Denies BG Trends: Dietary Patterns: - 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 Denies any hospitalizations Denies any steroid use recently Review of Systems Constitutional: Negative for activity change, appetite change, fatigue and unexpected weight change. Respiratory: Negative for apnea. Cardiovascular: Negative for palpitations. Gastrointestinal: Negative for constipation, diarrhea, nausea and vomiting. Endocrine: Negative for polydipsia, polyphagia and polyuria. Neurological: Negative for headaches. Psychiatric/Behavioral: Negative for agitation, confusion and sleep disturbance. ROS was performed at the time of this encounter. Unless noted above in the HPI, the ROS is negative. Allergies Allergen Reactions Lipitor [Atorvastatin] Other Body aches Amoxicillin Unknown Ezetimibe Unknown Poison Devi Extract Itching Prednisone Unknown Sulfa Antibiotics Other reaction(s): Unknown Exenatide Other Lumps under skin Outpatient Medications Prior to Visit Medication Sig Dispense Refill Alcohol Swabs 70 % pads 1 each 2 times daily. 200 each 3 glucose blood (IP Ghoster Verio) test strip Use as instructed. 2 times per day 200 each 11 Lancets 1 each by Other route 2 times daily. 200 each 3 metoprolol tartrate (Lopressor) 37.5 MG tablet Take 1 tablet (37.5 mg) by mouth 2 times daily for 360 doses. 180 tablet 1 ramipril (Altace) 10 MG capsule TAKE ONE CAPSULE BY MOUTH IN THE MORNING AND ONE CAPSULE IN THE EVENING 180 capsule 1 rosuvastatin (Crestor) 10 MG tablet TAKE 1 TABLET (10 MG) BY MOUTH DAILY. 90 tablet 1 warfarin (Coumadin) 1 MG tablet Take 1 mg tablet with 5 mg tablet to equal 6 mg/day 30 tablet 1 warfarin (Coumadin) 5 MG tablet Increase to 5 mg daily 90 tablet 3 dapagliflozin (Farxiga) 10 MG tablet Take 1 tablet (10 mg) by mouth daily. 90 tablet 3 dulaglutide (Trulicity) 0.75 MG/0.5ML Inject 0.75 mg under the skin 1 (one) time per week. 12 each 3 metFORMIN (Glucophage) 1000 MG tablet Take 1 tablet (1,000 mg) by mouth 2 times daily (with meals) for 360 doses. 180 tablet 1 pioglitazone (Actos) 30 MG tablet Take 1 tablet (30 mg) by mouth daily. 90 tablet 1 No facility-administered medications prior to visit. Past Medical History: Diagnosis Date Cholelithiases 2019 asx Diabetes mellitus (HCC) 2007 Essential hypertension 2015 normal EF per ECHO 2018, Factor V Leiden (HCC) 2010 Family history of prostate cancer in father age 65 and also with a cousin H/O colonoscopy 09/2022 Dr. Monson- due 7-10 yrs H/O: GI bleed 2017 ? Small int bleed History of pulmonary embolism 2014 History of renal stone 05/22/2020 History of stress test 09/01/2017 Normal LVEF 71% Hyperlipidemia Intolerant of Lipitor On continuous oral anticoagulation 2009 Coumadin BECK on CPAP 2015 Dr. Perez Personal history of DVT (deep vein thrombosis) 2009 RLE 2009, LLE 01/2015 Prostate cancer screening 06/2023 Statin intolerance Social History Tobacco Use Smoking status: Never Smokeless tobacco: Never Substance Use Topics Alcohol use: No Alcohol/week: 0.0 standard drinks of alcohol Past Surgical History: Procedure Laterality Date CATARACT EXTRACTION Bilateral 11/2024 COLONOSCOPY 2016 COLONOSCOPY W/ BIOPSIES N/A 09/23/2022 Dr. Turner; repeat in 7-10 yrs HAND SURGERY Left 1989 due to fracture IVC FILTER RETRIEVAL 2017 Removed October 2016; s/p PE resolution UMBILICAL HERNIA REPAIR 2004 UPPER GASTROINTESTINAL ENDOSCOPY 08/2016 UGI bleed, ? etiol --2nd one clear 09/02/16 Family History Problem Relation Name Age of Onset Dementia Mother age 87 Breast cancer Mother 82 High Blood Pressure Mother Heart disease Father 70 stents Diabetes Father insulin High Blood Pressure Father Cirrhosis Father PHAN, age 78 Clotting disorder Father Prostate cancer Father 65 Uterine cancer Sister Nohemy Diabetes Sister Mary diet cont Cancer Son Robe 3 leukemia No Known Problems Maternal Grandmother late in life Diabetes Maternal Grandfather No Known Problems Paternal Grandmother late in life Coronary artery disease Paternal Grandfather early 80s Prostate cancer Paternal Cousin Substance Abuse Neg Hx Stroke Neg Hx Heart attack Neg Hx Depression Neg Hx Learning disabilities Neg Hx Objective BP 138/81 Pulse 67 Ht 5' 6 (1.676 m) Wt 219 lb (99.3 kg) BMI 35.35 kg/m Physical Exam Vitals reviewed. Constitutional: Appearance: Normal appearance. He is obese. Comments: Meter present Cardiovascular: Rate and Rhythm: Normal rate and regular rhythm. Pulses: Normal pulses. Heart sounds: Normal heart sounds. No murmur heard. No gallop. Pulmonary: Effort: Pulmonary effort is normal. No respiratory distress. Breath sounds: Normal breath sounds. Musculoskeletal: Feet: Feet: Right foot: Protective Sensation: 7 sites tested. 7 sites sensed. Skin integrity: Fissure present. No ulcer, erythema or callus. Toenail Condition: Right toenails are normal. Left foot: Protective Sensation: 7 sites tested. 7 sites sensed. Skin integrity: Fissure present. No ulcer, erythema or callus. Toenail Condition: Left toenails are normal. Comments: DM Foot Examination: Monofilament Sensation --- Normal Pulses --- present Small wound as shown on left heel - not suspicious for ulcer. Will monitor. Skin: General: Skin is warm and dry. Neurological: Mental Status: He is alert and oriented to person, place, and time. Mental status is at baseline. Psychiatric: Mood and Affect: Mood normal. Data Reviewed and Summarized Labs: Lab Results Component Value Date HGBA1C 6.0 (A) 12/31/2024 Lab Results Component Value Date CHOL 111 11/25/2023 CHOL 219 (A) 05/26/2022 CHOL 142 07/27/2021 Lab Results Component Value Date TRIG 106 11/25/2023 TRIG 108 05/26/2022 TRIG 112 07/27/2021 Lab Results Component Value Date HDL 51 11/25/2023 HDL 46 05/26/2022 HDL 40 07/27/2021 Lab Results Component Value Date LDL 151 (A) 05/26/2022 LDL 80 07/27/2021 LDL 142 (A) 05/27/2020 LDLCALC 39 11/25/2023 Lab Results Component Value Date EGFR 64.0 11/25/2023 EGFR 74 09/08/2022 Lab Results Component Value Date MICROALBCREA < 30 mg 05/26/2022 No results found for: TSH No results found for: [id number] Electronically signed by Anne Haines PA-C Portions of the information within this encounter were entered using an electronic dictation system. Best attempts were made to edit/proofread the information prior to note completion. Despite the review of information, some errors may remain. If there are questions related to the information contained within the note please contact the signing physician directly. documented in this encounter [facility] 12-27-2024 History of Present illness Narrative Medical Nutrition Therapy - Follow-Up Progress Note Patient: Han Corbin Date of : 1960 Age: 64 y.o. Gender: male Service Date: 12/27/24 Reason for Visit: CHO Counting Follow Up Comorbidities Present: HTN Hyperlipidemia Type 2 Diabetes Mellitus Meds/Supplements: has a current medication list which includes the following prescription(s): alcohol swabs, dapagliflozin, trulicity, onetouch verio, lancets, metformin, metoprolol tartrate, pioglitazone, ramipril, rosuvastatin, warfarin, and warfarin. 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 MNT Plan/Nutrition Goals: Fluid goal 115-125 oz/d Exercise 150 mins per week Follow CHO Recommendations Previous Diet Regimen: CHO Controlled Note: Pt states he increased water intake, cutting CHO's consuming meat and salad, hasn't been walking -- only a few times since last visit, BG's are ranging from 100-150 mg/dL, but admits to cheated a good bit recently on snacks and sweets. Disc continuing goals, pt agreed. Impression: [X] Pt was receptive to learning [X] Pt seems motivated to make the necessary changes Materials Provided: None Follow up: 3 months Time Spent 30 Minutes MNT Follow-Up x2 Units Zeinab Ventura RDN, LD documented in this encounter [facility] 12-27-2024 Note Medical Nutrition Th erapy - Follow-Up Progress Note Patient: Han Corbin Date of : 1960 Age: 64 y.o. Gender: male Service Date: 12/27/24 Reason for Visit: CHO Counting Follow Up Comorbidities Present: HTN Hyperlipidemia Type 2 Diabetes Mellitus Meds/Supplements: has a current medication list which includes the following prescription(s): alcohol swabs, dapagliflozin, trulicity, onetouch verio, lancets, metformin, metoprolol tartrate, pioglitazone, ramipril, rosuvastatin, warfarin, and warfarin. 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 MNT Plan/Nutrition Goals: Fluid goal 115-125 oz/d Exercise 150 mins per week Follow CHO Recommendations Previous Diet Regimen: CHO Controlled Note: Pt states he increased water intake, cutting CHO's consuming meat and salad, hasn't been walking -- only a few times since last visit, BG's are ranging from 100-150 mg/dL, but admits to cheated a good bit recently on snacks and sweets. Disc continuing goals, pt agreed. Impression: [X] Pt was receptive to learning [X] Pt seems motivated to make the necessary changes Materials Provided: None Follow up: 3 months Time Spent 30 Minutes MNT Follow-Up x2 Units Zeinab Ventura RDN, LD [facility] 10-23-2024 History of Present illness Narrative Images from the original note were not included. [facility] - [address] [facility] [id number] Visit type: Established Patient Reason for Visit: Follow-up (Med check ) and Immunizations (Pt declined Pneumococcal Vaccine:) Assessment / Plan: Han was seen today for follow-up and immunizations. Diagnoses and all orders for this visit: Annual physical exam (Primary) Comments: Continue better diet and exercise and weight loss. Type 2 diabetes mellitus with diabetic polyneuropathy, without long-term current use of insulin (HCC) Comments: Improving, continue Actos, Farxiga, metformin and Trulicity Essential hypertension Comments: Uncontrolled, increase metoprolol 37.5 mg twice daily and continue Altace twice daily. BP check 4 weeks Mixed hyperlipidemia Comments: Stable on Crestor Factor V Leiden (HCC) Comments: Uncontrolled, increase Coumadin 5 mg daily. Lab 1 month EBCK on CPAP Prostate cancer screening - PSA Total (Screening); Future - PSA Total (Screening) On continuous oral anticoagulation Comments: Stable on Coumadin Other orders - metoprolol tartrate (Lopressor) 37.5 MG tablet; Take 1 tablet (37.5 mg) by mouth 2 times daily for 360 doses. Subjective: Patient ID: Han Corbin is a 64 y.o. male. HPI better controlled type II diabetic male presents for overall physical. Of note [facility] recent A1c in the mid 6 range presents for blood pressure and lipid management. He does states he has had better concerted effort with eating proper meals and trying to exercise more. Overall feeling well. Recent INR is only 1.8 but not on current Coumadin dosage. No change in family history. Continues not to smoke or drink alcohol. Trying to stay active but having some stress being of the former. Less diaphoresis dry mouth and polyuria. No change in vision or skin. 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 Review of Systems denies recent earache sore throat or cough. No chest pain or palpitations. Denies PND orthopnea claudication or edema. No unhealing skin lesions. No bowel changes. No melena or blood. No constipation diarrhea. Needs prostate exam and ИВАН. No change in urine flow. Rare nocturia and postvoid dribbling. No dysuria or hematuria. Colonoscopy up-to-date. Allergies Allergen Reactions Lipitor [Atorvastatin] Other Body aches Amoxicillin Unknown Ezetimibe Unknown Poison Devi Extract Itching Prednisone Unknown Sulfa Antibiotics Other reaction(s): Unknown Exenatide Other Lumps under skin Current Outpatient Medications on File Prior to Visit Medication Sig Dispense Refill dapagliflozin (Farxiga) 10 MG tablet Take 1 tablet (10 mg) by mouth daily. 90 tablet 3 dulaglutide (Trulicity) 0.75 MG/0.5ML Inject 0.75 mg under the skin 1 (one) time per week. 12 each 3 metFORMIN (Glucophage) 1000 MG tablet Take 1 tablet (1,000 mg) by mouth 2 times daily (with meals) for 360 doses. 180 tablet 1 pioglitazone (Actos) 30 MG tablet Take 1 tablet (30 mg) by mouth daily. 90 tablet 1 ramipril (Altace) 10 MG capsule TAKE ONE CAPSULE BY MOUTH IN THE MORNING AND ONE CAPSULE IN THE EVENING 180 capsule 1 rosuvastatin (Crestor) 10 MG tablet TAKE 1 TABLET (10 MG) BY MOUTH DAILY. 90 tablet 1 warfarin (Coumadin) 5 MG tablet Increase to 5 mg daily 90 tablet 3 [DISCONTINUED] metoprolol tartrate (Lopressor) 25 MG tablet Take 1 tablet (25 mg) by mouth 2 times daily for 360 doses. 180 tablet 1 Alcohol Swabs 70 % pads 1 each 2 times daily. 200 each 3 glucose blood (OneTouch Verio) test strip Use as instructed. 2 times per day 200 each 11 Lancets 1 each by Other route 2 times daily. 200 each 3 [DISCONTINUED] warfarin (Coumadin) 1 MG tablet Take one mg qday with 5 mg tab to equal 6 mg q day (Patient not taking: Reported on 10/23/2024) 30 tablet 11 No current facility-administered medications on file prior to visit. Patient Active Problem List Diagnosis History of pulmonary embolism Type 2 diabetes mellitus with diabetic polyneuropathy, without long-term current use of insulin (HCC) Personal history of DVT (deep vein thrombosis) Essential hypertension Mixed hyperlipidemia Obesity BECK on CPAP History of renal stone Factor V Leiden (HCC) Family history of prostate cancer in father Encounter for colorectal cancer screening Cholelithiases On continuous oral anticoagulation Statin intolerance Social History Tobacco Use Smoking status: Never Smokeless tobacco: Never Substance Use Topics Alcohol use: No Alcohol/week: 0.0 standard drinks of alcohol Past Surgical History: Procedure Laterality Date COLONOSCOPY 2015 COLONOSCOPY W/ BIOPSIES N/A 09/23/2022 Dr. Turner; repeat in 7-10 yrs HAND SURGERY Left 1989 due to fracture IVC FILTER RETRIEVAL 2016 Removed October 2016; s/p PE resolution UMBILICAL HERNIA REPAIR 2004 UPPER GASTROINTESTINAL ENDOSCOPY 08/2016 UGI bleed, ? etiol --2nd one clear 09/02/16 Family History Problem Relation Name Age of Onset Dementia Mother age 87 Breast cancer Mother 82 High Blood Pressure Mother Heart disease Father 70 stents Diabetes Father insulin High Blood Pressure Father Cirrhosis Father PHAN, age 78 Clotting disorder Father Prostate cancer Father 65 Uterine cancer Sister Nohemy Diabetes Sister Mary diet cont Cancer Son Robe 3 leukemia No Known Problems Maternal Grandmother late in life Diabetes Maternal Grandfather No Known Problems Paternal Grandmother late in life Coronary artery disease Paternal Grandfather early 80s Prostate cancer Paternal Cousin Substance Abuse Neg Hx Stroke Neg Hx Heart attack Neg Hx Depression Neg Hx Learning disabilities Neg Hx Objective: BP (!) 144/78 Pulse 72 Temp 36.6 C (97.9 F) (Temporal) Ht 5' 6 (1.676 m) Wt 223 lb (101 kg) SpO2 97% BMI 35.99 kg/m Physical Exam Exam was unchanged besides blood pressure elevation. Normal oropharynx and eardrums. No neck masses JVD adenopathy or thyroid lesions. No carotid bruits. Heart is regular without ectopy or murmurs. Lungs are clear. Abdomen obese nontender without pain hepatosplenomegaly masses or bruits. Femoral pulses are fair. Diminished pedal pulses but adequate. There is no motor or sensory loss in the feet or toes. No skin breakdowns evident. No hernias. Rectal exam revealed no masses and a smooth prostate without nodules documented in this encounter [facility] 10-23-2024 Instructions Sunny Zavala DO - 10/23/2024 11:30 AM EDT BP ch in 4-5 wks documented in this encounter [facility] 10-04-2024 History of Present illness Narrative Medical Nutrition Therapy - Initial Progress Note Patient: Han Corbin Date of : 1960 Age: 64 y.o. Gender: male Service Date: 10/04/24 Referring Provider: Anne Haines PA-C Reason for Visit: CHO Counting Comorbidities Present: HTN Hyperlipidemia Type 2 Diabetes Mellitus Meds/Supplements: has a current medication list which includes the following prescription(s): alcohol swabs, dapagliflozin, trulicity, onetouch verio, lancets, metformin, metoprolol tartrate, pioglitazone, ramipril, rosuvastatin, and warfarin. Weight Metrics: Today's Height: 5'6 (167.6 cm) [place] Body Weight: # ( kg) Today's Weight: 227.2# (103 kg) BMI: 36.67 kg/m2 BMI Categories: Obesity, Class 2 Labs: A1C 6.4 (09/04/24) Tchol 111 (11/25/23) TG 106 (11/25/23) LDL 39 (11/25/23) HDL 51 (11/25/23) Estimated Nutrient Needs: Dosing wt: 227.2# w/ kcal deficit Kcal: 5384-4608 kcal/d Pro: 82-103 kg/d Carb: 170-190 g/d Fluid: 115-125 oz/d Diet Recall: Breakfast: 7:30-8:00 am -- green tea w/stevia, raisin toast x1-2 slices w/butter, scrambled egg, banana/orange/apple Snack: Skips Lunch: 12:00-1:00 pm -- fish (breaded) w/morejon; bunless burger w/lettuce, tomato, water w/lemon Snack: Skips Dinner: 6:00 pm -- fish (breaded) w/morejon; bunless burger w/lettuce, tomato, water w/lemon Snack: Skips Fluids: ~2-3 glasses per day 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 Inconsistent carbohydrate intake related to food and nutrition-related knowledge deficit appropriate carbohydrate choices as evidenced by client interview. MNT Plan/Nutrition Goals: Fluid goal 115-125 oz/d Exercise 150 mins per week Follow CHO Recommendations Previous Diet Regimen: CHO Controlled Note: Pt states he has had previous CHO counting education, but did not take it seriously at that time. Disc CHO counting, pairing protein and/or healthy fats w/ CHO sources, exercise and DM MyPlate. Pt states he cut out all CHO's from diet, but also states he cannot stop eating the cinnamon raisin bread from [employer]. Disc whole grain options for CHO's, and that DM should not eliminate CHO's but chose complex CHO sources. Impression: [X] Pt was receptive to learning [X] Pt seems motivated to make the necessary changes Materials Provided: Daily Diabetes Meal Planning Guide Heart-Healthy Consistent Carbohydrate Nutrition Therapy Follow up: 3 months Time Spent 60 Minutes MNT Initial Visit x4 Units Zeinab Ventura RDN, LD documented in this encounter [facility] 10-04-2024 Note Medical Nutrition erapy - Initial Progress Note Patient: Han Corbin Date of : 1960 Age: 64 y.o. Gender: male Service Date: 10/04/24 Referring Provider: Anne Haines PA-C Reason for Visit: CHO Counting Comorbidities Present: HTN Hyperlipidemia Type 2 Diabetes Mellitus Meds/Supplements: has a current medication list which includes the following prescription(s): alcohol swabs, dapagliflozin, trulicity, onetouch verio, lancets, metformin, metoprolol tartrate, pioglitazone, ramipril, rosuvastatin, and warfarin. Weight Metrics: Today's Height: 5'6 (167.6 cm) [place] Body Weight: # ( kg) Today's Weight: 227.2# (103 kg) BMI: 36.67 kg/m2 BMI Categories: Obesity, Class 2 Labs: A1C 6.4 (09/04/24) Tchol 111 (11/25/23) TG 106 (11/25/23) LDL 39 (11/25/23) HDL 51 (11/25/23) Estimated Nutrient Needs: Dosing wt: 227.2# w/ kcal deficit Kcal: 5687-8024 kcal/d Pro: 82-103 kg/d Carb: 170-190 g/d Fluid: 115-125 oz/d Diet Recall: Breakfast: 7:30-8:00 am -- green tea w/stevia, raisin toast x1-2 slices w/butter, scrambled egg, banana/orange/apple Snack: Skips Lunch: 12:00-1:00 pm -- fish (breaded) w/morejon; bunless burger w/lettuce, tomato, water w/lemon Snack: Skips Dinner: 6:00 pm -- fish (breaded) w/morejon; bunless burger w/lettuce, tomato, water w/lemon Snack: Skips Fluids: ~2-3 glasses per day 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 Inconsistent carbohydrate intake related to food and nutrition-related knowledge deficit appropriate carbohydrate choices as evidenced by client interview. MNT Plan/Nutrition Goals: Fluid goal 115-125 oz/d Exercise 150 mins per week Follow CHO Recommendations Previous Diet Regimen: CHO Controlled Note: Pt states he has had previous CHO counting education, but did not take it seriously at that time. Disc CHO counting, pairing protein and/or healthy fats w/ CHO sources, exercise and DM MyPlate. Pt states he cut out all CHO's from diet, but also states he cannot stop eating the cinnamon raisin bread from [employer]. Disc whole grain options for CHO's, and that DM should not eliminate CHO's but chose complex CHO sources. Impression: [X] Pt was receptive to learning [X] Pt seems motivated to make the necessary changes Materials Provided: Daily Diabetes Meal Planning Guide Heart-Healthy Consistent Carbohydrate Nutrition Therapy Follow up: 3 months Time Spent 60 Minutes MNT Initial Visit x4 Units Zeinab Ventura RDN, LD [facility] 09-21-2024 Miscellaneous Notes Rx loaded documented in this encounter [facility] 09-21-2024 Telephone encounter Note Rx loaded [facility] 09-19-2024 Telephone encounter Note Rx loaded [facility] 09-19-2024 Miscellaneous Notes Rx loaded documented in this encounter [facility] 09-18-2024 Telephone encounter Note Rx loaded [facility] 09-18-2024 Miscellaneous Notes Rx loaded Medication name: metoprolol tartrate (Lopressor) 25 MG tablet -- Take 1 tablet (25 mg) by mouth 2 times daily for 180 doses. -- 90 days Medication dosage: 25 mg (Miligrams Monthly quantity needed: 60 How many day supply requestin days Medication route: oral (PO) Medication administration time(s): 2 times a day (BID) If taking medication PRN, reason for taking medication: N/A If this is a controlled substance do you receive this or any other controlled medication from any other doctor or facility: N/A Ordering provider: Dr. Zavala Date of last office visit: 06-21-2024 Date of next office visit: 10-23-2024 Date of last refill: (see medication tab): 03-02-2024 Updated/Validated preferred pharmacy: Yes Patient instructed to contact the pharmacy prior to picking up the medication: Yes documented in this encounter [facility] 09-18-2024 Telephone encounter Note Medication name: metoprolol tartrate (Lopressor) 25 MG tablet -- Take 1 tablet (25 mg) by mouth 2 times daily for 180 doses. -- 90 days Medication dosage: 25 mg (Miligrams Monthly quantity needed: 60 How many day supply requestin days Medication route: oral (PO) Medication administration time(s): 2 times a day (BID) If taking medication PRN, reason for taking medication: N/A If this is a controlled substance do you receive this or any other controlled medication from any other doctor or facility: N/A Ordering provider: Dr. Zavala Date of last office visit: 06-21-2024 Date of next office visit: 10-23-2024 Date of last refill: (see medication tab): 03-02-2024 Updated/Validated preferred pharmacy: Yes Patient instructed to contact the pharmacy prior to picking up the medication: Yes [facility] 09-04-2024 Telephone encounter Note Obdulia, I saw this patient today and wanted to let you know that I sent Trulicity and Farxiga through [employer] to help with cost/coverage. Please let me know if there is anything you can do to help or if there is anything else you need from me. Thank you so much and have a good day! Anne Haines PA-C [facility] 09-04-2024 Miscellaneous Notes Obdulia I saw this patient today and wanted to let you know that I sent Trulicity and Farxiga through [facility] to help with cost/coverage. Please let me know if there is anything you can do to help or if there is anything else you need from me. Thank you so much and have a good day! Anne Haines PA-C documented in this encounter [facility] 09-04-2024 History of Present illness Narrative Images from the original note were not included. [address] [facility] [place] [address] [facility] [id number] Dept: [phone] Dept Visit type: New Patient Reason for Visit: Diabetes and Follow-up Assessment and Plan 1. Type 2 diabetes mellitus with hyperglycemia, without long-term current use of insulin ([facility]) - AMB POC HEMOGLOBIN A1C - AMB POC GLUCOSE TEST - dulaglutide (Trulicity) 0.75 MG/0.5ML; Inject 0.75 mg under the skin 1 (one) time per week., Starting Tue09/04/2024, Until Tue09/04/2025, Normal - pioglitazone (Actos) 30 MG tablet; Take 1 tablet (30 mg) by mouth daily., Starting Tue09/04/2024, Until Tue03/03/2025, Normal - metFORMIN (Glucophage) 1000 MG tablet; Take 1 tablet (1,000 mg) by mouth 2 times daily (with meals) for 360 doses., Starting Tue09/04/2024, Until Tue03/03/2025, Normal - dapagliflozin (Farxiga) 10 MG tablet; Take 1 tablet (10 mg) by mouth daily., Starting Tue09/04/2024, Until Tue09/04/2025, Normal - TSH - T4, free - Microalbumin / creatinine urine ratio - Lipid panel - Lancets; 1 each by Other route 2 times daily., Starting Tue09/04/2024, Until Tue09/04/2025, Normal - glucose blood (OneTouch Verio) test strip; Use as instructed. 2 times per day, Normal - Alcohol Swabs 70 % pads; 1 each 2 times daily., Starting Tue09/04/2024, Until Tue09/04/2025, Normal 2. Class 2 severe obesity with serious comorbidity and body mass index (BMI) of 36.0 to 36.9 in adult, unspecified obesity type ([facility]) 3. Type 2 diabetes mellitus with hyperlipidemia (HCC) ([facility]) 4. Hypertension associated with type 2 diabetes mellitus (HCC) ([facility]) 5. Type 2 diabetes mellitus with diabetic polyneuropathy, without long-term current use of insulin ([facility]) - [facility] 6. Both eyes affected by mild nonproliferative diabetic retinopathy with macular edema, associated with type 2 diabetes mellitus (HCC) Lab Results Component Value Date EGFR 64.0 11/25/2023 CHOL 111 11/25/2023 HDL 51 11/25/2023 LDLCALC 39 11/25/2023 MICROALBCREA < 30 mg 05/26/2022 DM2 Diabetes is: poorly controlled/improving A1C Target: under 7% Insulin is not necessary for ongoing management Lab Results Component Value Date HGBA1C 6.4 (A) 09/04/2024 HGBA1C 9.4 (A) 11/25/2023 No Blood Glucose Logs to review today. Patient will send his Blood Glucose Logs in about 2 weeks. He stated his Blood Glucose ranges between 100-140 typically. No changes to regimen today. Will monitor Recommendations: Patient will make the following changes to regimen: - Continue Trulicity (ACH) 0.75 mg Weekly - Continue Actos 30 mg every day - Continue Metformin 1000 mg twice daily with food - Continue Farxiga (ACH) 10 mg every day --> Recommended getting labs fasting JULIANNE, while holding all B-vitamins and Biotin for 5-7 days prior - MicroAlb:Cr, TFTs, FLP, rest via media --> Continue BG monitoring: via FSBS 2-3 times per day and send in BGL in 2 weeks for review. --> DSME: for diabetes and nutrition and exercise --> DMFE: 11/05 Education: Discussed with Patient: - Notification Parameters - Discussed holding farxiga for about 2-3 days before surgery for cataracts and about 2-3 days following. - Discussed healthy balanced diet and exercise - Discussed potential medication side effects - Discussed blood glucose goals and A1C targets - Discussed uncontrolled diabetes potential effects on organ systems - Discussed importance of taking meds as prescribed - Discussed importance of Follow up for Diabetes - Patient instructed to call office if BG over 250 or under 70 consistently Obesity BMI Readings from Last 1 Encounters: 09/04/24 36.96 kg/m - Continue to work on lifestyle changes: dietary habits; increasing activity as able, weight reduction - Optimize DM agents to aid w/ the same. Hypertension - Patient is taking DAMI. Continue as prescribed - Primary Care Provider manages - Recheck was 130/78 - BP today: BP Readings from Last 1 Encounters: 09/04/24 (!) 150/85 Hyperlipidemia - Patient is taking Statin, continue as prescribed - Discussed healthy diet, exercise, and A1C control - Primary Care Provider manages - Last Trig was 106 and last LDL was 39 12/06, will follow FLP Neuropathy - Discussed blood glucose control to prevent worsening of neuropathy - Discussed daily foot checks to watch for wounds/ulcers - Recommended following with Podiatry if needed - Diabetes Foot Exam 12/06 Retinopathy - Discussed importance of ROXANNA at least annually for people with Diabetes - Discussed BG control - Discussed elevated A1C effect on the micro and macrovascular systems over time - Dilated Diabetes Eye Exam 08/07 - Patient counseled about these recommendations. Patient voiced understanding. Follow up in about 4 months (around 01/02/2025) for Next scheduled follow-up. Subjective HPI PCP: Sunny Zavala DO Referring Provider: Primary Care Provider Initial [facility] Office visit: 08/2024 History of Type 2 Diabetes Time of Onset: around late 40s per patient Circumstances surrounding dx: Screening. Pre-Diabetes became Diabetes and had fatigue, polyuria, and polydipsia Previous hospitalizations for DM: Denies Family hx DM: Endorses- Father, Aunts/Uncles Denies any hospitalizations, denies any recent surgeries, denies any new illnesses Denies any steroid use recently Patient current complaints include: - EST care Current Medication Regimen: - Trulicity 0.75 mg Weekly - Actos 30 mg every day - Metformin 1000 mg twice daily with food - Farxiga 10 mg every day Previously Used DM Agents: - Ozempic (insurance issue) Injection Sites/Rotation: Yes Missed Medication Doses: Denies Medication Side Effects: Denies Medication Cost Concerns: Denies OTC Supplement Usage: Endorses - Multi-Vitamin, Vit D, Cinnamon Glucose Monitoring CGM use: No BG Meter: OT Verio - 1-2 times per day BGL present: None today, did not bring his meter Recent Hyperglycemia - Endorses Recent Hypoglycemia: Denies BG Trends: Per recall 100s-140s normally Dietary Patterns: - 2 meals per day mostly. 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 Scheduled for injections next week and cataract surgery next now that A1C is more controlled - Last Dilated Eye Exam: 08/07 Neuropathy: Endorses - Last DMFE: 12/06. 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 Eyes: Negative for photophobia and visual disturbance. Respiratory: Negative for apnea. Cardiovascular: Negative for palpitations. Gastrointestinal: Positive for diarrhea (occasional). Negative for constipation, nausea and vomiting. Endocrine: Positive for polyuria (when BG is elevated). Negative for polydipsia and polyphagia. Skin: Negative for rash and wound. Neurological: Negative for headaches. Psychiatric/Behavioral: Negative for agitation, confusion, decreased concentration and sleep disturbance. ROS was performed at the time of this encounter. Unless noted above in the HPI, the ROS is negative. Allergies Allergen Reactions Lipitor [Atorvastatin] Other Body aches Amoxicillin Unknown Ezetimibe Unknown Poison Devi Extract Itching Prednisone Unknown Sulfa Antibiotics Other reaction(s): Unknown Exenatide Other Lumps under skin Outpatient Medications Prior to Visit Medication Sig Dispense Refill metoprolol tartrate (Lopressor) 25 MG tablet Take 1 tablet (25 mg) by mouth 2 times daily for 180 doses. 180 tablet 1 ramipril (Altace) 10 MG capsule One capsule in the am and one capsule in the pm 180 capsule 1 rosuvastatin (Crestor) 10 MG tablet Take 1 tablet (10 mg) by mouth daily. 30 tablet 5 warfarin (Coumadin) 5 MG tablet Increase to 5 mg daily 90 tablet 3 dapagliflozin (Farxiga) 10 MG tablet Take 1 tablet (10 mg) by mouth daily. 90 tablet 1 metFORMIN (Glucophage) 1000 MG tablet TAKE 1 TABLET (1,000 MG) BY MOUTH IN THE MORNING AND 1 TABLET (1,000 MG) IN THE EVENING. TAKE WITH MEALS. DO ALL THIS FOR 180 DOSES. 180 tablet 1 pioglitazone (Actos) 30 MG tablet Take 1 tablet (30 mg) by mouth daily. 90 tablet 1 Trulicity 0.75 MG/0.5ML INJECT 0.75 MG UNDER THE SKIN 1 (ONE) TIME PER WEEK FOR 28 DAYS. 4 each 2 cholecalciferol (Vitamin D-3) 125 MCG (5000 UT) capsule Take 5,000 Units by mouth daily. (Patient not taking: Reported on 09/04/2024) hydroCHLOROthiazide 12.5 MG tablet Take 1 tablet (12.5 mg) by mouth daily. (Patient not taking: Reported on 09/04/2024) 30 tablet 5 No facility-administered medications prior to visit. Past Medical History: Diagnosis Date Cholelithiases 2019 asx Diabetes mellitus (HCC) 2006 Essential hypertension 2014 normal EF per ECHO 2017, Factor V Leiden (HCC) 2009 Family history of prostate cancer in father cousin also H/O colonoscopy 09/2022 Dr. Turner- due 7-10 yrs H/O: GI bleed 2017 ? Small int bleed History of pulmonary embolism 2014 History of renal stone 05/22/2020 History of stress test 09/01/2017 Normal LVEF 71% Hyperlipidemia Intolerant of Lipitor On continuous oral anticoagulation 2009 Coumadin BECK on CPAP 2015 Dr. Perez Personal history of DVT (deep vein thrombosis) 2009 RLE 2009, LLE 01/2015 Prostate cancer screening 06/2023 Statin intolerance Social History Tobacco Use Smoking status: Never Smokeless tobacco: Never Substance Use Topics Alcohol use: No Alcohol/week: 0.0 standard drinks of alcohol Past Surgical History: Procedure Laterality Date COLONOSCOPY 2015 COLONOSCOPY W/ BIOPSIES N/A 09/23/2022 Dr. Turner; repeat in 7-10 yrs HAND SURGERY Left 1989 due to fracture IVC FILTER RETRIEVAL 2016 Removed October 2016; s/p PE resolution UMBILICAL HERNIA REPAIR 2004 UPPER GASTROINTESTINAL ENDOSCOPY 08/2016 UGI bleed, ? etiol --2nd one clear 09/02/16 Family History Problem Relation Name Age of Onset Dementia Mother age 87 Breast cancer Mother 82 High Blood Pressure Mother Heart disease Father 70 stents Diabetes Father insulin High Blood Pressure Father Cirrhosis Father PHAN, age 78 Clotting disorder Father Prostate cancer Father 65 Uterine cancer Sister Nohemy Diabetes Sister Mary diet cont Cancer Son Robe 3 leukemia No Known Problems Maternal Grandmother late in life Diabetes Maternal Grandfather No Known Problems Paternal Grandmother late in life Coronary artery disease Paternal Grandfather early 80s Prostate cancer Paternal Cousin Substance Abuse Neg Hx Stroke Neg Hx Heart attack Neg Hx Depression Neg Hx Learning disabilities Neg Hx Objective BP (!) 150/85 (BP Location: Left arm, Patient Position: Sitting, BP Cuff Size: Adult) Pulse 77 Ht 5' 6 (1.676 m) Wt 229 lb (104 kg) BMI 36.96 kg/m Physical Exam Vitals reviewed. Constitutional: Appearance: Normal appearance. He is obese. Cardiovascular: Rate and Rhythm: Normal rate and regular rhythm. Pulmonary: Effort: Pulmonary effort is normal. Breath sounds: Normal breath sounds. Neurological: General: No focal deficit present. Mental Status: He is alert and oriented to person, place, and time. Psychiatric: Mood and Affect: Mood normal. Behavior: Behavior normal. Thought Content: Thought content normal. Judgment: Judgment normal. Data Reviewed and Summarized Labs: Lab Results Component Value Date HGBA1C 6.4 (A) 09/04/2024 Lab Results Component Value Date CHOL 111 11/25/2023 CHOL 219 (A) 05/26/2022 CHOL 142 07/27/2021 Lab Results Component Value Date TRIG 106 11/25/2023 TRIG 108 05/26/2022 TRIG 112 07/27/2021 Lab Results Component Value Date HDL 51 11/25/2023 HDL 46 05/26/2022 HDL 40 07/27/2021 Lab Results Component Value Date LDL 151 (A) 05/26/2022 LDL 80 07/27/2021 LDL 142 (A) 05/27/2020 LDLCALC 39 11/25/2023 Lab Results Component Value Date EGFR 64.0 11/25/2023 EGFR 74 09/08/2022 Lab Results Component Value Date MICROALBCREA < 30 mg 05/26/2022 No results found for: TSH No results found for: [id number] Electronically signed by Anne Haines PA-C Portions of the information within this encounter were entered using an electronic dictation system. Best attempts were made to edit/proofread the information prior to note completion. Despite the review of information, some errors may remain. If there are questions related to the information contained within the note please contact the signing physician directly. documented in this encounter [email or web address] 09-04-2024 Instructions Anne Haines PA-C - 09/04/2024 1:00 PM EST documented in this encounter [facility] 07-26-2024 Telephone encounter Note FYI: Name of caller: Han Contact phone number: [phone] Relationship to Patient: patient Provider: OBEY Haines Practice: [facility] Chief Complaint/Reason for Call: Patient states that he would like to have a appointment reminder with d/t/l sent to the address on file. Please advise. [facility] 07-26-2024 Miscellaneous Notes FYI: Name of caller: Han Contact phone number: [phone] Relationship to Patient: patient Provider: OBEY Haines Practice: [facility] Chief Complaint/Reason for Call: Patient states that he would like to have a appointment reminder with d/t/l sent to the address on file. Please advise. documented in this encounter [facility] 07-26-2024 Note Will keep an eye out for patient's referral. [facility] 07-26-2024 Telephone encounter Note Will keep an eye out for patient's referral. [facility] 07-26-2024 Miscellaneous Notes Will keep an eye out for patient's referral. Name of Caller: Han Contact Reason for Appointment: Pt states Dr. Zavala is sending over a referral and would like to be scheduled at the [place] office. Please review. Office Name: [facility] documented in this encounter [facility] 07-24-2024 Note Referral pended for dx and doctor's signature [facility] 07-24-2024 Telephone encounter Note Referral pended for dx and doctor's signature [facility] 07-24-2024 Miscellaneous Notes Referral pended for dx and doctor's signature Name of caller: Han Contact phone number: [phone] Relationship to Patient: patient Provider: linda Practice: [facility] Chief Complaint/Reason for Call: Han called asking for the doctor to place a referral to endocrinology. He states his high sugar is affecting his eye sight. Please advise He is asking for the referral to [facility]. Best time of day caller can be reached: any Patient advised that office/PCP has 24-48 business hours to return their call: no documented in this encounter [facility] 07-24-2024 Note Name of Caller: Han Contact Reason for Appointment: Pt states Dr. Zavala is sending over a referral and would like to be scheduled at the [place] office. Please review. Office Name: [facility] 07-24-2024 Telephone encounter Note Name of Caller: Han Contact Reason for Appointment: Pt states Dr. Zavala is sending over a referral and would like to be scheduled at the [place] office. Please review. Office Name: [facility] 07-24-2024 Telephone encounter Note Name of caller: Han Contact phone number: [phone] Relationship to Patient: patient Provider: linda Practice: [facility] Chief Complaint/Reason for Call: Han called asking for the doctor to place a referral to endocrinology. He states his high sugar is affecting his eye sight. Please advise He is asking for the referral to [facility]. Best time of day caller can be reached: any Patient advised that office/PCP has 24-48 business hours to return their call: no [facility] 07-19-2024 Telephone encounter Note Recent Visits Date Type Provider Dept 06/21/24 Office Visit Sunny Zavala, DO [facility] 03/02/24 Office Visit Sunny Zavala, DO [facility] 11/04/23 Office Visit Sunny Zavala, DO [facility] Showing recent visits within past 365 days and meeting all other requirements Future Appointments No visits were found meeting these conditions. Showing future appointments within next 90 days and meeting all other requirements Requested Prescriptions Pending Prescriptions Disp Refills Trulicity 0.75 MG/0.5ML [Pharmacy Med Name: TRULICITY 0.75 MG/0.5 ML PEN] Sig: INJECT 0.75 MG UNDER THE SKIN 1 (ONE) TIME PER WEEK FOR 28 DAYS. Provider: Sunny Zavala DO Verified pharmacy: yes Verified day(s) supplied: yes Verified refill(s) needed (previous prescription showing no refills in chart): Yes Have you received any controlled medications from any other provider? N/A Overdue for visit: No If yes - patient scheduled? Yes Most recent labs completed in chart? Yes Diabetes: Lab Results Component Value Date HGBA1C 9.4 (A) 11/25/2023 MICROALBCREA < 30 mg 05/26/2022 K 4.3 11/25/2023 NA 139 11/25/2023 LDL 151 (A) 05/26/2022 HDL 51 11/25/2023 TRIG 106 11/25/2023 [facility] 07-19-2024 Miscellaneous Notes Recent Visits Date Type Provider Dept 06/21/24 Office Visit Sunny Z[facility]ala, DO [facility] 03/02/24 Office Visit Sunny Zavala, DO [facility] 11/04/23 Office Visit Sunny Zavala, DO [facility] Showing recent visits within past 365 days and meeting all other requirements Future Appointments No visits were found meeting these conditions. Showing future appointments within next 90 days and meeting all other requirements Requested Prescriptions Pending Prescriptions Disp Refills Trulicity 0.75 MG/0.5ML [Pharmacy Med Name: TRULICITY 0.75 MG/0.5 ML PEN] Sig: INJECT 0.75 MG UNDER THE SKIN 1 (ONE) TIME PER WEEK FOR 28 DAYS. Provider: Sunny Zavala DO Verified pharmacy: yes Verified day(s) supplied: yes Verified refill(s) needed (previous prescription showing no refills in chart): Yes Have you received any controlled medications from any other provider? N/A Overdue for visit: No If yes - patient scheduled? Yes Most recent labs completed in chart? Yes Diabetes: Lab Results Component Value Date HGBA1C 9.4 (A) 11/25/2023 MICROALBCREA < 30 mg 05/26/2022 K 4.3 11/25/2023 NA 139 11/25/2023 LDL 151 (A) 05/26/2022 HDL 51 11/25/2023 TRIG 106 11/25/2023 documented in this encounter [facility] 07-16-2024 Telephone encounter Note Recent Visits Date Type Provider Dept 06/21/24 Office Visit Sunny Zavala, DO [facility] 03/02/24 Office Visit Sunny Zavala, DO [facility] 11/04/23 Office Visit Sunny ZavalaDO [facility] Showing recent visits within past 365 days and meeting all other requirements Future Appointments No visits were found meeting these conditions. Showing future appointments within next 90 days and meeting all other requirements Requested Prescriptions Pending Prescriptions Disp Refills metFORMIN (Glucophage) 1000 MG tablet [Pharmacy Med Name: METFORMIN HCL 1,000 MG TABLET] 180 tablet 1 Sig: TAKE 1 TABLET (1,000 MG) BY MOUTH IN THE MORNING AND 1 TABLET (1,000 MG) IN THE EVENING. TAKE WITH MEALS. DO ALL THIS FOR 180 DOSES. Provider: Sunny Zavala DO Verified pharmacy: yes Verified day(s) supplied: yes Verified refill(s) needed (previous prescription showing no refills in chart): Yes Have you received any controlled medications from any other provider? N/A Overdue for visit: No If yes - patient scheduled? N/A Most recent labs completed in chart? No None [facility] [facility] 07[facility]24 Miscellaneous Notes Recent Visits Date Type Provider Dept 06/21/24 Office Visit Sunny Zvaala, DO [facility] 03/02/24 Office Visit Sunny Zavala DO [facility] 11/04/23 Office Visit Sunny Zavala, DO [facility] Showing recent visits within past 365 days and meeting all other requirements Future Appointments No visits were found meeting these conditions. Showing future appointments within next 90 days and meeting all other requirements Requested Prescriptions Pending Prescriptions Disp Refills metFORMIN (Glucophage) 1000 MG tablet [Pharmacy Med Name: METFORMIN HCL 1,000 MG TABLET] 180 tablet 1 Sig: TAKE 1 TABLET (1,000 MG) BY MOUTH IN THE MORNING AND 1 TABLET (1,000 MG) IN THE EVENING. TAKE WITH MEALS. DO ALL THIS FOR 180 DOSES. Provider: Sunny Zavala DO Verified pharmacy: yes Verified day(s) supplied: yes Verified refill(s) needed (previous prescription showing no refills in chart): Yes Have you received any controlled medications from any other provider? N/A Overdue for visit: No If yes - patient scheduled? N/A Most recent labs completed in chart? No None documented in this encounter [facility] 07-05-2024 Miscellaneous Notes RX loaded Next ov 10/23/24 Medication name: dapagliflozin (Farxiga) 10 MG tablet Medication dosage: 10 mg (Miligrams Monthly quantity needed: 90 How many day supply requestin Medication route: oral (PO) Medication administration time(s): daily If taking medication PRN, reason for taking medication: N/A If this is a controlled substance do you receive this or any other controlled medication from any other doctor or facility: N/A Ordering provider: Sunny Zavala DO Date of last office visit: 06/21/24 Date of next office visit: 10/23/24 Date of last refill: (see medication tab): 11/29/23 Updated/Validated preferred pharmacy: Yes [id number] [place] [id number] Patient instructed to contact the pharmacy prior to picking up the medication: Yes documented in this encounter [facility] 07-05-2024 Telephone encounter Note RX loaded Next ov 10/23/24 [facility] 07-05-2024 Telephone encounter Note Medication name: dapagliflozin (Farxiga) 10 MG tablet Medication dosage: 10 mg (Miligrams Monthly quantity needed: 90 How many day supply requestin Medication route: oral (PO) Medication administration time(s): daily If taking medication PRN, reason for taking medication: N/A If this is a controlled substance do you receive this or any other controlled medication from any other doctor or facility: N/A Ordering provider: Sunny Zavala DO Date of last office visit: 06/21/24 Date of next office visit: 10/23/24 Date of last refill: (see medication tab): 11/29/23 Updated/Validated preferred pharmacy: Yes [id number] [place] [id number] Patient instructed to contact the pharmacy prior to picking up the medication: Yes [facility] 06-21-2024 History of Present illness Narrative Images from the original note were not included. [facility] - [address] [facility] [id number] Visit type: Established Patient Reason for Visit: Follow-up (Med check), Flu Vaccine (Patient has declined the flu vaccine ), and Immunizations (Pt declined Pneumococcal Vaccine:) Assessment / Plan: Han was seen today for follow-up, flu vaccine and immunizations. Diagnoses and all orders for this visit: Type 2 diabetes mellitus with diabetic polyneuropathy, without long-term current use of insulin (HCC) (Primary) Comments: Uncontrolled, restart Trulicity continue Farxiga and metformin and Actos Orders: - Hemoglobin A1c; Future - Hemoglobin A1c Essential hypertension Comments: Uncontrolled, add HCTZ to Altace and Lopressor. BP check 4 weeks Orders: - CBC auto differential; Future - Comprehensive metabolic panel; Future - CBC auto differential - Comprehensive metabolic panel Mixed hyperlipidemia Comments: Stable, continue low-fat meals Orders: - Lipid panel; Future - Lipid panel Anticoagulant long-term use - Protime-INR; Future - Protime-INR Personal history of DVT (deep vein thrombosis) Comments: Stable, continue Coumadin indefinitely Lipoma of left shoulder Prostate cancer screening - PSA Screening; Future - PSA Screening Other orders - hydroCHLOROthiazide 12.5 MG tablet; Take 1 tablet (12.5 mg) by mouth daily. - dulaglutide (Trulicity) 0.75 MG/0.5ML; Inject 0.75 mg under the skin 1 (one) time per week for 28 days. Subjective: Patient ID: Han Corbin is a 63 y.o. male. HPI obese non-smoker with history of diabetes, essential hypertension, hyperlipidemia and chronic anticoagulation for history of leg DVT presents for checkup. Apparently stopped the Trulicity due to inability to acquire that. His glucose levels are too high. His A1c is elevated. Weight is up also No change in vision or unhealing skin lesions. Overall he is felt pretty well. Review of Systems denies recent earache sore throat or cough. No chest pain or palpitations or dyspnea. No orthopnea or claudication or unhealing skin lesions. No change in chronic pedal edema. Denies heartburn or dysphagia. No melena or blood. No constipation or diarrhea. Colonoscopy up-to-date. No change in urine flow denies dysuria hematuria or excessive nocturia. Prostate cancer screening in a few weeks No change in arthralgias. 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 Overall had a good summer and fall Allergies Allergen Reactions Lipitor [Atorvastatin] Other Body aches Amoxicillin Unknown Ezetimibe Unknown Prednisone Unknown Sulfa Antibiotics Other reaction(s): Unknown Exenatide Other Lumps under skin Current Outpatient Medications on File Prior to Visit Medication Sig Dispense Refill dapagliflozin (Farxiga) 10 MG tablet Take 1 tablet (10 mg) by mouth daily. 90 tablet 1 metFORMIN (Glucophage) 1000 MG tablet Take 1 tablet (1,000 mg) by mouth in the morning and 1 tablet (1,000 mg) in the evening. Take with meals. Do all this for 180 doses. 180 tablet 1 metoprolol tartrate (Lopressor) 25 MG tablet Take 1 tablet (25 mg) by mouth 2 times daily for 180 doses. 180 tablet 1 pioglitazone (Actos) 15 MG tablet Take 1 tablet (15 mg) by mouth daily. 90 tablet 1 ramipril (Altace) 10 MG capsule One capsule in the am and one capsule in the pm 180 capsule 1 warfarin (Coumadin) 5 MG tablet Increase to 5 mg daily 90 tablet 3 cholecalciferol (Vitamin D-3) 125 MCG (5000 UT) capsule Take 5,000 Units by mouth daily. (Patient not taking: Reported on 06/21/2024) [DISCONTINUED] amLODIPine (Norvasc) 10 MG tablet Take 1 tablet (10 mg) by mouth daily. (Patient not taking: Reported on 06/21/2024) 30 tablet 5 [DISCONTINUED] dulaglutide (Trulicity) 0.75 MG/0.5ML solution pen-injector Inject 0.75 mg under the skin 1 (one) time per week. Call in 1 month on glucose log, your weight, and any side effects on this medicine, and to discuss increasing to next dosage of Trulicity (Patient not taking: Reported on 06/21/2024) 4 each 0 [DISCONTINUED] rosuvastatin (Crestor) 10 MG tablet Take 1 tablet (10 mg) by mouth daily. (Patient not taking: Reported on 06/21/2024) 30 tablet 5 No current facility-administered medications on file prior to visit. Patient Active Problem List Diagnosis History of pulmonary embolism Type 2 diabetes mellitus with diabetic polyneuropathy, without long-term current use of insulin (HCC) Personal history of DVT (deep vein thrombosis) Essential hypertension Mixed hyperlipidemia Obesity BECK on CPAP History of renal stone Factor V Leiden (HCC) Family history of prostate cancer in father Encounter for colorectal cancer screening Cholelithiases On continuous oral anticoagulation Social History Tobacco Use Smoking status: Never Smokeless tobacco: Never Substance Use Topics Alcohol use: No Alcohol/week: 0.0 standard drinks of alcohol Past Surgical History: Procedure Laterality Date COLONOSCOPY 2016 COLONOSCOPY W/ BIOPSIES N/A 09/23/2022 Dr. Turner; repeat in 7-10 yrs HAND SURGERY Left 1989 due to fracture IVC FILTER RETRIEVAL 2016 Removed October 2016; s/p PE resolution UMBILICAL HERNIA REPAIR 2004 UPPER GASTROINTESTINAL ENDOSCOPY 08/2016 UGI bleed, ? etiol --2nd one clear 09/02/16 Family History Problem Relation Name Age of Onset Dementia Mother age 87 Breast cancer Mother 82 High Blood Pressure Mother Heart disease Father 70 stents Diabetes Father insulin High Blood Pressure Father Cirrhosis Father PHAN, age 78 Clotting disorder Father Prostate cancer Father 65 Uterine cancer Sister Nohemy Diabetes Sister Mary diet cont Cancer Son Robe 3 leukemia No Known Problems Maternal Grandmother late in life Diabetes Maternal Grandfather No Known Problems Paternal Grandmother late in life Coronary artery disease Paternal Grandfather early 80s Prostate cancer Paternal Cousin Substance Abuse Neg Hx Stroke Neg Hx Heart attack Neg Hx Depression Neg Hx Learning disabilities Neg Hx Objective: BP (!) 144/90 (BP Location: Right arm, Patient Position: Sitting, BP Cuff Size: Large adult) Pulse 62 Temp 36.2 C (97.1 F) (Temporal) Ht 5' 6 (1.676 m) Wt 231 lb (105 kg) SpO2 97% BMI 37.28 kg/m Physical Exam very pleasant alert and oriented. Blood pressure is too high. Normal oropharynx. No neck masses JVD adenopathy or thyroid lesions. No carotid bruits. Heart is regular without gallops or murmurs. Lungs are clear. Abdomen obese nontender without pain hepatosplenomegaly or masses. No bruits and femoral pulses good. There is no motor loss of the legs feet or toes. Trace pedal edema is evident. Peripheral pulses are fair. documented in this encounter [facility] 06-21-2024 Instructions Sunny Zavala DO - 06/21/2024 11:30 AM EST Call with glucose log of FBS in one month. Goal BP , <130 and <80 documented in this encounter [facility] 03-02-2024 History of Present illness Narrative Images from the original note were not included. [facility] [address] [place] [address] [address] [facility] [id number] Visit type: Established Patient Reason for Visit: Follow-up (4 month med check) Assessment / Plan: Han was seen today for follow-up. Diagnoses and all orders for this visit: Type 2 diabetes mellitus with diabetic polyneuropathy, without long-term current use of insulin ([facility]) ([facility]) (Primary) Comments: uncont, ch lab, cont farxiga, actos and met, ? restart Trulicity Orders: - Comprehensive metabolic panel; Future - Hemoglobin A1c; Future - Comprehensive metabolic panel - Hemoglobin A1c Mixed hyperlipidemia Comments: stable, cont Crestor On continuous oral anticoagulation Comments: stable, cont Coumadin, ch lab Essential hypertension Comments: stable, cont altace, lopr and norvasc Factor V Leiden (HCC) - Protime-INR; Future - Protime-INR Anticoagulant long-term use Other orders - metFORMIN (Glucophage) 1000 MG tablet; Take 1 tablet (1,000 mg) by mouth in the morning and 1 tablet (1,000 mg) in the evening. Take with meals. Do all this for 180 doses. - pioglitazone (Actos) 15 MG tablet; Take 1 tablet (15 mg) by mouth daily. - ramipril (Altace) 10 MG capsule; One capsule in the am and one capsule in the pm - Glucose Blood (Blood Glucose Test) strip; 1 strip by In Vitro route in the morning. - metoprolol tartrate (Lopressor) 25 MG tablet; Take 1 tablet (25 mg) by mouth 2 times daily for 180 doses. Subjective: Patient ID: Han Corbin is a 63 y.o. male. HPI obese NS w/ DM , HTN, HLD, ch warfarin rx due to PE and DVT. On actos now rather than Trulicity due to avail, not ch FBS , no strips. No change in wt, eyes or feet. He dec metoprol due to low BP readings. Review of Systems Constitutional: Negative for activity change, appetite change, diaphoresis, fatigue and unexpected weight change. HENT: Negative for congestion. Eyes: Negative for visual disturbance. Respiratory: Negative for cough, choking and shortness of breath. Cardiovascular: Negative for chest pain, palpitations and leg swelling. Gastrointestinal: Negative for abdominal pain, blood in stool, constipation, diarrhea and vomiting. Endocrine: Positive for polydipsia. Genitourinary: Negative for difficulty urinating, enuresis, frequency and hematuria. Musculoskeletal: Negative for arthralgias, back pain and gait problem. Skin: Negative for rash and wound. Neurological: Negative for weakness. Hematological: Negative for adenopathy. Does not bruise/bleed easily. Allergies Allergen Reactions Lipitor [Atorvastatin] Other Body aches Amoxicillin Unknown Ezetimibe Unknown Prednisone Unknown Sulfa Antibiotics Other reaction(s): Unknown Exenatide Other Lumps under skin Current Outpatient Medications on File Prior to Visit Medication Sig Dispense Refill amLODIPine (Norvasc) 10 MG tablet Take 1 tablet (10 mg) by mouth daily. 30 tablet 5 cholecalciferol (Vitamin D-3) 125 MCG (5000 UT) capsule Take 5,000 Units by mouth daily. dapagliflozin (Farxiga) 10 MG tablet Take 1 tablet (10 mg) by mouth daily. 90 tablet 1 rosuvastatin (Crestor) 10 MG tablet Take 1 tablet (10 mg) by mouth daily. 30 tablet 5 warfarin (Coumadin) 5 MG tablet Change to 5 mg daily except on and Tuesday take one half or 2.5 mg on those days 90 tablet 3 [DISCONTINUED] metFORMIN (Glucophage) 1000 MG tablet Take 1 tablet (1,000 mg) by mouth in the morning and 1 tablet (1,000 mg) in the evening. Take with meals. 60 tablet 3 [DISCONTINUED] metoprolol tartrate (Lopressor) 25 MG tablet Take 2 tablets (50 mg) by mouth in the morning and 2 tablets (50 mg) in the evening. Take with meals. (Patient taking differently: Take 50 mg by mouth in the morning and 50 mg in the evening. Take with meals. Takes one tablet twice a day.) 120 tablet 5 [DISCONTINUED] pioglitazone (Actos) 15 MG tablet Take 1 tablet (15 mg) by mouth daily. 30 tablet 1 [DISCONTINUED] ramipril (Altace) 10 MG capsule One capsule in the am and one capsule in the pm 180 capsule 1 No current facility-administered medications on file prior to visit. Patient Active Problem List Diagnosis History of pulmonary embolism Type 2 diabetes mellitus with diabetic polyneuropathy, without long-term current use of insulin (CMS/HCC) (HCC) Personal history of DVT (deep vein thrombosis) Essential hypertension Mixed hyperlipidemia Obesity BECK on CPAP History of renal stone Factor V Leiden (HCC) Family history of prostate cancer in father Encounter for colorectal cancer screening Cholelithiases On continuous oral anticoagulation Social History Tobacco Use Smoking status: Never Smokeless tobacco: Never Substance Use Topics Alcohol use: No Alcohol/week: 0.0 standard drinks of alcohol Past Surgical History: Procedure Laterality Date COLONOSCOPY 2015 COLONOSCOPY W/ BIOPSIES N/A 09/23/2022 Dr. Turner; repeat in 7-10 yrs HAND SURGERY Left 1989 due to fracture IVC FILTER RETRIEVAL 2016 Removed October 2016; s/p PE resolution UMBILICAL HERNIA REPAIR 2004 UPPER GASTROINTESTINAL ENDOSCOPY 08/2016 UGI bleed, ? etiol --2nd one clear 09/02/16 Family History Problem Relation Name Age of Onset Dementia Mother age 87 Breast cancer Mother 82 High Blood Pressure Mother Heart disease Father 70 stents Diabetes Father insulin High Blood Pressure Father Cirrhosis Father PHAN, age 78 Clotting disorder Father Prostate cancer Father 65 Uterine cancer Sister Nohemy Diabetes Sister Mary diet cont Cancer Son Robe 3 leukemia No Known Problems Maternal Grandmother late in life Diabetes Maternal Grandfather No Known Problems Paternal Grandmother late in life Coronary artery disease Paternal Grandfather early 80s Prostate cancer Paternal Cousin Substance Abuse Neg Hx Stroke Neg Hx Heart attack Neg Hx Depression Neg Hx Learning disabilities Neg Hx Objective: BP 118/68 Pulse 62 Temp 36.6 C (97.9 F) (Temporal) Ht 5' 6 (1.676 m) Wt 227 lb 9.6 oz (103 kg) SpO2 97% BMI 36.74 kg/m Physical Exam Constitutional: General: He is not in acute distress. Appearance: Normal appearance. He is obese. He is not ill-appearing. HENT: Right Ear: Tympanic membrane normal. Left Ear: Tympanic membrane normal. Nose: Nose normal. No rhinorrhea. Mouth/Throat: Pharynx: No oropharyngeal exudate or posterior oropharyngeal erythema. Eyes: General: No scleral icterus. Conjunctiva/sclera: Conjunctivae normal. Neck: Vascular: No carotid bruit. Cardiovascular: Rate and Rhythm: Normal rate and regular rhythm. Pulses: Normal pulses. Heart sounds: Normal heart sounds. No murmur heard. No gallop. Pulmonary: Effort: Pulmonary effort is normal. No respiratory distress. Breath sounds: Normal breath sounds. No wheezing or rhonchi. Abdominal: General: Bowel sounds are normal. There is no distension. Palpations: Abdomen is soft. There is no mass. Tenderness: There is no abdominal tenderness. Hernia: No hernia is present. Comments: No hepatosplenomegaly masses bruits or ascites. Femoral pulses are good Genitourinary: Penis: No discharge. Musculoskeletal: General: No tenderness. Normal range of motion. Cervical back: Neck supple. Right lower leg: No edema. Left lower leg: No edema. Lymphadenopathy: Cervical: No cervical adenopathy. Skin: General: Skin is warm. Findings: No erythema, lesion or rash. Neurological: Mental Status: He is alert and oriented to person, place, and time. Cranial Nerves: No cranial nerve deficit. Deep Tendon Reflexes: Reflexes normal. Psychiatric: Mood and Affect: Mood normal. Behavior: Behavior normal. Thought Content: Thought content normal. documented in this encounter [facility] 02-15-2024 Telephone encounter Note Called [facility] records to have them fax over copy of lab results and will scan them in when they arrive. [facility] 02-15-2024 Miscellaneous Notes Called [facility] records to have them fax over copy of lab results and will scan them in when they arrive. S: Patient spoke with [facility] nurse regarding dizziness and his INR results. B: Onset of symptoms today. A: Patient is experiencing dizziness and he is not sure if it is his glucose, related to the INR or heat. 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 Blood sugar during phone call was 150. PO2 was 96% and HR was 65. He is currently on Warfarin 2.5 mg on and Tuesday and 5 mg all other days. He is waiting for the results of his INR that he had done at [facility] yesterday. Denies difficulty breathing, chest pain, fainting spells, vomiting, nausea, muscle cramping or weakness. R: Reassurance and education provided regarding working outside in hot weather. Advised him to increase fluids and take water with him outside and sip frequently. Discussed if he becomes overheated to go into air conditioning and rest. Discussed that he may need to lay down with feet elevated for a little bit. Advised the office will be in touch with him regarding his INR results and any adjustments to Coumadin once the provider reviews the results. Patient understands care advice and has no further needs at this time. Patient was instructed to call back with new or worsening symptoms. Reason for Disposition Heat exhaustion suspected (i.e., dehydration from heat exposure) Normal mild dehydration suspected (e.g., dizziness, weakness, nausea) from heat exposure Protocols used: [id number], Heat Exposure (Heat Exhaustion and Heat Stroke)-ADULT-OH documented in this encounter [facility] 02-15-2024 Telephone encounter Note S: Patient spoke with [facility] nurse regarding dizziness and his INR results. B: Onset of symptoms today. A: Patient is experiencing dizziness and he is not sure if it is his glucose, related to the INR or heat. 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 Blood sugar during phone call was 150. PO2 was 96% and HR was 65. He is currently on Warfarin 2.5 mg on and Tuesday and 5 mg all other days. He is waiting for the results of his INR that he had done at [facility] yesterday. Denies difficulty breathing, chest pain, fainting spells, vomiting, nausea, muscle cramping or weakness. R: Reassurance and education provided regarding working outside in hot weather. Advised him to increase fluids and take water with him outside and sip frequently. Discussed if he becomes overheated to go into air conditioning and rest. Discussed that he may need to lay down with feet elevated for a little bit. Advised the office will be in touch with him regarding his INR results and any adjustments to Coumadin once the provider reviews the results. Patient understands care advice and has no further needs at this time. Patient was instructed to call back with new or worsening symptoms. Reason for Disposition Heat exhaustion suspected (i.e., dehydration from heat exposure) Normal mild dehydration suspected (e.g., dizziness, weakness, nausea) from heat exposure Protocols used: [id number], Heat Exposure (Heat Exhaustion and Heat Stroke)-ADULT-[place] [facility] 11-04-2023 History of Present illness Narrative Images from the original note were not included. [facility] [address] [place] [address] [address] [facility] [id number] Visit type: Established Patient Reason for Visit: Follow-up (Med check) Assessment / Plan: Han was seen today for follow-up. Diagnoses and all orders for this visit: Type 2 diabetes mellitus without complication, without long-term current use of insulin ([facility]/HCC) ([facility]) (Primary) Comments: Stable, continue Actos, Farxiga, and metformin Orders: - CBC auto differential; Future - Comprehensive metabolic panel; Future - Hemoglobin A1c; Future - CBC auto differential - Comprehensive metabolic panel - Hemoglobin A1c Essential hypertension Comments: Stable, continue metoprolol and Norvasc and Altace On continuous oral anticoagulation Comments: Stable, check INR continue Coumadin Orders: - Protime-INR; Future - Protime-INR Mixed hyperlipidemia Comments: Stable, continue Crestor Orders: - Lipid panel; Future - Lipid panel Factor V Leiden (HCC) Type 2 diabetes mellitus with diabetic polyneuropathy, without long-term current use of insulin ([facility]/HCC) ([facility]) Other orders - ramipril (Altace) 10 MG capsule; One capsule in the am and one capsule in the pm - dapagliflozin (Farxiga) 5 MG tablet; Take 1 tablet (5 mg) by mouth daily. Subjective: Patient ID: Han Corbin is a 63 y.o. male. 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 Recent change adding Actos and Farxiga resulted in better diabetic control. Glucose levels are improved. Denies hypoglycemic episodes. No unhealing skin lesions. No change in feet or vision. Review of Systems no recent earache sore throat or cough. Weight is stable. Trying to eat better and lose some weight. Does not smoke or drink. Denies exertional chest pain shortness of breath or cough. No PND orthopnea claudication or change in mild pedal edema. No heartburn or dysphagia. No abdominal pain. Bowels are regular. Of note he is taking virgin olive oil daily and his bowels are markedly better. Colonoscopy up-to-date. Prostate cancer screening up-to-date no melena or blood. No dysuria or hematuria. Allergies Allergen Reactions Lipitor [Atorvastatin] Other Body aches Amoxicillin Unknown Ezetimibe Unknown Prednisone Unknown Sulfa Antibiotics Other reaction(s): Unknown Exenatide Other Lumps under skin Current Outpatient Medications on File Prior to Visit Medication Sig Dispense Refill amLODIPine (Norvasc) 10 MG tablet Take 1 tablet (10 mg) by mouth daily. 30 tablet 5 metFORMIN (Glucophage) 1000 MG tablet Take 1 tablet (1,000 mg) by mouth in the morning and 1 tablet (1,000 mg) in the evening. Take with meals. 60 tablet 3 metoprolol tartrate (Lopressor) 25 MG tablet Take 2 tablets (50 mg) by mouth in the morning and 2 tablets (50 mg) in the evening. Take with meals. 120 tablet 5 pioglitazone (Actos) 15 MG tablet Take 1 tablet (15 mg) by mouth daily. 30 tablet 1 rosuvastatin (Crestor) 10 MG tablet Take 1 tablet (10 mg) by mouth daily. 30 tablet 5 warfarin (Coumadin) 5 MG tablet Change to 5 mg daily except on and Tuesday take one half or 2.5 mg on those days 90 tablet 3 [DISCONTINUED] dapagliflozin (Farxiga) 5 MG tablet Take 1 tablet (5 mg) by mouth daily. 30 tablet 3 [DISCONTINUED] ramipril (Altace) 10 MG capsule Take 2 capsules by mouth in the morning and 2 capsules in the evening. One capsule in the am and one capsule in the pm. cholecalciferol (Vitamin D-3) 125 MCG (5000 UT) capsule Take 5,000 Units by mouth daily. [DISCONTINUED] bisacodyl (Dulcolax) 5 MG EC tablet Take 3 tablets at 8:00pm two days before your colonoscopy. Take 3 tablets at 4:00pm the day before your procedure. (Patient not taking: Reported on 11/04/2023) 6 tablet 0 [DISCONTINUED] hydroCHLOROthiazide (HYDRODiuril) 25 MG tablet Take 25 mg by mouth every morning. No current facility-administered medications on file prior to visit. Patient Active Problem List Diagnosis History of pulmonary embolism Type 2 diabetes mellitus with diabetic polyneuropathy, without long-term current use of insulin (CMS/HCC) (HCC) Personal history of DVT (deep vein thrombosis) Essential hypertension Mixed hyperlipidemia Obesity BECK on CPAP History of renal stone Factor V Leiden (HCC) Family history of prostate cancer in father Encounter for colorectal cancer screening Cholelithiases On continuous oral anticoagulation Social History Tobacco Use Smoking status: Never Smokeless tobacco: Never Substance Use Topics Alcohol use: No Alcohol/week: 0.0 standard drinks of alcohol Past Surgical History: Procedure Laterality Date COLONOSCOPY 2016 COLONOSCOPY W/ BIOPSIES N/A 09/23/2022 Dr. Turner; repeat in 7-10 yrs HAND SURGERY Left 1989 due to fracture IVC FILTER RETRIEVAL 2016 Removed October 2016; s/p PE resolution UMBILICAL HERNIA REPAIR 2004 UPPER GASTROINTESTINAL ENDOSCOPY 08/2016 UGI bleed, ? etiol --2nd one clear 09/02/16 Family History Problem Relation Name Age of Onset Dementia Mother age 87 Breast cancer Mother 82 High Blood Pressure Mother Heart disease Father 70 stents Diabetes Father insulin High Blood Pressure Father Cirrhosis Father PHAN, age 78 Clotting disorder Father Prostate cancer Father 65 Uterine cancer Sister Diabetes Sister diet cont Cancer Son Robe 3 leukemia No Known Problems Maternal Grandmother late in life Diabetes Maternal Grandfather No Known Problems Paternal Grandmother late in life Coronary artery disease Paternal Grandfather early 80s Prostate cancer Paternal Cousin Substance Abuse Neg Hx Stroke Neg Hx Heart attack Neg Hx Depression Neg Hx Learning disabilities Neg Hx Objective: BP 130/60 (BP Location: Left arm, Patient Position: Sitting, BP Cuff Size: Large adult) Pulse 66 Temp 36.3 C (97.3 F) (Temporal) Ht 5' 6 (1.676 m) Wt 233 lb (106 kg) SpO2 99% BMI 37.61 kg/m Physical Exam The physical exam is generally normal. Patient appears well, alert and oriented x 3, pleasant, cooperative. Vitals are as noted. No carotid bruits. Neck supple, no abnormal adenopathy, thyroid lesions or masses. Ears, nose and throat are normal without acute findings. Lungs are clear to auscultation. Heart is regular, without murmurs, gallops or ectopy. Abdomen is soft, non tender, without masses, hepatosplenomegaly, or bruits. Normal BS evident. No worrisome skin lesions. Screening neurological exam is normal without focal deficits. See comment on diabetic foot exam documented in this encounter [facility] 10-27-2023 Telephone encounter Note Medication name: dapagliflozin (Farxiga) 5 MG tablet Medication dosage: 5 mg (Miligrams Monthly quantity needed: 30 How many day supply requestin days Medication route: oral (PO) Medication administration time(s): Take 1 tablet (5 mg) by mouth daily. If taking medication PRN, reason for taking medication: N/A If this is a controlled substance do you receive this or any other controlled medication from any other doctor or facility: N/A Ordering provider: Dr Zavala Date of last office visit: 07/12/23 Date of next office visit: 11/04/23 Date of last refill: (see medication tab): 08/25/23 Updated/Validated preferred pharmacy: Yes Patient instructed to contact the pharmacy prior to picking up the medication: Yes [facility] 10-27-2023 Miscellaneous Notes Medication name: dapagliflozin (Farxiga) 5 MG tablet Medication dosage: 5 mg (Miligrams Monthly quantity needed: 30 How many day supply requestin days Medication route: oral (PO) Medication administration time(s): Take 1 tablet (5 mg) by mouth daily. If taking medication PRN, reason for taking medication: N/A If this is a controlled substance do you receive this or any other controlled medication from any other doctor or facility: N/A Ordering provider: Dr Zavala Date of last office visit: 07/12/23 Date of next office visit: 11/04/23 Date of last refill: (see medication tab): 08/25/23 Updated/Validated preferred pharmacy: Yes Patient instructed to contact the pharmacy prior to picking up the medication: Yes documented in this encounter [facility] 08-24-2023 Telephone encounter Note Rx loaded Next ov 11/04/23 [facility] 08-24-2023 Miscellaneous Notes Rx loaded Next ov 11/04/23 Medication name: metoprolol tartrate (Lopressor) 25 MG tablet Medication dosage: 25 mg (Miligrams Monthly quantity needed: 270 How many day supply requestin days Medication route: oral (PO) Medication administration time(s): 2 times a day (BID) If taking medication PRN, reason for taking medication: N/A If this is a controlled substance do you receive this or any other controlled medication from any other doctor or facility: No Ordering provider: Linda Date of last office visit: 07/12/23 Date of next office visit: 11/04/23 Date of last refill: (see medication tab): 08/20/22 Updated/Validated preferred pharmacy: Yes Patient instructed to contact the pharmacy prior to picking up the medication: Yes documented in this encounter [facility] 08-24-2023 Telephone encounter Note Medication name: metoprolol tartrate (Lopressor) 25 MG tablet Medication dosage: 25 mg (Miligrams Monthly quantity needed: 270 How many day supply requestin days Medication route: oral (PO) Medication administration time(s): 2 times a day (BID) If taking medication PRN, reason for taking medication: N/A If this is a controlled substance do you receive this or any other controlled medication from any other doctor or facility: No Ordering provider: Linda Date of last office visit: 07/12/23 Date of next office visit: 11/04/23 Date of last refill: (see medication tab): 08/20/22 Updated/Validated preferred pharmacy: Yes Patient instructed to contact the pharmacy prior to picking up the medication: Yes [facility] 08-02-2023 Telephone encounter Note Medication name: warfarin (Coumadin) 5 MG tablet Medication dosage: 5 mg (Miligrams Monthly quantity needed: 30 How many day supply requestin days Medication route: oral (PO) Medication administration time(s): daily If taking medication PRN, reason for taking medication: N/A If this is a controlled substance do you receive this or any other controlled medication from any other doctor or facility: No Ordering provider: Dr Zavala Date of last office visit: 07/12/2023 Date of next office visit: 11/04/2023 Date of last refill: (see medication tab): 02/25/2023 - Patient advised by pharmacy no refills Updated/Validated preferred pharmacy: Yes Patient instructed to contact the pharmacy prior to picking up the medication: Yes [facility] 08-02-2023 Miscellaneous Notes Medication name: warfarin (Coumadin) 5 MG tablet Medication dosage: 5 mg (Miligrams Monthly quantity needed: 30 How many day supply requestin days Medication route: oral (PO) Medication administration time(s): daily If taking medication PRN, reason for taking medication: N/A If this is a controlled substance do you receive this or any other controlled medication from any other doctor or facility: No Ordering provider: Dr Zavala Date of last office visit: 07/12/2023 Date of next office visit: 11/04/2023 Date of last refill: (see medication tab): 02/25/2023 - Patient advised by pharmacy no refills Updated/Validated preferred pharmacy: Yes Patient instructed to contact the pharmacy prior to picking up the medication: Yes documented in this encounter [facility] 07-12-2023 History of Present illness Narrative Images from the original note were not included. [facility] [address] [place] [address] [address] [facility] [id number] Visit type: Established Patient Reason for Visit: Follow-up (3 month med check) Assessment / Plan: Han was seen today for follow-up. Diagnoses and all orders for this visit: Annual physical exam (Primary) Type 2 diabetes mellitus with diabetic polyneuropathy, without long-term current use of insulin ([facility]) (HCC) - Lipid panel; Future - Hemoglobin A1c; Future - Lipid panel - Hemoglobin A1c Essential hypertension - CBC auto differential; Future - Comprehensive metabolic panel; Future - CBC auto differential - Comprehensive metabolic panel On continuous oral anticoagulation - Protime-INR; Future - Protime-INR Personal history of DVT (deep vein thrombosis) Mixed hyperlipidemia Prostate cancer screening - PSA Total (Screening); Future - PSA Total (Screening) Other orders - metFORMIN (Glucophage) 1000 MG tablet; Take 1 tablet (1,000 mg) by mouth in the morning and 1 tablet (1,000 mg) in the evening. Take with meals. - dulaglutide (Trulicity) 1.5 MG/0.5ML solution pen-injector; Inject 1.5 mg under the skin 1 (one) time per week. All concerns stable, continue Coumadin, Crestor, Altace, Norvasc Actos metformin and Trulicity. Better low-fat low-carb meals with some weight loss encouraged. Subjective: Patient ID: Han Corbin is a 62 y.o. male. HPI annual exam for patient with history of diabetes, chronic anticoagulation for history of DVT and PE. Glucose levels are well. Difficult losing weight. 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 A1c in March was 6.3. No new concerns. Is developed some cataracts would like to know the safety of the statin therapy. Having a hard time getting Trulicity but it has been helpful. Glucose levels are well. No excessive polyuria polydipsia dry mouth. He did have an abrasion of his right lower leg from a cattle injury but it is healing. Review of Systems no recent earache sore throat or cough. Defers COVID vaccinations and flu shots. No change in vision but will be seeing the eye doctor soon. Denies exertional chest pain palpitations cough PND orthopnea or claudication. No real leg edema. No heartburn or dysphagia. No abdominal pain. Bowels are regular. Due for colonoscopy a few years. No melena or blood. Some nocturia but no postvoid dribbling dysuria hematuria. Needs ИВАН and PSA. Of note his father had prostate cancer Allergies Allergen Reactions Lipitor [Atorvastatin] Other Body aches Amoxicillin Unknown Ezetimibe Unknown Prednisone Unknown Sulfa Antibiotics Other reaction(s): Unknown Exenatide Other Lumps under skin Current Outpatient Medications on File Prior to Visit Medication Sig Dispense Refill amLODIPine (Norvasc) 10 MG tablet Take 1 tablet (10 mg) by mouth daily. 30 tablet 5 bisacodyl (Dulcolax) 5 MG EC tablet Take 3 tablets at 8:00pm two days before your colonoscopy. Take 3 tablets at 4:00pm the day before your procedure. 6 tablet 0 cholecalciferol (Vitamin D-3) 125 MCG (5000 UT) capsule Take 5,000 Units by mouth daily. hydroCHLOROthiazide (HYDRODiuril) 25 MG tablet Take 25 mg by mouth every morning. metoprolol tartrate (Lopressor) 25 MG tablet Take 50 mg by mouth in the morning and 50 mg in the evening. Take with meals. pioglitazone (Actos) 15 MG tablet Take 1 tablet (15 mg) by mouth daily. 30 tablet 5 ramipril (Altace) 10 MG capsule Take 2 capsules by mouth in the morning and 2 capsules in the evening. One capsule in the am and one capsule in the pm. rosuvastatin (Crestor) 10 MG tablet Take 1 tablet (10 mg) by mouth daily. 30 tablet 5 warfarin (Coumadin) 5 MG tablet Increase to 5 mg daily 90 tablet 3 [DISCONTINUED] dulaglutide (Trulicity) 1.5 MG/0.5ML solution pen-injector Inject 1.5 mg under the skin 1 (one) time per week. 4 Pen 1 [DISCONTINUED] metFORMIN (Glucophage) 1000 MG tablet Take 1 tablet (1,000 mg) by mouth in the morning and 1 tablet (1,000 mg) in the evening. Take with meals. Do all this for 60 doses. 60 tablet 3 dulaglutide (Trulicity) 3 MG/0.5ML solution pen-injector Inject 3 mg under the skin 1 (one) time per week. (Patient not taking: Reported on 04/11/2023) 4 each 11 dulaglutide (Trulicity) 4.5 MG/0.5ML solution pen-injector Inject 4.5 mg under the skin 1 (one) time per week. (Patient not taking: Reported on 04/11/2023) 4 each 11 [DISCONTINUED] metFORMIN (Glucophage) 1000 MG tablet Take 1,000 mg by mouth in the morning and 1,000 mg in the evening. Take with meals. No current facility-administered medications on file prior to visit. Patient Active Problem List Diagnosis History of pulmonary embolism Type 2 diabetes mellitus (HCC) Personal history of DVT (deep vein thrombosis) Essential hypertension Mixed hyperlipidemia Obesity BECK on CPAP History of renal stone Factor V Leiden (HCC) Family history of prostate cancer in father Encounter for colorectal cancer screening Cholelithiases On continuous oral anticoagulation Social History Tobacco Use Smoking status: Never Smokeless tobacco: Never Substance Use Topics Alcohol use: No Alcohol/week: 0.0 standard drinks of alcohol Past Surgical History: Procedure Laterality Date COLONOSCOPY 2015 COLONOSCOPY W/ BIOPSIES N/A 09/23/2022 Dr. Turner; repeat in 7-10 yrs HAND SURGERY Left 1989 due to fracture IVC FILTER RETRIEVAL 2016 Removed October 2016; s/p PE resolution UMBILICAL HERNIA REPAIR 2004 UPPER GASTROINTESTINAL ENDOSCOPY 08/2016 UGI bleed, ? etiol --2nd one clear 09/02/16 Family History Problem Relation Name Age of Onset Dementia Mother age 87 Breast cancer Mother 82 High Blood Pressure Mother Heart disease Father 70 stents Diabetes Father insulin High Blood Pressure Father Cirrhosis Father SYLVESTER, age 78 Clotting disorder Father Prostate cancer Father 65 Other (uterine ca) Sister Diabetes Sister diet cont Cancer Son Robe 3 leukemia No Known Problems Maternal Grandmother late in life Diabetes Maternal Grandfather No Known Problems Paternal Grandmother late in life Coronary artery disease Paternal Grandfather early 80s Prostate cancer Paternal Cousin Substance Abuse Neg Hx Stroke Neg Hx Heart attack Neg Hx Depression Neg Hx Learning disabilities Neg Hx Objective: BP 138/82 Pulse 70 Temp 36.4 C (97.5 F) (Temporal) Ht 5' 6 (1.676 m) Wt 233 lb (106 kg) SpO2 97% BMI 37.61 kg/m Physical Exam The physical exam is generally normal. Patient appears well, alert and oriented x 3, pleasant, cooperative. Vitals are as noted. No carotid bruits. Neck supple, no abnormal adenopathy, thyroid lesions or masses. Ears, nose and throat are normal without acute findings. Lungs are clear to auscultation. Heart is regular, without murmurs, gallops or ectopy. Abdomen is soft, non tender, without masses, hepatosplenomegaly, or bruits. Normal BS evident. Extremities are normal without edema. Peripheral pulses are fair. No worrisome skin lesions. Small abrasion of the anterior aspect of the right lower leg is healing. No erythema. Screening neurological exam is normal without focal deficits. Testicles descended. No masses. Normal penis. Rectal exam revealed a small prostate without nodules. No rectal masses documented in this encounter [facility] 07-08-2023 [facility] Miscellaneous Notes RX loaded Medication name: metFORMIN (Glucophage) 1000 MG tablet Patient is expressing urgency as they have been completely out of this medication for 2 days. Please advise. Medication dosage: 1000 mg (Miligrams Monthly quantity needed: 60 How many day supply requestin days Medication route: oral (PO) Medication administration time(s): 2 times a day (BID) If taking medication PRN, reason for taking medication: N/A If this is a controlled substance do you receive this or any other controlled medication from any other doctor or facility: N/A Ordering provider: Dr. Zavala Date of last office visit: 04/11/23 Date of next office visit: 07/12/23 Date of last refill: (see medication tab): 05/26/22 Updated/Validated preferred pharmacy: Yes Patient instructed to contact the pharmacy prior to picking up the medication: Yes documented in this encounter [facility] 07-08-2023 Telephone encounter Note Medication name: metFORMIN (Glucophage) 1000 MG tablet Patient is expressing urgency as they have been completely out of this medication for 2 days. Please advise. Medication dosage: 1000 mg (Miligrams Monthly quantity needed: 60 How many day supply requestin days Medication route: oral (PO) Medication administration time(s): 2 times a day (BID) If taking medication PRN, reason for taking medication: N/A If this is a controlled substance do you receive this or any other controlled medication from any other doctor or facility: N/A Ordering provider: Dr. Zavala Date of last office visit: 04/11/23 Date of next office visit: 07/12/23 Date of last refill: (see medication tab): 05/26/22 Updated/Validated preferred pharmacy: Yes Patient instructed to contact the pharmacy prior to picking up the medication: Yes [facility] 05-31-2023 Telephone encounter Note Patient contacted and results given for INR. No questions - call ended [facility] 05-31-2023 Miscellaneous Notes Patient contacted and results given for INR. No questions - call ended Patient INR results are scanned into media for your review. INR is being faxed Name of caller: Han Contact phone number: [phone] Relationship to Patient: Pt Provider: Practice: [facility] Chief Complaint/Reason for Call: Pt is noting that he had INR checked at [facility] and is looking for results Please advise Best time of day caller can be reached: any Patient advised that office/PCP has 24-48 business hours to return their call: No documented in this encounter [facility] 05-31-2023 Telephone encounter Note Patient INR results are scanned into media for your review. [facility] 05-31-2023 Miscellaneous Notes Patient INR results are scanned into media for your review. INR is being faxed Name of caller: Han Contact phone number: [phone] Relationship to Patient: Pt Provider: Practice: [facility] Chief Complaint/Reason for Call: Pt is noting that he had INR checked at [facility] and is looking for results Please advise Best time of day caller can be reached: any Patient advised that office/PCP has 24-48 business hours to return their call: No documented in this encounter [facility] 05-31-2023 Telephone encounter Note INR is being faxed [facility] 05-27-2023 Telephone encounter Note Name of caller: Han Contact phone number: [phone] Relationship to Patient: Pt Provider: Practice: [facility] Chief Complaint/Reason for Call: Pt is noting that he had INR checked at [facility] and is looking for results Please advise Best time of day caller can be reached: any Patient advised that office/PCP has 24-48 business hours to return their call: No [facility] 05-10-2023 History of Present illness Narrative Pt was contacted and declined to schedule due to cost documented in this encounter [facility] 04-11-2023 Telephone encounter Note Referral pended for doctor's signature [facility] 04-11-2023 Miscellaneous Notes Referral pended for doctor's signature documented in this encounter [facility] 04-11-2023 Miscellaneous Notes Referral pended for doctor's signature documented in this encounter [facility] 04-11-2023 History of Present illness Narrative Images from the original note were not included. [facility] [address] [facility] [id number] Visit type: Established Patient Reason for Visit: Follow-up (3 month med check/He cut back on his metoprolol ) Assessment / Plan: Han was seen today for follow-up. Diagnoses and all orders for this visit: Type 2 diabetes mellitus without complication, without long-term current use of insulin ([facility]) ([facility]) (Primary) Comments: Improved but to help promote weight loss increase Trulicity to 1.5 mg weekly and stop glipizide. Observe for hypoglycemia. Call with results in 1 month Orders: - ECG 12 lead; Future - ECG 12 lead Essential hypertension Comments: Stable, continue Altace, Lopressor and hydrochlorothiazide and amlodipine Mixed hyperlipidemia Comments: Stable, continue Crestor check labs soon Other orders - amLODIPine (Norvasc) 10 MG tablet; Take 1 tablet (10 mg) by mouth daily. - dulaglutide (Trulicity) 1.5 MG/0.5ML solution pen-injector; Inject 1.5 mg under the skin 1 (one) time per week. Subjective: Patient ID: Han Corbin is a 62 y.o. male. HPI obese non-smoker history of diabetes hypertension hyperlipidemia presents for checkup. Glucose levels are improved on Trulicity. Having some near hypoglycemic episodes. No change in vision or skin. Follows a diet but difficult losing weight. Would like to see a dietitian or nutritional list. Review of Systems no change in vision. No exertional chest pain , but ? of palpitations but no dyspnea or PND orthopnea claudication or edema. No heartburn or dysphagia. Abdominal pain. Bowels are regular. No melena or blood. No dysuria. No claudication numbness of the feet. No unhealing skin lesions. Allergies Allergen Reactions Lipitor [Atorvastatin] Other Body aches Amoxicillin Unknown Ezetimibe Unknown Prednisone Unknown Sulfa Antibiotics Other reaction(s): Unknown Exenatide Other Lumps under skin Current Outpatient Medications on File Prior to Visit Medication Sig Dispense Refill bisacodyl (Dulcolax) 5 MG EC tablet Take 3 tablets at 8:00pm two days before your colonoscopy. Take 3 tablets at 4:00pm the day before your procedure. 6 tablet 0 cholecalciferol (Vitamin D-3) 125 MCG (5000 UT) capsule Take 5,000 Units by mouth daily. hydroCHLOROthiazide (HYDRODiuril) 25 MG tablet Take 25 mg by mouth every morning. metFORMIN (Glucophage) 1000 MG tablet Take 1,000 mg by mouth in the morning and 1,000 mg in the evening. Take with meals. metoprolol tartrate (Lopressor) 25 MG tablet Take 50 mg by mouth in the morning and 50 mg in the evening. Take with meals. pioglitazone (Actos) 15 MG tablet Take 1 tablet (15 mg) by mouth daily. 30 tablet 5 ramipril (Altace) 10 MG capsule Take 2 capsules by mouth in the morning and 2 capsules in the evening. One capsule in the am and one capsule in the pm. rosuvastatin (Crestor) 10 MG tablet Take 1 tablet (10 mg) by mouth daily. 30 tablet 5 [DISCONTINUED] amLODIPine (Norvasc) 10 MG tablet Take 1 tablet (10 mg) by mouth daily. 30 tablet 5 [DISCONTINUED] dulaglutide (Trulicity) 0.75 MG/0.5ML solution pen-injector Inject 0.75 mg under the skin 1 (one) time per week. 4 each 11 [DISCONTINUED] glipiZIDE (Glucotrol) 5 MG tablet Take 2 tablets by mouth 2 times daily. dulaglutide (Trulicity) 3 MG/0.5ML solution pen-injector Inject 3 mg under the skin 1 (one) time per week. (Patient not taking: Reported on 04/11/2023) 4 each 11 dulaglutide (Trulicity) 4.5 MG/0.5ML solution pen-injector Inject 4.5 mg under the skin 1 (one) time per week. (Patient not taking: Reported on 04/11/2023) 4 each 11 warfarin (Coumadin) 5 MG tablet Increase to 5 mg daily 90 tablet 3 [DISCONTINUED] dulaglutide (Trulicity) 1.5 MG/0.5ML solution pen-injector Inject 1.5 mg under the skin 1 (one) time per week. (Patient not taking: Reported on 04/11/2023) 4 pen. 11 No current facility-administered medications on file prior to visit. Patient Active Problem List Diagnosis History of pulmonary embolism Type 2 diabetes mellitus (HCC) Personal history of DVT (deep vein thrombosis) Essential hypertension Mixed hyperlipidemia Obesity BECK on CPAP History of renal stone Factor V Leiden (HCC) Family history of prostate cancer in father Encounter for colorectal cancer screening Cholelithiases On continuous oral anticoagulation Social History Tobacco Use Smoking status: Never Smokeless tobacco: Never Substance Use Topics Alcohol use: No Alcohol/week: 0.0 standard drinks of alcohol Past Surgical History: Procedure Laterality Date COLONOSCOPY 2016 COLONOSCOPY W/ BIOPSIES N/A 09/23/2022 Dr. Turner; repeat in 7-10 yrs HAND SURGERY Left 1989 due to fracture IVC FILTER RETRIEVAL 2017 Removed October 2016; s/p PE resolution UMBILICAL HERNIA REPAIR 2004 UPPER GASTROINTESTINAL ENDOSCOPY 08/2016 UGI bleed, ? etiol --2nd one clear 09/02/16 Family History Problem Relation Name Age of Onset Dementia Mother age 87 Breast cancer Mother 82 High Blood Pressure Mother Heart disease Father 70 stents Diabetes Father insulin High Blood Pressure Father Cirrhosis Father PHAN, age 78 Clotting disorder Father Prostate cancer Father 65 Other (uterine ca) Sister Diabetes Sister diet cont Cancer Son Robe 3 leukemia No Known Problems Maternal Grandmother late in life Diabetes Maternal Grandfather No Known Problems Paternal Grandmother late in life Coronary artery disease Paternal Grandfather early 80s Prostate cancer Paternal Cousin Substance Abuse Neg Hx Stroke Neg Hx Heart attack Neg Hx Depression Neg Hx Learning disabilities Neg Hx Objective: BP 128/78 Pulse 72 Temp 36.5 C (97.7 F) (Temporal) Ht 5' 6 (1.676 m) Wt 239 lb (108 kg) SpO2 98% BMI 38.58 kg/m Physical Exam The physical exam is generally normal. Patient appears well, alert and oriented x 3, pleasant, cooperative. Vitals are as noted. No carotid bruits. Neck supple, no abnormal adenopathy, thyroid lesions or masses. Ears, nose and throat are normal without acute findings. Lungs are clear to auscultation. Heart is regular, without murmurs, gallops but had one ectopy. Abdomen is soft, non tender, without masses, hepatosplenomegaly, or bruits. Normal BS evident. Extremities are normal without edema. Peripheral pulses are fair. No worrisome skin lesions. Screening neurological exam is normal without focal deficits. EKG sinus rhythm without ischemic changes or ectopy. documented in this encounter [facility] 04-11-2023 Instructions Sunny Zavala DO - 04/11/2023 10:00 AM EDT Call with log of glucose levels in 1 month better low-carb meals and exercise and weight loss. documented in this encounter [facility] 02-25-2023 Telephone encounter Note S: Patient spoke with [facility] nurse regarding INR results and medication issue. B: Onset of symptoms/concern today. A: Pt reports went in yesterday for INR check and per fingerstick was told was 1.8. Pt is returning the call from the office. Pt informed of Dr. Zavala's message : Thereby increase Coumadin to 5 mg every day of the week. Recheck INR in 3 to 4 weeks. Pt verbalized understanding. R: Home Care advice given for change in Coumadin dosage and follow up INR> Patient understands care advice. No further needs at this time. Reason for Disposition [1] Other NON-URGENT information for PCP AND [2] does not require PCP response Protocols used: PCP Call - No [id number] [facility] 02-25-2023 Miscellaneous Notes S: Patient spoke with [facility] nurse regarding INR results and medication issue. B: Onset of symptoms/concern today. A: Pt reports went in yesterday for INR check and per fingerstick was told was 1.8. Pt is returning the call from the office. Pt informed of Dr. Zavala's message : Thereby increase Coumadin to 5 mg every day of the week. Recheck INR in 3 to 4 weeks. Pt verbalized understanding. R: Home Care advice given for change in Coumadin dosage and follow up INR> Patient understands care advice. No further needs at this time. Reason for Disposition [1] Other NON-URGENT information for PCP AND [2] does not require PCP response Protocols used: PCP Call - No [id number] documented in this encounter [facility] 01-17-2023 History of Present illness Narrative Images from the original note were not included. [facility] [address] [facility] [facility] [address] Visit type: Established Patient Reason for Visit: Diabetes (Discuss meds) Assessment / Plan: Han was seen today for diabetes. Diagnoses and all orders for this visit: Type 2 diabetes mellitus without complication, without long-term current use of insulin ([facility] ([facility]) (Primary) Comments: Uncontrolled, continue Actos and metformin and glipizide and restart Trulicity if available Orders: - Hemoglobin A1c; Future - Hemoglobin A1c Mixed hyperlipidemia Comments: Stable, continue Crestor Orders: - Lipid panel; Future - Lipid panel - TSH; Future - TSH Essential hypertension Comments: Stable, continue Altace and metoprolol and Norvasc Orders: - CBC auto differential; Future - Comprehensive metabolic panel; Future - CBC auto differential - Comprehensive metabolic panel Anticoagulant long-term use Lipoma of left shoulder Other orders - pioglitazone (Actos) 15 MG tablet; Take 1 tablet (15 mg) by mouth daily. - rosuvastatin (Crestor) 10 MG tablet; Take 1 tablet (10 mg) by mouth daily. - amLODIPine (Norvasc) 10 MG tablet; Take 1 tablet (10 mg) by mouth daily. - dulaglutide (Trulicity) 0.75 MG/0.5ML solution pen-injector; Inject 0.75 mg under the skin 1 (one) time per week. - dulaglutide (Trulicity) 1.5 MG/0.5ML solution pen-injector; Inject 1.5 mg under the skin 1 (one) time per week. - dulaglutide (Trulicity) 3 MG/0.5ML solution pen-injector; Inject 3 mg under the skin 1 (one) time per week. - dulaglutide (Trulicity) 4.5 MG/0.5ML solution pen-injector; Inject 4.5 mg under the skin 1 (one) time per week. Urged better weight loss and calorie restriction. Begin Trulicity if covered by insurance Subjective: Patient ID: Han Corbin is a 62 y.o. male. HPI uncontrolled hypertensive diabetic with lipid management presents for checkup. Reports he gained weight. Admits to overeating carbs at times. Has been off Trulicity for a while. Glucose levels anywhere from 125-200. Some polyuria and polydipsia. Past cataracts. Questions the safety of getting them surgerized. Also needs a lipoma on his upper thorax removed. Review of Systems no recent sore throat earache or cough. Non-smoker. No chest pain palpitation PND orthopnea or edema. No heartburn or dysphagia. No melena or blood. Bowels are regular. Recent colonoscopy was normal and not sure of timing of procedure. No recommendations found in the record. Has occasional right-sided sciatica but denies claudication. No unhealing skin lesions of feet or toes. No dysuria hematuria or pyuria. PSA normal last fall. Allergies Allergen Reactions Lipitor [Atorvastatin] Other Body aches Amoxicillin Unknown Ezetimibe Unknown Prednisone Unknown Sulfa Antibiotics Other reaction(s): Unknown Exenatide Other Lumps under skin Current Outpatient Medications on File Prior to Visit Medication Sig Dispense Refill bisacodyl (Dulcolax) 5 MG EC tablet Take 3 tablets at 8:00pm two days before your colonoscopy. Take 3 tablets at 4:00pm the day before your procedure. 6 tablet 0 cholecalciferol (Vitamin D-3) 125 MCG (5000 UT) capsule Take 5,000 Units by mouth daily. glipiZIDE (Glucotrol) 5 MG tablet Take 2 tablets by mouth 2 times daily. metFORMIN (Glucophage) 1000 MG tablet Take 1,000 mg by mouth in the morning and 1,000 mg in the evening. Take with meals. metoprolol tartrate (Lopressor) 25 MG tablet Take 50 mg by mouth in the morning and 50 mg in the evening. Take with meals. ramipril (Altace) 10 MG capsule Take 2 capsules by mouth in the morning and 2 capsules in the evening. One capsule in the am and one capsule in the pm. warfarin (Coumadin) 5 MG tablet take 1 tablet by mouth once daily TAKE ONLY 1/2 TABLET ON SATURDAYS [DISCONTINUED] amLODIPine (Norvasc) 10 MG tablet Take 1 tablet (10 mg) by mouth daily. 90 tablet 0 [DISCONTINUED] pioglitazone (Actos) 15 MG tablet Take 1 tablet (15 mg) by mouth daily. 30 tablet 2 [DISCONTINUED] rosuvastatin (Crestor) 10 MG tablet Take 1 tablet (10 mg) by mouth daily. 30 tablet 5 polyethylene glycol, PEG, 3350 (Glycolax, Miralax) powder Mix 1/2 of bottle with 32 oz of clear liquid. Drink between 9am & 1pm the day before your colonoscopy. Repeat with the remaining 1/2 of bottle and drink between 6pm & 10pm the night before your colonoscopy. 238 g 0 No current facility-administered medications on file prior to visit. Patient Active Problem List Diagnosis History of pulmonary embolism Type 2 diabetes mellitus (HCC) Personal history of DVT (deep vein thrombosis) Essential hypertension Mixed hyperlipidemia Obesity BECK on CPAP History of renal stone Factor V Leiden (HCC) Family history of prostate cancer in father Encounter for colorectal cancer screening Cholelithiases Social History Tobacco Use Smoking status: Never Smokeless tobacco: Never Substance Use Topics Alcohol use: No Alcohol/week: 0.0 standard drinks Past Surgical History: Procedure Laterality Date COLONOSCOPY 2015 COLONOSCOPY W/ BIOPSIES N/A 09/23/2022 Nacho Turner MD HAND SURGERY Left 1989 due to fracture IVC FILTER RETRIEVAL 2016 Removed October 2016; s/p PE resolution UMBILICAL HERNIA REPAIR 2004 UPPER GASTROINTESTINAL ENDOSCOPY 08/2016 UGI bleed, ? etiol --2nd one clear 09/02/16 Family History Problem Relation Name Age of Onset Dementia Mother Breast cancer Mother 82 High Blood Pressure Mother Heart disease Father 70 stents Diabetes Father High Blood Pressure Father Cirrhosis Father non ETOH eiol, age 78 Clotting disorder Father Prostate cancer Father 65 Other (uterine ca) Sister Diabetes Sister diet cont Cancer Son Robe 3 leukemia Diabetes Maternal Grandfather Prostate cancer Paternal Cousin Substance Abuse Neg Hx Stroke Neg Hx Heart attack Neg Hx Depression Neg Hx Learning disabilities Neg Hx Objective: BP 131/75 Pulse 58 Temp 36.3 C (97.3 F) (Temporal) Ht 5' 6 (1.676 m) Wt 240 lb (109 kg) SpO2 96% BMI 38.74 kg/m Physical Exam well-hydrated. Nonicteric. Normal oropharynx. No carotid bruits thyroid masses neck lesions or adenopathy. Reflexes normal. Heart is regular without gallops or murmurs. Lungs are clear. Abdomen obese nontender without pain hepatosplenomegaly masses or bruits. No ascites. Femoral pulses good. Careful foot exam revealed intact pulses and no skin breakdowns. No motor or sensory loss. documented in this encounter [facility] 01-13-2023 Telephone encounter Note Patient scheduled 01/17/23 [facility] 01-13-2023 Miscellaneous Notes Patient scheduled 01/17/23 Message released to patient as written. Patient's further questions if applicable: Placed call to patient to discuss provider wanting him to make appointment to discuss meds. Message left on voicemail to return call. Were all questions from office addressed or relayed to the patient from encounter: No Placed call to patient to discuss provider wanting him to make appointment to discuss meds. Message left on voicemail to return call. Message released to patient as written. Patient's further questions if applicable: Patient called back. Patient states he never was taking Iron. The following is Diabetes Medication: Metformin 1000 mg 1 in the am and 1 in the pm, glipizide 5 mg 2 tablets by mouth 2 times daily, Actos 15 mg daily. Patient states that his pharmacy now has Trulicity in stock he was on the 4.5. Patient would like to go back on that. Patient states he has gain 10 to 12lbs. Please advise Were all questions from office addressed or relayed to the patient from encounter: Yes A letter is being sent to last known address. Placed call to patient to discuss provider direction. Message left on voicemail to return call. Placed call to patient to discuss provider direction. Message left on voicemail to return call. Tried to call patient and mailbox was full Received patient's lab work from [facility]. Patient's hemoglobin back to normal so he may stop iron. LDL cholesterol at goal, only concern is elevated hemoglobin A1c over goal of less than 6.5. It was 7.9. Please get me the exact list of all his diabetic meds as the list in the record seems confusing. Changes for diabetic care will be recommended after reviewing his med list. documented in this encounter [facility] 01-13-2023 Telephone encounter Note Message released to patient as written. Patient's further questions if applicable: Placed call to patient to discuss provider wanting him to make appointment to discuss meds. Message left on voicemail to return call. Were all questions from office addressed or relayed to the patient from encounter: No [facility] 12-13-2022 Telephone encounter Note Placed call to patient to discuss provider wanting him to make appointment to discuss meds. Message left on voicemail to return call. [facility] 12-13-2022 Miscellaneous Notes Placed call to patient to discuss provider wanting him to make appointment to discuss meds. Message left on voicemail to return call. Message released to patient as written. Patient's further questions if applicable: Patient called back. Patient states he never was taking Iron. The following is Diabetes Medication: Metformin 1000 mg 1 in the am and 1 in the pm, glipizide 5 mg 2 tablets by mouth 2 times daily, Actos 15 mg daily. Patient states that his pharmacy now has Trulicity in stock he was on the 4.5. Patient would like to go back on that. Patient states he has gain 10 to 12lbs. Please advise Were all questions from office addressed or relayed to the patient from encounter: Yes A letter is being sent to last known address. Placed call to patient to discuss provider direction. Message left on voicemail to return call. Placed call to patient to discuss provider direction. Message left on voicemail to return call. Tried to call patient and mailbox was full Received patient's lab work from [facility]. Patient's hemoglobin back to normal so he may stop iron. LDL cholesterol at goal, only concern is elevated hemoglobin A1c over goal of less than 6.5. It was 7.9. Please get me the exact list of all his diabetic meds as the list in the record seems confusing. Changes for diabetic care will be recommended after reviewing his med list. documented in this encounter [facility] 12-13-2022 Telephone encounter Note Message released to patient as written. Patient's further questions if applicable: Patient called back. Patient states he never was taking Iron. The following is Diabetes Medication: Metformin 1000 mg 1 in the am and 1 in the pm, glipizide 5 mg 2 tablets by mouth 2 times daily, Actos 15 mg daily. Patient states that his pharmacy now has Trulicity in stock he was on the 4.5. Patient would like to go back on that. Patient states he has gain 10 to 12lbs. Please advise Were all questions from office addressed or relayed to the patient from encounter: Yes [facility] 12-02-2022 Telephone encounter Note A letter is being sent to last known address. [facility] 12-01-2022 Telephone encounter Note Placed call to patient to discuss provider direction. Message left on voicemail to return call. [facility] 11-29-2022 Telephone encounter Note Placed call to patient to discuss provider direction. Message left on voicemail to return call. [facility] 11-26-2022 Telephone encounter Note Tried to call patient and mailbox was full [facility] 11-25-2022 Telephone encounter Note Received patient's lab work from [facility]. Patient's hemoglobin back to normal so he may stop iron. LDL cholesterol at goal, only concern is elevated hemoglobin A1c over goal of less than 6.5. It was 7.9. Please get me the exact list of all his diabetic meds as the list in the record seems confusing. Changes for diabetic care will be recommended after reviewing his med list. [facility] 11-23-2022 Telephone encounter Note Placed call to patient. Unable to reach them by phone to discuss lab results and make sure patient will be having his lab results faxed over from [place] when he gets them completed. Left detailed message to return call to discuss results. [facility] 11-23-2022 Miscellaneous Notes Placed call to patient. Unable to reach them by phone to discuss lab results and make sure patient will be having his lab results faxed over from [place] when he gets them completed. Left detailed message to return call to discuss results. Talked to patient and relayed message and he did have his A1c done and results are scanned into his media. Patient is also going to get his labs done at [place] tomorrow, and patient picked up his Amlodipine yesterday. Name of caller: Han Contact phone number: [phone] Relationship to Patient: patient Provider: Dr. Zavala Practice: [facility] Chief Complaint/Reason for Call: pt called and stated he had INR tested at [facility] as an arm draw and would like the finger stick next time and he asked about the results. Pt would like his A1C checked also due to the medication change being off trulicity. I did see today in his chart that the pharmacy requested a refill for amLODIPine (Norvasc) 10 MG tablet that was sent to Dr. Miller. Pt stated he told the pharmacy he sees dr. Zavala now. Please advise. Thank you. Best time of day caller can be reached: any Patient advised that office/PCP has 24-48 business hours to return their call: Yes documented in this encounter [facility] 11-23-2022 Telephone encounter Note Talked to patient and relayed message and he did have his A1c done and results are scanned into his media. Patient is also going to get his labs done at [place] tomorrow, and patient picked up his Amlodipine yesterday. [facility] 11-19-2022 Telephone encounter Note RX LOADED [facility] 11-19-2022 Miscellaneous Notes RX LOADED documented in this encounter [facility] 11-19-2022 Telephone encounter Note Name of caller: Han Contact phone number: [phone] Relationship to Patient: patient Provider: Dr. Zavala Practice: [facility] Chief Complaint/Reason for Call: pt called and stated he had INR tested at [facility] as an arm draw and would like the finger stick next time and he asked about the results. Pt would like his A1C checked also due to the medication change being off trulicity. I did see today in his chart that the pharmacy requested a refill for amLODIPine (Norvasc) 10 MG tablet that was sent to Dr. Miller. Pt stated he told the pharmacy he sees dr. Zavala now. Please advise. Thank you. Best time of day caller can be reached: any Patient advised that office/PCP has 24-48 business hours to return their call: Yes [facility] 11-11-2022 Telephone encounter Note error [facility] 11-11-2022 Miscellaneous Notes error documented in this encounter [facility] 09-23-2022 Hospital Discharge instructions Mary Prado RN - 09/23/2022 11:12 AM EST Anesthesia and Activity: DO NOT drive, operate machinery, drink any alcohol or take sleeping pills today Avoid making critical decisions, signing legal documents, or performing any activity that requires alertness for the rest of the day. After the test, you may feel a little bloated from air pumped into your colon, and burp or pass gas more often over the day. To help with relief, use a heating pad, walk around, or lie on your left side. You may experience a small amount of rectal bleeding or have streaks of blood in your stool, this can be normal after your colonoscopy. Notify your physician if the bleeding is enough to saturate your clothes. Rest the remainder of the day. You may resume normal activity tomorrow. DIET: You may resume a normal diet unless notified or recommended by your physician. You may be eager to eat a large meal after fasting, but it is a good idea to start with light meals and ease into solid foods the first day. If your stomach is upset, try clear liquids and bland, low fat foods like toast or rice. Drink plenty of fluids for the first 24 hours (unless your physician states otherwise) MEDICATION: Resume your normal home medications unless notified or recommended by your physician. Ask your physician when you can resume any blood thinners, such as Coumadin, Eliquis, Plavix, Aspirin or non-steroidal anti-inflammatory medications, such as Advil/Motrin (ibuprofen), Aleve (naproxen) Follow-up Appointment: If biopsies were taken or polyps were removed the office will call you with pathology reports in 7-10 days. If you do not hear from them during that time frame please call your physician. A repeat colonoscopy/ follow-up appointment has been recommended When to call for help: Call your doctor immediately or seek medical care if you experience: Severe pain or vomiting A large amount (filling the toilet )of maroon, bloody stools or tar like stools Your stomach is swollen and firm with severe pain A fever greater than 101 degrees Redness or swelling of arm from the IV site for more than 48 hours Sudden onset of chest pain or shortness of breath IF YOU ARE UNABLE TO REACH YOUR PHYSICIAN GO TO NEAREST EMERGENCY DEPARTMENT OR CALL 911 documented in this encounter [facility] 09-23-2022 Miscellaneous Notes Images from the original note were not included. . Han Corbin 1960 ENDOSCOPY REPORT COLONOSCOPY Date of Procedure: 09/23/2022 Indication: Screening Referring provider: Sunny Zavala DO Surgeon: Nacho Turner MD, [facility] Procedure Detail: A physical exam was performed. Informed consent was obtained from the patient after explaining all the risks (perforation, bleeding, missed lesions, trauma to adjacent organs, infection and adverse effects to the medicine) , benefits and alternatives to the procedure which the patient appeared to understand and so stated. A timeout procedure was performed. The patient was connected to the monitoring devices and placed in the left lateral position. Continuous oxygen was provided with a nasal cannula and IV medicine administered through a indwelling cannula. After adequate sedation was achieved, the scope was advanced from rectum to the cecum. The bowel prep was adequate. The withdrawal time was > 6 minutes. Retroflexion was performed in the rectum. The patient was subsequently transferred to the recovery area in satisfactory condition. Estimated blood loss was <5cc. Specimens per endoscopic findings below. Endoscopic Findings: There were diverticula in the sigmoid colon. There were no polyps identified. Recommendations: Repeat colonoscopy unless change in bowel habits, onset of new symptoms, or diagnosis of colorectal cancer in immediate family. POC blood glucose 128. 1121 blood glucose [address] turner at bedside, no polyps/biopsies, repeat colonoscopy in 10 years documented in this encounter [facility] 09-23-2022 Note Formatting of this n ote might be different from the original. Images from the original note were not included. . Han Corbin 1960 ENDOSCOPY REPORT COLONOSCOPY Date of Procedure: 09/23/2022 Indication: Screening Referring provider: Sunny Zavala DO Surgeon: Nacho Turner MD, FACS Procedure Detail: A physical exam was performed. Informed consent was obtained from the patient after explaining all the risks (perforation, bleeding, missed lesions, trauma to adjacent organs, infection and adverse effects to the medicine) , benefits and alternatives to the procedure which the patient appeared to understand and so stated. A timeout procedure was performed. The patient was connected to the monitoring devices and placed in the left lateral position. Continuous oxygen was provided with a nasal cannula and IV medicine administered through a indwelling cannula. After adequate sedation was achieved, the scope was advanced from rectum to the cecum. The bowel prep was adequate. The withdrawal time was > 6 minutes. Retroflexion was performed in the rectum. The patient was subsequently transferred to the recovery area in satisfactory condition. Estimated blood loss was <5cc. Specimens per endoscopic findings below. Endoscopic Findings: There were diverticula in the sigmoid colon. There were no polyps identified. Recommendations: Repeat colonoscopy unless change in bowel habits, onset of new symptoms, or diagnosis of colorectal cancer in immediate family. [facility] [employer] Work Phone: 09-23-2022 Note Formatting of this n ote might be different from the original. Images from the original note were not included. . Han Corbin 1960 ENDOSCOPY REPORT COLONOSCOPY Date of Procedure: 09/23/2022 Indication: Screening Referring provider: Sunny Zavala DO Surgeon: Nacho Turner MD, FACS Procedure Detail: A physical exam was performed. Informed consent was obtained from the patient after explaining all the risks (perforation, bleeding, missed lesions, trauma to adjacent organs, infection and adverse effects to the medicine) , benefits and alternatives to the procedure which the patient appeared to understand and so stated. A timeout procedure was performed. The patient was connected to the monitoring devices and placed in the left lateral position. Continuous oxygen was provided with a nasal cannula and IV medicine administered through a indwelling cannula. After adequate sedation was achieved, the scope was advanced from rectum to the cecum. The bowel prep was adequate. The withdrawal time was > 6 minutes. Retroflexion was performed in the rectum. The patient was subsequently transferred to the recovery area in satisfactory condition. Estimated blood loss was <5cc. Specimens per endoscopic findings below. Endoscopic Findings: There were diverticula in the sigmoid colon. There were no polyps identified. Recommendations: Repeat colonoscopy unless change in bowel habits, onset of new symptoms, or diagnosis of colorectal cancer in immediate family. [employer] Phone: 09-23-2022 History and physical note Images from the original note were not included. Advanced Laparoscopic Surgery History and Physical CHIEF COMPLAINT: No chief complaint on file. HPI: Han Corbin is a 62 y.o. male who presents for Screening colonoscopy PMHx: Past Medical History: Diagnosis Date Diabetes mellitus (HCC) 2006 Essential hypertension 05/22/2020 normal EF per ECHO 2018, Factor V Leiden (CMS/HCC) (HCC) 2009 Family history of prostate cancer in father cousin also H/O: GI bleed 2017 ? Small int bleed History of pulmonary embolism 01/2015 History of renal stone 05/22/2020 History of stress test 09/01/2017 Normal/ef 71% Hyperlipidemia Intolerant of Lipitor BECK on CPAP 2015 Dr. Perez Personal history of DVT (deep vein thrombosis) 2010 RLE 2009, LLE 01/2015 Prostate cancer screening 05/2022 PSHx: Past Surgical History: Procedure Laterality Date COLONOSCOPY 2016 HAND SURGERY Left 1989 due to fracture IVC FILTER RETRIEVAL 2017 Removed October 2016; s/p PE resolution UMBILICAL HERNIA REPAIR 2004 UPPER GASTROINTESTINAL ENDOSCOPY 08/2016 bleed noted; 2nd one 09/02/16 PFMHx: Family History Problem Relation Name Age of Onset Dementia Mother Breast cancer Mother 82 High Blood Pressure Mother Heart disease Father 70 stents Diabetes Father High Blood Pressure Father Cirrhosis Father non ETOH eiol, age 78 Clotting disorder Father Prostate cancer Father 65 Other (uterine ca) Sister Diabetes Sister diet cont Cancer Son Robe 3 leukemia Diabetes Maternal Grandfather Prostate cancer Paternal Cousin Substance Abuse Neg Hx Stroke Neg Hx Heart attack Neg Hx Depression Neg Hx Learning disabilities Neg Hx ALL: Allergies Allergen Reactions Lipitor [Atorvastatin] Other Body aches Exenatide Other Lumps under skin MEDS: Current Outpatient Medications on File Prior to Encounter Medication Sig Dispense Refill amLODIPine (Norvasc) 10 MG tablet Take 1 tablet by mouth daily. bisacodyl (Dulcolax) 5 MG EC tablet Take 3 tablets at 8:00pm two days before your colonoscopy. Take 3 tablets at 4:00pm the day before your procedure. 6 tablet 0 glipiZIDE (Glucotrol) 5 MG tablet Take 2 tablets by mouth 2 times daily. metFORMIN (Glucophage) 1000 MG tablet Take 1,000 mg by mouth in the morning and 1,000 mg in the evening. Take with meals. metoprolol tartrate (Lopressor) 25 MG tablet Take 50 mg by mouth in the morning and 50 mg in the evening. Take with meals. polyethylene glycol, PEG, 3350 (Glycolax, Miralax) powder Mix 1/2 of bottle with 32 oz of clear liquid. Drink between 9am & 1pm the day before your colonoscopy. Repeat with the remaining 1/2 of bottle and drink between 6pm & 10pm the night before your colonoscopy. 238 g 0 ramipril (Altace) 10 MG capsule Take 2 capsules by mouth in the morning and 2 capsules in the evening. One capsule in the am and one capsule in the pm. Trulicity 4.5 MG/0.5ML solution pen-injector INJECT 4.5 mg's SUBCUTANEOUSLY EVERY WEEK warfarin (Coumadin) 5 MG tablet take 1 tablet by mouth once daily TAKE ONLY 1/2 TABLET ON SATURDAYS No current facility-administered medications on file prior to encounter. SOCIAL Hx: Social History Socioeconomic History Marital status: Spouse name: Not on file Number of children: Not on file Years of education: Not on file Highest education level: Not on file Occupational History Not on file Tobacco Use Smoking status: Never Smokeless tobacco: Never Substance and Sexual Activity Alcohol use: No Alcohol/week: 0.0 standard drinks Drug use: No Sexual activity: Not on file Comment: live with son; feels safe in home Other Topics Concern Not on file Social History Narrative Single, , has 2 sons, (one survivng leukemia age 2 )and one dtr NS or ETOH use. 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 The ROS is negative except for what is listed in HPI. Physical Examination: BP (!) 146/96 Pulse (!) 112 Temp 36.7 C (98 F) (Temporal) Resp 20 Ht 5' 6 (1.676 m) Wt 225 lb (102 kg) SpO2 98% BMI 36.32 kg/m He stands @FLOWAMB(11)@ tall with a weight of @FLOWAMB(14)@ , resulting in a BMI of Body mass index is 36.32 kg/m .. General: The patient is awake, alert, and oriented, and is in no apparent distress. Normal affect. Head and Neck: Normocephalic and atraumatic. Supple, no thyromegaly. Cardiac: Regular rate and rhythm without evidence of murmur. No obvious carotid bruits. Respiratory: Clear to auscultation bilaterally. Good inspiratory effort. Abdomen: Soft, nt/nd Extremities: Ambulatory without assistance. Neurological: Intact sensation in 4 extremities, no focal deficits notes. Skin: No rashes or lesions noted. Warm and dry. Rectal: Not done. Hernia: no hernias found on exam Assessment and Plan Problem Encounter for Colorectal Cancer Screening Plan: 62 y.o. male who presents for Screening colonoscopy Proceed with Screening colonoscopy [facility] 09-23-2022 History and physical note Images from the original note were not included. Advanced Laparoscopic Surgery History and Physical CHIEF COMPLAINT: No chief complaint on file. HPI: Han Corbin is a 62 y.o. male who presents for Screening colonoscopy PMHx: Past Medical History: Diagnosis Date Diabetes mellitus (HCC) 2007 Essential hypertension 05/22/2020 normal EF per ECHO 2018, Factor V Leiden ([facility]/HCC) (HCC) 2009 Family history of prostate cancer in father cousin also H/O: GI bleed 2018 ? Small int bleed History of pulmonary embolism 01/2015 History of renal stone 05/22/2020 History of stress test 09/01/2017 Normal/ef 71% Hyperlipidemia Intolerant of Lipitor BECK on CPAP 2015 Dr. Perez Personal history of DVT (deep vein thrombosis) 2009 RLE 2009, LLE 01/2015 Prostate cancer screening 05/2022 PSHx: Past Surgical History: Procedure Laterality Date COLONOSCOPY 2016 HAND SURGERY Left 1989 due to fracture IVC FILTER RETRIEVAL 2017 Removed October 2016; s/p PE resolution UMBILICAL HERNIA REPAIR 2004 UPPER GASTROINTESTINAL ENDOSCOPY 08/2016 bleed noted; 2nd one 09/02/16 PFMHx: Family History Problem Relation Name Age of Onset Dementia Mother Breast cancer Mother 82 High Blood Pressure Mother Heart disease Father 70 stents Diabetes Father High Blood Pressure Father Cirrhosis Father non ETOH eiol, age 78 Clotting disorder Father Prostate cancer Father 65 Other (uterine ca) Sister Diabetes Sister diet cont Cancer Son Robe 3 leukemia Diabetes Maternal Grandfather Prostate cancer Paternal Cousin Substance Abuse Neg Hx Stroke Neg Hx Heart attack Neg Hx Depression Neg Hx Learning disabilities Neg Hx ALL: Allergies Allergen Reactions Lipitor [Atorvastatin] Other Body aches Exenatide Other Lumps under skin MEDS: Current Outpatient Medications on File Prior to Encounter Medication Sig Dispense Refill amLODIPine (Norvasc) 10 MG tablet Take 1 tablet by mouth daily. bisacodyl (Dulcolax) 5 MG EC tablet Take 3 tablets at 8:00pm two days before your colonoscopy. Take 3 tablets at 4:00pm the day before your procedure. 6 tablet 0 glipiZIDE (Glucotrol) 5 MG tablet Take 2 tablets by mouth 2 times daily. metFORMIN (Glucophage) 1000 MG tablet Take 1,000 mg by mouth in the morning and 1,000 mg in the evening. Take with meals. metoprolol tartrate (Lopressor) 25 MG tablet Take 50 mg by mouth in the morning and 50 mg in the evening. Take with meals. polyethylene glycol, PEG, 3350 (Glycolax, Miralax) powder Mix 1/2 of bottle with 32 oz of clear liquid. Drink between 9am & 1pm the day before your colonoscopy. Repeat with the remaining 1/2 of bottle and drink between 6pm & 10pm the night before your colonoscopy. 238 g 0 ramipril (Altace) 10 MG capsule Take 2 capsules by mouth in the morning and 2 capsules in the evening. One capsule in the am and one capsule in the pm. Trulicity 4.5 MG/0.5ML solution pen-injector INJECT 4.5 mg's SUBCUTANEOUSLY EVERY WEEK warfarin (Coumadin) 5 MG tablet take 1 tablet by mouth once daily TAKE ONLY 1/2 TABLET ON SATURDAYS No current facility-administered medications on file prior to encounter. SOCIAL Hx: Social History Socioeconomic History Marital status: Spouse name: Not on file Number of children: Not on file Years of education: Not on file Highest education level: Not on file Occupational History Not on file Tobacco Use Smoking status: Never Smokeless tobacco: Never Substance and Sexual Activity Alcohol use: No Alcohol/week: 0.0 standard drinks Drug use: No Sexual activity: Not on file Comment: live with son; feels safe in home Other Topics Concern Not on file Social History Narrative Single, , has 2 sons, (one survivng leukemia age 2 )and one dtr NS or ETOH use. 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 The ROS is negative except for what is listed in HPI. Physical Examination: BP (!) 146/96 Pulse (!) 112 Temp 36.7 C (98 F) (Temporal) Resp 20 Ht 5' 6 (1.676 m) Wt 225 lb (102 kg) SpO2 98% BMI 36.32 kg/m He stands @FLOWAMB(11)@ tall with a weight of @FLOWAMB(14)@ , resulting in a BMI of Body mass index is 36.32 kg/m .. General: The patient is awake, alert, and oriented, and is in no apparent distress. Normal affect. Head and Neck: Normocephalic and atraumatic. Supple, no thyromegaly. Cardiac: Regular rate and rhythm without evidence of murmur. No obvious carotid bruits. Respiratory: Clear to auscultation bilaterally. Good inspiratory effort. Abdomen: Soft, nt/nd Extremities: Ambulatory without assistance. Neurological: Intact sensation in 4 extremities, no focal deficits notes. Skin: No rashes or lesions noted. Warm and dry. Rectal: Not done. Hernia: no hernias found on exam Assessment and Plan Problem Encounter for Colorectal Cancer Screening Plan: 62 y.o. male who presents for Screening colonoscopy Proceed with Screening colonoscopy documented in this encounter [employer] 09-23-2022 Note Formatting of this n ote might be different from the original. POC blood glucose 128. [employer] 09-23-2022 Note Formatting of this n ote might be different from the original. 1121 blood glucose [address] procedure [address] turner at bedside, no polyps/biopsies, repeat colonoscopy in 10 years [facility] [employer] 09-23-2022 Note Formatting of this n ote might be different from the original. POC blood glucose 128. [employer] 09-23-2022 Note Formatting of this n ote might be different from the original. 1121 blood glucose [address] turner at bedside, no polyps/biopsies, repeat colonoscopy in 10 years [employer] 09-20-2022 Telephone encounter Note Placed call to patient. Was able to speak to patient. All concerns in message have been addressed. [employer] 09-20-2022 Miscellaneous Notes Placed call to patient. Was able to speak to patient. All concerns in message have been addressed. Name of caller: Han Contact phone number: [phone] Relationship to Patient: patient Provider: Practice: [facility] Chief Complaint/Reason for Call: Patient calling to clarify the he is to stop atorvastatin (Lipitor) 40 MG tablet and replace it with rosuvastatin (Crestor) 10 MG tablet or should he be taking both. Please call to clarify with patient. Best time of day caller can be reached: any Patient advised that office/PCP has 24-48 business hours to return their call: no documented in this encounter [facility] 09-17-2022 Telephone encounter Note Name of caller: Han Contact phone number: [phone] Relationship to Patient: patient Provider: Practice: [facility] Chief Complaint/Reason for Call: Patient calling to clarify the he is to stop atorvastatin (Lipitor) 40 MG tablet and replace it with rosuvastatin (Crestor) 10 MG tablet or should he be taking both. Please call to clarify with patient. Best time of day caller can be reached: any Patient advised that office/PCP has 24-48 business hours to return their call: no [facility] [employer] 09-14-2022 Telephone encounter Note Name of caller: Han Contact phone number: [phone] Relationship to Patient: patient Provider: Dr Sunny Zavala Practice: [facility] Chief Complaint/Reason for Call: Pt returned call to office. Please advise. Best time of day caller can be reached: any Patient advised that office/PCP has 24-48 business hours to return their call: No [facility] 09-14-2022 Miscellaneous Notes Name of caller: Han Contact phone number: [phone] Relationship to Patient: patient Provider: Dr Sunny Zavala Practice: [facility] Chief Complaint/Reason for Call: Pt returned call to office. Please advise. Best time of day caller can be reached: any Patient advised that office/PCP has 24-48 business hours to return their call: No documented in this encounter [facility] 09-08-2022 History of Present illness Narrative Images from the original note were not included. [facility] [address] [facility] [id number] Visit type: Established Patient Reason for Visit: New Patient Subjective: Patient ID: Han Corbin is a 62 y.o. male. HPI non-smoker with history of hypertension and diabetes and sleep apnea with hyperlipidemia presents to me for the first time to assume Apparently he got disenchanted with his prior PCP due to communication issues. Since June with the change in epic he was not contacted on how to hold his Coumadin prior to his upcoming colonoscopy. Apparently had to be canceled twice due to him being on Coumadin. Nonetheless it is rescheduled in a few weeks and he needs direction on holding his Coumadin. Study being done for screening purposes. Bowels are regular. No melena or blood. Some loose stools with metformin otherwise feels well. No history of colorectal cancer in his family. Review of Systems past medical, past surgical, family and social history reviewed and chart updated appropriately. Glucose levels are in the 1150-200 range. Last A1c above 7. No change in vision. Rarely ill. No recent earache sore throat or cough. No unhealing skin lesions of his feet or toes. Does have some numbness of his extremities. Was on Lipitor but got body aches and stopped that med a while back. Last LDL in the fall was elevated above normal. Long-term anticoagulation apparently due to factor V. History of DVT in his legs and pulmonary embolism noted. Denies exertional chest pain shortness of breath cough wheezing PND orthopnea claudication or edema. No heartburn or dysphagia. No melena or blood. Bowels are predictable. PSA was normal back in the fall. He deferred ИВАН. Rare nocturia. No postvoid dribbling or dysuria hematuria. Some right-sided low hip pain but not debilitating. Developed a lipoma of the left upper shoulder over the past year. Would like my opinion on that lesion. No change in size. Allergies Allergen Reactions Exenatide Other Lumps under skin Current Outpatient Medications on File Prior to Visit Medication Sig Dispense Refill amLODIPine (Norvasc) 10 MG tablet Take 1 tablet by mouth daily. atorvastatin (Lipitor) 40 MG tablet bisacodyl (Dulcolax) 5 MG EC tablet Take 3 tablets at 8:00pm two days before your colonoscopy. Take 3 tablets at 4:00pm the day before your procedure. 6 tablet 0 glipiZIDE (Glucotrol) 5 MG tablet Take 2 tablets by mouth 2 times daily. metFORMIN (Glucophage) 1000 MG tablet Take 1,000 mg by mouth in the morning and 1,000 mg in the evening. Take with meals. metoprolol tartrate (Lopressor) 25 MG tablet Take 50 mg by mouth in the morning and 50 mg in the evening. Take with meals. polyethylene glycol, PEG, 3350 (Glycolax, Miralax) powder Mix 1/2 of bottle with 32 oz of clear liquid. Drink between 9am & 1pm the day before your colonoscopy. Repeat with the remaining 1/2 of bottle and drink between 6pm & 10pm the night before your colonoscopy. 238 g 0 ramipril (Altace) 10 MG capsule Take 2 capsules by mouth in the morning and 2 capsules in the evening. One capsule in the am and one capsule in the pm. Trulicity 4.5 MG/0.5ML solution pen-injector INJECT 4.5 mg's SUBCUTANEOUSLY EVERY WEEK warfarin (Coumadin) 5 MG tablet take 1 tablet by mouth once daily TAKE ONLY 1/2 TABLET ON SATURDAYS cholecalciferol (Vitamin D-3) 125 MCG (5000 UT) capsule Take 5,000 Units by mouth daily. [DISCONTINUED] semaglutide (Ozempic, 0.25 or 0.5 MG/DOSE,) 2 MG/1.5ML solution pen-injector Inject 0.5 mg under the skin 1 (one) time per week. 1.5 mL 0 [DISCONTINUED] semaglutide (Ozempic, 1 MG/DOSE,) 4 MG/3ML solution pen-injector Inject 1 mg under the skin 1 (one) time per week. Do not start before July 21, 2022. (Patient not taking: Reported on 09/08/2022) 1 each 11 No current facility-administered medications on file prior to visit. Patient Active Problem List Diagnosis History of pulmonary embolism Type 2 diabetes mellitus (HCC) Personal history of DVT (deep vein thrombosis) Essential hypertension Mixed hyperlipidemia Obesity BECK on CPAP History of renal stone Factor V Leiden (CMS/HCC) (HCC) Social History Tobacco Use Smoking status: Never Smokeless tobacco: Never Substance Use Topics Alcohol use: No Alcohol/week: 0.0 standard drinks Past Surgical History: Procedure Laterality Date COLONOSCOPY 06/2016 HAND SURGERY Left 1989 due to fracture IVC FILTER RETRIEVAL 2016 Removed October 2016; s/p PE resolution UMBILICAL HERNIA REPAIR 2004 UPPER GASTROINTESTINAL ENDOSCOPY 08/2016 bleed noted; 2nd one 09/02/16 Family History Problem Relation Name Age of Onset Dementia Mother Breast cancer Mother 82 High Blood Pressure Mother Heart disease Father 70 stents Diabetes Father High Blood Pressure Father Cirrhosis Father non ETOH eiol, age 78 Clotting disorder Father Prostate cancer Father 65 Other (uterine ca) Sister Diabetes Sister diet cont Cancer Son Robe 3 leukemia Diabetes Maternal Grandfather Prostate cancer Paternal Cousin Substance Abuse Neg Hx Stroke Neg Hx Heart attack Neg Hx Depression Neg Hx Learning disabilities Neg Hx Objective: BP 128/78 Pulse 83 Temp 36.5 C (97.7 F) (Temporal) Ht 5' 6 (1.676 m) Wt 235 lb (107 kg) SpO2 96% BMI 37.93 kg/m Physical Exam alert and cooperative. Well-hydrated. Normal oropharynx and eardrums. No neck masses JVD adenopathy or carotid bruits. Heart is regular without gallops murmurs or ectopy. Lungs are diminished but clear of rales wheezes or egophony. Abdomen hugely obese without pain hepatosplenomegaly masses or bruits. Femoral pulses are fair. No adenopathy. Extremities are pink without edema. Slightly diminished pulses but no motor or sensory loss. No skin breakdowns. Toes downgoing. 1 cm probable basal cell carcinoma the posterior aspect of the right shoulder. He has a tennis ball sized subcutaneous easily movable soft mass on the upper aspect of his left shoulder. Not connected to muscle and has painless range of motion of the shoulder. Assessment / Plan: Han was seen today for new patient. Diagnoses and all orders for this visit: Type 2 diabetes mellitus without complication, without long-term current use of insulin ([facility]) ([facility]) (Primary) Comments: Stable, continue metformin and Trulicity. Encourage better weight loss and exercise Orders: - CBC auto differential; Future - Comprehensive metabolic panel; Future - Hemoglobin A1c; Future - CBC auto differential - Comprehensive metabolic panel - Hemoglobin A1c History of pulmonary embolism Mixed hyperlipidemia Comments: Stable, history of myalgias with Lipitor. change to Crestor Personal history of DVT (deep vein thrombosis) - Protime-INR; Standing Factor V Leiden ([facility]) ([facility]) Comments: Stable, lifelong Coumadin Essential hypertension Comments: Stable, continue Norvasc, metoprolol, and ramipril Anticoagulant long-term use - Protime-INR; Standing Lipoma of left shoulder Comments: Noted, discussed probable general surgical consultation if lesion becomes painful Skin lesion of back Comments: Probable basal cell carcinoma, schedule excision in the future Other orders - rosuvastatin (Crestor) 10 MG tablet; Take 1 tablet (10 mg) by mouth daily. - Diabetes Foot Exam Length of stay 50 minutes reviewing chart, patient interview, exam discussion of diagnosis and prescription options. documented in this encounter [facility] 09-08-2022 Instructions Sunny Zavala DO - 09/08/2022 1:00 PM EST Hold Coumadin for 5 days prior to colonoscopy. If colonoscopy goes uneventfully restart Coumadin the next day. Then recheck pro time/INR in 10 to 12 days after starting the Coumadin. Continue low-carb and low-fat meals. Try to do cardio workout 150 minutes/week. Should consider getting pneumococcal vaccination at next visit. Should obtain annual flu vaccine if not received this year If you do wish for me to remove the right shoulder lesion hold your Coumadin for 5 days prior to the future appointment. Stop Lipitor and begin Crestor for lipid management. documented in this encounter [facility] 09-02-2022 History of Present illness Narrative Pt is no longer following our physician documented in this encounter [facility] 09-02-2022 Telephone encounter Note Pt will be establishing care with Dr Zavala 09/08/2022 [facility] 09-02-2022 Miscellaneous Notes Pt will be establishing care with Dr Zavala 09/08/2022 Images from the original note were not included. Message released to patient as written. INR is too high. Repeat INR next week. Would recommend taking 2.5 mg of Coumadin today or half tablet today. All other days are 5 mg. We will adjust if needed next week. MD GAVIN Parham 12:49 PM Unsigned Note As for the blood pressure he remains too high. I also want to increase his metoprolol to 50 in the morning and 50 at night. This hopefully will get him in range. Patient's further questions if applicable: no Were all questions from office addressed or relayed to the patient from encounter: Yes Pt verbalized understanding and scheduled INR and BP check for 08/10/22. documented in this encounter [facility] 08-30-2022 Telephone encounter Note Name of caller: Han Relation to patient: patient Contact phone number: [phone] Appointment scheduled with: Appointment date & time: 09.08.22 1pm Reason for visit (are you having any symptoms) : establish care Transportation issues/ concerns: no Special accommodations? ( wheel chair, etc) : no Current medications: will bring Any refills need: not yet Any chronic conditions the provider should be aware of: diabetic, factor 5, blood clots , [facility] 08-30-2022 Miscellaneous Notes Name of caller: Han Relation to patient: patient Contact phone number: [phone] Appointment scheduled with: Appointment date & time: 09.08.22 1pm Reason for visit (are you having any symptoms) : establish care Transportation issues/ concerns: no Special accommodations? ( wheel chair, etc) : no Current medications: will bring Any refills need: not yet Any chronic conditions the provider should be aware of: diabetic, factor 5, blood clots , documented in this encounter [facility] 08-24-2022 Telephone encounter Note Reached out through teams and unable to get response from the office. Pt rescheduled to 09/23/22 to allow more clarification with his ordering physician. Pt expressed understanding and states he had an appt next week with the office and will clarify then. [facility] 08-24-2022 Miscellaneous Notes Reached out through teams and unable to get response from the office. Pt rescheduled to 09/23/22 to allow more clarification with his ordering physician. Pt expressed understanding and states he had an appt next week with the office and will clarify then. Pt called back to say he has not got a hold of his Doctor regarding his blood thinner he is suppose to start the prep at 3 and he is not sure what he is suppose to do? Previous message states [facility] it should be [facility] Lisha from [facility] called and stated that she spoke with doctor there and not comfortable with patient being on coumadin. Nohemy talked with patient regarding this and he will contact doctor office. I also faxed request to stop bllod thinner for colonoscopy. documented in this encounter [facility] 08-24-2022 Telephone encounter Note Pt called back to say he has not got a hold of his Doctor regarding his blood thinner he is suppose to start the prep at 3 and he is not sure what he is suppose to do? [facility] 08-23-2022 Telephone encounter Note Previous message states [facility] it should be [facility] 08-23-2022 Miscellaneous Notes Previous message states [facility] it should be [facility] Lisha from [facility] called and stated that she spoke with doctor there and not comfortable with patient being on coumadin. Nohemy talked with patient regarding this and he will contact doctor office. I also faxed request to stop bllod thinner for colonoscopy. documented in this encounter [facility] 08-23-2022 Telephone encounter Note Lisha from [facility] called and stated that she spoke with doctor there and not comfortable with patient being on coumadin. Nohemy talked with patient regarding this and he will contact doctor office. I also faxed request to stop bllod thinner for colonoscopy. [facility] 08-18-2022 Telephone encounter Note LM to return call [facility] 08-18-2022 Miscellaneous Notes LM to return call LM on name identified VM to return call. Pt has an appt with Dr Miller 09/01/22. Please give pt message regarding INR and BP dosage change Note by Dr. Miller INR is good. Repeat in 1 week to ensure stability. No change to coumadin dosing. Continue with Metoprolol 50 mg twice a day Lmom with results if pt calls back release message and schedule for INR next week for nurse visit. Name of caller: Han Contact phone number: [phone] Relationship to Patient: Pt Provider: Practice: [facility] Chief Complaint/Reason for Call: Pt called stating he received a call from the office around 11:40 this afternoon. I didn't see any documentation so was unable to relay any messages. Please advise. Best time of day caller can be reached: Any Patient advised that office/PCP has 24-48 business hours to return their call: No documented in this encounter [facility] 08-17-2022 Telephone encounter Note LM on name identified VM to return call. Pt has an appt with Dr Miller 09/01/22. Please give pt message regarding INR and BP dosage change [facility] 08-13-2022 Telephone encounter Note Note by Dr. Miller INR is good. Repeat in 1 week to ensure stability. No change to coumadin dosing. Continue with Metoprolol 50 mg twice a day Lmom with results if pt calls back release message and schedule for INR next week for nurse visit. [facility] 08-13-2022 Telephone encounter Note Name of caller: Han Contact phone number: [phone] Relationship to Patient: Pt Provider: Practice: [facility] Chief Complaint/Reason for Call: Pt called stating he received a call from the office around 11:40 this afternoon. I didn't see any documentation so was unable to relay any messages. Please advise. Best time of day caller can be reached: Any Patient advised that office/PCP has 24-48 business hours to return their call: No [facility] 08-02-2022 Telephone encounter Note Images from the original note were not included. Message released to patient as written. INR is too high. Repeat INR next week. Would recommend taking 2.5 mg of Coumadin today or half tablet today. All other days are 5 mg. We will adjust if needed next week. Damien Miller MD KB 12:49 PM Unsigned Note As for the blood pressure he remains too high. I also want to increase his metoprolol to 50 in the morning and 50 at night. This hopefully will get him in range. Patient's further questions if applicable: no Were all questions from office addressed or relayed to the patient from encounter: Yes Pt verbalized understanding and scheduled INR and BP check for 08/10/22. [facility] 08-02-2022 History of Present illness Narrative Patient's Name: Han Corbin : 1960 Two identifiers were used prior to the visit. Date of INR: 08/02/2022 Result: 3.4 Current dose of Coumadin is 5 mg every day Tablet strengths: 5 mg Any skipped doses of coumadin? No Any dose change to medications that are NOT Coumadin? No Any new medications, foods, supplements, OTC? No Any abnormal bleeding or bruising? (Melena, epistaxis, hematuria)? No Any chest pain, shortnessof breath, extremity swelling, redness, warmth to touch? No Pt is asking if he can have a standing INR order for [facility]/lab. Takes his sister there for her INR. Please advise Pt was here for BP check along with INR BP was high at last OV 05/26/2022 No chest pain or SOB. Read #1 146/90 right upper arm, large cuff. Pt rested 10 minutes, Read #2 136/90 right upper arm, large cuff. Read #3 142/87 left upper arm, large cuff. Pt released. INR is too high. Repeat INR next week. Would recommend taking 2.5 mg of Coumadin today or half tablet today. All other days are 5 mg. We will adjust if needed next week. As for the blood pressure he remains too high. I also want to increase his metoprolol to 50 in the morning and 50 at night. This hopefully will get him in range. LM on name identified VM to return call for messages. Left very detailed message on pt's name identified VM of INR dosing and BP medication change. Asked pt to return my call. Please give pt full message. Pt is scheduled 09/01/22. Closing previous note Pt is no longer following our physician documented in this encounter [facility] Evaluation note No assessment inform ation available [facility] Work Phone: Evaluation note Diagnosis Type 2 diabetes mellitus without complication, without long-term current use of insulin (CMS/HCC) (HCC)- Primary Mixed hyperlipidemia Essential hypertension Unspecified essential hypertension Anticoagulant long-term use Encounter for long-term (current) use of anticoagulants Lipoma of left shoulder [facility] Diagnosis Type 2 diabetes mellitus without complication, without long-term current use of insulin (CMS/HCC) (HCC)- Primary Essential hypertension Unspecified essential hypertension Mixed hyperlipidemia [facility] Diagnosis Type 2 diabetes mellitus without complication, without long-term current use of insulin (CMS/HCC) (HCC) [facility] Diagnosis Type 2 diabetes mellitus without complication, without long-term current use of insulin (CMS/HCC) (HCC) [facility] Diagnosis Type 2 diabetes mellitus without complication, without long-term current use of insulin (CMS/HCC) (HCC)- Primary Essential hypertension Unspecified essential hypertension Mixed hyperlipidemia On continuous oral anticoagulation [facility] Diagnosis Annual physical exam- Primary Routine general medical examination at a health care facility Type 2 diabetes mellitus with diabetic polyneuropathy, without long-term current use of insulin (CMS/HCC) (HCC) Essential hypertension Unspecified essential hypertension On continuous oral anticoagulation Personal history of DVT (deep vein thrombosis) Personal history of venous thrombosis and embolism Mixed hyperlipidemia Prostate cancer screening Special screening for malignant neoplasm of prostate [facility] Diagnosis Personal history of DVT (deep vein thrombosis)- Primary Personal history of venous thrombosis and embolism [facility] Diagnosis Type 2 diabetes mellitus without complication, without long-term current use of insulin (CMS/HCC) (HCC)- Primary Essential hypertension Unspecified essential hypertension On continuous oral anticoagulation Mixed hyperlipidemia Factor V Leiden (HCC) Primary hypercoagulable state Type 2 diabetes mellitus with diabetic polyneuropathy, without long-term current use of insulin (CMS/HCC) (HCC) [facility] Diagnosis Type 2 diabetes mellitus with diabetic polyneuropathy, without long-term current use of insulin (CMS/HCC) (HCC)- Primary Mixed hyperlipidemia On continuous oral anticoagulation Essential hypertension Unspecified essential hypertension Factor V Leiden (HCC) Primary hypercoagulable state Anticoagulant long-term use Encounter for long-term (current) use of anticoagulants [facility]* Diagnosis Type 2 diabetes mellitus with diabetic polyneuropathy, without long-term current use of insulin (HCC)- Primary Essential hypertension Unspecified essential hypertension Mixed hyperlipidemia Anticoagulant long-term use Encounter for long-term (current) use of anticoagulants Personal history of DVT (deep vein thrombosis) Personal history of venous thrombosis and embolism Lipoma of left shoulder Prostate cancer screening Special screening for malignant neoplasm of prostate [facility]* Diagnosis Type 2 diabetes mellitus with diabetic polyneuropathy, without long-term current use of insulin (HCC)- Primary documented in this encounter [facility]* Diagnosis Type 2 diabetes mellitus without complication, without long-term current use of insulin (CMS/HCC) (HCC)- Primary History of pulmonary embolism Personal history of venous thrombosis and embolism Mixed hyperlipidemia Personal history of DVT (deep vein thrombosis) Personal history of venous thrombosis and embolism Factor V Leiden (CMS/HCC) (HCC) Primary hypercoagulable state Essential hypertension Unspecified essential hypertension Anticoagulant long-term use Encounter for long-term (current) use of anticoagulants Lipoma of left shoulder Skin lesion of back Unspecified disorder of skin and subcutaneous tissue Encounter for screening for malignant neoplasm of colon [facility]* Diagnosis assisted (current) use of anticoagulants Long-term (current) use of anticoagulants Personal history of DVT (deep vein thrombosis) Personal history of venous thrombosis and embolism History of pulmonary embolism Personal history of venous thrombosis and embolism Hypercoagulable state (CMS/HCC) (HCC) Primary hypercoagulable state Encounter for screening for malignant neoplasm of colon [facility] Diagnosis Encounter for colorectal cancer screening- Primary documented in this encounter [facility] note* Diagnosis Type 2 diabetes mellitus with hyperglycemia, without long-term current use of insulin (HCC)- Primary Class 2 severe obesity with serious comorbidity and body mass index (BMI) of 36.0 to 36.9 in adult, unspecified obesity type (HCC) Type 2 diabetes mellitus with hyperlipidemia (HCC) (HCC) Hypertension associated with type 2 diabetes mellitus (HCC) (HCC) Type 2 diabetes mellitus with diabetic polyneuropathy, without long-term current use of insulin (HCC) Both eyes affected by mild nonproliferative diabetic retinopathy with macular edema, associated with type 2 diabetes mellitus (HCC) [facility]* Diagnosis Personal history of DVT (deep vein thrombosis)- Primary Personal history of venous thrombosis and embolism On continuous oral anticoagulation [facility]* Diagnosis Class 2 severe obesity with serious comorbidity and body mass index (BMI) of 36.0 to 36.9 in adult, unspecified obesity type (HCC)- Primary Hypertension associated with type 2 diabetes mellitus (HCC) (HCC) Type 2 diabetes mellitus with hyperlipidemia (HCC) (HCC) [facility]* Diagnosis Annual physical exam- Primary Routine general medical examination at a health care facility Type 2 diabetes mellitus with diabetic polyneuropathy, without long-term current use of insulin (HCC) Essential hypertension Unspecified essential hypertension Mixed hyperlipidemia Factor V Leiden (HCC) Primary hypercoagulable state BECK on CPAP Prostate cancer screening Special screening for malignant neoplasm of prostate On continuous oral anticoagulation [facility]* Diagnosis Hypertension associated with type 2 diabetes mellitus (HCC)- Primary Type 2 diabetes mellitus with hyperlipidemia (HCC) (HCC) Type 2 diabetes mellitus with hyperglycemia, without long-term current use of insulin (HCC) [facility] Diagnosis Type 2 diabetes mellitus with hyperglycemia, without long-term current use of insulin (HCC)- Primary Type 2 diabetes mellitus with diabetic polyneuropathy, without long-term current use of insulin (HCC) Moderate nonproliferative diabetic retinopathy of both eyes without macular edema associated with type 2 diabetes mellitus (HCC) Class 2 severe obesity with serious comorbidity and body mass index (BMI) of 35.0 to 35.9 in adult, unspecified obesity type (HCC) Hypertension associated with type 2 diabetes mellitus (HCC) Type 2 diabetes mellitus with hyperlipidemia (HCC) (HCC) [facility] Diagnosis Essential hypertension- Primary Unspecified essential hypertension Type 2 diabetes mellitus with diabetic polyneuropathy, without long-term current use of insulin (HCC) Mixed hyperlipidemia On continuous oral anticoagulation History of pulmonary embolism Personal history of venous thrombosis and embolism [facility] Consultation (Routine) - Pending Review Specialty Diagnoses / Procedures Referred By Contac t Referred To Contact Bariatrics Diagnoses Type 2 diabetes mellitus without complication, without long-term current use of insulin (CMS/HCC) (HCC) Procedures AR OFFICE/OUTPATIENT NEW HIGH MDM 60-74 MINUTES Sunny Zavala DO [address] [place] [address] [facility] [address] [place] [address] Referral ID Status Reason Start Date Expiration Date Visits Requested Visits Authorized [id number] Pending Review Specialty Services Required 04/11/2023 04/10/2024 1 1 [facility] Medications - Pending Review Specialty Diagnoses / Procedures Referred By [place] sharif Referred To Contact Sunny Zavala DO [address] [facility] [address] [place] [address] Phone: tel: fax: Referral ID Status Reason Start Date Expiration Date V isits Requested Visits Authorized [id number] Pending Review 07/05/2024 01/01/2025 1 1 [facility]No reason for referral information [facility] Work Phone: Summary Purpose Family History No Family History Records FoundNo Family History Records FoundNo Family History Records FoundNo Family History Records FoundNo Family History Records FoundNo Family History Records Found Advance Directives No Advanced Directives Records FoundDocuments on File Type Date 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 Advance Directives and Living Will Power of Gin Clerk Documents on File Type Date 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 ACP-Advance Directive ACP-Power of Gin Clerk Reason for Referral Status Reason Specialty Diagnoses / Procedures Referre d By Contact Referred To Contact Open Radiology Diagnoses Elevated liver enzymes Procedures US Abdomen Complete Lluvia Rueda MD [address] [facility] [place] [address] Specialty Diagnoses / Procedures Referred By Contac t Referred To Contact Sunny Zavala, [address] [place] [address] Referral ID Status Reason Start Date Expiration Date V isits Requested Visits Authorized [id number] Pending Review 1 1 Referral ID Status Reason Start Date Expiration Date V isits Requested Visits Authorized [id number] Pending Review 1 1 Specialty Diagnoses / Procedures Referred By Contac t Referred To Contact Sunny Zavala DO [address] [place] [address] Referral ID Status Reason Start Date Expiration Date V isits Requested Visits Authorized [id number] Pending Review 1 1 Assessments Diagnosis Elevated liver enzymes Nonspecific elevation of levels of transaminase or lactic acid dehydrogenase (LDH) Diagnosis Acute low back pain with bilateral sciatica, unspecified back pain laterality Chief Complaint and Reason for Visit Chief Complaint Admit Date INR October 01, 2024 1:37pm INR November 05, 2024 11: 37am Chief Complaint Admit Date INR October 01, 2024 1:37pm INR November 05, 2024 11: 37am INR December 06, 2024 10: 49am INR January 10, 2025 12:09 pm Chief Complaint Admit Date INR November 05, 2024 11: 37am INR December 06, 2024 10: 49am INR January 10, 2025 12:09 pm INR January 29, 2025 3:30 pm Additional Source Comments (unrecognized sect ion and content) No Status Records FoundNo Status Records FoundNo Status Records FoundNo Status Records FoundNo Status Records FoundNo Status Records Found INFORMATION SOURCE (unrecogn ized section and content) DATE CREATED AUTHOR [facility] DATE CREATED AUTHOR AUTHOR'S ORGANIZ ATION 03/10/2018 [facility] DATE CREATED AUTHOR AUTHOR'S ORGANIZ ATION 05/08/2020 [facility] DATE CREATED AUTHOR AUTHOR'S ORGANIZ ATION 06/16/2020 [facility] DATE CREATED AUTHOR AUTHOR'S ORGANIZ ATION 02/13/2025 [facility] DATE CREATED AUTHOR AUTHOR'S ORGANIZ ATION 02/24/2025 [facility] Care Teams (unrecognized sec tion and content) Team Status: Active Member Role Status Dates Dr. Sunny Zavala DO Primary Care Provider Active Team Status: Inactive Member Role Status Dates Dr. Sunny Zavala DO Primary Care Provider, Attend ing Provider Active Psychological Assistant Relationship Specialty Start Date End Date Damien Miller MD [address] [facility] [address] [place], [place] [id number] PCP - General 05/22/20 08/29/22 Sunny Zavala DO [address] [place] [address] PCP - General Family Medicine 08/30/22 Psychological Assistant Relationship Specialty Start Date End Date Sunny Zavala DO [address] [place] [address] PCP - General Family Medicine 08/30/22 Psychological Assistant Relationship Specialty Start Date End Date Sunny Zavala DO [address] [place] [address] PCP - General Family Medicine 08/30/22 Team Status: Inactive Member Role Status Dates Dr. Sunny Zavala DO Primary Care Pr ovider, Attending Provider, Referring Provider Active Psychological Assistant Relationship Specialty Start Date End Date Sunny Zavala DO [address] [place], [place] [id number] PCP - General Family Medicine 08/30/22 Psychological Assistant Relationship Specialty Start Date End Date Sunny Zavala DO [address], [place] [id number] PCP - General Family Medicine 08/30/22 Psychological Assistant Relationship Specialty Start Date End Date Sunny Zavala DO [address] [place] [address] PCP - General Family Medicine 08/30/22 Psychological Assistant Relationship Specialty Start Date End Date LindaSunny, DO [address] [place] [address] PCP - General Family Medicine 08/30/22 Psychological Assistant Relationship Specialty Start Date End Date RafaSunny elizalde, DO [address] [place] [address] PCP - General Family Medicine 08/30/22 Psychological Assistant Relationship Specialty Start Date End Date LindaSunny, DO [address] [place] [address] PCP - General Family Medicine 08/30/22 Psychological Assistant Relationship Specialty Start Date End Date KoSunny tavarez, DO [address] [place] [address] PCP - General Family Medicine 08/30/22 Psychological Assistant Relationship Specialty Start Date End Date KoSunny tavarez, DO [address] [place] [address] PCP - General Family Medicine 08/30/22 Psychological Assistant Relationship Specialty Start Date End Date KoSunny tavarez, DO [address] [place] [address] PCP - General Family Medicine 08/30/22 Psychological Assistant Relationship Specialty Start Date End Date KoSunny tavarez, DO [address] [facility] [address] [place] [id number] PCP - General Family Medicine 08/30/22 Psychological Assistant Relationship Specialty Start Date End Date LindaSunny, DO [address] [place] [address] PCP - General Family Medicine 08/30/22 Psychological Assistant Relationship Specialty Start Date End Date LindaSunny, [address] [place] [address] PCP - General Family Medicine 08/30/22 Psychological Assistant Relationship Specialty Start Date End Date Linda Sunny Damian [address] [place] [address] PCP - General Family Medicine 08/30/22 Psychological Assistant Relationship Specialty Start Date End Date Linda Sunny Damian [address] [place] [address] PCP - General Family Medicine 08/30/22 Psychological Assistant Relationship Specialty Start Date End Date Linda Sunny DamianDO [address] [place] [address] PCP - General Family Medicine 08/30/22 Psychological Assistant Relationship Specialty Start Date End Date Linda Sunny Damian, [address] [place] [address] PCP - General Family Medicine 08/30/22 Psychological Assistant Relationship Specialty Start Date End Date Linda Sunny Damian, [address] [place] [address] PCP - General Family Medicine 08/30/22 Psychological Assistant Relationship Specialty Start Date End Date PetrillSunny elizalde, DO [address] [place] [phone] PCP - General Family Medicine 08/30/22 Psychological Assistant Relationship Specialty Start Date End Date LindaSunny, DO [address] [place] [phone] PCP - General Family Medicine 08/30/22 Psychological Assistant Relationship Specialty Start Date End Date LindaSunny, DO [address] [place] [phone] PCP - General Family Medicine 08/30/22 Psychological Assistant Relationship Specialty Start Date End Date Linda Sunny Damian, DO [address] [place] [phone] PCP - General Family Medicine 08/30/22 Psychological Assistant Relationship Specialty Start Date End Date Linda Sunny Damian, DO [address] [place] [phone] PCP - General Family Medicine 08/30/22 Psychological Assistant Relationship Specialty Start Date End Date Linda Sunny Damian, DO [address] [place] [phone] PCP - General Family Medicine 08/30/22 Psychological Assistant Relationship Specialty Start Date End Date Linda Sunny Damian, DO [address] [place] [address] PCP - General Family Medicine 08/30/22 Psychological Assistant Relationship Specialty Start Date End Date Linda Sunny Damian, DO [address] [place] [phone] PCP - General Family Medicine 08/30/22 Psychological Assistant Relationship Specialty Start Date End Date LindaSunny DO [address] [place] [address] PCP - General Family Medicine 08/30/22 Psychological Assistant Relationship Specialty Start Date End Date LindaSunny DO [address] [place] [address] PCP - General Family Medicine 08/30/22 Psychological Assistant Relationship Specialty Start Date End Date Lidna Sunny Damian DO [address] [place] [address] PCP - General Family Medicine 08/30/22 Psychological Assistant Relationship Specialty Start Date End Date Damien Miller MD [address] [place], [place] [phone] PCP - General 05/22/20 Psychological Assistant Relationship Specialty Start Date End Date Damien Miller MD [address] [place] [address] PCP - General 05/22/20 Psychological Assistant Relationship Specialty Start Date End Date Linda Sunny Damian [address], [place] [phone] PCP - General Family Medicine 08/30/22 Psychological Assistant Relationship Specialty Start Date End Date Damien Miller MD [address] [place] [address] PCP - General 05/22/20 08/29/22 Sunny Zavala, DO [address] [place] [address] PCP - General Family Medicine 08/30/22 Psychological Assistant Relationship Specialty Start Date End Date Sunny Zavala, DO [address] [place] [address] PCP - General Family Medicine 08/30/22 Psychological Assistant Relationship Specialty Start Date End Date Damien Miller MD [address] [facility] [address] [place] [address] PCP - General 05/22/20 08/29/22 Sunny Zavala, DO [address] [place] [address] PCP - General Family Medicine 08/30/22 Psychological Assistant Relationship Specialty Start Date End Date Sunny Zavala, DO [address] [place] [address] PCP - General Family Medicine 08/30/22 Psychological Assistant Relationship Specialty Start Date End Date Sunny Zavala, DO [address] [place] [address] PCP - General Family Medicine 08/30/22 Psychological Assistant Relationship Specialty Start Date End Date Sunny Zavala, DO [address] [place] [address] PCP - General Family Medicine 08/30/22 Psychological Assistant Relationship Specialty Start Date End Date Sunny aZvala, DO [address] [place] [address] PCP - General Family Medicine 08/30/22 Psychological Assistant Relationship Specialty Start Date End Date LindaSunny, DO [address] [place] [phone] PCP - General Family Medicine 08/30/22 Psychological Assistant Relationship Specialty Start Date End Date LindaSunny, DO [address] [place] [address] PCP - General Family Medicine 08/30/22 Psychological Assistant Relationship Specialty Start Date End Date LindaSunny, DO [address] [place] [phone] PCP - General Family Medicine 08/30/22 Psychological Assistant Relationship Specialty Start Date End Date LindaSunny, DO [address] [place] [phone] PCP - General Family Medicine 08/30/22 Psychological Assistant Relationship Specialty Start Date End Date Linda Sunny Damian, DO [address] [place] [phone] PCP - General Family Medicine 08/30/22 Psychological Assistant Relationship Specialty Start Date End Date Linda Sunny Damian, DO [address] [place] [phone] PCP - General Family Medicine 08/30/22 Team Status: Inactive Member Role Status Dates Dr. Sunny Zavala DO Primary Care Provider Active Start: August 16, 2024 End: August 16, 2024 Dr. Sunny Zavala DO Attending Provider Active Start: August 16, 2024 End: August 16, 2024 Dr. Sunny Zavala DO Referring Provider Active Start: August 16, 2024 End: August 16, 2024 Team Status: Inactive Member Role Status Dates Dr. Sunny Zavala DO Primary Care Provider Active Start: October 01, 2024 End: October 12, 2024 Dr. Sunny Zavala DO Attending Provider Active Start: October 01, 2024 End: October 12, 2024 Dr. Sunny Zavala DO Referring Provider Active Start: October 01, 2024 End: October 12, 2024 YANCY RODRÍGUEZ Other Provider Active Start: Christine cristobal 2024 End: October 12, 2024 Team Status: Inactive Member Role Status Dates Dr. Sunny Zavala DO Primary Care Provider Active Start: November 05, 2024 End: November 05, 2024 Dr. Sunny Zavala DO Attending Provider Active Start: November 05, 2024 End: November 05, 2024 Dr. Sunny Zavala DO Referring Provider Active Start: November 05, 2024 End: November 05, 2024 YANCY RODRÍGUEZ Other Provider Active Start: Rik [facility] 2024 End: November 05, 2024 Psychological Assistant Relationship Specialty Start Date End Date Sunny Zavala DO [address] [place] [address] [address] [place] [phone] PCP - General Family Medicine 08/30/22 Team Status: Inactive Member Role Status Dates Dr. Sunny Zavala DO Primary Care Provider Active Start: December 06, 2024 End: December 12, 2024 Dr. Sunny Zavala DO Attending Provider Active Start: December 06, 2024 End: December 12, 2024 Dr. Sunny Zavala DO Referring Provider Active Start: December 06, 2024 End: December 12, 2024 YANCY RODRÍGUEZ Other Provider Active Start: [facility] 2024 End: December 12, 2024 Team Status: Inactive Member Role Status Dates Dr. Sunny Zavala DO Primary Care Provider Active Start: January 10, 2025 End: January 10, 2025 Dr. Sunny Zavala DO Attending Provider Active Start: January 10, 2025 End: January 10, 2025 Dr. Sunny Zavala DO Referring Provider Active Start: January 10, 2025 End: January 10, 2025 YANCY RODRÍGUEZ Other Provider Active Start: Rik thornton 2024 End: January 10, 2025 Psychological Assistant Relationship Specialty Start Date End Date Sunny Zavala [address] [place] [address] PCP - General Family Medicine 08/30/22 Psychological Assistant Relationship Specialty Start Date End Date Sunny Zavala Rickie [address] [place] [address] PCP - General Family Medicine 08/30/22 Team Status: Active Member Role/Relationship Status Dates Dr. Sunny Zavala DO Primary Care Provider Active Team Status: Inactive Member Role/Relationship Status Dates Dr. Sunny Zavala DO Primary Care Provider Active Start: November 05, 2024 End: November 05, 2024 Dr. Sunny Zavala DO Attending Provider Active Start: November 05, 2024 End: November 05, 2024 Dr. Sunny Zavala DO Referring Provider Active Start: November 05, 2024 End: November 05, 2024 YANCY RODRÍGUEZ Other Provider Active Start: [facility] 2024 End: November 05, 2024 Team Status: Inactive Member Role/Relationship Status Dates Dr. Sunny Zavala DO Primary Care Provider Active Start: December 06, 2024 End: December 12, 2024 Dr. Sunny Zavala DO Attending Provider Active Start: December 06, 2024 End: December 12, 2024 Dr. Sunny Zavala DO Referring Provider Active Start: December 06, 2024 End: December 12, 2024 YANCY RODRÍGUEZ Other Provider Active Start: 2024 End: December 12, 2024 Team Status: Inactive Member Role/Relationship Status Dates Dr. Sunny Zavala DO Primary Care Provider Active Start: January 10, 2025 End: January 10, 2025 Dr. Sunny Zavala DO Attending Provider Active Start: January 10, 2025 End: January 10, 2025 Dr. Sunny Zavala DO Referring Provider Active Start: January 10, 2025 End: January 10, 2025 YANCY RODRÍGUEZ Other Provider Active Start: Rik thornton 2024 End: January 10, 2025 Team Status: Inactive Member Role/Relationship Status Dates Dr. Sunny Zavala DO Primary Care Provider Active Start: January 29, 2025 End: January 29, 2025 Dr. Sunny Zavala DO Attending Provider Active Start: January 29, 2025 End: January 29, 2025 Dr. Sunny Zavala DO Referring Provider Active Start: January 29, 2025 End: January 29, 2025 ANNEYANCY Other Provider Active Start: Oliva thompson 2024 End: January 29, 2025 Psychological Assistant Relationship Specialty Start Date End Date Sunny Zavala DO [address] [facility] [address] [place] [address] PCP - General Family Medicine 08/30/22 Goals (unrecognized section and content) Goals may be documented in a n alternate sectionGoals may be documented in an alternate sectionGoals may be documented in an alternate sectionGoals may be documented in an alternate sectionGoals may be documented in an alternate sectionGoals may be documented in an alternate sectionGoals may be documented in an alternate sectionGoals may be documented in an alternate sectionGoals may be documented in an alternate sectionGoals may be documented in an alternate sectionGoals may be documented in an alternate sectionGoals may be documented in an alternate section Reason for Visit (unrecogniz ed section and content) Reason Onset Date Comments Error (VOID this visit) 07/29/2022 Reason Comments Med Refill Reason Onset Date Comments Med Refill 11/19/2022 Reason Onset Date Comments Results 11/25/2022 Reason Onset Date Comments needs A1C and INR was done at [facility] 11/19/2022 Needs INR results 11/17/22 at [facility] and would like A1C checked due to new medicine Reason Comments Diabetes Discuss meds Reason Onset Date Comments Results 02/25/2023 Reason Comments Follow-up 3 month med checkHe cut back on his metoprolol Reason Onset Date Comments Referral 04/11/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 Reason Onset Date Comments INR Results 05/27/2023 Reason Onset Date Comments Med Refill 07/08/2023 metFORMIN (Gluco phage) 1000 MG tablet Reason Comments Follow-up 3 month med check Reason Onset Date Comments Med Refill 08/02/2023 warfarin (Coumad in) 5 MG tablet Reason Onset Date Comments Med Refill 08/24/2023 Reason Onset Date Comments Med Refill 10/27/2023 Reason Comments Follow-up Med check Reason Onset Date Comments Dizziness 02/15/2024 Reason Comments Follow-up 4 month med check Reason Comments Follow-up Med check Flu Vaccine Patient has declined the flu vaccine Immunizations Pt declined Pneumoco ccal Vaccine: Reason Onset Date Comments Med Refill 07/05/2024 Reason Onset Date Comments Referral 07/24/2024 Reason Onset Date Comments Referral 07/24/2024 Reason Onset Date Comments Establish Care 08/30/2022 Reason Onset Date Comments Release of Information 08/02/2022 Reason Comments New Patient Reason Onset Date Comments Returning Call 08/13/2022 Reason Onset Date Comments Medication Question 09/17/2022 Reason Onset Date Comments Message 09/14/2022 Reason Onset Date Comments Appointment 07/26/2024 Reason Comments Diabetes Follow-up Specialty Diagnoses / Procedures Referred By [place] t Referred To Contact Endocrinology Diagnoses Type 2 diabetes mellitus with diabetic polyneuropathy, without long-term current use of insulin (HCC) Procedures AR OFFICE/OUTPATIENT NEW HIGH MDM 60 MINUTES Sunny Zavala F, DO [address] [place] [address] Phone: tel: fax: [facility] [address] [place] [address] Phone: tel: fax: Referral ID Status Reason Start Date Expiration Date Visits Requested Visits Authorized [id number] Pending Review Specialty Services Required 07/24/2025 1 1 Reason Onset Date Comments Med Refill 09/18/2024 Reason Comments Diabetes Mellitus T2DM Reason Comments Follow-up Med check Immunizations Pt declined Pneumoco ccal Vaccine: Reason Comments Follow-up MNT Reason Comments Follow-up Diabetes Mellitus Reason Onset Date Comments Error (VOID this visit) 01/29/2025 Reason Onset Date Comments Results 02/06/2025 INR Reason Onset Date Comments Error (VOID this visit) 02/08/2025 Reason Comments Follow-up Med check Immunizations Pt declined Pneumoco ccal Vaccine: FOR RECORDS PERTAINING TO PATIENTS WHO ARE OR HAVE BEEN ENROLLED IN A CHEMICAL DEPENDENCY/SUBSTANCEABUSE PROGRAM, SOME INFORMATION MAY BE OMITTED. This clinical summary was aggregated from multiple sources. Caution should be exercised in using it in the provision of clinical care. This summary normalizes information from multiple sources, and as a consequence, information in this document may materially change the coding, format and clinical context of patient data. In addition, data may be omitted in some cases. CLINICAL DECISIONS SHOULD BE BASED ON THE PRIMARY CLINICAL RECORDS. [facility] [employer] [facility]. provides no warranty or guarantee of the accuracy or completeness of information in this document.
[2025-03-02] MEDS: 0.9% Normal Saline (1000mL) 1,000 ML 999 ML IV (16:14)
[2025-03-02] MEDS: Orphenadrine 60 MG/2 ML Ampul 30 MG IV (16:15)
[2025-03-02 16:35] LABS: Prothrombin Time (Protime)PT. 22.5 SECONDS (11.7-14.9)
[2025-03-02 16:36] LABS: Partial Thromboplast Time 24.4 Seconds (24.1-36.2)
[2025-03-02 17:02] VITALS: BP 143/83; PULSE 81; RESP 21; O2SAT 97
[2025-03-02 17:58] LABS: AST(SGOT) 20 U/L (<=37); Alanine Aminotransfer ALT/SGPT 16 U/L (<=46); Albumin, Serum 3.9 g/dL (3.4-4.8); Alkaline Phosphatase 58 U/L (40-129); Anion Gap 8 (5-15); BUN 20 mg/dL (4-19); BUN/Creat Ratio 17.1 RATIO (10-20); Bilirubin, Direct 0.10 mg/dL (0.00-0.30); Calcium,Total 9.1 mg/dL (7.6-11.0); Carbon Dioxide 22.3 mmol/L (21.0-32.0); Chloride 108 mmol/L (98-108); Estimated Creatinine Clearance 69.50 ml/min (50-250); Globulin 2.7 g/dL (2.2-4.2); Glucose 149 mg/dL (70-99); Potassium 4.7 mmol/L (3.3-5.1)
[2025-03-02 18:46] VITALS: BP 133/85; PULSE 93; RESP 23; O2SAT 96
[2025-03-02 19:25] VITALS: BP 135/84; PULSE 86; RESP 18; TEMP 37; O2SAT 95
== END 2025-03-02 20:06 | disposition home or self-care (01) ==
PROVIDERS: Emergency Provider Emergency Medicine; PCP Family Medicine; Referring Provider Emergency Medicine; Visit Provider Emergency Medicine
DX: S22.42XA Multiple fractures of ribs, left side, initial encounter for closed fracture (principal); S32.019A Unspecified fracture of first lumbar vertebra, initial encounter for closed fracture; E11.9 Type 2 diabetes mellitus without complications; W10.9XXA Fall (on) (from) unspecified stairs and steps, initial encounter
CPT/HCPCS: 70450; 71260; 72125; 73590; 74177; 80048; 80076; 85610; 85730; 93005; 96361; 96374; 96375; 96376; 99284; Q9967; A4216; J2405